=== PATIENT | male | born 1965 | race African-American/Black ===

== ENCOUNTER 2017-01-21 14:41 | Inpatient (IN) | payer MEDICARE, OTHER ==
[2017-01-21] MEDS: ALBUTEROL 0.5% (NEB) 2.5 MG/0.5 ML AMP INH (20:00)
[2017-01-21] MEDS: IPRATROPIUM (NEB) 0.5 MG/2.5 ML AMP INH (20:00)
[2017-01-21 20:28] LABS: AADO2 Arterial 192.9 mmHg (7.0-24.0); Allen Test ACCEPTAB; Arterial Base Excess -2.7 mmol/L (-3.0-3); Arterial Blood Gas Oxygen Sat 98.7 mmHG (95.0-98.0); Arterial COHb 0.6 % (0.0-3.0); Arterial Fraction of Oxyhgb 97.9 % (93.0-99.0); Arterial HCO3 19.8 mmol/L (22.0-26.0); Arterial MetHb 0.2 % (0.0-1.5); Arterial Total Hemglobin 11.3 g/dl (12.0-18.0); Arterial pCO2 27.4 mmhg (35-45); MODE MASK - SIMPLE; Site Left Radial
[2017-01-21 20:56] LABS: ADD MAN DIFF? NO
[2017-01-21 20:58] LABS: ABNORMAL IP MESSAGE 1; BASOPHIL # 0.1 10^3/ul (0.0-0.1); BASOPHILS % 0.5 % (0.0-2.0); HEMATOCRIT 24.3 % (42.0-52.0); HEMOGLOBIN 8.2 g/dl (14.0-18.0); LYMPHOCYTES # 1.6 10^3/ul (0.8-2.9); LYMPHOCYTES % 10.6 % (15.0-51.0); MEAN CORPUSCULAR HEMOGLOBIN 28.3 pg (29.0-33.0); MEAN CORPUSCULAR HGB CONC 33.7 g/dl (32.0-37.0); MEAN CORPUSCULAR VOLUME 83.8 fl (82.0-101.0); MONOCYTE # 1.7 10^3/ul (0.3-0.9); MONOCYTES % 10.8 % (0.0-11.0); NEUTROPHIL # 11.8 10^3/ul (1.6-7.5); NEUTROPHILS % 76.9 % (39.0-77.0); NUCLEATED RED BLOOD CELLS% 0.2 /100WBC (0.0-0.0); PLATELET COUNT 168 10^3/UL (140-415); POSITIVE DIFF @See below; RED CELL DISTRIBUTION WIDTH 19.8 % (11.5-14.5)
[2017-01-21 20:58] LABS: WHITE BLOOD COUNT 15.3 10^3/ul (4.8-10.8)
[2017-01-21] MEDS: IBUPROFEN 600 MG TAB PO (20:58)
[2017-01-21] MEDS: LEVOFLOXACIN 750MG/D5W (PMX) 150 ML IVPB (21:00)
[2017-01-21] MEDS: METHYLPREDNISOLONE 125 MG INJ IV (21:00)
[2017-01-21 21:16] LABS: INR 1.74; PROTIME 20.7 Sec (11.9-14.9); PT RATIO 1.6
[2017-01-21 21:17] LABS: PARTIAL THROMBOPLASTIN TIME 43.4 Sec (25.0-35.0)
[2017-01-21 21:22] LABS: ALANINE AMINOTRANSFERASE 23 IU/L (13-69); ALBUMIN 3.1 g/dl (3.3-4.9); ALBUMIN/GLOBULIN RATIO 0.86; ALKALINE PHOSPHATASE 151 IU/L (42-121); ANION GAP 18 (8-16); ASPARTATE AMINO TRANSFERASE 32 IU/L (15-46); BILIRUBIN,INDIRECT 0.2 mg/dl (0-1.1); BILIRUBIN,TOTAL 0.2 mg/dl (0.2-1.3); BLOOD UREA NITROGEN 25 mg/dl (7-20); CARBON DIOXIDE 23 mmol/L (21-31); CHLORIDE 105 mmol/L (97-110); CREATININE 4.09 mg/dl (0.61-1.24); GLUCOSE 100 mg/dl (70-220); SODIUM 141 mmol/L (135-144); TOTAL PROTEIN 6.7 g/dl (6.1-8.1)
[2017-01-21 21:27] LABS: LIPASE < 10 U/L (23-300)
[2017-01-21 21:28] LABS: POTASSIUM 5.2 mmol/L (3.5-5.1)
[2017-01-21 21:29] LABS: LACTIC ACID 2.7 mmol/L (0.5-2.0)
[2017-01-21 21:32] LABS: TROPONIN-I 0.049 ng/ml (0.00-0.12)
[2017-01-21 21:46] LABS: B-TYPE NATRIURETIC PEPTIDE 166000 PG/ML (0-125)
[2017-01-21] MEDS ORDERED: FUROSEMIDE 40 MG INJ IV (22:00)
[2017-01-21] MEDS: hydrALAzine 20 MG INJ IV (22:06)
[2017-01-21] MEDS: ENALAPRILAT 1.25 MG INJ IV (22:13)
[2017-01-21] MEDS: VANCOMYCIN 1 GM (PMX) 250 ML IVPB (22:15)
[2017-01-21] MEDS: NICARDipine HCL 30 MG CAPSULE PO (22:44)
[2017-01-21 22:47] LABS: LACTIC ACID 2.6 mmol/L (0.5-2.0)
[2017-01-22 01:58] LABS: LACTIC ACID 2.6 mmol/L (0.5-2.0)
[2017-01-22] MEDS ORDERED: VANCOMYCIN IV PER PHARMACY XX (08:30)
[2017-01-22] MEDS ORDERED: ALBUTEROL/IPRATROPIUM (NEB) 3 ML AMP HHN (08:30)
[2017-01-22] MEDS: CEFEPIME 1GM/50 ML (PMX) 50 ML IVPB (09:30)
[2017-01-22] MEDS: VANCOMYCIN 500MG/NS (PMX) 100 ML IVPB (12:55)
[2017-01-22] MEDS ORDERED: ACETAMINOPHEN 325 MG TAB PO (14:30)
[2017-01-22] MEDS: morphine 2 MG INJ IV ×2 (14:45→22:26)
[2017-01-22] MEDS: oxyCODONE (CR) 10 MG TAB [oxyCONTIN] PO (16:00)
[2017-01-22 16:19] LABS: ADD MAN DIFF? NO
[2017-01-22 16:22] LABS: ABNORMAL IP MESSAGE 1; BASOPHILS % 0.1 % (0.0-2.0); HEMATOCRIT 29.1 % (42.0-52.0); HEMOGLOBIN 10.1 g/dl (14.0-18.0); LYMPHOCYTES # 1.5 10^3/ul (0.8-2.9); LYMPHOCYTES % 7.4 % (15.0-51.0); MEAN CORPUSCULAR HEMOGLOBIN 28.6 pg (29.0-33.0); MEAN CORPUSCULAR HGB CONC 34.7 g/dl (32.0-37.0); MEAN CORPUSCULAR VOLUME 82.4 fl (82.0-101.0); MEAN PLATELET VOLUME 11.6 fl (7.4-10.4); MONOCYTE # 1.7 10^3/ul (0.3-0.9); MONOCYTES % 8.1 % (0.0-11.0); NEUTROPHIL # 17.4 10^3/ul (1.6-7.5); NEUTROPHILS % 83.7 % (39.0-77.0); NUCLEATED RED BLOOD CELLS # 0.1 10^3/ul (0.0-0.0); NUCLEATED RED BLOOD CELLS% 0.4 /100WBC (0.0-0.0); PLATELET COUNT 220 10^3/UL (140-415); POSITIVE DIFF @See below; RED BLOOD COUNT 3.53 10^6/ul (4.70-6.10); RED CELL DISTRIBUTION WIDTH 19.6 % (11.5-14.5)
[2017-01-22 16:22] LABS: WHITE BLOOD COUNT 20.7 10^3/ul (4.8-10.8)
[2017-01-22 16:40] LABS: ANION GAP 16 (8-16); BLOOD UREA NITROGEN 41 mg/dl (7-20); CALCIUM 8.1 mg/dl (8.4-10.2); CARBON DIOXIDE 20 mmol/L (21-31); CHLORIDE 105 mmol/L (97-110); CREATININE 4.67 mg/dl (0.61-1.24); GLUCOSE 359 mg/dl (70-220); SODIUM 135 mmol/L (135-144)
[2017-01-22 17:04] LABS: CHOLESTEROL 67 mg/dl (100-200)
[2017-01-22 17:04] LABS: CHOL/HDL RATIO 1.5 RATIO; HDL CHOLESTEROL 42 mg/dl (28-71); LDL CHOLESTEROL,CALCULATED 9 mg/dl; TRIGLYCERIDES 78 mg/dl (0-149)
[2017-01-22 21:57] LABS: HIV 1&2 ANTIBODY NEGATIVE (NEGATIVE)
[2017-01-22] MEDS: LEVETIRACETAM 500 MG TAB PO (22:12)
[2017-01-22] MEDS: DOXYCYCLINE 100 MG TAB PO (22:12)
[2017-01-22] MEDS: METOPROLOL 25 MG TAB PO (22:13)
[2017-01-22] MEDS: GABAPENTIN 100 MG CAP PO (22:14)
[2017-01-22] MEDS: oxyCODONE (CR) 20 MG TAB [oxyCONTIN] PO (23:40)
[2017-01-23] MEDS: PANTOPRAZOLE (EC) 40 MG TAB PO (05:12)
[2017-01-23 05:34] LABS: AADO2 Arterial 35.4 mmHg (7.0-24.0); Allen Test ACCEPTAB; Arterial Base Excess -2.1 mmol/L (-3.0-3); Arterial Blood Gas Oxygen Sat 87.4 mmHG (95.0-98.0); Arterial COHb 0.4 % (0.0-3.0); Arterial HCO3 23.6 mmol/L (22.0-26.0); Arterial MetHb 0.1 % (0.0-1.5); Arterial Total Hemglobin 10.2 g/dl (12.0-18.0); MODE ROOM AIR; Site Left Radial
[2017-01-23 08:25] LABS: ADD MAN DIFF? NO
[2017-01-23 08:31] LABS: WHITE BLOOD COUNT 16.2 10^3/ul (4.8-10.8)
[2017-01-23 08:31] LABS: ABNORMAL IP MESSAGE 1; BASOPHILS % 0.2 % (0.0-2.0); EOSINOPHILS # 0.1 10^3/ul (0.0-0.5); EOSINOPHILS % 0.3 % (0.0-7.0); HEMATOCRIT 26.2 % (42.0-52.0); HEMOGLOBIN 8.7 g/dl (14.0-18.0); LYMPHOCYTES # 1.8 10^3/ul (0.8-2.9); LYMPHOCYTES % 11.3 % (15.0-51.0); MEAN CORPUSCULAR HEMOGLOBIN 27.8 pg (29.0-33.0); MEAN CORPUSCULAR HGB CONC 33.2 g/dl (32.0-37.0); MEAN CORPUSCULAR VOLUME 83.7 fl (82.0-101.0); MEAN PLATELET VOLUME 12.5 fl (7.4-10.4); MONOCYTE # 2.4 10^3/ul (0.3-0.9); MONOCYTES % 14.7 % (0.0-11.0); NEUTROPHIL # 11.7 10^3/ul (1.6-7.5); NEUTROPHILS % 72.6 % (39.0-77.0); NUCLEATED RED BLOOD CELLS # 0.1 10^3/ul (0.0-0.0); NUCLEATED RED BLOOD CELLS% 0.4 /100WBC (0.0-0.0); PLATELET COUNT 180 10^3/UL (140-415); POSITIVE DIFF @See below; RED BLOOD COUNT 3.13 10^6/ul (4.70-6.10); RED CELL DISTRIBUTION WIDTH 19.3 % (11.5-14.5)
[2017-01-23] MEDS: oxyCODONE (CR) 20 MG TAB [oxyCONTIN] PO (08:35)
[2017-01-23] MEDS: CEFEPIME 1GM/50 ML (PMX) 50 ML IVPB (08:35)
[2017-01-23] MEDS: CALCITRIOL 0.25 MCG CAP PO (08:36)
[2017-01-23] MEDS: OLANZAPINE 5 MG TAB PO (08:36)
[2017-01-23] MEDS: LEVETIRACETAM 500 MG TAB PO ×2 (08:36→21:02)
[2017-01-23] MEDS: MULTIVIT/CA CARB/B CMPLX/FA TAB PO (08:36)
[2017-01-23] MEDS: DOXYCYCLINE 100 MG TAB PO (08:36)
[2017-01-23] MEDS: GABAPENTIN 100 MG CAP PO ×3 (08:37→21:02)
[2017-01-23] MEDS: METOPROLOL 25 MG TAB PO ×2 (08:37→21:06)
[2017-01-23 08:54] LABS: ANION GAP 14 (8-16); BLOOD UREA NITROGEN 36 mg/dl (7-20); CALCIUM 8.1 mg/dl (8.4-10.2); CARBON DIOXIDE 25 mmol/L (21-31); CHLORIDE 101 mmol/L (97-110); CREATININE 3.97 mg/dl (0.61-1.24); GLUCOSE 199 mg/dl (70-220); POTASSIUM 4.1 mmol/L (3.5-5.1); SODIUM 136 mmol/L (135-144)
[2017-01-23] MEDS ORDERED: ACETAMINOPHEN 500 MG TAB PO (10:00)
[2017-01-23] MEDS: morphine 2 MG INJ IV (12:54)
[2017-01-23] MEDS: HYDROCODONE/APAP (5/325) TAB PO (21:15)
[2017-01-24] MEDS: HYDROCODONE/APAP (5/325) TAB PO (04:42)
[2017-01-24] MEDS: PANTOPRAZOLE (EC) 40 MG TAB PO (06:17)
[2017-01-24 07:28] LABS: VANCOMYCIN,RANDOM 13.2 ug/ml
[2017-01-24] MEDS: LEVETIRACETAM 500 MG TAB PO ×2 (08:24→21:35)
[2017-01-24] MEDS: METOPROLOL 25 MG TAB PO (08:24)
[2017-01-24] MEDS: OLANZAPINE 5 MG TAB PO (08:24)
[2017-01-24] MEDS: MULTIVIT/CA CARB/B CMPLX/FA TAB PO (08:24)
[2017-01-24] MEDS: CALCITRIOL 0.25 MCG CAP PO (08:25)
[2017-01-24] MEDS: GABAPENTIN 100 MG CAP PO ×3 (08:25→21:35)
[2017-01-24] MEDS: morphine 2 MG INJ IV (08:30)
[2017-01-24] MEDS: VANCOMYCIN 1 GM in NS 250 ML IVPB (11:08)
[2017-01-24] MEDS: MUPIROCIN 2% 22 GM OINT TOP ×2 (14:56→21:35)
[2017-01-24] MEDS: hydrALAzine 20 MG INJ IV (18:46)
[2017-01-24] MEDS: METOPROLOL 50 MG TAB PO (21:00)
[2017-01-25] MEDS: morphine 2 MG INJ IV ×3 (00:19→19:02)
[2017-01-25] MEDS: PANTOPRAZOLE (EC) 40 MG TAB PO (05:27)
[2017-01-25] MEDS: LEVETIRACETAM 500 MG TAB PO ×2 (08:08→20:57)
[2017-01-25] MEDS: MULTIVIT/CA CARB/B CMPLX/FA TAB PO (08:08)
[2017-01-25] MEDS: CALCITRIOL 0.25 MCG CAP PO (08:08)
[2017-01-25] MEDS: OLANZAPINE 5 MG TAB PO (08:08)
[2017-01-25] MEDS: GABAPENTIN 100 MG CAP PO ×3 (08:08→20:57)
[2017-01-25] MEDS: MUPIROCIN 2% 22 GM OINT TOP ×2 (08:09→20:58)
[2017-01-25] MEDS: METOPROLOL 50 MG TAB PO ×2 (08:09→20:57)
[2017-01-25 09:03] LABS: ADD MAN DIFF? NO
[2017-01-25 09:13] LABS: WHITE BLOOD COUNT 10.6 10^3/ul (4.8-10.8)
[2017-01-25 09:13] LABS: ABNORMAL IP MESSAGE 1; BASOPHIL # 0.1 10^3/ul (0.0-0.1); BASOPHILS % 0.6 % (0.0-2.0); EOSINOPHILS # 0.4 10^3/ul (0.0-0.5); EOSINOPHILS % 3.8 % (0.0-7.0); HEMATOCRIT 24.7 % (42.0-52.0); HEMOGLOBIN 8.7 g/dl (14.0-18.0); LYMPHOCYTES # 2.4 10^3/ul (0.8-2.9); LYMPHOCYTES % 22.3 % (15.0-51.0); MEAN CORPUSCULAR HEMOGLOBIN 28.2 pg (29.0-33.0); MEAN CORPUSCULAR HGB CONC 35.2 g/dl (32.0-37.0); MEAN CORPUSCULAR VOLUME 80.2 fl (82.0-101.0); MEAN PLATELET VOLUME 12.2 fl (7.4-10.4); MONOCYTES % 18.9 % (0.0-11.0); NEUTROPHIL # 5.7 10^3/ul (1.6-7.5); NEUTROPHILS % 53.5 % (39.0-77.0); NUCLEATED RED BLOOD CELLS # 0.2 10^3/ul (0.0-0.0); NUCLEATED RED BLOOD CELLS% 2.2 /100WBC (0.0-0.0); PLATELET COUNT 182 10^3/UL (140-415); POSITIVE DIFF @See below; RED BLOOD COUNT 3.08 10^6/ul (4.70-6.10); RED CELL DISTRIBUTION WIDTH 18.2 % (11.5-14.5)
[2017-01-25 09:48] LABS: ANION GAP 14 (8-16); BLOOD UREA NITROGEN 41 mg/dl (7-20); CALCIUM 8.7 mg/dl (8.4-10.2); CARBON DIOXIDE 23 mmol/L (21-31); CHLORIDE 104 mmol/L (97-110); CREATININE 5.68 mg/dl (0.61-1.24); GLUCOSE 93 mg/dl (70-220); POTASSIUM 4.7 mmol/L (3.5-5.1); SODIUM 136 mmol/L (135-144)
[2017-01-25] MEDS: HYDROCODONE/APAP (5/325) TAB PO (12:07)
[2017-01-26] MEDS: morphine 2 MG INJ IV ×3 (02:47→20:57)
[2017-01-26] MEDS: PANTOPRAZOLE (EC) 40 MG TAB PO (05:59)
[2017-01-26 08:54] LABS: ADD MAN DIFF? NO
[2017-01-26 08:56] LABS: ABNORMAL IP MESSAGE 1; BASOPHIL # 0.1 10^3/ul (0.0-0.1); BASOPHILS % 0.6 % (0.0-2.0); EOSINOPHILS # 0.5 10^3/ul (0.0-0.5); EOSINOPHILS % 4.2 % (0.0-7.0); HEMATOCRIT 23.9 % (42.0-52.0); HEMOGLOBIN 8.2 g/dl (14.0-18.0); LYMPHOCYTES # 2.5 10^3/ul (0.8-2.9); LYMPHOCYTES % 20.9 % (15.0-51.0); MEAN CORPUSCULAR HEMOGLOBIN 27.9 pg (29.0-33.0); MEAN CORPUSCULAR HGB CONC 34.3 g/dl (32.0-37.0); MEAN CORPUSCULAR VOLUME 81.3 fl (82.0-101.0); MEAN PLATELET VOLUME 11.7 fl (7.4-10.4); MONOCYTE # 2.6 10^3/ul (0.3-0.9); NEUTROPHILS % 50.5 % (39.0-77.0); NUCLEATED RED BLOOD CELLS # 0.2 10^3/ul (0.0-0.0); NUCLEATED RED BLOOD CELLS% 1.8 /100WBC (0.0-0.0); PLATELET COUNT 160 10^3/UL (140-415); POSITIVE DIFF @See below; RED BLOOD COUNT 2.94 10^6/ul (4.70-6.10); RED CELL DISTRIBUTION WIDTH 18.4 % (11.5-14.5)
[2017-01-26 08:56] LABS: WHITE BLOOD COUNT 11.8 10^3/ul (4.8-10.8)
[2017-01-26 08:59] LABS: MONOCYTES % 21.8 % (0.0-11.0)
[2017-01-26] MEDS: LEVETIRACETAM 500 MG TAB PO ×2 (09:16→20:56)
[2017-01-26] MEDS: OLANZAPINE 5 MG TAB PO (09:16)
[2017-01-26] MEDS: MULTIVIT/CA CARB/B CMPLX/FA TAB PO (09:16)
[2017-01-26] MEDS: CALCITRIOL 0.25 MCG CAP PO (09:16)
[2017-01-26] MEDS: GABAPENTIN 100 MG CAP PO ×3 (09:16→20:56)
[2017-01-26] MEDS: METOPROLOL 50 MG TAB PO ×2 (09:17→20:56)
[2017-01-26] MEDS: MUPIROCIN 2% 22 GM OINT TOP ×2 (09:17→21:11)
[2017-01-26 09:25] LABS: ANION GAP 14 (8-16); BLOOD UREA NITROGEN 33 mg/dl (7-20); CALCIUM 8.1 mg/dl (8.4-10.2); CARBON DIOXIDE 25 mmol/L (21-31); CHLORIDE 100 mmol/L (97-110); CREATININE 5.25 mg/dl (0.61-1.24); GLUCOSE 109 mg/dl (70-220); POTASSIUM 3.8 mmol/L (3.5-5.1); SODIUM 135 mmol/L (135-144)
[2017-01-26] MEDS: LIDOCAINE 1% (MDV) 20 ML INJ (15:09)
[2017-01-26 15:16] LABS: PROCALCITONIN 7.19 ng/mL (<0.10)
[2017-01-27] MEDS: morphine 2 MG INJ IV ×3 (01:42→20:27)
[2017-01-27] MEDS: PANTOPRAZOLE (EC) 40 MG TAB PO (06:03)
[2017-01-27 08:24] LABS: ADD MAN DIFF? NO
[2017-01-27 08:30] LABS: WHITE BLOOD COUNT 11.9 10^3/ul (4.8-10.8)
[2017-01-27 08:30] LABS: ABNORMAL IP MESSAGE 1; BASOPHIL # 0.1 10^3/ul (0.0-0.1); EOSINOPHILS # 0.6 10^3/ul (0.0-0.5); EOSINOPHILS % 4.6 % (0.0-7.0); HEMATOCRIT 25.8 % (42.0-52.0); LYMPHOCYTES # 2.4 10^3/ul (0.8-2.9); LYMPHOCYTES % 19.9 % (15.0-51.0); MEAN CORPUSCULAR HGB CONC 34.9 g/dl (32.0-37.0); MEAN CORPUSCULAR VOLUME 80.4 fl (82.0-101.0); MEAN PLATELET VOLUME 12.7 fl (7.4-10.4); MONOCYTES % 25.3 % (0.0-11.0); NEUTROPHIL # 5.5 10^3/ul (1.6-7.5); NEUTROPHILS % 46.6 % (39.0-77.0); NUCLEATED RED BLOOD CELLS # 0.1 10^3/ul (0.0-0.0); NUCLEATED RED BLOOD CELLS% 1.1 /100WBC (0.0-0.0); PLATELET COUNT 220 10^3/UL (140-415); POSITIVE DIFF @See below; RED BLOOD COUNT 3.21 10^6/ul (4.70-6.10); RED CELL DISTRIBUTION WIDTH 18.4 % (11.5-14.5)
[2017-01-27 08:47] LABS: LACTIC ACID 1.5 mmol/L (0.5-2.0)
[2017-01-27 08:51] LABS: ANION GAP 15 (8-16); BLOOD UREA NITROGEN 41 mg/dl (7-20); CALCIUM 8.4 mg/dl (8.4-10.2); CARBON DIOXIDE 23 mmol/L (21-31); CHLORIDE 101 mmol/L (97-110); CREATININE 5.88 mg/dl (0.61-1.24); GLUCOSE 96 mg/dl (70-220); POTASSIUM 4.3 mmol/L (3.5-5.1); SODIUM 135 mmol/L (135-144)
[2017-01-27 08:56] LABS: VANCOMYCIN,RANDOM 17.9 ug/ml
[2017-01-27] MEDS: HYDROCODONE/APAP (5/325) TAB PO (09:07)
[2017-01-27] MEDS: CALCITRIOL 0.25 MCG CAP PO (09:07)
[2017-01-27] MEDS: LEVETIRACETAM 500 MG TAB PO ×2 (09:07→20:57)
[2017-01-27] MEDS: MUPIROCIN 2% 22 GM OINT TOP ×2 (09:08→20:58)
[2017-01-27] MEDS: MULTIVIT/CA CARB/B CMPLX/FA TAB PO (09:08)
[2017-01-27] MEDS: GABAPENTIN 100 MG CAP PO ×3 (09:08→20:58)
[2017-01-27] MEDS: OLANZAPINE 5 MG TAB PO (09:08)
[2017-01-27] MEDS: METOPROLOL 50 MG TAB PO ×2 (09:09→20:58)
[2017-01-27] MEDS: hydrALAzine 20 MG INJ IV (18:05)
[2017-01-27] MEDS: VANCOMYCIN 750 MG in DEXTROSE 5% 150 ML IVPB (20:14)
[2017-01-27 20:37] LABS: PROCALCITONIN 10.49 ng/mL (<0.10)
[2017-01-28] MEDS: morphine 2 MG INJ IV ×4 (00:35→21:01)
[2017-01-28] MEDS: PANTOPRAZOLE (EC) 40 MG TAB PO (05:34)
[2017-01-28] MEDS: MULTIVIT/CA CARB/B CMPLX/FA TAB PO (08:26)
[2017-01-28] MEDS: LEVETIRACETAM 500 MG TAB PO ×2 (08:27→21:05)
[2017-01-28] MEDS: OLANZAPINE 5 MG TAB PO (08:27)
[2017-01-28] MEDS: CALCITRIOL 0.25 MCG CAP PO (08:27)
[2017-01-28] MEDS: GABAPENTIN 100 MG CAP PO ×3 (08:27→21:05)
[2017-01-28] MEDS: METOPROLOL 50 MG TAB PO ×2 (08:28→21:05)
[2017-01-28] MEDS: MUPIROCIN 2% 22 GM OINT TOP ×2 (08:44→21:08)
[2017-01-28 09:29] LABS: ADD MAN DIFF? NO
[2017-01-28 09:41] LABS: ABNORMAL IP MESSAGE 1; BASOPHIL # 0.1 10^3/ul (0.0-0.1); BASOPHILS % 1.1 % (0.0-2.0); EOSINOPHILS # 0.6 10^3/ul (0.0-0.5); EOSINOPHILS % 4.4 % (0.0-7.0); HEMATOCRIT 24.9 % (42.0-52.0); LYMPHOCYTES # 2.8 10^3/ul (0.8-2.9); LYMPHOCYTES % 21.3 % (15.0-51.0); MEAN CORPUSCULAR HEMOGLOBIN 28.5 pg (29.0-33.0); MEAN CORPUSCULAR HGB CONC 36.1 g/dl (32.0-37.0); MEAN CORPUSCULAR VOLUME 78.8 fl (82.0-101.0); MEAN PLATELET VOLUME 12.3 fl (7.4-10.4); MONOCYTE # 3.4 10^3/ul (0.3-0.9); MONOCYTES % 26.1 % (0.0-11.0); NEUTROPHIL # 5.9 10^3/ul (1.6-7.5); NUCLEATED RED BLOOD CELLS # 0.1 10^3/ul (0.0-0.0); NUCLEATED RED BLOOD CELLS% 0.6 /100WBC (0.0-0.0); PLATELET COUNT 300 10^3/UL (140-415); POSITIVE DIFF @See below; RED BLOOD COUNT 3.16 10^6/ul (4.70-6.10); RED CELL DISTRIBUTION WIDTH 17.8 % (11.5-14.5)
[2017-01-28 09:41] LABS: WHITE BLOOD COUNT 13.1 10^3/ul (4.8-10.8)
[2017-01-28 10:01] LABS: ANION GAP 18 (8-16); BLOOD UREA NITROGEN 46 mg/dl (7-20); CALCIUM 8.7 mg/dl (8.4-10.2); CARBON DIOXIDE 24 mmol/L (21-31); CHLORIDE 102 mmol/L (97-110); CREATININE 6.37 mg/dl (0.61-1.24); GLUCOSE 89 mg/dl (70-220); POTASSIUM 4.6 mmol/L (3.5-5.1); SODIUM 139 mmol/L (135-144)
[2017-01-28] MEDS ORDERED: LIDOCAINE 1% (MDV) 20 ML INJ (10:56)
[2017-01-28] MEDS ORDERED: HEPARIN 1000 UNITS/ML 10 ML INJ (10:56)
[2017-01-28] MEDS ORDERED: IODIXANOL LOCM 100 ML BTL (10:56)
[2017-01-28] MEDS ORDERED: FENTAnyl 50 MCG/ML VIAL (10:57)
[2017-01-28] MEDS ORDERED: MIDAZOLAM 1 MG/ML 2 ML INJ (10:57)
[2017-01-28] MEDS: HYDROCODONE/APAP (5/325) TAB PO (16:13)
[2017-01-28] MEDS: APIXABAN 5 MG TABLET PO (21:05)
[2017-01-29] MEDS: morphine 2 MG INJ IV ×4 (03:29→21:16)
[2017-01-29] MEDS: PANTOPRAZOLE (EC) 40 MG TAB PO (06:03)
[2017-01-29] MEDS: OLANZAPINE 5 MG TAB PO (08:29)
[2017-01-29] MEDS: LEVETIRACETAM 500 MG TAB PO ×2 (08:29→21:17)
[2017-01-29] MEDS: APIXABAN 5 MG TABLET PO ×2 (08:29→21:17)
[2017-01-29] MEDS: MULTIVIT/CA CARB/B CMPLX/FA TAB PO (08:30)
[2017-01-29] MEDS: GABAPENTIN 100 MG CAP PO ×3 (08:30→21:18)
[2017-01-29] MEDS: CALCITRIOL 0.25 MCG CAP PO (08:30)
[2017-01-29] MEDS: METOPROLOL 50 MG TAB PO ×2 (08:32→21:17)
[2017-01-29] MEDS: MUPIROCIN 2% 22 GM OINT TOP ×2 (08:33→21:18)
[2017-01-30] MEDS: morphine 2 MG INJ IV ×4 (01:27→18:32)
[2017-01-30] MEDS: PANTOPRAZOLE (EC) 40 MG TAB PO (05:53)
[2017-01-30] MEDS: MULTIVIT/CA CARB/B CMPLX/FA TAB PO (08:57)
[2017-01-30] MEDS: LEVETIRACETAM 500 MG TAB PO ×2 (08:58→21:20)
[2017-01-30] MEDS: OLANZAPINE 5 MG TAB PO (08:58)
[2017-01-30] MEDS: CALCITRIOL 0.25 MCG CAP PO (08:58)
[2017-01-30] MEDS: GABAPENTIN 100 MG CAP PO ×3 (08:58→21:20)
[2017-01-30] MEDS: METOPROLOL 50 MG TAB PO ×2 (08:59→21:21)
[2017-01-30] MEDS: MUPIROCIN 2% 22 GM OINT TOP ×2 (08:59→21:21)
[2017-01-30] MEDS: APIXABAN 5 MG TABLET PO ×2 (08:59→21:21)
[2017-01-31] MEDS: morphine 2 MG INJ IV ×5 (02:34→21:34)
[2017-01-31] MEDS: PANTOPRAZOLE (EC) 40 MG TAB PO (06:02)
[2017-01-31 06:20] LABS: ABNORMAL IP MESSAGE 1; MEAN CORPUSCULAR HEMOGLOBIN 28.1 pg (29.0-33.0); MEAN CORPUSCULAR VOLUME 80.3 fl (82.0-101.0); MEAN PLATELET VOLUME 10.7 fl (7.4-10.4); NUCLEATED RED BLOOD CELLS% 0.2 /100WBC (0.0-0.0); PLATELET COUNT 280 10^3/UL (140-415); POSITIVE DIFF @See below; RED BLOOD COUNT 2.49 10^6/ul (4.70-6.10); RED CELL DISTRIBUTION WIDTH 17.2 % (11.5-14.5)
[2017-01-31 06:20] LABS: WHITE BLOOD COUNT 10.8 10^3/ul (4.8-10.8)
[2017-01-31 06:42] LABS: ADD MAN DIFF? YES
[2017-01-31 06:48] LABS: ANION GAP 15 (8-16); BLOOD UREA NITROGEN 37 mg/dl (7-20); CALCIUM 8.9 mg/dl (8.4-10.2); CARBON DIOXIDE 24 mmol/L (21-31); CHLORIDE 104 mmol/L (97-110); CREATININE 5.68 mg/dl (0.61-1.24); GLUCOSE 91 mg/dl (70-220); POTASSIUM 4.7 mmol/L (3.5-5.1); SODIUM 138 mmol/L (135-144)
[2017-01-31 07:10] LABS: VANCOMYCIN,RANDOM 15.6 ug/ml
[2017-01-31] MEDS: MULTIVIT/CA CARB/B CMPLX/FA TAB PO (08:30)
[2017-01-31] MEDS: GABAPENTIN 100 MG CAP PO ×3 (08:31→21:01)
[2017-01-31] MEDS: OLANZAPINE 5 MG TAB PO (08:31)
[2017-01-31] MEDS: LEVETIRACETAM 500 MG TAB PO ×2 (08:31→21:32)
[2017-01-31] MEDS: APIXABAN 5 MG TABLET PO ×2 (08:31→21:03)
[2017-01-31] MEDS: METOPROLOL 50 MG TAB PO ×2 (08:32→21:03)
[2017-01-31] MEDS: MUPIROCIN 2% 22 GM OINT TOP ×2 (08:32→21:03)
[2017-01-31 08:47] LABS: ANISOCYTOSIS 3+ (0-0); BAND NEUTROPHILS #M 0.2 10^3/ul (0.0-0.6); BAND NEUTROPHILS % (M) 2 % (0-4); BASOPHIL #M 0.4 10^3/ul (0.0-0.0); BASOPHILS % (M) 4 % (0-2); EOSINOPHILS % (M) 2 % (0-7); GIANT THROMBO% (M) 3 % (0-0); HYPOCHROMASIA 1+ (0-0); LYMPHOCYTES #M 3.5 10^3/ul (0.8-2.9); LYMPHOCYTES % (M) 33 % (15-51); MONOCYTE #M 1.6 10^3/ul (0.3-0.9); MONOCYTES % (M) 15 % (0-11); PLATELET ESTIMATE NORMAL; POIKILOCYTOSIS 1+ (0-0); POLYCHROMASIA 3+ (0-0); SEG NEUT #M 4.9 10^3/ul (1.7-7.5); SEGMENTED NEUTROPHILS (M) % 45 % (39-77); SMUDGE%M 2 % (0-0)
[2017-01-31] MEDS: CALCITRIOL 0.25 MCG CAP PO (09:00)
[2017-01-31 10:14] LABS: ADD MAN DIFF? NO
[2017-01-31 10:25] LABS: WHITE BLOOD COUNT 12.7 10^3/ul (4.8-10.8)
[2017-01-31 10:25] LABS: ABNORMAL IP MESSAGE 1; BASOPHIL # 0.2 10^3/ul (0.0-0.1); BASOPHILS % 1.2 % (0.0-2.0); EOSINOPHILS # 0.5 10^3/ul (0.0-0.5); HEMATOCRIT 22.4 % (42.0-52.0); HEMOGLOBIN 7.6 g/dl (14.0-18.0); LYMPHOCYTES # 3.4 10^3/ul (0.8-2.9); LYMPHOCYTES % 27.2 % (15.0-51.0); MEAN CORPUSCULAR HEMOGLOBIN 27.8 pg (29.0-33.0); MEAN CORPUSCULAR HGB CONC 33.9 g/dl (32.0-37.0); MEAN CORPUSCULAR VOLUME 82.1 fl (82.0-101.0); MEAN PLATELET VOLUME 11.4 fl (7.4-10.4); MONOCYTE # 2.1 10^3/ul (0.3-0.9); MONOCYTES % 16.8 % (0.0-11.0); NEUTROPHIL # 6.3 10^3/ul (1.6-7.5); NEUTROPHILS % 49.9 % (39.0-77.0); PLATELET COUNT 321 10^3/UL (140-415); POSITIVE DIFF @See below; RED BLOOD COUNT 2.73 10^6/ul (4.70-6.10); RED CELL DISTRIBUTION WIDTH 17.2 % (11.5-14.5)
[2017-01-31] MEDS: VANCOMYCIN 1 GM in SOD CHLORIDE 0.9% 250 ML IVPB (16:25)
[2017-02-01] MEDS: morphine 2 MG INJ IV ×4 (04:46→21:48)
[2017-02-01] MEDS: PANTOPRAZOLE (EC) 40 MG TAB PO (05:29)
[2017-02-01 07:21] LABS: ADD MAN DIFF? NO
[2017-02-01 07:22] LABS: WHITE BLOOD COUNT 11.1 10^3/ul (4.8-10.8)
[2017-02-01 07:22] LABS: ABNORMAL IP MESSAGE 1; BASOPHIL # 0.1 10^3/ul (0.0-0.1); BASOPHILS % 1.1 % (0.0-2.0); EOSINOPHILS # 0.5 10^3/ul (0.0-0.5); EOSINOPHILS % 4.3 % (0.0-7.0); HEMATOCRIT 21.4 % (42.0-52.0); HEMOGLOBIN 7.4 g/dl (14.0-18.0); LYMPHOCYTES # 2.7 10^3/ul (0.8-2.9); LYMPHOCYTES % 24.7 % (15.0-51.0); MEAN CORPUSCULAR HEMOGLOBIN 28.2 pg (29.0-33.0); MEAN CORPUSCULAR HGB CONC 34.6 g/dl (32.0-37.0); MEAN CORPUSCULAR VOLUME 81.7 fl (82.0-101.0); MEAN PLATELET VOLUME 10.9 fl (7.4-10.4); MONOCYTE # 1.6 10^3/ul (0.3-0.9); MONOCYTES % 14.8 % (0.0-11.0); NEUTROPHILS % 54.3 % (39.0-77.0); PLATELET COUNT 336 10^3/UL (140-415); POSITIVE DIFF @See below; RED BLOOD COUNT 2.62 10^6/ul (4.70-6.10); RED CELL DISTRIBUTION WIDTH 17.1 % (11.5-14.5)
[2017-02-01] MEDS: METOPROLOL 50 MG TAB PO ×2 (08:21→21:47)
[2017-02-01] MEDS: MULTIVIT/CA CARB/B CMPLX/FA TAB PO (08:21)
[2017-02-01] MEDS: LEVETIRACETAM 500 MG TAB PO ×2 (08:21→21:46)
[2017-02-01] MEDS: APIXABAN 5 MG TABLET PO ×2 (08:21→21:46)
[2017-02-01] MEDS: OLANZAPINE 5 MG TAB PO (08:21)
[2017-02-01] MEDS: GABAPENTIN 100 MG CAP PO ×3 (08:21→21:46)
[2017-02-01 08:31] LABS: ANION GAP 17 (8-16); BLOOD UREA NITROGEN 43 mg/dl (7-20); CALCIUM 9.4 mg/dl (8.4-10.2); CARBON DIOXIDE 24 mmol/L (21-31); CHLORIDE 104 mmol/L (97-110); CREATININE 6.57 mg/dl (0.61-1.24); GLUCOSE 84 mg/dl (70-220); POTASSIUM 5.1 mmol/L (3.5-5.1); SODIUM 140 mmol/L (135-144)
[2017-02-01] MEDS: CALCITRIOL 0.25 MCG CAP PO (09:00)
[2017-02-01] MEDS: AMLODIPINE 2.5 MG TAB PO (13:30)
[2017-02-01] MEDS: MUPIROCIN 2% 22 GM OINT TOP ×2 (13:32→21:46)
[2017-02-02] MEDS: morphine 2 MG INJ IV ×4 (04:55→22:20)
[2017-02-02] MEDS: PANTOPRAZOLE (EC) 40 MG TAB PO (05:46)
[2017-02-02] MEDS: MULTIVIT/CA CARB/B CMPLX/FA TAB PO (08:27)
[2017-02-02] MEDS: GABAPENTIN 100 MG CAP PO ×3 (08:27→20:52)
[2017-02-02] MEDS: AMLODIPINE 2.5 MG TAB PO (08:27)
[2017-02-02] MEDS: LEVETIRACETAM 500 MG TAB PO ×2 (08:27→20:52)
[2017-02-02] MEDS: APIXABAN 5 MG TABLET PO ×2 (08:27→20:52)
[2017-02-02] MEDS: METOPROLOL 50 MG TAB PO ×2 (08:27→20:53)
[2017-02-02] MEDS: OLANZAPINE 5 MG TAB PO (08:27)
[2017-02-02] MEDS: CALCITRIOL 0.25 MCG CAP PO (08:28)
[2017-02-02] MEDS: MUPIROCIN 2% 22 GM OINT TOP ×2 (08:28→20:53)
[2017-02-03] MEDS: morphine 2 MG INJ IV ×3 (02:24→20:46)
[2017-02-03] MEDS: PANTOPRAZOLE (EC) 40 MG TAB PO (05:47)
[2017-02-03] MEDS: AMLODIPINE 2.5 MG TAB PO (08:34)
[2017-02-03] MEDS: METOPROLOL 50 MG TAB PO ×2 (08:34→20:01)
[2017-02-03] MEDS: OLANZAPINE 5 MG TAB PO (09:00)
[2017-02-03] MEDS: MULTIVIT/CA CARB/B CMPLX/FA TAB PO (09:00)
[2017-02-03] MEDS: GABAPENTIN 100 MG CAP PO ×3 (09:00→20:01)
[2017-02-03] MEDS: APIXABAN 5 MG TABLET PO ×2 (09:00→20:01)
[2017-02-03] MEDS: LEVETIRACETAM 500 MG TAB PO ×2 (09:00→20:01)
[2017-02-03] MEDS: MUPIROCIN 2% 22 GM OINT TOP ×2 (09:00→20:02)
[2017-02-03] MEDS: CALCITRIOL 0.25 MCG CAP PO (09:00)
[2017-02-04] MEDS: morphine 2 MG INJ IV ×3 (01:15→14:16)
[2017-02-04] MEDS: PANTOPRAZOLE (EC) 40 MG TAB PO ×2 (05:43→06:13)
[2017-02-04] MEDS: CALCITRIOL 0.25 MCG CAP PO (09:31)
[2017-02-04] MEDS: APIXABAN 5 MG TABLET PO (09:31)
[2017-02-04] MEDS: MULTIVIT/CA CARB/B CMPLX/FA TAB PO (09:32)
[2017-02-04] MEDS: LEVETIRACETAM 500 MG TAB PO (09:32)
[2017-02-04] MEDS: OLANZAPINE 5 MG TAB PO (09:32)
[2017-02-04] MEDS: GABAPENTIN 100 MG CAP PO ×2 (09:32→13:39)
[2017-02-04] MEDS: METOPROLOL 50 MG TAB PO (09:33)
[2017-02-04] MEDS: AMLODIPINE 2.5 MG TAB PO (09:33)
[2017-02-04] MEDS: MUPIROCIN 2% 22 GM OINT TOP (09:34)
[2017-02-04] MEDS: VANCOMYCIN 1 GM 250 ML IVPB (14:15)
== END 2017-02-04 16:25 | disposition home or self-care (01) | DRG 314 ==
LOC: TEL 21:57 → MS2 02-03 21:04 → E/R 14:41
PROC: 0JHL3XZ Insertion of Tunneled Vascular Access Device into Right Upper Leg Subcutaneous Tissue and Fascia, Percutaneous Approach (ICD-10-PCS; principal; 2017-01-28 10:30)
PROC: 02HV33Z Insertion of Infusion Device into Superior Vena Cava, Percutaneous Approach (ICD-10-PCS; 2017-01-28 10:30)
PROC: B518YZA Fluoroscopy of Superior Vena Cava using Other Contrast, Guidance (ICD-10-PCS; 2017-01-28 10:30)
PROC: B50 Imaging, Veins, Plain Radiography (ICD-10-PCS; 2017-01-28 10:30)
PROC: 0WP8X3Z Removal of Infusion Device from Chest Wall, External Approach (ICD-10-PCS; 2017-01-28 10:40)
PROC: 5A1D70Z Performance of Urinary Filtration, Intermittent, Less than 6 Hours Per Day (ICD-10-PCS; 2017-01-28 10:40)
PROC: 5A1D70Z Performance of Urinary Filtration, Intermittent, Less than 6 Hours Per Day (ICD-10-PCS; 2017-01-28 10:40)
PROC: 5A1D70Z Performance of Urinary Filtration, Intermittent, Less than 6 Hours Per Day (ICD-10-PCS; 2017-01-28 10:40)
PROC: 5A1D70Z Performance of Urinary Filtration, Intermittent, Less than 6 Hours Per Day (ICD-10-PCS; 2017-01-28 10:40)
PROC: 5A1D70Z Performance of Urinary Filtration, Intermittent, Less than 6 Hours Per Day (ICD-10-PCS; 2017-01-28 10:40)
PROC: 5A1D70Z Performance of Urinary Filtration, Intermittent, Less than 6 Hours Per Day (ICD-10-PCS; 2017-01-28 10:40)
DX: T82.7XXA Infection and inflammatory reaction due to other cardiac and vascular devices, implants and grafts, initial encounter (principal); A41.02 Sepsis due to Methicillin resistant Staphylococcus aureus; N18.6 End stage renal disease; G93.41 Metabolic encephalopathy; I50.41 Acute combined systolic (congestive) and diastolic (congestive) heart failure; J18.9 Pneumonia, unspecified organism; J96.01 Acute respiratory failure with hypoxia; J96.02 Acute respiratory failure with hypercapnia; I82.403 Acute embolism and thrombosis of unspecified deep veins of lower extremity, bilateral; R65.20 Severe sepsis without septic shock; I82.412 Acute embolism and thrombosis of left femoral vein; I13.2 Hypertensive heart and chronic kidney disease with heart failure and with stage 5 chronic kidney disease, or end stage renal disease; I16.1 Hypertensive emergency; I87.1 Compression of vein; N39.0 Urinary tract infection, site not specified; I82.C13 Acute embolism and thrombosis of internal jugular vein, bilateral; L89.159 Pressure ulcer of sacral region, unspecified stage; Y83.9 Surgical procedure, unspecified as the cause of abnormal reaction of the patient, or of later complication, without mention of misadventure at the time of the procedure; Z99.2 Dependence on renal dialysis; E87.5 Hyperkalemia; F17.200 Nicotine dependence, unspecified, uncomplicated; N35.9 Urethral stricture, unspecified; D63.8 Anemia in other chronic diseases classified elsewhere; Z86.718 Personal history of other venous thrombosis and embolism; J44.9 Chronic obstructive pulmonary disease, unspecified; Z90.81 Acquired absence of spleen; M48.061 Spinal stenosis, lumbar region without neurogenic claudication; F32.9 Major depressive disorder, single episode, unspecified; G40.909 Epilepsy, unspecified, not intractable, without status epilepticus
CPT/HCPCS: 36415; 36590; 36600; 70450; 71010; 75822; 80048; 80053; 80061; 80202; 81240; 82803; 83605; 83690; 83880; 83890; 84145; 84484; 85025; 85300; 85302; 85305; 85610; 85613; 85730; 86146; 86147; 86703; 86756; 86850; 86900; 86901; 87040; 87070; 87081; 87400; 90935; 93005; 93306; 93923; 93970; 94644; 96374; 96375; 99291-25

== ENCOUNTER 2017-02-25 09:54 | Inpatient (IN) | payer MEDICARE, OTHER ==
[2017-02-25] MEDS: SODIUM CHLORIDE 0.9% 1L BAG IV* (11:53)
[2017-02-25] MEDS: CEFEPIME 2GM/50 ML (PMX) 50 ML IVPB (11:54)
[2017-02-25 12:17] LABS: ABNORMAL IP MESSAGE 1; HEMATOCRIT 27.4 % (42.0-52.0); HEMOGLOBIN 9.2 g/dl (14.0-18.0); MEAN CORPUSCULAR HEMOGLOBIN 29.7 pg (29.0-33.0); MEAN CORPUSCULAR HGB CONC 33.6 g/dl (32.0-37.0); MEAN CORPUSCULAR VOLUME 88.4 fl (82.0-101.0); MEAN PLATELET VOLUME 10.1 fl (7.4-10.4); NUCLEATED RED BLOOD CELLS% 1.1 /100WBC (0.0-0.0); PLATELET COUNT 274 10^3/UL (140-415); POSITIVE DIFF @See below; RED CELL DISTRIBUTION WIDTH 19.1 % (11.5-14.5)
[2017-02-25 12:17] LABS: WHITE BLOOD COUNT 8.4 10^3/ul (4.8-10.8)
[2017-02-25 12:24] LABS: ADD MAN DIFF? YES
[2017-02-25 12:42] LABS: AMMONIA 25 umol/l (9-30)
[2017-02-25 12:43] LABS: ALANINE AMINOTRANSFERASE 25 IU/L (13-69); ALBUMIN 3.4 g/dl (3.3-4.9); ALBUMIN/GLOBULIN RATIO 0.94; ALKALINE PHOSPHATASE 103 IU/L (42-121); ANION GAP 17 (8-16); ASPARTATE AMINO TRANSFERASE 39 IU/L (15-46); BLOOD UREA NITROGEN 36 mg/dl (7-20); CALCIUM 9.1 mg/dl (8.4-10.2); CARBON DIOXIDE 23 mmol/L (21-31); CHLORIDE 106 mmol/L (97-110); CREATININE 5.21 mg/dl (0.61-1.24); GLUCOSE 73 mg/dl (70-220); POTASSIUM 4.5 mmol/L (3.5-5.1); SODIUM 141 mmol/L (135-144)
[2017-02-25 12:46] LABS: ANISOCYTOSIS 3+ (0-0); BAND NEUTROPHILS % (M) 1 % (0-4); BASOPHIL #M 0.3 10^3/ul (0.0-0.0); BASOPHILS % (M) 4 % (0-2); EOSINOPHILS % (M) 4 % (0-7); ERYTHROBLAST% (NRBC) (M) 3 % (0-0); GIANT THROMBO% (M) 6 % (0-0); LYMPHOCYTES % (M) 48 % (15-51); MONOCYTE #M 0.3 10^3/ul (0.3-0.9); MONOCYTES % (M) 4 % (0-11); PLATELET ESTIMATE NORMAL; POIKILOCYTOSIS 1+ (0-0); POLYCHROMASIA 1+ (0-0); REACTIVE LYMPHOCYTES #M 0.4 10^3/ul (0.0-0.0); REACTIVE LYMPHOCYTES% (M) 5 % (0-0); SEG NEUT #M 2.9 10^3/ul (1.7-7.5); SEGMENTED NEUTROPHILS (M) % 34 % (39-77); SMUDGE%M 6 % (0-0); TARGET CELLS 1+ (0-0)
[2017-02-25 12:50] LABS: INR 1.16; PT RATIO 1.2
[2017-02-25 12:51] LABS: PARTIAL THROMBOPLASTIN TIME 32.5 Sec (25.0-35.0)
[2017-02-25] MEDS: VANCOMYCIN 1 GM (PMX) 250 ML IVPB (12:55)
[2017-02-25] MEDS: DIPHENHYDRAMINE 50 MG INJ IV (13:10)
[2017-02-25] MEDS: hydrALAzine 20 MG INJ IV (13:12)
[2017-02-25 13:27] LABS: ADD UMIC YES; UR ASCORBIC ACID NEGATIVE (NEGATIVE); UR BACTERIA FEW /HPF (NONE SEEN); UR BILIRUBIN (Dip) NEGATIVE (NEGATIVE); UR BLOOD (Dip) 3+ mg/dL (NEGATIVE); UR CLARITY SLIGHTLY CLOUDY (CLEAR); UR COLOR YELLOW (YELLOW); UR GLUCOSE (Dip) NEGATIVE (NEGATIVE); UR KETONES (Dip) NEGATIVE (NEGATIVE); UR LEUKOCYTE ESTERASE (Dip) NEGATIVE Leu/ul (NEGATIVE); UR NITRITE (Dip) NEGATIVE (NEGATIVE); UR RBC 146 /HPF (0-5); UR SPECIFIC GRAVITY (Dip) 1.012 (1.003-1.030); UR SQUAMOUS EPITHELIAL CELL FEW /HPF (FEW); UR TOTAL PROTEIN (Dip) 2+ mg/dl (NEGATIVE); UR UROBILINOGEN (Dip) NEGATIVE (NEGATIVE); UR WBC 43 /HPF (0-5)
[2017-02-25] MEDS ORDERED: ONDANSETRON 4 MG INJ IV (13:30)
[2017-02-25] MEDS ORDERED: ACETAMINOPHEN 325 MG TAB PO ×2 (13:30→18:30)
[2017-02-25] MEDS ORDERED: VANCOMYCIN IV PER PHARMACY XX (15:30)
[2017-02-25] MEDS ORDERED: ZOLPIDEM 5 MG TAB PO (18:30)
[2017-02-25] MEDS ORDERED: HEPARIN 1000 UNITS/ML 10 ML INJ (19:47)
[2017-02-25] MEDS: HYDROCODONE/APAP (5/325) TAB PO (23:12)
[2017-02-25] MEDS: FAMOTIDINE 20 MG TAB PO (23:16)
[2017-02-25] MEDS: DOCUSATE SODIUM 100 MG CAP PO (23:16)
[2017-02-26] MEDS: METOPROLOL 25 MG TAB PO ×2 (01:13→09:00)
[2017-02-26] MEDS: LEVETIRACETAM 500 MG TAB PO ×2 (01:13→09:50)
[2017-02-26] MEDS: ATORVASTATIN 40 MG TAB PO (01:14)
[2017-02-26 05:36] LABS: ADD MAN DIFF? NO
[2017-02-26 05:49] LABS: WHITE BLOOD COUNT 6.7 10^3/ul (4.8-10.8)
[2017-02-26 05:49] LABS: BASOPHIL # 0.1 10^3/ul (0.0-0.1); BASOPHILS % 2.1 % (0.0-2.0); EOSINOPHILS # 0.4 10^3/ul (0.0-0.5); EOSINOPHILS % 6.1 % (0.0-7.0); HEMATOCRIT 24.4 % (42.0-52.0); HEMOGLOBIN 8.4 g/dl (14.0-18.0); LYMPHOCYTES # 1.7 10^3/ul (0.8-2.9); LYMPHOCYTES % 24.8 % (15.0-51.0); MEAN CORPUSCULAR HEMOGLOBIN 29.7 pg (29.0-33.0); MEAN CORPUSCULAR HGB CONC 34.4 g/dl (32.0-37.0); MEAN CORPUSCULAR VOLUME 86.2 fl (82.0-101.0); MEAN PLATELET VOLUME 10.6 fl (7.4-10.4); MONOCYTE # 1.2 10^3/ul (0.3-0.9); MONOCYTES % 18.1 % (0.0-11.0); NEUTROPHIL # 3.3 10^3/ul (1.6-7.5); NEUTROPHILS % 48.6 % (39.0-77.0); NUCLEATED RED BLOOD CELLS # 0.1 10^3/ul (0.0-0.0); PLATELET COUNT 248 10^3/UL (140-415); RED BLOOD COUNT 2.83 10^6/ul (4.70-6.10); RED CELL DISTRIBUTION WIDTH 18.5 % (11.5-14.5)
[2017-02-26 06:33] LABS: ALANINE AMINOTRANSFERASE 27 IU/L (13-69); ALBUMIN 3.2 g/dl (3.3-4.9); ALKALINE PHOSPHATASE 94 IU/L (42-121); ANION GAP 19 (8-16); ASPARTATE AMINO TRANSFERASE 31 IU/L (15-46); BLOOD UREA NITROGEN 34 mg/dl (7-20); CALCIUM 8.4 mg/dl (8.4-10.2); CARBON DIOXIDE 18 mmol/L (21-31); CHLORIDE 112 mmol/L (97-110); CREATININE 5.21 mg/dl (0.61-1.24); GLUCOSE 94 mg/dl (70-220); MAGNESIUM 1.8 mg/dl (1.7-2.5); POTASSIUM 4.5 mmol/L (3.5-5.1); SODIUM 144 mmol/L (135-144); TOTAL PROTEIN 6.4 g/dl (6.1-8.1)
[2017-02-26] MEDS: CEFEPIME 1GM/50 ML (PMX) 50 ML IVPB (09:48)
[2017-02-26] MEDS: CYANOCOBALAMIN 500 MCG TAB PO (09:50)
[2017-02-26] MEDS: OLANZAPINE 5 MG TAB PO (09:50)
[2017-02-26] MEDS: CALCITRIOL 0.25 MCG CAP PO (09:50)
[2017-02-26] MEDS: MULTIVIT/CA CARB/B CMPLX/FA TAB PO (09:50)
[2017-02-26] MEDS: HYDROCODONE/APAP (5/325) TAB PO (10:17)
[2017-02-27] MEDS: LORAZEPAM 2 MG INJ IV ×7 (00:25→23:08)
[2017-02-27 06:49] LABS: ADD MAN DIFF? NO
[2017-02-27 07:00] LABS: WHITE BLOOD COUNT 5.3 10^3/ul (4.8-10.8)
[2017-02-27 07:00] LABS: BASOPHIL # 0.1 10^3/ul (0.0-0.1); BASOPHILS % 2.1 % (0.0-2.0); EOSINOPHILS # 0.2 10^3/ul (0.0-0.5); EOSINOPHILS % 4.2 % (0.0-7.0); LYMPHOCYTES # 1.3 10^3/ul (0.8-2.9); LYMPHOCYTES % 25.3 % (15.0-51.0); MEAN CORPUSCULAR HEMOGLOBIN 29.3 pg (29.0-33.0); MEAN CORPUSCULAR HGB CONC 34.6 g/dl (32.0-37.0); MEAN CORPUSCULAR VOLUME 84.7 fl (82.0-101.0); MEAN PLATELET VOLUME 10.1 fl (7.4-10.4); MONOCYTE # 0.9 10^3/ul (0.3-0.9); NEUTROPHIL # 2.7 10^3/ul (1.6-7.5); NEUTROPHILS % 51.2 % (39.0-77.0); NUCLEATED RED BLOOD CELLS% 0.8 /100WBC (0.0-0.0); PLATELET COUNT 222 10^3/UL (140-415); RED BLOOD COUNT 3.07 10^6/ul (4.70-6.10); RED CELL DISTRIBUTION WIDTH 17.5 % (11.5-14.5)
[2017-02-27 07:17] LABS: VANCOMYCIN,RANDOM 9.1 ug/ml
[2017-02-27 07:18] LABS: ANION GAP 15 (8-16); BLOOD UREA NITROGEN 16 mg/dl (7-20); CALCIUM 8.7 mg/dl (8.4-10.2); CARBON DIOXIDE 26 mmol/L (21-31); CHLORIDE 105 mmol/L (97-110); CREATININE 2.62 mg/dl (0.61-1.24); GLUCOSE 77 mg/dl (70-220); POTASSIUM 3.6 mmol/L (3.5-5.1); SODIUM 142 mmol/L (135-144)
[2017-02-27 08:03] LABS: HEPATITIS B SURFACE ANTIGEN NEGATIVE (NEGATIVE)
[2017-02-27] MEDS: CYANOCOBALAMIN 500 MCG TAB PO (08:09)
[2017-02-27] MEDS: METOPROLOL 25 MG TAB PO ×3 (08:09→21:00)
[2017-02-27] MEDS: MULTIVIT/CA CARB/B CMPLX/FA TAB PO (08:10)
[2017-02-27] MEDS: LEVETIRACETAM 500 MG TAB PO ×3 (08:10→21:00)
[2017-02-27] MEDS: OLANZAPINE 5 MG TAB PO (08:10)
[2017-02-27 08:20] LABS: HEPATITIS B SURFACE ANTIBODY POSITIVE (NEGATIVE)
[2017-02-27] MEDS: LEVALBUTEROL (HFA) 15 GM INHALER INH ×4 (09:00→21:00)
[2017-02-27] MEDS: CALCITRIOL 0.25 MCG CAP PO (10:26)
[2017-02-27] MEDS ORDERED: VANCOMYCIN 1 GM 250 ML IVPB (11:30)
[2017-02-27] MEDS: MEROPENEM 500MG/50 ML (PMX) 50 ML IVPB ×2 (12:06)
[2017-02-27] MEDS: VANCOMYCIN 1 GM 250 ML IVPB (13:15)
[2017-02-27] MEDS: ENALAPRILAT 1.25 MG INJ IV ×2 (13:31→15:48)
[2017-02-27] MEDS ORDERED: INFLUENZA VIRUS VACCINE 0.5 ML (DISPENSING) IM* (15:30)
[2017-02-27] MEDS: HALOPERIDOL 5 MG INJ IM (17:33)
[2017-02-27] MEDS: FAMOTIDINE 20 MG TAB PO ×2 (21:00)
[2017-02-27] MEDS: ATORVASTATIN 40 MG TAB PO ×2 (21:00)
[2017-02-28] MEDS: HALOPERIDOL 5 MG INJ IM ×2 (00:23→07:21)
[2017-02-28 05:49] LABS: ADD MAN DIFF? NO
[2017-02-28 06:11] LABS: BASOPHIL # 0.1 10^3/ul (0.0-0.1); BASOPHILS % 1.1 % (0.0-2.0); EOSINOPHILS # 0.4 10^3/ul (0.0-0.5); EOSINOPHILS % 4.4 % (0.0-7.0); HEMATOCRIT 29.2 % (42.0-52.0); HEMOGLOBIN 9.9 g/dl (14.0-18.0); LYMPHOCYTES # 1.9 10^3/ul (0.8-2.9); LYMPHOCYTES % 21.6 % (15.0-51.0); MEAN CORPUSCULAR HEMOGLOBIN 29.4 pg (29.0-33.0); MEAN CORPUSCULAR HGB CONC 33.9 g/dl (32.0-37.0); MEAN CORPUSCULAR VOLUME 86.6 fl (82.0-101.0); MEAN PLATELET VOLUME 11.3 fl (7.4-10.4); MONOCYTE # 1.4 10^3/ul (0.3-0.9); MONOCYTES % 16.1 % (0.0-11.0); NEUTROPHILS % 56.3 % (39.0-77.0); NUCLEATED RED BLOOD CELLS% 0.3 /100WBC (0.0-0.0); PLATELET COUNT 273 10^3/UL (140-415); RED BLOOD COUNT 3.37 10^6/ul (4.70-6.10)
[2017-02-28 06:11] LABS: WHITE BLOOD COUNT 8.9 10^3/ul (4.8-10.8)
[2017-02-28 06:40] LABS: ANION GAP 17 (8-16); BLOOD UREA NITROGEN 23 mg/dl (7-20); CALCIUM 8.5 mg/dl (8.4-10.2); CARBON DIOXIDE 21 mmol/L (21-31); CHLORIDE 107 mmol/L (97-110); POTASSIUM 4.2 mmol/L (3.5-5.1); SODIUM 141 mmol/L (135-144)
[2017-02-28 06:43] LABS: GLUCOSE 48 mg/dl (70-220)
[2017-02-28] MEDS: DEXTROSE 50% 50 ML SYRINGE IV (07:20)
[2017-02-28] MEDS ORDERED: GLUCOSE GEL 15 GRAM TUBE PO ×2 (07:30)
[2017-02-28] MEDS ORDERED: DEXTROSE 50% 50 ML SYRINGE IV (07:30)
[2017-02-28] MEDS ORDERED: GLUCOSE GEL 15 GRAM TUBE BUCCAL (07:30)
[2017-02-28] MEDS ORDERED: GLUCAGON 1 MG INJ IM (07:30)
[2017-02-28] MEDS: ENALAPRILAT 1.25 MG INJ IV (07:58)
[2017-02-28] MEDS: LORAZEPAM 2 MG INJ IV ×2 (08:52→23:48)
[2017-02-28] MEDS: METOPROLOL 25 MG TAB PO ×2 (09:00→20:21)
[2017-02-28] MEDS ORDERED: hydrALAzine 20 MG INJ (09:00)
[2017-02-28] MEDS: CALCITRIOL 0.25 MCG CAP PO (09:00)
[2017-02-28] MEDS ORDERED: hydrALAzine 20 MG INJ IV (09:00)
[2017-02-28] MEDS: LEVALBUTEROL (HFA) 15 GM INHALER INH ×3 (09:00→20:24)
[2017-02-28] MEDS: LEVETIRACETAM 500 MG TAB PO ×2 (09:00→20:21)
[2017-02-28] MEDS: CYANOCOBALAMIN 500 MCG TAB PO (09:00)
[2017-02-28] MEDS: MULTIVIT/CA CARB/B CMPLX/FA TAB PO (09:00)
[2017-02-28] MEDS: OLANZAPINE 5 MG TAB PO (09:00)
[2017-02-28] MEDS: DEXTROSE 5% 1,000 ML IV (12:03)
[2017-02-28] MEDS: MEROPENEM 500MG/50 ML (PMX) 50 ML IVPB (12:05)
[2017-02-28] MEDS: NICOTINE (21 MG/24 HR) PATCH TRANSDERM (13:15)
[2017-02-28] MEDS: FAMOTIDINE 20 MG TAB PO (20:20)
[2017-02-28] MEDS: ATORVASTATIN 40 MG TAB PO (20:21)
[2017-02-28] MEDS: HYDROCODONE/APAP (5/325) TAB PO (20:22)
[2017-03-01] MEDS: HYDROCODONE/APAP (5/325) TAB PO ×2 (05:01→17:45)
[2017-03-01 06:59] LABS: ADD MAN DIFF? NO
[2017-03-01 07:31] LABS: ABNORMAL IP MESSAGE 1; BASOPHIL # 0.1 10^3/ul (0.0-0.1); BASOPHILS % 0.9 % (0.0-2.0); EOSINOPHILS # 0.4 10^3/ul (0.0-0.5); EOSINOPHILS % 3.2 % (0.0-7.0); HEMOGLOBIN 9.9 g/dl (14.0-18.0); LYMPHOCYTES # 2.2 10^3/ul (0.8-2.9); LYMPHOCYTES % 19.3 % (15.0-51.0); MEAN CORPUSCULAR HEMOGLOBIN 29.5 pg (29.0-33.0); MEAN CORPUSCULAR HGB CONC 34.1 g/dl (32.0-37.0); MEAN CORPUSCULAR VOLUME 86.3 fl (82.0-101.0); MEAN PLATELET VOLUME 10.5 fl (7.4-10.4); MONOCYTE # 1.9 10^3/ul (0.3-0.9); MONOCYTES % 15.9 % (0.0-11.0); NEUTROPHILS % 60.4 % (39.0-77.0); PLATELET COUNT 296 10^3/UL (140-415); POSITIVE DIFF @See below; RED BLOOD COUNT 3.36 10^6/ul (4.70-6.10); RED CELL DISTRIBUTION WIDTH 17.6 % (11.5-14.5)
[2017-03-01 07:31] LABS: WHITE BLOOD COUNT 11.6 10^3/ul (4.8-10.8)
[2017-03-01 07:32] LABS: ANION GAP 17 (8-16); BLOOD UREA NITROGEN 25 mg/dl (7-20); CALCIUM 8.7 mg/dl (8.4-10.2); CARBON DIOXIDE 21 mmol/L (21-31); CHLORIDE 106 mmol/L (97-110); CREATININE 4.32 mg/dl (0.61-1.24); GLUCOSE 95 mg/dl (70-220); SODIUM 140 mmol/L (135-144)
[2017-03-01] MEDS: LEVETIRACETAM 500 MG TAB PO ×2 (08:19→21:02)
[2017-03-01] MEDS: METOPROLOL 25 MG TAB PO ×2 (08:20→21:04)
[2017-03-01] MEDS: CALCITRIOL 0.25 MCG CAP PO (08:20)
[2017-03-01] MEDS: CYANOCOBALAMIN 500 MCG TAB PO (08:21)
[2017-03-01] MEDS: OLANZAPINE 5 MG TAB PO (08:21)
[2017-03-01] MEDS: MULTIVIT/CA CARB/B CMPLX/FA TAB PO (08:21)
[2017-03-01] MEDS: NICOTINE (21 MG/24 HR) PATCH TRANSDERM (08:21)
[2017-03-01] MEDS: LEVALBUTEROL (HFA) 15 GM INHALER INH ×3 (09:00→21:00)
[2017-03-01] MEDS ORDERED: OLANZAPINE 10 MG VIAL IM (11:00)
[2017-03-01] MEDS: DEXTROSE 5% 1,000 ML IV (13:30)
[2017-03-01] MEDS: MEROPENEM 500MG/50 ML (PMX) 50 ML IVPB (13:30)
[2017-03-01] MEDS: ONDANSETRON 4 MG INJ IV (17:45)
[2017-03-01] MEDS: HEPARIN 1000 UNITS/ML 10 ML INJ IV (20:30)
[2017-03-01] MEDS ORDERED: HEPARIN 25000 UNITS/250 ML 250 ML IV (20:30)
[2017-03-01] MEDS ORDERED: HEPARIN 1000 UNITS/ML 10 ML INJ IV ×2 (20:30)
[2017-03-01] MEDS ORDERED: HEPARIN 1000 UNITS/ML 10 ML INJ (20:31)
[2017-03-01] MEDS: HEPARIN 1000 UNITS/ML 10 ML INJ CATHETER ×3 (21:00→21:25)
[2017-03-01] MEDS: ATORVASTATIN 40 MG TAB PO (21:02)
[2017-03-01] MEDS: PANTOPRAZOLE (EC) 40 MG TAB PO (21:03)
[2017-03-01] MEDS: FAMOTIDINE 20 MG TAB PO (21:04)
[2017-03-01 21:05] LABS: ADD MAN DIFF? NO
[2017-03-01 21:06] LABS: WHITE BLOOD COUNT 14.1 10^3/ul (4.8-10.8)
[2017-03-01 21:06] LABS: ABNORMAL IP MESSAGE 1; BASOPHIL # 0.1 10^3/ul (0.0-0.1); BASOPHILS % 0.4 % (0.0-2.0); EOSINOPHILS # 0.3 10^3/ul (0.0-0.5); EOSINOPHILS % 2.4 % (0.0-7.0); HEMATOCRIT 30.1 % (42.0-52.0); HEMOGLOBIN 10.4 g/dl (14.0-18.0); LYMPHOCYTES # 1.5 10^3/ul (0.8-2.9); LYMPHOCYTES % 10.9 % (15.0-51.0); MEAN CORPUSCULAR HEMOGLOBIN 29.2 pg (29.0-33.0); MEAN CORPUSCULAR HGB CONC 34.6 g/dl (32.0-37.0); MEAN CORPUSCULAR VOLUME 84.6 fl (82.0-101.0); MEAN PLATELET VOLUME 10.9 fl (7.4-10.4); MONOCYTE # 1.9 10^3/ul (0.3-0.9); MONOCYTES % 13.5 % (0.0-11.0); NEUTROPHIL # 10.2 10^3/ul (1.6-7.5); NEUTROPHILS % 72.4 % (39.0-77.0); PLATELET COUNT 251 10^3/UL (140-415); POSITIVE DIFF @See below; RED BLOOD COUNT 3.56 10^6/ul (4.70-6.10); RED CELL DISTRIBUTION WIDTH 16.9 % (11.5-14.5)
[2017-03-01 21:22] LABS: INR 1.04; PROTIME 13.7 Sec (11.9-14.9); PT RATIO 1.1
[2017-03-01 21:23] LABS: PARTIAL THROMBOPLASTIN TIME 37.7 Sec (25.0-35.0)
[2017-03-02] MEDS: HYDROCODONE/APAP (5/325) TAB PO ×3 (04:39→20:11)
[2017-03-02 06:44] LABS: ADD MAN DIFF? NO
[2017-03-02 06:50] LABS: ABNORMAL IP MESSAGE 1; BASOPHIL # 0.1 10^3/ul (0.0-0.1); BASOPHILS % 0.9 % (0.0-2.0); EOSINOPHILS # 0.5 10^3/ul (0.0-0.5); EOSINOPHILS % 4.4 % (0.0-7.0); HEMATOCRIT 28.4 % (42.0-52.0); LYMPHOCYTES % 19.3 % (15.0-51.0); MEAN CORPUSCULAR HEMOGLOBIN 29.5 pg (29.0-33.0); MEAN CORPUSCULAR HGB CONC 35.2 g/dl (32.0-37.0); MEAN CORPUSCULAR VOLUME 83.8 fl (82.0-101.0); MEAN PLATELET VOLUME 10.7 fl (7.4-10.4); MONOCYTE # 1.6 10^3/ul (0.3-0.9); MONOCYTES % 15.6 % (0.0-11.0); NEUTROPHIL # 6.3 10^3/ul (1.6-7.5); NEUTROPHILS % 59.6 % (39.0-77.0); PLATELET COUNT 242 10^3/UL (140-415); POSITIVE DIFF @See below; RED BLOOD COUNT 3.39 10^6/ul (4.70-6.10); RED CELL DISTRIBUTION WIDTH 17.2 % (11.5-14.5)
[2017-03-02 06:50] LABS: WHITE BLOOD COUNT 10.5 10^3/ul (4.8-10.8)
[2017-03-02 07:10] LABS: ANION GAP 12 (8-16); BLOOD UREA NITROGEN 14 mg/dl (7-20); CALCIUM 8.9 mg/dl (8.4-10.2); CARBON DIOXIDE 29 mmol/L (21-31); CHLORIDE 103 mmol/L (97-110); CREATININE 2.94 mg/dl (0.61-1.24); GLUCOSE 103 mg/dl (70-220); SODIUM 140 mmol/L (135-144)
[2017-03-02 07:12] LABS: VANCOMYCIN,RANDOM 12.5 ug/ml
[2017-03-02] MEDS: INFLUENZA VIRUS VACCINE 0.5 ML (DISPENSING) IM* (08:43)
[2017-03-02] MEDS: MULTIVIT/CA CARB/B CMPLX/FA TAB PO (08:44)
[2017-03-02] MEDS: CALCITRIOL 0.25 MCG CAP PO (08:44)
[2017-03-02] MEDS: CYANOCOBALAMIN 500 MCG TAB PO (08:44)
[2017-03-02] MEDS: LEVETIRACETAM 500 MG TAB PO ×2 (08:44→20:11)
[2017-03-02] MEDS: OLANZAPINE 5 MG TAB PO (08:44)
[2017-03-02] MEDS: NICOTINE (21 MG/24 HR) PATCH TRANSDERM (08:45)
[2017-03-02] MEDS: METOPROLOL 25 MG TAB PO ×2 (08:45→20:12)
[2017-03-02] MEDS: LEVALBUTEROL (HFA) 15 GM INHALER INH ×3 (09:00→20:12)
[2017-03-02] MEDS: DEXTROSE 5% 1,000 ML IV (12:56)
[2017-03-02] MEDS: MEROPENEM 500MG/50 ML (PMX) 50 ML IVPB (12:56)
[2017-03-02] MEDS: VANCOMYCIN 1 GM 250 ML IVPB (16:38)
[2017-03-02] MEDS: ONDANSETRON 4 MG INJ IV (16:47)
[2017-03-02] MEDS: ATORVASTATIN 40 MG TAB PO (20:11)
[2017-03-02] MEDS: PANTOPRAZOLE (EC) 40 MG TAB PO (20:11)
[2017-03-02] MEDS: FAMOTIDINE 20 MG TAB PO (20:11)
[2017-03-03] MEDS: HYDROCODONE/APAP (5/325) TAB PO (02:20)
[2017-03-03] MEDS: LORAZEPAM 2 MG INJ IV (06:23)
[2017-03-03] MEDS: LEVETIRACETAM 500 MG TAB PO (08:23)
[2017-03-03] MEDS: CALCITRIOL 0.25 MCG CAP PO (08:24)
[2017-03-03] MEDS: METOPROLOL 25 MG TAB PO (08:24)
[2017-03-03] MEDS: OLANZAPINE 5 MG TAB PO (08:24)
[2017-03-03] MEDS: MULTIVIT/CA CARB/B CMPLX/FA TAB PO (08:24)
[2017-03-03] MEDS: CYANOCOBALAMIN 500 MCG TAB PO (08:24)
[2017-03-03] MEDS: LEVALBUTEROL (HFA) 15 GM INHALER INH (08:25)
[2017-03-03] MEDS: NICOTINE (21 MG/24 HR) PATCH TRANSDERM (08:26)
== END 2017-03-03 11:15 | disposition left against medical advice (07) | DRG 314 ==
LOC: PP2 13:06 → ICU 02-26 02:57 → TEL 02-28 16:13 → E/R 09:54 → ICU 02-26 23:40
PROC: 06HM33Z Insertion of Infusion Device into Right Femoral Vein, Percutaneous Approach (ICD-10-PCS; principal; 2017-02-25)
PROC: 5A1D70Z Performance of Urinary Filtration, Intermittent, Less than 6 Hours Per Day (ICD-10-PCS; 2017-02-27)
DX: T82.7XXA Infection and inflammatory reaction due to other cardiac and vascular devices, implants and grafts, initial encounter (principal); A41.9 Sepsis, unspecified organism; N18.6 End stage renal disease; G93.41 Metabolic encephalopathy; I50.43 Acute on chronic combined systolic (congestive) and diastolic (congestive) heart failure; J18.9 Pneumonia, unspecified organism; I13.2 Hypertensive heart and chronic kidney disease with heart failure and with stage 5 chronic kidney disease, or end stage renal disease; L03.115 Cellulitis of right lower limb; N39.0 Urinary tract infection, site not specified; Z99.2 Dependence on renal dialysis; D63.1 Anemia in chronic kidney disease; E78.5 Hyperlipidemia, unspecified; F31.9 Bipolar disorder, unspecified; F29 Unspecified psychosis not due to a substance or known physiological condition; F17.200 Nicotine dependence, unspecified, uncomplicated; G40.909 Epilepsy, unspecified, not intractable, without status epilepticus; H54.62 Unqualified visual loss, left eye, normal vision right eye; I25.10 Atherosclerotic heart disease of native coronary artery without angina pectoris; J44.9 Chronic obstructive pulmonary disease, unspecified; M48.061 Spinal stenosis, lumbar region without neurogenic claudication; Z95.828 Presence of other vascular implants and grafts; Z86.718 Personal history of other venous thrombosis and embolism; Z79.02 Long term (current) use of antithrombotics/antiplatelets
CPT/HCPCS: 36415; 70551; 71045; 72131; 72192; 80048; 80053; 80202; 81001; 82140; 82962; 83735; 85025; 85610; 85730; 86706; 87040; 87081; 87086; 87340; 87400; 90686; 90935; 93005; 96365; 96375; 99217; 99285-25

== ENCOUNTER 2017-03-03 11:53 | Inpatient (IN) | payer MEDICARE, OTHER ==
[2017-03-03] MEDS ORDERED: ONDANSETRON 4 MG INJ IV (13:30)
[2017-03-03] MEDS ORDERED: ACETAMINOPHEN 325 MG TAB PO (13:30)
[2017-03-03] MEDS: OLANZAPINE (ODT) 5 MG TAB ODT (14:48)
[2017-03-03] MEDS: hydrALAzine 20 MG INJ IV (19:01)
[2017-03-03] MEDS: LORAZEPAM 2 MG INJ IV (22:59)
[2017-03-03] MEDS ORDERED: VANCOMYCIN IV PER PHARMACY XX (23:30)
[2017-03-04] MEDS: VANCOMYCIN 1 GM in 250 ML IVPB (00:21)
[2017-03-04] MEDS: OLANZAPINE 10 MG VIAL IM (00:31)
[2017-03-04] MEDS: HALOPERIDOL 5 MG INJ IV (02:37)
[2017-03-04] MEDS: LORAZEPAM 2 MG INJ IV ×3 (02:37→19:51)
[2017-03-04] MEDS: DIPHENHYDRAMINE 50 MG INJ IV (02:43)
[2017-03-04 08:01] LABS: ADD MAN DIFF? NO
[2017-03-04 08:03] LABS: BASOPHIL # 0.1 10^3/ul (0.0-0.1); BASOPHILS % 0.9 % (0.0-2.0); EOSINOPHILS # 0.5 10^3/ul (0.0-0.5); EOSINOPHILS % 6.3 % (0.0-7.0); HEMATOCRIT 27.6 % (42.0-52.0); HEMOGLOBIN 9.4 g/dl (14.0-18.0); LYMPHOCYTES # 2.3 10^3/ul (0.8-2.9); LYMPHOCYTES % 30.4 % (15.0-51.0); MEAN CORPUSCULAR HEMOGLOBIN 28.7 pg (29.0-33.0); MEAN CORPUSCULAR HGB CONC 34.1 g/dl (32.0-37.0); MEAN CORPUSCULAR VOLUME 84.1 fl (82.0-101.0); MEAN PLATELET VOLUME 11.8 fl (7.4-10.4); MONOCYTE # 1.2 10^3/ul (0.3-0.9); MONOCYTES % 16.3 % (0.0-11.0); NEUTROPHIL # 3.5 10^3/ul (1.6-7.5); NEUTROPHILS % 45.8 % (39.0-77.0); PLATELET COUNT 327 10^3/UL (140-415); RED BLOOD COUNT 3.28 10^6/ul (4.70-6.10); RED CELL DISTRIBUTION WIDTH 16.4 % (11.5-14.5)
[2017-03-04 08:03] LABS: WHITE BLOOD COUNT 7.6 10^3/ul (4.8-10.8)
[2017-03-04 08:29] LABS: ALANINE AMINOTRANSFERASE 32 IU/L (13-69); ALBUMIN 3.7 g/dl (3.3-4.9); ALKALINE PHOSPHATASE 120 IU/L (42-121); ANION GAP 17 (8-16); ASPARTATE AMINO TRANSFERASE 59 IU/L (15-46); BLOOD UREA NITROGEN 23 mg/dl (7-20); CALCIUM 9.9 mg/dl (8.4-10.2); CARBON DIOXIDE 25 mmol/L (21-31); CHLORIDE 105 mmol/L (97-110); CREATININE 4.03 mg/dl (0.61-1.24); GLUCOSE 79 mg/dl (70-220); POTASSIUM 4.3 mmol/L (3.5-5.1); SODIUM 143 mmol/L (135-144); TOTAL PROTEIN 7.4 g/dl (6.1-8.1)
[2017-03-04] MEDS: LEVALBUTEROL (HFA) 15 GM INHALER INH ×3 (08:51→17:16)
[2017-03-04] MEDS: MEROPENEM 500MG/50 ML (PMX) 50 ML IVPB (08:53)
[2017-03-04] MEDS: APIXABAN 5 MG TABLET PO ×2 (08:55→20:00)
[2017-03-04] MEDS: LEVETIRACETAM 500 MG TAB PO ×2 (08:55→20:00)
[2017-03-04] MEDS: METOPROLOL 25 MG TAB PO ×2 (08:55→20:00)
[2017-03-04] MEDS: OLANZAPINE 5 MG TAB PO (08:56)
[2017-03-04] MEDS: MULTIVIT/CA CARB/B CMPLX/FA TAB PO (08:56)
[2017-03-04] MEDS: CALCITRIOL 0.25 MCG CAP PO (08:56)
[2017-03-04] MEDS: CYANOCOBALAMIN 500 MCG TAB PO (08:56)
[2017-03-04] MEDS ORDERED: MEROPENEM 1 GM/50ML(PMX) 50 ML IVPB ×2 (09:00)
[2017-03-04] MEDS ORDERED: MULTIVIT/CA CARB/B CMPLX/FA TAB PO (09:00)
[2017-03-04] MEDS: NIFEdipine (XL) 60 MG TAB PO ×2 (14:25→20:01)
[2017-03-04] MEDS: ACETAMINOPHEN 500 MG TAB PO (20:00)
[2017-03-04] MEDS: ATORVASTATIN 40 MG TAB PO (20:16)
[2017-03-04 20:30] LABS: HAAIG REFLEX REFLEX FILED
[2017-03-04 21:27] LABS: HEPATITIS B SURFACE ANTIGEN NEGATIVE (NEGATIVE)
[2017-03-04 21:45] LABS: HEPATITIS B CORE ANTIBODY REACTIVE (NEGATIVE); HEPATITIS C VIRAL ANTIBODY NEGATIVE (NEGATIVE)
[2017-03-05] MEDS: LORAZEPAM 2 MG INJ IV ×2 (06:13→16:48)
[2017-03-05 07:31] LABS: WHITE BLOOD COUNT 7.3 10^3/ul (4.8-10.8)
[2017-03-05 07:31] LABS: HEMATOCRIT 24.5 % (42.0-52.0); HEMOGLOBIN 8.5 g/dl (14.0-18.0); MEAN CORPUSCULAR HEMOGLOBIN 28.5 pg (29.0-33.0); MEAN CORPUSCULAR HGB CONC 34.7 g/dl (32.0-37.0); MEAN CORPUSCULAR VOLUME 82.2 fl (82.0-101.0); MEAN PLATELET VOLUME 11.6 fl (7.4-10.4); PLATELET COUNT 352 10^3/UL (140-415); POSITIVE DIFF @See below; RED BLOOD COUNT 2.98 10^6/ul (4.70-6.10); RED CELL DISTRIBUTION WIDTH 16.1 % (11.5-14.5)
[2017-03-05 07:38] LABS: ADD MAN DIFF? YES
[2017-03-05 07:52] LABS: ANION GAP 16 (8-16); BLOOD UREA NITROGEN 28 mg/dl (7-20); CALCIUM 9.5 mg/dl (8.4-10.2); CARBON DIOXIDE 22 mmol/L (21-31); CHLORIDE 106 mmol/L (97-110); CREATININE 3.93 mg/dl (0.61-1.24); GLUCOSE 103 mg/dl (70-220); POTASSIUM 4.5 mmol/L (3.5-5.1); SODIUM 139 mmol/L (135-144)
[2017-03-05] MEDS: METOPROLOL 25 MG TAB PO ×2 (09:00→21:04)
[2017-03-05] MEDS: NIFEdipine (XL) 60 MG TAB PO ×2 (09:00→21:06)
[2017-03-05] MEDS: CYANOCOBALAMIN 500 MCG TAB PO (09:07)
[2017-03-05] MEDS: APIXABAN 5 MG TABLET PO ×2 (09:07→21:04)
[2017-03-05] MEDS: LEVETIRACETAM 500 MG TAB PO ×2 (09:07→21:04)
[2017-03-05] MEDS: OLANZAPINE 5 MG TAB PO (09:08)
[2017-03-05] MEDS: CALCITRIOL 0.25 MCG CAP PO (09:13)
[2017-03-05] MEDS: LEVALBUTEROL (HFA) 15 GM INHALER INH ×3 (09:14→16:47)
[2017-03-05] MEDS: MULTIVIT/CA CARB/B CMPLX/FA TAB PO (09:16)
[2017-03-05 10:16] LABS: ANISOCYTOSIS 2+ (0-0); BAND NEUTROPHILS % (M) 1 % (0-4); BASOPHIL #M 0.1 10^3/ul (0.0-0.0); BASOPHILS % (M) 2 % (0-2); EOSINOPHILS % (M) 5 % (0-7); GIANT THROMBO% (M) 8 % (0-0); LYMPHOCYTES #M 1.9 10^3/ul (0.8-2.9); LYMPHOCYTES % (M) 27 % (15-51); MONOCYTES % (M) 15 % (0-11); PLATELET ESTIMATE NORMAL; POIKILOCYTOSIS 2+ (0-0); REACTIVE LYMPHOCYTES #M 0.4 10^3/ul (0.0-0.0); REACTIVE LYMPHOCYTES% (M) 6 % (0-0); SEG NEUT #M 3.2 10^3/ul (1.7-7.5); SEGMENTED NEUTROPHILS (M) % 44 % (39-77); SMUDGE%M 2 % (0-0); TARGET CELLS 2+ (0-0)
[2017-03-05] MEDS: ACETAMINOPHEN 500 MG TAB PO ×2 (13:10→18:22)
[2017-03-05] MEDS: HEPARIN 1000 UNITS/ML 10 ML INJ CATHETER (20:22)
[2017-03-05] MEDS: ONDANSETRON 4 MG INJ IV (21:00)
[2017-03-05] MEDS: HYDROCODONE/APAP (5/325) TAB PO (21:05)
[2017-03-05] MEDS: ATORVASTATIN 40 MG TAB PO (21:05)
[2017-03-06 07:10] LABS: ABNORMAL IP MESSAGE 1; HEMATOCRIT 24.8 % (42.0-52.0); HEMOGLOBIN 8.6 g/dl (14.0-18.0); MEAN CORPUSCULAR HEMOGLOBIN 28.7 pg (29.0-33.0); MEAN CORPUSCULAR HGB CONC 34.7 g/dl (32.0-37.0); MEAN CORPUSCULAR VOLUME 82.7 fl (82.0-101.0); MEAN PLATELET VOLUME 11.1 fl (7.4-10.4); PLATELET COUNT 331 10^3/UL (140-415); POSITIVE DIFF @See below; RED CELL DISTRIBUTION WIDTH 16.2 % (11.5-14.5)
[2017-03-06 07:10] LABS: WHITE BLOOD COUNT 7.5 10^3/ul (4.8-10.8)
[2017-03-06 07:16] LABS: ADD MAN DIFF? YES
[2017-03-06 08:15] LABS: ANION GAP 14 (8-16); BLOOD UREA NITROGEN 16 mg/dl (7-20); CARBON DIOXIDE 28 mmol/L (21-31); CHLORIDE 104 mmol/L (97-110); GLUCOSE 108 mg/dl (70-220); POTASSIUM 4.3 mmol/L (3.5-5.1); SODIUM 142 mmol/L (135-144)
[2017-03-06 08:33] LABS: CALCIUM 9.7 mg/dl (8.4-10.2)
[2017-03-06] MEDS: OLANZAPINE 5 MG TAB PO (08:59)
[2017-03-06] MEDS: HYDROCODONE/APAP (5/325) TAB PO ×2 (08:59→20:38)
[2017-03-06] MEDS: CALCITRIOL 0.25 MCG CAP PO (09:00)
[2017-03-06] MEDS: LEVETIRACETAM 500 MG TAB PO ×2 (09:00→20:38)
[2017-03-06] MEDS: MULTIVIT/CA CARB/B CMPLX/FA TAB PO (09:01)
[2017-03-06] MEDS: NIFEdipine (XL) 60 MG TAB PO ×2 (09:01→20:39)
[2017-03-06] MEDS: CYANOCOBALAMIN 500 MCG TAB PO (09:01)
[2017-03-06] MEDS: APIXABAN 5 MG TABLET PO ×2 (09:02→20:39)
[2017-03-06] MEDS: METOPROLOL 25 MG TAB PO ×2 (09:02→20:39)
[2017-03-06] MEDS: LEVALBUTEROL (HFA) 15 GM INHALER INH ×3 (09:03→16:05)
[2017-03-06 10:39] LABS: ANISOCYTOSIS 2+ (0-0); BASOPHIL #M 0.1 10^3/ul (0.0-0.0); BASOPHILS % (M) 2 % (0-2); EOSINOPHILS % (M) 6 % (0-7); GIANT THROMBO% (M) 14 % (0-0); LYMPHOCYTES #M 2.7 10^3/ul (0.8-2.9); LYMPHOCYTES % (M) 36 % (15-51); MONOCYTE #M 0.9 10^3/ul (0.3-0.9); MONOCYTES % (M) 13 % (0-11); OVALOCYTES 3+ (0-0); PLATELET ESTIMATE NORMAL; POIKILOCYTOSIS 2+ (0-0); POLYCHROMASIA 1+ (0-0); REACTIVE LYMPHOCYTES #M 0.3 10^3/ul (0.0-0.0); REACTIVE LYMPHOCYTES% (M) 4 % (0-0); SEGMENTED NEUTROPHILS (M) % 39 % (39-77); SMUDGE%M 4 % (0-0); TARGET CELLS 2+ (0-0)
[2017-03-06] MEDS: ONDANSETRON 4 MG INJ IV (12:39)
[2017-03-06] MEDS: ATORVASTATIN 40 MG TAB PO (20:38)
[2017-03-07] MEDS: CALCITRIOL 0.25 MCG CAP PO (08:30)
[2017-03-07] MEDS: APIXABAN 5 MG TABLET PO ×2 (08:30→20:13)
[2017-03-07] MEDS: MULTIVIT/CA CARB/B CMPLX/FA TAB PO (08:30)
[2017-03-07] MEDS: CYANOCOBALAMIN 500 MCG TAB PO (08:30)
[2017-03-07] MEDS: LEVETIRACETAM 500 MG TAB PO ×2 (08:30→20:14)
[2017-03-07] MEDS: METOPROLOL 25 MG TAB PO ×2 (08:31→20:14)
[2017-03-07] MEDS: NIFEdipine (XL) 60 MG TAB PO ×2 (08:31→20:14)
[2017-03-07] MEDS: OLANZAPINE 5 MG TAB PO (08:37)
[2017-03-07] MEDS: HYDROCODONE/APAP (5/325) TAB PO ×3 (08:37→20:13)
[2017-03-07] MEDS: LEVALBUTEROL (HFA) 15 GM INHALER INH ×3 (11:56→16:40)
[2017-03-07] MEDS: ATORVASTATIN 40 MG TAB PO (20:13)
[2017-03-08] MEDS: HYDROCODONE/APAP (5/325) TAB PO ×4 (02:04→20:31)
[2017-03-08 07:41] LABS: WHITE BLOOD COUNT 8.6 10^3/ul (4.8-10.8)
[2017-03-08 07:41] LABS: ABNORMAL IP MESSAGE 1; HEMATOCRIT 26.6 % (42.0-52.0); HEMOGLOBIN 9.5 g/dl (14.0-18.0); MEAN CORPUSCULAR HEMOGLOBIN 29.1 pg (29.0-33.0); MEAN CORPUSCULAR HGB CONC 35.7 g/dl (32.0-37.0); MEAN CORPUSCULAR VOLUME 81.6 fl (82.0-101.0); MEAN PLATELET VOLUME 11.2 fl (7.4-10.4); PLATELET COUNT 403 10^3/UL (140-415); POSITIVE DIFF @See below; RED BLOOD COUNT 3.26 10^6/ul (4.70-6.10); RED CELL DISTRIBUTION WIDTH 15.9 % (11.5-14.5)
[2017-03-08 07:51] LABS: ADD MAN DIFF? YES
[2017-03-08 07:56] LABS: ANION GAP 18 (8-16); BLOOD UREA NITROGEN 27 mg/dl (7-20); CARBON DIOXIDE 26 mmol/L (21-31); CHLORIDE 101 mmol/L (97-110); CREATININE 3.65 mg/dl (0.61-1.24); GLUCOSE 101 mg/dl (70-220); POTASSIUM 4.4 mmol/L (3.5-5.1); SODIUM 141 mmol/L (135-144)
[2017-03-08] MEDS: LEVALBUTEROL (HFA) 15 GM INHALER INH ×2 (09:00→13:00)
[2017-03-08] MEDS: CYANOCOBALAMIN 500 MCG TAB PO (10:04)
[2017-03-08] MEDS: CALCITRIOL 0.25 MCG CAP PO (10:10)
[2017-03-08] MEDS: NIFEdipine (XL) 60 MG TAB PO ×2 (10:12→20:14)
[2017-03-08] MEDS: MULTIVIT/CA CARB/B CMPLX/FA TAB PO (10:12)
[2017-03-08] MEDS: METOPROLOL 25 MG TAB PO ×2 (10:12→20:13)
[2017-03-08] MEDS: ACETAMINOPHEN 500 MG TAB PO ×2 (10:13→12:12)
[2017-03-08] MEDS: APIXABAN 5 MG TABLET PO ×2 (10:13→20:30)
[2017-03-08] MEDS: LEVETIRACETAM 500 MG TAB PO ×2 (10:16→20:31)
[2017-03-08] MEDS: OLANZAPINE 5 MG TAB PO (10:16)
[2017-03-08] MEDS ORDERED: VANCOMYCIN IV PER PHARMACY XX (13:00)
[2017-03-08 13:51] LABS: ADD UMIC YES; UR ASCORBIC ACID NEGATIVE (NEGATIVE); UR BACTERIA FEW /HPF (NONE SEEN); UR BILIRUBIN (Dip) NEGATIVE (NEGATIVE); UR BLOOD (Dip) 3+ mg/dL (NEGATIVE); UR CLARITY CLEAR (CLEAR); UR COLOR YELLOW (YELLOW); UR GLUCOSE (Dip) NEGATIVE (NEGATIVE); UR KETONES (Dip) NEGATIVE (NEGATIVE); UR LEUKOCYTE ESTERASE (Dip) NEGATIVE Leu/ul (NEGATIVE); UR NITRITE (Dip) NEGATIVE (NEGATIVE); UR RBC > 182 /HPF (0-5); UR SPECIFIC GRAVITY (Dip) 1.009 (1.003-1.030); UR TOTAL PROTEIN (Dip) 2+ mg/dl (NEGATIVE); UR UROBILINOGEN (Dip) NEGATIVE (NEGATIVE); UR WBC 12 /HPF (0-5)
[2017-03-08 15:26] LABS: LACTIC ACID 1.6 mmol/L (0.5-2.0)
[2017-03-08] MEDS ORDERED: VANCOMYCIN 1 GM 250 ML IVPB (17:00)
[2017-03-08] MEDS: ATORVASTATIN 40 MG TAB PO (20:30)
[2017-03-08] MEDS: VANCOMYCIN 1 GM 250 ML IVPB (23:32)
[2017-03-09] MEDS: HYDROCODONE/APAP (5/325) TAB PO ×5 (00:59→21:53)
[2017-03-09 08:49] LABS: ABNORMAL IP MESSAGE 1; HEMOGLOBIN 9.2 g/dl (14.0-18.0); MEAN CORPUSCULAR HEMOGLOBIN 28.8 pg (29.0-33.0); MEAN CORPUSCULAR HGB CONC 35.4 g/dl (32.0-37.0); MEAN CORPUSCULAR VOLUME 81.3 fl (82.0-101.0); MEAN PLATELET VOLUME 11.5 fl (7.4-10.4); PLATELET COUNT 354 10^3/UL (140-415); POSITIVE DIFF @See below; RED CELL DISTRIBUTION WIDTH 16.1 % (11.5-14.5)
[2017-03-09 08:49] LABS: WHITE BLOOD COUNT 9.1 10^3/ul (4.8-10.8)
[2017-03-09] MEDS: LEVALBUTEROL (HFA) 15 GM INHALER INH ×4 (09:00→18:58)
[2017-03-09] MEDS: MULTIVIT/CA CARB/B CMPLX/FA TAB PO (09:00)
[2017-03-09 09:07] LABS: ANION GAP 15 (8-16); BLOOD UREA NITROGEN 18 mg/dl (7-20); CALCIUM 9.7 mg/dl (8.4-10.2); CARBON DIOXIDE 26 mmol/L (21-31); CHLORIDE 104 mmol/L (97-110); CREATININE 2.59 mg/dl (0.61-1.24); GLUCOSE 106 mg/dl (70-220); POTASSIUM 4.2 mmol/L (3.5-5.1); SODIUM 141 mmol/L (135-144)
[2017-03-09 09:12] LABS: ADD MAN DIFF? YES
[2017-03-09] MEDS: CALCITRIOL 0.25 MCG CAP PO (09:35)
[2017-03-09] MEDS: OLANZAPINE 5 MG TAB PO (09:35)
[2017-03-09] MEDS: APIXABAN 5 MG TABLET PO ×2 (09:35→20:30)
[2017-03-09] MEDS: LEVETIRACETAM 500 MG TAB PO ×2 (09:36→20:30)
[2017-03-09] MEDS: CYANOCOBALAMIN 500 MCG TAB PO (09:36)
[2017-03-09] MEDS: NIFEdipine (XL) 60 MG TAB PO ×2 (09:37→20:31)
[2017-03-09] MEDS: METOPROLOL 25 MG TAB PO ×2 (09:38→20:32)
[2017-03-09 10:45] LABS: ANISOCYTOSIS 2+ (0-0); BAND NEUTROPHILS #M 0.9 10^3/ul (0.0-0.6); BAND NEUTROPHILS % (M) 10 % (0-4); BASOPHILS % (M) 1 % (0-2); BURR CELLS 1+ (0-0); EOSINOPHILS % (M) 8 % (0-7); HYPOCHROMASIA 2+ (0-0); LYMPHOCYTES % (M) 23 % (15-51); MONOCYTES % (M) 12 % (0-11); PLATELET ESTIMATE NORMAL; POIKILOCYTOSIS 2+ (0-0); POLYCHROMASIA 1+ (0-0); REACTIVE LYMPHOCYTES #M 0.2 10^3/ul (0.0-0.0); REACTIVE LYMPHOCYTES% (M) 3 % (0-0); SCHISTOCYTES 1+ (0-0); SEGMENTED NEUTROPHILS (M) % 43 % (39-77); SMUDGE%M 6 % (0-0); TARGET CELLS 1+ (0-0)
[2017-03-09] MEDS: ATORVASTATIN 40 MG TAB PO (20:31)
[2017-03-10] MEDS: HYDROCODONE/APAP (5/325) TAB PO ×4 (02:43→20:37)
[2017-03-10 07:45] LABS: ADD MAN DIFF? NO
[2017-03-10 07:54] LABS: ABNORMAL IP MESSAGE 1; BASOPHIL # 0.2 10^3/ul (0.0-0.1); BASOPHILS % 1.9 % (0.0-2.0); EOSINOPHILS # 0.9 10^3/ul (0.0-0.5); EOSINOPHILS % 11.2 % (0.0-7.0); HEMATOCRIT 26.5 % (42.0-52.0); HEMOGLOBIN 9.2 g/dl (14.0-18.0); MEAN CORPUSCULAR HEMOGLOBIN 28.8 pg (29.0-33.0); MEAN CORPUSCULAR HGB CONC 34.7 g/dl (32.0-37.0); MEAN CORPUSCULAR VOLUME 82.8 fl (82.0-101.0); MEAN PLATELET VOLUME 11.1 fl (7.4-10.4); MONOCYTE # 1.8 10^3/ul (0.3-0.9); MONOCYTES % 21.5 % (0.0-11.0); NEUTROPHIL # 2.4 10^3/ul (1.6-7.5); PLATELET COUNT 356 10^3/UL (140-415); POSITIVE DIFF @See below; RED CELL DISTRIBUTION WIDTH 15.9 % (11.5-14.5)
[2017-03-10 07:54] LABS: WHITE BLOOD COUNT 8.4 10^3/ul (4.8-10.8)
[2017-03-10 08:15] LABS: ANION GAP 17 (8-16); BLOOD UREA NITROGEN 26 mg/dl (7-20); CARBON DIOXIDE 25 mmol/L (21-31); CHLORIDE 102 mmol/L (97-110); CREATININE 3.27 mg/dl (0.61-1.24); GLUCOSE 124 mg/dl (70-220); POTASSIUM 4.3 mmol/L (3.5-5.1); SODIUM 140 mmol/L (135-144)
[2017-03-10] MEDS: MULTIVIT/CA CARB/B CMPLX/FA TAB PO (09:00)
[2017-03-10] MEDS: LEVALBUTEROL (HFA) 15 GM INHALER INH ×3 (09:00→20:36)
[2017-03-10] MEDS: APIXABAN 5 MG TABLET PO ×2 (12:43→20:36)
[2017-03-10] MEDS: CYANOCOBALAMIN 500 MCG TAB PO (12:44)
[2017-03-10] MEDS: NIFEdipine (XL) 60 MG TAB PO ×2 (12:44→20:37)
[2017-03-10] MEDS: OLANZAPINE 5 MG TAB PO (12:44)
[2017-03-10] MEDS: METOPROLOL 25 MG TAB PO ×2 (12:45→20:38)
[2017-03-10] MEDS: CALCITRIOL 0.25 MCG CAP PO (12:47)
[2017-03-10] MEDS: LEVETIRACETAM 500 MG TAB PO ×2 (12:51→20:36)
[2017-03-10] MEDS: ATORVASTATIN 40 MG TAB PO (20:37)
[2017-03-11] MEDS: HYDROCODONE/APAP (5/325) TAB PO ×4 (00:15→20:20)
[2017-03-11] MEDS: ONDANSETRON 4 MG INJ IV ×2 (02:12→20:24)
[2017-03-11] MEDS: LEVALBUTEROL (HFA) 15 GM INHALER INH ×4 (09:00→19:33)
[2017-03-11] MEDS: CALCITRIOL 0.25 MCG CAP PO (09:08)
[2017-03-11] MEDS: CYANOCOBALAMIN 500 MCG TAB PO (09:09)
[2017-03-11] MEDS: OLANZAPINE 5 MG TAB PO (09:09)
[2017-03-11] MEDS: MULTIVIT/CA CARB/B CMPLX/FA TAB PO (09:09)
[2017-03-11] MEDS: APIXABAN 5 MG TABLET PO ×2 (09:09→20:19)
[2017-03-11] MEDS: LEVETIRACETAM 500 MG TAB PO ×2 (09:09→20:19)
[2017-03-11] MEDS: NIFEdipine (XL) 60 MG TAB PO ×2 (09:10→20:18)
[2017-03-11] MEDS: METOPROLOL 25 MG TAB PO ×2 (09:10→20:18)
[2017-03-11 15:11] LABS: PROCALCITONIN 0.73 ng/mL (<0.10)
[2017-03-11] MEDS: ATORVASTATIN 40 MG TAB PO (20:19)
[2017-03-12] MEDS: HYDROCODONE/APAP (5/325) TAB PO ×4 (00:11→21:57)
[2017-03-12] MEDS: ONDANSETRON 4 MG INJ IV ×3 (03:48→19:42)
[2017-03-12] MEDS: APIXABAN 5 MG TABLET PO ×2 (08:14→20:38)
[2017-03-12] MEDS: LEVETIRACETAM 500 MG TAB PO ×2 (08:14→20:38)
[2017-03-12] MEDS: METOPROLOL 25 MG TAB PO ×2 (08:14→20:38)
[2017-03-12] MEDS: NIFEdipine (XL) 60 MG TAB PO ×2 (08:15→20:38)
[2017-03-12] MEDS: MULTIVIT/CA CARB/B CMPLX/FA TAB PO (08:15)
[2017-03-12] MEDS: CYANOCOBALAMIN 500 MCG TAB PO (08:15)
[2017-03-12] MEDS: CALCITRIOL 0.25 MCG CAP PO (08:15)
[2017-03-12 08:16] LABS: ADD MAN DIFF? NO
[2017-03-12] MEDS: OLANZAPINE 5 MG TAB PO (08:16)
[2017-03-12 08:20] LABS: BASOPHIL # 0.2 10^3/ul (0.0-0.1); BASOPHILS % 1.7 % (0.0-2.0); EOSINOPHILS % 10.3 % (0.0-7.0); HEMATOCRIT 28.2 % (42.0-52.0); HEMOGLOBIN 9.9 g/dl (14.0-18.0); LYMPHOCYTES # 3.4 10^3/ul (0.8-2.9); LYMPHOCYTES % 36.8 % (15.0-51.0); MEAN CORPUSCULAR HEMOGLOBIN 28.4 pg (29.0-33.0); MEAN CORPUSCULAR HGB CONC 35.1 g/dl (32.0-37.0); MEAN PLATELET VOLUME 11.1 fl (7.4-10.4); MONOCYTES % 10.9 % (0.0-11.0); NEUTROPHIL # 3.7 10^3/ul (1.6-7.5); NEUTROPHILS % 40.2 % (39.0-77.0); PLATELET COUNT 391 10^3/UL (140-415); POSITIVE DIFF @See below; RED BLOOD COUNT 3.48 10^6/ul (4.70-6.10)
[2017-03-12 08:20] LABS: WHITE BLOOD COUNT 9.3 10^3/ul (4.8-10.8)
[2017-03-12 08:42] LABS: VANCOMYCIN,RANDOM 9.1 ug/ml
[2017-03-12 08:56] LABS: ANION GAP 17 (8-16); BLOOD UREA NITROGEN 28 mg/dl (7-20); CALCIUM 9.9 mg/dl (8.4-10.2); CARBON DIOXIDE 26 mmol/L (21-31); CHLORIDE 100 mmol/L (97-110); CREATININE 3.88 mg/dl (0.61-1.24); GLUCOSE 123 mg/dl (70-220); POTASSIUM 4.4 mmol/L (3.5-5.1); SODIUM 139 mmol/L (135-144)
[2017-03-12] MEDS: LEVALBUTEROL (HFA) 15 GM INHALER INH ×3 (09:58→17:33)
[2017-03-12] MEDS: ALBUMIN HUMAN 25% 100 ML IV (10:19)
[2017-03-12] MEDS: HEPARIN 1000 UNITS/ML 10 ML INJ CATHETER (11:50)
[2017-03-12] MEDS: ATORVASTATIN 40 MG TAB PO (20:38)
[2017-03-13] MEDS: ONDANSETRON 4 MG INJ IV ×2 (01:38→19:38)
[2017-03-13] MEDS: HYDROCODONE/APAP (5/325) TAB PO ×5 (01:39→23:56)
[2017-03-13] MEDS: LEVALBUTEROL (HFA) 15 GM INHALER INH ×3 (08:31→16:34)
[2017-03-13] MEDS: APIXABAN 5 MG TABLET PO ×2 (08:32→20:27)
[2017-03-13] MEDS: LEVETIRACETAM 500 MG TAB PO ×2 (08:33→20:27)
[2017-03-13] MEDS: METOPROLOL 25 MG TAB PO ×2 (08:36→20:27)
[2017-03-13] MEDS: NIFEdipine (XL) 60 MG TAB PO ×2 (08:37→20:27)
[2017-03-13] MEDS: MULTIVIT/CA CARB/B CMPLX/FA TAB PO (08:37)
[2017-03-13] MEDS: OLANZAPINE 5 MG TAB PO (08:38)
[2017-03-13] MEDS: CALCITRIOL 0.25 MCG CAP PO (08:38)
[2017-03-13] MEDS: CYANOCOBALAMIN 500 MCG TAB PO (08:38)
[2017-03-13] MEDS: ATORVASTATIN 40 MG TAB PO (20:27)
[2017-03-14] MEDS: ONDANSETRON 4 MG INJ IV ×2 (02:07→08:59)
[2017-03-14] MEDS: HYDROCODONE/APAP (5/325) TAB PO ×2 (06:55→17:27)
[2017-03-14 08:27] LABS: ADD MAN DIFF? NO
[2017-03-14 08:31] LABS: BASOPHIL # 0.1 10^3/ul (0.0-0.1); BASOPHILS % 1.5 % (0.0-2.0); EOSINOPHILS # 0.9 10^3/ul (0.0-0.5); HEMATOCRIT 25.6 % (42.0-52.0); HEMOGLOBIN 8.8 g/dl (14.0-18.0); LYMPHOCYTES # 3.2 10^3/ul (0.8-2.9); LYMPHOCYTES % 34.6 % (15.0-51.0); MEAN CORPUSCULAR HEMOGLOBIN 28.1 pg (29.0-33.0); MEAN CORPUSCULAR HGB CONC 34.4 g/dl (32.0-37.0); MEAN CORPUSCULAR VOLUME 81.8 fl (82.0-101.0); MEAN PLATELET VOLUME 10.7 fl (7.4-10.4); MONOCYTE # 1.2 10^3/ul (0.3-0.9); NEUTROPHIL # 3.7 10^3/ul (1.6-7.5); NEUTROPHILS % 40.7 % (39.0-77.0); PLATELET COUNT 318 10^3/UL (140-415); RED BLOOD COUNT 3.13 10^6/ul (4.70-6.10)
[2017-03-14 08:31] LABS: WHITE BLOOD COUNT 9.1 10^3/ul (4.8-10.8)
[2017-03-14 08:59] LABS: ANION GAP 20 (8-16); BLOOD UREA NITROGEN 30 mg/dl (7-20); CARBON DIOXIDE 24 mmol/L (21-31); CHLORIDE 101 mmol/L (97-110); CREATININE 4.47 mg/dl (0.61-1.24); GLUCOSE 105 mg/dl (70-220); POTASSIUM 4.7 mmol/L (3.5-5.1); SODIUM 140 mmol/L (135-144)
[2017-03-14] MEDS: METOPROLOL 25 MG TAB PO ×2 (09:00→21:34)
[2017-03-14] MEDS: APIXABAN 5 MG TABLET PO (09:00)
[2017-03-14] MEDS: CALCITRIOL 0.25 MCG CAP PO (09:00)
[2017-03-14] MEDS: NIFEdipine (XL) 60 MG TAB PO ×2 (09:00→21:33)
[2017-03-14] MEDS: MULTIVIT/CA CARB/B CMPLX/FA TAB PO (09:00)
[2017-03-14] MEDS: OLANZAPINE 5 MG TAB PO (09:00)
[2017-03-14] MEDS: LEVALBUTEROL (HFA) 15 GM INHALER INH ×3 (09:00→17:26)
[2017-03-14] MEDS: LEVETIRACETAM 500 MG TAB PO ×2 (09:00→21:33)
[2017-03-14] MEDS: CYANOCOBALAMIN 500 MCG TAB PO (09:00)
[2017-03-14] MEDS ORDERED: LIDOCAINE 1% (MDV) 20 ML INJ (12:32)
[2017-03-14] MEDS ORDERED: MIDAZOLAM 1 MG/ML 2 ML INJ (12:33)
[2017-03-14] MEDS ORDERED: FENTAnyl 50 MCG/ML VIAL (12:33)
[2017-03-14] MEDS ORDERED: IODIXANOL LOCM 50 ML BTL (12:33)
[2017-03-14] MEDS ORDERED: CEFAZOLIN 2 GM/50 ML (PMX) 50 ML IVPB (12:42)
[2017-03-14] MEDS ORDERED: HEPARIN 1000 UNITS/ML 10 ML INJ (12:43)
[2017-03-14] MEDS: morphine 2 MG INJ IV ×3 (14:43→23:29)
[2017-03-14 20:21] LABS: HEMATOCRIT 28.1 % (42.0-52.0); HEMOGLOBIN 9.6 g/dl (14.0-18.0)
[2017-03-14] MEDS: ATORVASTATIN 40 MG TAB PO (21:34)
[2017-03-15] MEDS: ONDANSETRON 4 MG INJ IV (00:45)
[2017-03-15] MEDS: HYDROCODONE/APAP (5/325) TAB PO ×2 (02:24→07:05)
[2017-03-15] MEDS: morphine 2 MG INJ IV ×4 (03:42→17:22)
[2017-03-15 08:31] LABS: ADD MAN DIFF? NO
[2017-03-15 08:38] LABS: BASOPHIL # 0.1 10^3/ul (0.0-0.1); BASOPHILS % 1.1 % (0.0-2.0); EOSINOPHILS # 0.7 10^3/ul (0.0-0.5); EOSINOPHILS % 8.2 % (0.0-7.0); HEMATOCRIT 24.7 % (42.0-52.0); HEMOGLOBIN 8.6 g/dl (14.0-18.0); LYMPHOCYTES # 2.9 10^3/ul (0.8-2.9); LYMPHOCYTES % 32.5 % (15.0-51.0); MEAN CORPUSCULAR HEMOGLOBIN 28.6 pg (29.0-33.0); MEAN CORPUSCULAR HGB CONC 34.8 g/dl (32.0-37.0); MEAN CORPUSCULAR VOLUME 82.1 fl (82.0-101.0); MEAN PLATELET VOLUME 11.5 fl (7.4-10.4); MONOCYTE # 1.2 10^3/ul (0.3-0.9); MONOCYTES % 13.8 % (0.0-11.0); NEUTROPHIL # 3.9 10^3/ul (1.6-7.5); NEUTROPHILS % 44.1 % (39.0-77.0); PLATELET COUNT 378 10^3/UL (140-415); RED BLOOD COUNT 3.01 10^6/ul (4.70-6.10); RED CELL DISTRIBUTION WIDTH 15.9 % (11.5-14.5)
[2017-03-15 08:38] LABS: WHITE BLOOD COUNT 8.8 10^3/ul (4.8-10.8)
[2017-03-15] MEDS: LEVALBUTEROL (HFA) 15 GM INHALER INH ×3 (08:38→16:15)
[2017-03-15] MEDS: LEVETIRACETAM 500 MG TAB PO (08:39)
[2017-03-15] MEDS: METOPROLOL 25 MG TAB PO (08:40)
[2017-03-15] MEDS: NIFEdipine (XL) 60 MG TAB PO (08:41)
[2017-03-15] MEDS: MULTIVIT/CA CARB/B CMPLX/FA TAB PO (08:41)
[2017-03-15] MEDS: CYANOCOBALAMIN 500 MCG TAB PO (08:41)
[2017-03-15] MEDS: CALCITRIOL 0.25 MCG CAP PO (08:41)
[2017-03-15] MEDS: OLANZAPINE 5 MG TAB PO (08:42)
[2017-03-15 09:23] LABS: ANION GAP 18 (8-16); BLOOD UREA NITROGEN 34 mg/dl (7-20); CARBON DIOXIDE 24 mmol/L (21-31); CHLORIDE 101 mmol/L (97-110); CREATININE 4.87 mg/dl (0.61-1.24); GLUCOSE 101 mg/dl (70-220); POTASSIUM 4.5 mmol/L (3.5-5.1); SODIUM 138 mmol/L (135-144)
[2017-03-15] MEDS: HEPARIN 1000 UNITS/ML 10 ML INJ CATHETER (17:20)
== END 2017-03-15 19:10 | disposition home or self-care (01) | DRG 252 ==
LOC: E/R 11:53 → TEL 13:05
PROVIDERS: Internal Medicine
PROC: 06HN33Z Insertion of Infusion Device into Left Femoral Vein, Percutaneous Approach (ICD-10-PCS; principal; 2017-03-14 12:30)
PROC: 047J3ZZ Dilation of Left External Iliac Artery, Percutaneous Approach (ICD-10-PCS; 2017-03-14 12:30)
PROC: 047D3ZZ Dilation of Left Common Iliac Artery, Percutaneous Approach (ICD-10-PCS; 2017-03-14 12:30)
PROC: B54CZZA Ultrasonography of Left Lower Extremity Veins, Guidance (ICD-10-PCS; 2017-03-14 12:30)
PROC: 4A10X4Z Monitoring of Central Nervous Electrical Activity, External Approach (ICD-10-PCS; 2017-03-14 12:30)
PROC: 0JHN0XZ Insertion of Tunneled Vascular Access Device into Right Lower Leg Subcutaneous Tissue and Fascia, Open Approach (ICD-10-PCS; 2017-03-14 12:30)
PROC: B519YZZ Fluoroscopy of Inferior Vena Cava using Other Contrast (ICD-10-PCS; 2017-03-14 12:30)
PROC: B51CYZZ Fluoroscopy of Left Lower Extremity Veins using Other Contrast (ICD-10-PCS; 2017-03-14 12:30)
PROC: 5A1D70Z Performance of Urinary Filtration, Intermittent, Less than 6 Hours Per Day (ICD-10-PCS; 2017-03-14 12:30)
PROC: 5A1D70Z Performance of Urinary Filtration, Intermittent, Less than 6 Hours Per Day (ICD-10-PCS; 2017-03-14 12:30)
PROC: 5A1D70Z Performance of Urinary Filtration, Intermittent, Less than 6 Hours Per Day (ICD-10-PCS; 2017-03-14 12:30)
PROC: 5A1D70Z Performance of Urinary Filtration, Intermittent, Less than 6 Hours Per Day (ICD-10-PCS; 2017-03-14 12:30)
DX: T82.7XXA Infection and inflammatory reaction due to other cardiac and vascular devices, implants and grafts, initial encounter (principal); G92 Toxic encephalopathy; I50.23 Acute on chronic systolic (congestive) heart failure; A41.9 Sepsis, unspecified organism; J18.9 Pneumonia, unspecified organism; N18.6 End stage renal disease; E44.0 Moderate protein-calorie malnutrition; I42.9 Cardiomyopathy, unspecified; I13.2 Hypertensive heart and chronic kidney disease with heart failure and with stage 5 chronic kidney disease, or end stage renal disease; N39.0 Urinary tract infection, site not specified; L03.314 Cellulitis of groin; Z68.1 Body mass index [BMI] 19.9 or less, adult; I82.C21 Chronic embolism and thrombosis of right internal jugular vein; I87.1 Compression of vein; D63.1 Anemia in chronic kidney disease; E11.22 Type 2 diabetes mellitus with diabetic chronic kidney disease; Z99.2 Dependence on renal dialysis; J44.9 Chronic obstructive pulmonary disease, unspecified; G40.909 Epilepsy, unspecified, not intractable, without status epilepticus; Z86.718 Personal history of other venous thrombosis and embolism; Z95.828 Presence of other vascular implants and grafts; M48.061 Spinal stenosis, lumbar region without neurogenic claudication; F17.200 Nicotine dependence, unspecified, uncomplicated; Z16.12 Extended spectrum beta lactamase (ESBL) resistance; G62.9 Polyneuropathy, unspecified; Y71.8 Miscellaneous cardiovascular devices associated with adverse incidents, not elsewhere classified; B96.20 Unspecified Escherichia coli [E. coli] as the cause of diseases classified elsewhere; I25.10 Atherosclerotic heart disease of native coronary artery without angina pectoris; M54.16 Radiculopathy, lumbar region; Z79.01 Long term (current) use of anticoagulants; N35.9 Urethral stricture, unspecified; E78.5 Hyperlipidemia, unspecified; F31.9 Bipolar disorder, unspecified
CPT/HCPCS: 75825; 80048; 80053; 80202; 81001; 82962; 83605; 84145; 85014; 85018; 85025; 85730; 86704; 86709; 86803; 86850; 86900; 86901; 86920; 87040; 87086; 87340; 90935; 92610; 93970; 95819; 96374; 96375; 99285-25

== ENCOUNTER 2017-04-12 14:28 | Inpatient (IN) | payer MEDICARE, OTHER, MEDICAID ==
[2017-04-12] MEDS: ACETAMINOPHEN 325 MG TAB PO (15:42)
[2017-04-12 15:45] LABS: ABNORMAL IP MESSAGE 1; HEMATOCRIT 28.4 % (42.0-52.0); HEMOGLOBIN 9.5 g/dl (14.0-18.0); MEAN CORPUSCULAR HEMOGLOBIN 30.1 pg (29.0-33.0); MEAN CORPUSCULAR HGB CONC 33.5 g/dl (32.0-37.0); MEAN CORPUSCULAR VOLUME 89.9 fl (82.0-101.0); MEAN PLATELET VOLUME 11.1 fl (7.4-10.4); NUCLEATED RED BLOOD CELLS% 0.8 /100WBC (0.0-0.0); PLATELET COUNT 179 10^3/UL (140-415); POSITIVE DIFF @See below; RED BLOOD COUNT 3.16 10^6/ul (4.70-6.10); RED CELL DISTRIBUTION WIDTH 20.1 % (11.5-14.5)
[2017-04-12 15:45] LABS: WHITE BLOOD COUNT 11.4 10^3/ul (4.8-10.8)
[2017-04-12 15:49] LABS: ADD MAN DIFF? YES
[2017-04-12 16:02] LABS: LACTIC ACID 1.1 mmol/L (0.5-2.0)
[2017-04-12 16:04] LABS: ALANINE AMINOTRANSFERASE 23 IU/L (13-69); ALBUMIN 4.1 g/dl (3.3-4.9); ALBUMIN/GLOBULIN RATIO 1.13; ALKALINE PHOSPHATASE 133 IU/L (42-121); ANION GAP 20 (8-16); ASPARTATE AMINO TRANSFERASE 35 IU/L (15-46); BILIRUBIN,INDIRECT 0.1 mg/dl (0-1.1); BILIRUBIN,TOTAL 0.1 mg/dl (0.2-1.3); BLOOD UREA NITROGEN 28 mg/dl (7-20); CALCIUM 9.5 mg/dl (8.4-10.2); CARBON DIOXIDE 23 mmol/L (21-31); CHLORIDE 107 mmol/L (97-110); CREATININE 2.58 mg/dl (0.61-1.24); GLUCOSE 177 mg/dl (70-220); POTASSIUM 4.7 mmol/L (3.5-5.1); SODIUM 145 mmol/L (135-144); TOTAL PROTEIN 7.7 g/dl (6.1-8.1)
[2017-04-12 16:08] LABS: PROTIME 17.4 Sec (11.9-14.9); PT RATIO 1.4
[2017-04-12 16:23] LABS: TROPONIN-I < 0.012 ng/ml (0.00-0.12)
[2017-04-12 17:04] LABS: PARTIAL THROMBOPLASTIN TIME > 180.0 Sec (25.0-35.0)
[2017-04-12 17:18] LABS: ANISOCYTOSIS 1+ (0-0); BAND NEUTROPHILS #M 0.2 10^3/ul (0.0-0.6); BAND NEUTROPHILS % (M) 2 % (0-4); BASOPHIL #M 0.3 10^3/ul (0.0-0.0); BASOPHILS % (M) 3 % (0-2); BURR CELLS 1+ (0-0); EOSINOPHILS % (M) 1 % (0-7); GIANT THROMBO% (M) 3 % (0-0); HYPOCHROMASIA 1+ (0-0); LYMPHOCYTES #M 2.1 10^3/ul (0.8-2.9); LYMPHOCYTES % (M) 19 % (15-51); MONOCYTE #M 2.1 10^3/ul (0.3-0.9); MONOCYTES % (M) 19 % (0-11); PLATELET ESTIMATE NORMAL; POIKILOCYTOSIS 1+ (0-0); POLYCHROMASIA 3+ (0-0); REACTIVE LYMPHOCYTES #M 0.3 10^3/ul (0.0-0.0); REACTIVE LYMPHOCYTES% (M) 3 % (0-0); SEG NEUT #M 6.1 10^3/ul (1.6-7.5); SEGMENTED NEUTROPHILS (M) % 53 % (39-77)
[2017-04-12] MEDS: CEFEPIME 1GM/50 ML (PMX) 50 ML IVPB (17:25)
[2017-04-12] MEDS: VANCOMYCIN 1 GM (PMX) 250 ML IVPB (17:25)
[2017-04-12 19:42] LABS: LACTIC ACID 1.1 mmol/L (0.5-2.0)
[2017-04-12] MEDS ORDERED: NA PHOSPHATE/BIPHOS 133 ML ENEMA PR (21:30)
[2017-04-12] MEDS ORDERED: DOCUSATE SODIUM 100 MG CAP PO (21:30)
[2017-04-12] MEDS ORDERED: BISACODYL (EC) 5 MG TAB PO (21:30)
[2017-04-12] MEDS ORDERED: NACL 0.9% 3 ML SYG IV (21:30)
[2017-04-12] MEDS ORDERED: ALBUTEROL/IPRATROPIUM (NEB) 3 ML AMP HHN (21:30)
[2017-04-12] MEDS ORDERED: HYDROCODONE/APAP (5/325) TAB PO (21:30)
[2017-04-12] MEDS ORDERED: MAGNESIUM HYDROXIDE 30ML CUP PO (21:30)
[2017-04-12] MEDS ORDERED: ACETAMINOPHEN 325 MG TAB PO ×2 (21:30)
[2017-04-13 06:54] LABS: ABNORMAL IP MESSAGE 1; HEMATOCRIT 25.3 % (42.0-52.0); HEMOGLOBIN 8.5 g/dl (14.0-18.0); MEAN CORPUSCULAR HEMOGLOBIN 29.6 pg (29.0-33.0); MEAN CORPUSCULAR HGB CONC 33.6 g/dl (32.0-37.0); MEAN CORPUSCULAR VOLUME 88.2 fl (82.0-101.0); MEAN PLATELET VOLUME 11.6 fl (7.4-10.4); NUCLEATED RED BLOOD CELLS% 0.9 /100WBC (0.0-0.0); PLATELET COUNT 189 10^3/UL (140-415); POSITIVE DIFF @See below; RED BLOOD COUNT 2.87 10^6/ul (4.70-6.10); RED CELL DISTRIBUTION WIDTH 19.8 % (11.5-14.5)
[2017-04-13 06:54] LABS: WHITE BLOOD COUNT 7.6 10^3/ul (4.8-10.8)
[2017-04-13 06:57] LABS: ADD MAN DIFF? YES
[2017-04-13 07:09] LABS: INR 1.13; PROTIME 14.7 Sec (11.9-14.9); PT RATIO 1.1
[2017-04-13 07:10] LABS: PARTIAL THROMBOPLASTIN TIME 36.5 Sec (25.0-35.0)
[2017-04-13 07:45] LABS: ALANINE AMINOTRANSFERASE 24 IU/L (13-69); ALBUMIN 3.5 g/dl (3.3-4.9); ALBUMIN/GLOBULIN RATIO 1.34; ALKALINE PHOSPHATASE 98 IU/L (42-121); ANION GAP 18 (8-16); ASPARTATE AMINO TRANSFERASE 26 IU/L (15-46); BLOOD UREA NITROGEN 31 mg/dl (7-20); CALCIUM 9.2 mg/dl (8.4-10.2); CARBON DIOXIDE 21 mmol/L (21-31); CHLORIDE 113 mmol/L (97-110); CREATININE 2.78 mg/dl (0.61-1.24); GLUCOSE 105 mg/dl (70-220); POTASSIUM 4.9 mmol/L (3.5-5.1); SODIUM 147 mmol/L (135-144); TOTAL PROTEIN 6.1 g/dl (6.1-8.1)
[2017-04-13 08:03] LABS: B-TYPE NATRIURETIC PEPTIDE 53400 PG/ML (0-125)
[2017-04-13] MEDS: OLANZAPINE 5 MG TAB PO ×2 (08:25→23:04)
[2017-04-13] MEDS: FAMOTIDINE 20 MG INJ IV (08:25)
[2017-04-13] MEDS: MULTIVIT/CA CARB/B CMPLX/FA TAB PO (08:25)
[2017-04-13] MEDS: LEVETIRACETAM 500 MG TAB PO ×2 (08:25→20:39)
[2017-04-13] MEDS: METOPROLOL 50 MG TAB PO ×2 (08:26→20:40)
[2017-04-13] MEDS ORDERED: LEVETIRACETAM 500 MG TAB PO (09:00)
[2017-04-13] MEDS ORDERED: MULTIVIT/CA CARB/B CMPLX/FA TAB PO (09:00)
[2017-04-13] MEDS ORDERED: OLANZAPINE 5 MG TAB PO (09:00)
[2017-04-13] MEDS ORDERED: METOPROLOL 50 MG TAB PO (09:00)
[2017-04-13 09:09] LABS: ANISOCYTOSIS 2+ (0-0); BAND NEUTROPHILS % (M) 1 % (0-4); BASOPHILS % (M) 1 % (0-2); BURR CELLS 2+ (0-0); EOSINOPHILS % (M) 5 % (0-7); ERYTHROBLAST% (NRBC) (M) 3 % (0-0); GIANT THROMBO% (M) 5 % (0-0); HYPOCHROMASIA 3+ (0-0); LYMPHOCYTES #M 2.5 10^3/ul (0.8-2.9); LYMPHOCYTES % (M) 33 % (15-51); MONOCYTE #M 0.9 10^3/ul (0.3-0.9); MONOCYTES % (M) 12 % (0-11); PLATELET ESTIMATE NORMAL; POIKILOCYTOSIS 2+ (0-0); POLYCHROMASIA 3+ (0-0); SEG NEUT #M 3.6 10^3/ul (1.6-7.5); SEGMENTED NEUTROPHILS (M) % 48 % (39-77); SMUDGE%M 3 % (0-0); TARGET CELLS 2+ (0-0)
[2017-04-13] MEDS ORDERED: ENOXAPARIN 40 MG/0.4 ML SYG SC (10:30)
[2017-04-13] MEDS: ENOXAPARIN 60 MG/0.6 ML SYG SC (12:07)
[2017-04-13] MEDS ORDERED: VANCOMYCIN IV PER PHARMACY XX (14:30)
[2017-04-13] MEDS: NIFEdipine (XL) 30 MG TAB PO ×2 (16:22→17:05)
[2017-04-13] MEDS: CEFEPIME 1GM/50 ML (PMX) 50 ML IVPB (17:05)
[2017-04-13] MEDS: hydrALAzine 20 MG INJ IV (20:40)
[2017-04-13] MEDS: morphine 2 MG INJ IV (20:40)
[2017-04-14] MEDS: ENOXAPARIN 60 MG/0.6 ML SYG SC (06:49)
[2017-04-14 08:26] LABS: VANCOMYCIN,RANDOM 10.1 ug/ml
[2017-04-14] MEDS: VANCOMYCIN 1 GM 250 ML IVPB (09:15)
[2017-04-14] MEDS: FAMOTIDINE 20 MG INJ IV (09:15)
[2017-04-14] MEDS: LEVETIRACETAM 500 MG TAB PO ×2 (09:16→20:19)
[2017-04-14] MEDS: MULTIVIT/CA CARB/B CMPLX/FA TAB PO (09:16)
[2017-04-14] MEDS: OLANZAPINE 5 MG TAB PO ×2 (09:16→20:17)
[2017-04-14] MEDS: METOPROLOL 50 MG TAB PO ×2 (09:16→20:19)
[2017-04-14] MEDS: CEFEPIME 1GM/50 ML (PMX) 50 ML IVPB (16:06)
[2017-04-14] MEDS ORDERED: LIDOCAINE 100 MG SYRINGE (16:52)
[2017-04-14] MEDS ORDERED: HEPARIN 1000 UNITS/ML 10 ML INJ (16:52)
[2017-04-15] MEDS: hydrALAzine 20 MG INJ IV (03:02)
[2017-04-15] MEDS: METOPROLOL 50 MG TAB PO ×2 (09:00→21:00)
[2017-04-15] MEDS: OLANZAPINE 5 MG TAB PO ×2 (09:23→21:00)
[2017-04-15] MEDS: LEVETIRACETAM 500 MG TAB PO ×2 (09:23→21:00)
[2017-04-15] MEDS: FAMOTIDINE 20 MG INJ IV (09:23)
[2017-04-15] MEDS: MULTIVIT/CA CARB/B CMPLX/FA TAB PO (09:23)
[2017-04-15] MEDS: ENOXAPARIN 60 MG/0.6 ML SYG SC (09:24)
[2017-04-15] MEDS: HEPARIN 1000 UNITS/ML 10 ML INJ CATHETER (16:00)
[2017-04-15] MEDS: CEFEPIME 1GM/50 ML (PMX) 50 ML IVPB (18:45)
[2017-04-15] MEDS: APIXABAN 5 MG TABLET PO (21:00)
[2017-04-16] MEDS: hydrALAzine 20 MG INJ IV ×2 (03:30→15:26)
[2017-04-16 06:26] LABS: ADD MAN DIFF? NO
[2017-04-16 06:30] LABS: ABNORMAL IP MESSAGE 1; BASOPHIL # 0.1 10^3/ul (0.0-0.1); BASOPHILS % 0.8 % (0.0-2.0); EOSINOPHILS # 0.3 10^3/ul (0.0-0.5); EOSINOPHILS % 3.5 % (0.0-7.0); LYMPHOCYTES # 2.1 10^3/ul (0.8-2.9); LYMPHOCYTES % 28.6 % (15.0-51.0); MEAN CORPUSCULAR HEMOGLOBIN 28.7 pg (29.0-33.0); MEAN CORPUSCULAR HGB CONC 33.3 g/dl (32.0-37.0); MEAN PLATELET VOLUME 11.1 fl (7.4-10.4); MONOCYTE # 2.2 10^3/ul (0.3-0.9); MONOCYTES % 29.9 % (0.0-11.0); NEUTROPHIL # 2.7 10^3/ul (1.6-7.5); NEUTROPHILS % 36.8 % (39.0-77.0); NUCLEATED RED BLOOD CELLS% 0.3 /100WBC (0.0-0.0); PLATELET COUNT 237 10^3/UL (140-415); POSITIVE DIFF @See below; RED BLOOD COUNT 3.14 10^6/ul (4.70-6.10); RED CELL DISTRIBUTION WIDTH 19.1 % (11.5-14.5)
[2017-04-16 06:30] LABS: WHITE BLOOD COUNT 7.5 10^3/ul (4.8-10.8)
[2017-04-16 06:56] LABS: ANION GAP 17 (8-16); BLOOD UREA NITROGEN 19 mg/dl (7-20); CALCIUM 9.1 mg/dl (8.4-10.2); CARBON DIOXIDE 28 mmol/L (21-31); CHLORIDE 104 mmol/L (97-110); CREATININE 2.47 mg/dl (0.61-1.24); GLUCOSE 320 mg/dl (70-220); POTASSIUM 3.7 mmol/L (3.5-5.1); SODIUM 145 mmol/L (135-144)
[2017-04-16] MEDS: HEPARIN 1000 UNITS/ML 10 ML INJ CATHETER (12:55)
[2017-04-16] MEDS: APIXABAN 5 MG TABLET PO ×2 (12:59→20:51)
[2017-04-16] MEDS: MULTIVIT/CA CARB/B CMPLX/FA TAB PO (12:59)
[2017-04-16] MEDS: FAMOTIDINE 20 MG INJ IV (12:59)
[2017-04-16] MEDS: LEVETIRACETAM 500 MG TAB PO ×2 (12:59→20:51)
[2017-04-16] MEDS: METOPROLOL 50 MG TAB PO ×2 (12:59→20:51)
[2017-04-16] MEDS: OLANZAPINE 5 MG TAB PO ×2 (13:07→20:50)
[2017-04-16] MEDS: HYDROCODONE/APAP (5/325) TAB PO ×2 (15:26→20:52)
[2017-04-16] MEDS: CEFEPIME 1GM/50 ML (PMX) 50 ML IVPB (17:37)
[2017-04-16] MEDS: LORAZEPAM 2 MG INJ IV (17:37)
[2017-04-17] MEDS: hydrALAzine 20 MG INJ IV ×3 (00:58→18:39)
[2017-04-17] MEDS: HYDROCODONE/APAP (5/325) TAB PO (01:04)
[2017-04-17 06:12] LABS: ADD MAN DIFF? NO
[2017-04-17 06:19] LABS: WHITE BLOOD COUNT 7.7 10^3/ul (4.8-10.8)
[2017-04-17 06:19] LABS: ABNORMAL IP MESSAGE 1; BASOPHIL # 0.1 10^3/ul (0.0-0.1); BASOPHILS % 1.3 % (0.0-2.0); EOSINOPHILS # 0.3 10^3/ul (0.0-0.5); EOSINOPHILS % 4.2 % (0.0-7.0); HEMATOCRIT 28.5 % (42.0-52.0); HEMOGLOBIN 9.7 g/dl (14.0-18.0); LYMPHOCYTES # 2.4 10^3/ul (0.8-2.9); LYMPHOCYTES % 31.8 % (15.0-51.0); MEAN CORPUSCULAR HEMOGLOBIN 29.3 pg (29.0-33.0); MEAN CORPUSCULAR VOLUME 86.1 fl (82.0-101.0); MEAN PLATELET VOLUME 11.5 fl (7.4-10.4); MONOCYTE # 1.8 10^3/ul (0.3-0.9); MONOCYTES % 23.1 % (0.0-11.0); NEUTROPHILS % 39.3 % (39.0-77.0); NUCLEATED RED BLOOD CELLS% 0.4 /100WBC (0.0-0.0); PLATELET COUNT 253 10^3/UL (140-415); POSITIVE DIFF @See below; RED BLOOD COUNT 3.31 10^6/ul (4.70-6.10); RED CELL DISTRIBUTION WIDTH 18.9 % (11.5-14.5)
[2017-04-17 06:59] LABS: ANION GAP 16 (8-16); BLOOD UREA NITROGEN 13 mg/dl (7-20); CALCIUM 9.3 mg/dl (8.4-10.2); CARBON DIOXIDE 31 mmol/L (21-31); CHLORIDE 102 mmol/L (97-110); CREATININE 2.48 mg/dl (0.61-1.24); GLUCOSE 196 mg/dl (70-220); SODIUM 145 mmol/L (135-144)
[2017-04-17] MEDS: morphine 2 MG INJ IV ×3 (09:01→23:15)
[2017-04-17] MEDS: FAMOTIDINE 20 MG INJ IV (09:13)
[2017-04-17] MEDS: LEVETIRACETAM 500 MG TAB PO ×2 (09:13→20:48)
[2017-04-17] MEDS: MULTIVIT/CA CARB/B CMPLX/FA TAB PO (09:13)
[2017-04-17] MEDS: OLANZAPINE 5 MG TAB PO ×2 (09:13→20:48)
[2017-04-17] MEDS: APIXABAN 5 MG TABLET PO ×2 (09:13→20:49)
[2017-04-17] MEDS: METOPROLOL 50 MG TAB PO ×2 (09:16→20:49)
[2017-04-17] MEDS: CEFEPIME 1GM/50 ML (PMX) 50 ML IVPB (16:27)
[2017-04-18 06:15] LABS: ABNORMAL IP MESSAGE 1; HEMATOCRIT 25.9 % (42.0-52.0); HEMOGLOBIN 9.1 g/dl (14.0-18.0); MEAN CORPUSCULAR HEMOGLOBIN 29.4 pg (29.0-33.0); MEAN CORPUSCULAR HGB CONC 35.1 g/dl (32.0-37.0); MEAN CORPUSCULAR VOLUME 83.8 fl (82.0-101.0); MEAN PLATELET VOLUME 11.6 fl (7.4-10.4); NUCLEATED RED BLOOD CELLS% 0.3 /100WBC (0.0-0.0); PLATELET COUNT 279 10^3/UL (140-415); POSITIVE DIFF @See below; RED BLOOD COUNT 3.09 10^6/ul (4.70-6.10); RED CELL DISTRIBUTION WIDTH 18.4 % (11.5-14.5)
[2017-04-18 06:15] LABS: WHITE BLOOD COUNT 7.6 10^3/ul (4.8-10.8)
[2017-04-18 06:22] LABS: ADD MAN DIFF? YES
[2017-04-18 06:39] LABS: ANION GAP 18 (8-16); BLOOD UREA NITROGEN 21 mg/dl (7-20); CALCIUM 9.5 mg/dl (8.4-10.2); CARBON DIOXIDE 26 mmol/L (21-31); CHLORIDE 102 mmol/L (97-110); CREATININE 3.08 mg/dl (0.61-1.24); GLUCOSE 208 mg/dl (70-220); POTASSIUM 4.2 mmol/L (3.5-5.1); SODIUM 142 mmol/L (135-144)
[2017-04-18] MEDS: HYDROCODONE/APAP (5/325) TAB PO ×2 (06:46→21:00)
[2017-04-18] MEDS: APIXABAN 5 MG TABLET PO ×2 (08:44→20:57)
[2017-04-18] MEDS: LEVETIRACETAM 500 MG TAB PO ×2 (08:44→20:56)
[2017-04-18] MEDS: OLANZAPINE 5 MG TAB PO ×2 (08:45→20:56)
[2017-04-18] MEDS: METOPROLOL 50 MG TAB PO ×2 (08:45→20:57)
[2017-04-18] MEDS: MULTIVIT/CA CARB/B CMPLX/FA TAB PO (08:45)
[2017-04-18] MEDS: FAMOTIDINE 20 MG INJ IV (08:50)
[2017-04-18 10:43] LABS: ANISOCYTOSIS 3+ (0-0); BAND NEUTROPHILS #M 0.1 10^3/ul (0.0-0.6); BAND NEUTROPHILS % (M) 2 % (0-4); EOSINOPHILS % (M) 5 % (0-7); ERYTHROBLAST% (NRBC) (M) 5 % (0-0); GIANT THROMBO% (M) 34 % (0-0); HYPOCHROMASIA 1+ (0-0); LYMPHOCYTES #M 2.6 10^3/ul (0.8-2.9); LYMPHOCYTES % (M) 35 % (15-51); MONOCYTE #M 0.9 10^3/ul (0.3-0.9); MONOCYTES % (M) 12 % (0-11); PLATELET ESTIMATE NORMAL; POIKILOCYTOSIS 1+ (0-0); POLYCHROMASIA 2+ (0-0); REACTIVE LYMPHOCYTES #M 0.3 10^3/ul (0.0-0.0); REACTIVE LYMPHOCYTES% (M) 4 % (0-0); SEG NEUT #M 3.2 10^3/ul (1.6-7.5); SEGMENTED NEUTROPHILS (M) % 42 % (39-77); SMUDGE%M 13 % (0-0)
[2017-04-18] MEDS: CEFEPIME 1GM/50 ML (PMX) 50 ML IVPB (18:35)
[2017-04-19] MEDS: HYDROCODONE/APAP (5/325) TAB PO ×2 (05:27→23:33)
[2017-04-19 05:56] LABS: ADD MAN DIFF? NO
[2017-04-19 06:13] LABS: BASOPHIL # 0.1 10^3/ul (0.0-0.1); BASOPHILS % 1.2 % (0.0-2.0); EOSINOPHILS # 0.4 10^3/ul (0.0-0.5); EOSINOPHILS % 4.8 % (0.0-7.0); HEMOGLOBIN 9.9 g/dl (14.0-18.0); LYMPHOCYTES # 2.5 10^3/ul (0.8-2.9); MEAN CORPUSCULAR HEMOGLOBIN 29.1 pg (29.0-33.0); MEAN CORPUSCULAR HGB CONC 34.1 g/dl (32.0-37.0); MEAN CORPUSCULAR VOLUME 85.3 fl (82.0-101.0); MEAN PLATELET VOLUME 10.9 fl (7.4-10.4); MONOCYTE # 1.5 10^3/ul (0.3-0.9); MONOCYTES % 18.8 % (0.0-11.0); NEUTROPHIL # 3.3 10^3/ul (1.6-7.5); NEUTROPHILS % 42.7 % (39.0-77.0); NUCLEATED RED BLOOD CELLS% 0.3 /100WBC (0.0-0.0); PLATELET COUNT 333 10^3/UL (140-415); RED CELL DISTRIBUTION WIDTH 18.5 % (11.5-14.5)
[2017-04-19 06:13] LABS: WHITE BLOOD COUNT 7.8 10^3/ul (4.8-10.8)
[2017-04-19 06:45] LABS: ANION GAP 18 (8-16); BLOOD UREA NITROGEN 25 mg/dl (7-20); CALCIUM 9.5 mg/dl (8.4-10.2); CARBON DIOXIDE 26 mmol/L (21-31); CHLORIDE 103 mmol/L (97-110); CREATININE 3.35 mg/dl (0.61-1.24); GLUCOSE 265 mg/dl (70-220); POTASSIUM 4.3 mmol/L (3.5-5.1); SODIUM 143 mmol/L (135-144)
[2017-04-19] MEDS: METOPROLOL 50 MG TAB PO ×2 (09:00→21:03)
[2017-04-19] MEDS: OLANZAPINE 5 MG TAB PO ×2 (09:00→21:03)
[2017-04-19] MEDS: MULTIVIT/CA CARB/B CMPLX/FA TAB PO (09:56)
[2017-04-19] MEDS: APIXABAN 5 MG TABLET PO ×2 (09:56→21:03)
[2017-04-19] MEDS: LEVETIRACETAM 500 MG TAB PO ×2 (09:56→21:03)
[2017-04-19] MEDS: FAMOTIDINE 20 MG INJ IV (09:57)
[2017-04-19] MEDS: hydrALAzine 20 MG INJ IV ×2 (18:36→23:50)
[2017-04-19] MEDS: HEPARIN 1000 UNITS/ML 10 ML INJ CATHETER (20:11)
[2017-04-19] MEDS: CEFEPIME 1GM/50 ML (PMX) 50 ML IVPB (21:07)
[2017-04-20] MEDS: LEVETIRACETAM 500 MG TAB PO ×2 (09:29→20:09)
[2017-04-20] MEDS: APIXABAN 5 MG TABLET PO ×2 (09:29→20:09)
[2017-04-20] MEDS: OLANZAPINE 5 MG TAB PO ×2 (09:29→20:09)
[2017-04-20] MEDS: MULTIVIT/CA CARB/B CMPLX/FA TAB PO (09:29)
[2017-04-20] MEDS: METOPROLOL 50 MG TAB PO ×2 (09:30→12:52)
[2017-04-20] MEDS: hydrALAzine 20 MG INJ IV ×2 (10:40→16:47)
[2017-04-20] MEDS: HYDROCODONE/APAP (5/325) TAB PO (10:46)
[2017-04-20] MEDS ORDERED: DEXTROSE 50% 50 ML SYRINGE IV ×2 (17:00)
[2017-04-20] MEDS ORDERED: GLUCAGON 1 MG INJ IM (17:00)
[2017-04-20] MEDS ORDERED: GLUCOSE GEL 15 GRAM TUBE BUCCAL (17:00)
[2017-04-20] MEDS ORDERED: GLUCOSE GEL 15 GRAM TUBE PO ×2 (17:00)
[2017-04-20] MEDS: ONDANSETRON 4 MG INJ IV (17:36)
[2017-04-20] MEDS: INSULIN ASPART [NOVOLOG] 3 ML PEN SC ×3 (17:48→22:20)
[2017-04-20 19:41] LABS: GLUCOSE 585 mg/dl (70-220)
[2017-04-20 20:08] LABS: HEMOGLOBIN A1C 5.8 % (0-5.9)
[2017-04-20] MEDS: NIFEdipine (XL) 30 MG TAB PO (20:09)
[2017-04-20 22:06] LABS: GLUCOSE 76 mg/dl (70-220)
[2017-04-21] MEDS: ACCU-CHEK XX (02:00)
[2017-04-21] MEDS: INSULIN ASPART [NOVOLOG] 3 ML PEN SC ×4 (08:15→21:40)
[2017-04-21] MEDS: APIXABAN 5 MG TABLET PO ×3 (09:00→21:38)
[2017-04-21] MEDS: MULTIVIT/CA CARB/B CMPLX/FA TAB PO ×2 (09:00→09:13)
[2017-04-21] MEDS: NIFEdipine (XL) 30 MG TAB PO ×2 (09:00→22:45)
[2017-04-21] MEDS: OLANZAPINE 5 MG TAB PO ×3 (09:00→21:38)
[2017-04-21] MEDS: LEVETIRACETAM 500 MG TAB PO ×3 (09:00→21:38)
[2017-04-21 14:02] LABS: ADD MAN DIFF? NO
[2017-04-21 14:04] LABS: WHITE BLOOD COUNT 7.3 10^3/ul (4.8-10.8)
[2017-04-21 14:04] LABS: BASOPHIL # 0.1 10^3/ul (0.0-0.1); BASOPHILS % 1.2 % (0.0-2.0); EOSINOPHILS # 0.3 10^3/ul (0.0-0.5); EOSINOPHILS % 4.4 % (0.0-7.0); HEMATOCRIT 27.4 % (42.0-52.0); HEMOGLOBIN 9.6 g/dl (14.0-18.0); LYMPHOCYTES # 2.1 10^3/ul (0.8-2.9); LYMPHOCYTES % 29.2 % (15.0-51.0); MEAN CORPUSCULAR HEMOGLOBIN 29.4 pg (29.0-33.0); MONOCYTE # 1.5 10^3/ul (0.3-0.9); NEUTROPHIL # 3.3 10^3/ul (1.6-7.5); NEUTROPHILS % 44.8 % (39.0-77.0); PLATELET COUNT 318 10^3/UL (140-415); POSITIVE DIFF @See below; RED BLOOD COUNT 3.26 10^6/ul (4.70-6.10)
[2017-04-21 14:21] LABS: ANION GAP 18 (8-16); BLOOD UREA NITROGEN 33 mg/dl (7-20); CALCIUM 9.7 mg/dl (8.4-10.2); CARBON DIOXIDE 26 mmol/L (21-31); CHLORIDE 100 mmol/L (97-110); CREATININE 3.39 mg/dl (0.61-1.24); GLUCOSE 302 mg/dl (70-220); POTASSIUM 4.7 mmol/L (3.5-5.1); SODIUM 139 mmol/L (135-144)
[2017-04-21 14:50] LABS: ANISOCYTOSIS 2+ (0-0); BAND NEUTROPHILS % (M) 1 % (0-4); BASOPHIL #M 0.2 10^3/ul (0.0-0.0); BASOPHILS % (M) 3 % (0-2); EOSINOPHILS % (M) 6 % (0-7); GIANT THROMBO% (M) 1 % (0-0); HYPOCHROMASIA 1+ (0-0); LYMPHOCYTES #M 1.8 10^3/ul (0.8-2.9); LYMPHOCYTES % (M) 26 % (15-51); MONOCYTE #M 1.3 10^3/ul (0.3-0.9); MONOCYTES % (M) 18 % (0-11); MYELOCYTES #M 0.2 10^3/ul (0.0-0.0); MYELOCYTES % (M) 3 % (0-0); PLATELET ESTIMATE NORMAL; POIKILOCYTOSIS 1+ (0-0); POLYCHROMASIA 3+ (0-0); REACTIVE LYMPHOCYTES #M 0.2 10^3/ul (0.0-0.0); REACTIVE LYMPHOCYTES% (M) 4 % (0-0); SEG NEUT #M 2.8 10^3/ul (1.6-7.5); SEGMENTED NEUTROPHILS (M) % 38 % (39-77); SMUDGE%M 4 % (0-0)
[2017-04-21] MEDS: HYDROCODONE/APAP (5/325) TAB PO (17:59)
[2017-04-21 18:27] LABS: GTT FASTING GLUCOSE 296 mg/dl (70-110)
[2017-04-21 18:28] LABS: GLUCOSE 1 HOUR 397 mg/dl
[2017-04-21] MEDS: morphine 2 MG INJ IV ×2 (18:45→22:46)
[2017-04-21 20:26] LABS: HEPATITIS B SURFACE ANTIGEN NEGATIVE (NEGATIVE)
[2017-04-21 20:43] LABS: HEPATITIS B SURFACE ANTIBODY POSITIVE (NEGATIVE)
[2017-04-21] MEDS: HEPARIN 1000 UNITS/ML 10 ML INJ CATHETER (20:48)
[2017-04-22] MEDS: ACCU-CHEK XX (02:00)
[2017-04-22] MEDS: HYDROCODONE/APAP (5/325) TAB PO (02:35)
[2017-04-22 06:03] LABS: ADD MAN DIFF? NO
[2017-04-22 06:08] LABS: ABNORMAL IP MESSAGE 1; BASOPHIL # 0.1 10^3/ul (0.0-0.1); BASOPHILS % 1.1 % (0.0-2.0); EOSINOPHILS # 0.3 10^3/ul (0.0-0.5); EOSINOPHILS % 4.6 % (0.0-7.0); HEMATOCRIT 25.7 % (42.0-52.0); LYMPHOCYTES # 2.4 10^3/ul (0.8-2.9); LYMPHOCYTES % 34.4 % (15.0-51.0); MEAN CORPUSCULAR HEMOGLOBIN 29.1 pg (29.0-33.0); MEAN CORPUSCULAR VOLUME 83.2 fl (82.0-101.0); MEAN PLATELET VOLUME 10.9 fl (7.4-10.4); MONOCYTE # 1.8 10^3/ul (0.3-0.9); NEUTROPHIL # 2.4 10^3/ul (1.6-7.5); NEUTROPHILS % 33.5 % (39.0-77.0); PLATELET COUNT 296 10^3/UL (140-415); POSITIVE DIFF @See below; RED BLOOD COUNT 3.09 10^6/ul (4.70-6.10); RED CELL DISTRIBUTION WIDTH 17.6 % (11.5-14.5)
[2017-04-22 06:10] LABS: MONOCYTES % 25.7 % (0.0-11.0)
[2017-04-22 06:28] LABS: IRON 57 ug/dl (35-150)
[2017-04-22 06:37] LABS: % IRON SATURATION 24 % SAT (22-52); TOTAL IRON BINDING CAPACITY 241 ug/dl (241-421)
[2017-04-22 06:57] LABS: ANION GAP 17 (8-16); BLOOD UREA NITROGEN 19 mg/dl (7-20); CALCIUM 9.3 mg/dl (8.4-10.2); CARBON DIOXIDE 28 mmol/L (21-31); CHLORIDE 102 mmol/L (97-110); CREATININE 2.26 mg/dl (0.61-1.24); GLUCOSE 111 mg/dl (70-220); POTASSIUM 4.3 mmol/L (3.5-5.1); SODIUM 143 mmol/L (135-144)
[2017-04-22] MEDS: INSULIN ASPART [NOVOLOG] 3 ML PEN SC ×2 (08:16→12:06)
[2017-04-22] MEDS: morphine 2 MG INJ IV (08:40)
[2017-04-22] MEDS: LEVETIRACETAM 500 MG TAB PO (08:41)
[2017-04-22] MEDS: APIXABAN 5 MG TABLET PO (08:41)
[2017-04-22] MEDS: OLANZAPINE 5 MG TAB PO (08:42)
[2017-04-22] MEDS: NIFEdipine (XL) 30 MG TAB PO (08:42)
[2017-04-22] MEDS: MULTIVIT/CA CARB/B CMPLX/FA TAB PO (08:42)
[2017-04-22] MEDS: LINAGLIPTIN 5 MG TABLET PO (12:59)
[2017-04-22] MEDS ORDERED: ACCU-CHEK XX (14:05)
[2017-04-22 14:56] LABS: ALANINE AMINOTRANSFERASE 18 IU/L (13-69); ALBUMIN 4.7 g/dl (3.3-4.9); ALBUMIN/GLOBULIN RATIO 1.23; ALKALINE PHOSPHATASE 112 IU/L (42-121); ANION GAP 20 (8-16); ASPARTATE AMINO TRANSFERASE 32 IU/L (15-46); BLOOD UREA NITROGEN 20 mg/dl (7-20); CALCIUM 10.3 mg/dl (8.4-10.2); CARBON DIOXIDE 29 mmol/L (21-31); CHLORIDE 100 mmol/L (97-110); CREATININE 2.76 mg/dl (0.61-1.24); GLUCOSE 149 mg/dl (70-220); POTASSIUM 4.8 mmol/L (3.5-5.1); SODIUM 144 mmol/L (135-144); TOTAL PROTEIN 8.5 g/dl (6.1-8.1)
[2017-04-24 00:32] LABS: C-PEPTIDE 1.72 ng/mL (0.80-3.85)
== END 2017-04-22 14:15 | disposition home or self-care (01) | DRG 314 ==
LOC: TEL 04-14 00:56 → E/R 14:28 → MS2 04-14 19:40 → TEL 18:20
PROC: 5A1D70Z Performance of Urinary Filtration, Intermittent, Less than 6 Hours Per Day (ICD-10-PCS; principal; 2017-04-14 16:20)
PROC: 5A1D70Z Performance of Urinary Filtration, Intermittent, Less than 6 Hours Per Day (ICD-10-PCS; 2017-04-14 16:20)
PROC: 5A1D70Z Performance of Urinary Filtration, Intermittent, Less than 6 Hours Per Day (ICD-10-PCS; 2017-04-14 16:20)
PROC: 5A1D70Z Performance of Urinary Filtration, Intermittent, Less than 6 Hours Per Day (ICD-10-PCS; 2017-04-14 16:20)
DX: T82.41XA Breakdown (mechanical) of vascular dialysis catheter, initial encounter (principal); J18.9 Pneumonia, unspecified organism; N18.6 End stage renal disease; I50.23 Acute on chronic systolic (congestive) heart failure; I13.2 Hypertensive heart and chronic kidney disease with heart failure and with stage 5 chronic kidney disease, or end stage renal disease; Z99.2 Dependence on renal dialysis; N18.9 Chronic kidney disease, unspecified; R73.03 Prediabetes; D63.8 Anemia in other chronic diseases classified elsewhere; F17.210 Nicotine dependence, cigarettes, uncomplicated; E78.5 Hyperlipidemia, unspecified; I70.0 Atherosclerosis of aorta
CPT/HCPCS: 36415; 71045; 80048; 80053; 80202; 82533; 82728; 82947; 82950; 82962; 83036; 83540; 83605; 83880; 84484; 84681; 85025; 85610; 85730; 86337; 86706; 87040; 87340; 87400; 90935; 93005; 96374; 96375; 99285-25

== ENCOUNTER 2017-06-13 17:00 | Inpatient (IN) | payer MEDICARE, OTHER ==
[2017-06-13 20:06] LABS: ABNORMAL IP MESSAGE 1; MEAN CORPUSCULAR HGB CONC 34.5 g/dl (32.0-37.0); NUCLEATED RED BLOOD CELLS% 0.2 /100WBC (0.0-0.0); PLATELET COUNT 264 10^3/UL (140-415); POSITIVE DIFF @See below; RED CELL DISTRIBUTION WIDTH 18.6 % (11.5-14.5)
[2017-06-13 20:11] LABS: ADD MAN DIFF? YES; HEMOGLOBIN 6.9 g/dl (14.0-18.0)
[2017-06-13 20:29] LABS: ALANINE AMINOTRANSFERASE 38 IU/L (13-69); ALBUMIN 3.3 g/dl (3.3-4.9); ALKALINE PHOSPHATASE 113 IU/L (42-121); ANION GAP 12 (8-16); ASPARTATE AMINO TRANSFERASE 51 IU/L (15-46); BLOOD UREA NITROGEN 50 mg/dl (7-20); CALCIUM 8.9 mg/dl (8.4-10.2); CARBON DIOXIDE 25 mmol/L (21-31); CHLORIDE 102 mmol/L (97-110); CREATININE 4.46 mg/dl (0.61-1.24); GLUCOSE 156 mg/dl (70-220); MAGNESIUM 2.1 mg/dl (1.7-2.5); PHOSPHORUS 5.2 mg/dl (2.5-4.9); POTASSIUM 4.4 mmol/L (3.5-5.1); SODIUM 135 mmol/L (135-144); TOTAL PROTEIN 6.3 g/dl (6.1-8.1)
[2017-06-13 20:36] LABS: INR 1.44; PARTIAL THROMBOPLASTIN TIME 33.7 Sec (25.0-35.0); PROTIME 17.8 Sec (11.9-14.9); PT RATIO 1.4
[2017-06-13 20:44] LABS: TROPONIN-I < 0.012 ng/ml (0.00-0.12)
[2017-06-13 21:04] LABS: ANISOCYTOSIS 1+ (0-0); EOSINOPHILS % (M) 2 % (0-7); GIANT THROMBO% (M) 2 % (0-0); HYPOCHROMASIA 2+ (0-0); LYMPHOCYTES #M 3.6 10^3/ul (0.8-2.9); LYMPHOCYTES % (M) 30 % (15-51); MONOCYTE #M 1.6 10^3/ul (0.3-0.9); MONOCYTES % (M) 14 % (0-11); PLATELET ESTIMATE NORMAL; POLYCHROMASIA 3+ (0-0); REACTIVE LYMPHOCYTES #M 0.1 10^3/ul (0.0-0.0); REACTIVE LYMPHOCYTES% (M) 1 % (0-0); SEGMENTED NEUTROPHILS (M) % 53 % (39-77); SMUDGE%M 3 % (0-0)
[2017-06-14] MEDS: HYDROCODONE/APAP (5/325) TAB PO ×3 (04:06→21:22)
[2017-06-14] MEDS: ACCU-CHEK XX (04:13)
[2017-06-14] MEDS: SOD CHLORIDE 0.9% 250 ML IV* (07:11)
[2017-06-14] MEDS: ACETAMINOPHEN 325 MG TAB PO (07:30)
[2017-06-14] MEDS: DIPHENHYDRAMINE 50 MG INJ IV (07:30)
[2017-06-14] MEDS: INSULIN ASPART [NOVOLOG] 3 ML PEN SC ×4 (08:00→21:21)
[2017-06-14 08:45] LABS: IRON 70 ug/dl (35-150)
[2017-06-14 08:45] LABS: LACTATE DEHYDROGENASE 490 IU/L (313-618)
[2017-06-14 08:55] LABS: % IRON SATURATION 28 % SAT (22-52); TOTAL IRON BINDING CAPACITY 247 ug/dl (241-421)
[2017-06-14] MEDS: NIFEdipine (XL) 30 MG TAB PO (09:00)
[2017-06-14] MEDS: METOPROLOL 50 MG TAB PO ×2 (09:00→21:22)
[2017-06-14 10:54] LABS: IMMEDIATE SPIN CROSSMATCH 1 3
[2017-06-14] MEDS: HEPARIN 1000 UNITS/ML 10 ML INJ CATHETER (12:20)
[2017-06-14] MEDS: GABAPENTIN 100 MG CAP PO ×3 (13:00→21:23)
[2017-06-14] MEDS: APIXABAN 5 MG TABLET PO ×2 (13:04→21:22)
[2017-06-14] MEDS: LEVETIRACETAM 500 MG TAB PO ×2 (13:04→21:21)
[2017-06-14] MEDS: OLANZAPINE 5 MG TAB PO (13:04)
[2017-06-14] MEDS: LINAGLIPTIN 5 MG TABLET PO (13:05)
[2017-06-14] MEDS: CYANOCOBALAMIN 500 MCG TAB PO (13:05)
[2017-06-14] MEDS: MULTIVIT/CA CARB/B CMPLX/FA TAB PO (13:05)
[2017-06-14 17:16] LABS: RETICULOCYTE RBC 3.68
[2017-06-14 17:16] LABS: RETICULOCYTE COUNT # 0.071 X10^6 (0.020-0.110); RETICULOCYTE COUNT % 1.9 % (0.5-1.5)
[2017-06-14 17:17] LABS: LACTATE DEHYDROGENASE 505 IU/L (313-618)
[2017-06-14 17:59] LABS: ERYTHROCYTE SEDIMENTATION RATE 27 mm/Hr (0-20)
[2017-06-14 19:43] LABS: THYROID STIMULATING HORMONE 0.071 MIU/L (0.465-4.680)
[2017-06-14 20:25] LABS: FOLATE > 20.0 ng/ml (2.8-20.0)
[2017-06-14] MEDS: LACTULOSE 30ML CUP PO (21:23)
[2017-06-15] MEDS: LACTULOSE 30ML CUP PO ×8 (00:07→21:58)
[2017-06-15] MEDS: ACETAMINOPHEN 325 MG TAB PO (00:07)
[2017-06-15] MEDS: ACCU-CHEK XX (02:19)
[2017-06-15 06:02] LABS: PROTEIN, TOTAL 6.4 g/dL (6.1-8.1)
[2017-06-15] MEDS: PEG/ELECTROLYTES 4L BTL PO (06:33)
[2017-06-15 07:07] LABS: OCCULT BLOOD STOOL NEGATIVE (NEGATIVE)
[2017-06-15] MEDS: INSULIN ASPART [NOVOLOG] 3 ML PEN SC ×4 (08:00→21:00)
[2017-06-15] MEDS: APIXABAN 5 MG TABLET PO ×2 (08:35→21:00)
[2017-06-15] MEDS: GABAPENTIN 100 MG CAP PO ×3 (08:35→21:59)
[2017-06-15] MEDS: LEVETIRACETAM 500 MG TAB PO ×2 (08:36→21:59)
[2017-06-15] MEDS: CYANOCOBALAMIN 500 MCG TAB PO (08:36)
[2017-06-15] MEDS: LINAGLIPTIN 5 MG TABLET PO (08:36)
[2017-06-15] MEDS: METOPROLOL 50 MG TAB PO ×2 (08:38→22:00)
[2017-06-15] MEDS: NIFEdipine (XL) 30 MG TAB PO (08:38)
[2017-06-15] MEDS: OLANZAPINE 5 MG TAB PO (08:38)
[2017-06-15] MEDS: MULTIVIT/CA CARB/B CMPLX/FA TAB PO (08:38)
[2017-06-15] MEDS: HYDROCODONE/APAP (5/325) TAB PO ×2 (08:39→21:59)
[2017-06-15 12:27] LABS: ADD MAN DIFF? NO
[2017-06-15 12:31] LABS: BASOPHIL # 0.1 10^3/ul (0.0-0.1); BASOPHILS % 0.7 % (0.0-2.0); EOSINOPHILS # 0.1 10^3/ul (0.0-0.5); HEMATOCRIT 32.4 % (42.0-52.0); HEMOGLOBIN 10.9 g/dl (14.0-18.0); LYMPHOCYTES # 0.9 10^3/ul (0.8-2.9); LYMPHOCYTES % 10.6 % (15.0-51.0); MEAN CORPUSCULAR HEMOGLOBIN 29.7 pg (29.0-33.0); MEAN CORPUSCULAR HGB CONC 33.6 g/dl (32.0-37.0); MEAN CORPUSCULAR VOLUME 88.3 fl (82.0-101.0); MONOCYTE # 1.1 10^3/ul (0.3-0.9); MONOCYTES % 12.3 % (0.0-11.0); NEUTROPHIL # 6.6 10^3/ul (1.6-7.5); NEUTROPHILS % 74.3 % (39.0-77.0); PLATELET COUNT 261 10^3/UL (140-415); RED BLOOD COUNT 3.67 10^6/ul (4.70-6.10); RED CELL DISTRIBUTION WIDTH 17.1 % (11.5-14.5)
[2017-06-15 12:31] LABS: WHITE BLOOD COUNT 8.8 10^3/ul (4.8-10.8)
[2017-06-15 12:48] LABS: ALANINE AMINOTRANSFERASE 37 IU/L (13-69); ALBUMIN 3.4 g/dl (3.3-4.9); ALBUMIN/GLOBULIN RATIO 0.97; ALKALINE PHOSPHATASE 122 IU/L (42-121); ANION GAP 17 (8-16); ASPARTATE AMINO TRANSFERASE 68 IU/L (15-46); BLOOD UREA NITROGEN 36 mg/dl (7-20); CALCIUM 9.2 mg/dl (8.4-10.2); CARBON DIOXIDE 23 mmol/L (21-31); CHLORIDE 110 mmol/L (97-110); CREATININE 3.96 mg/dl (0.61-1.24); GLUCOSE 87 mg/dl (70-220); POTASSIUM 3.6 mmol/L (3.5-5.1); SODIUM 146 mmol/L (135-144); TOTAL PROTEIN 6.9 g/dl (6.1-8.1)
[2017-06-15 16:18] LABS: PATH REVIEW CH
[2017-06-15 17:26] LABS: HAPTOGLOBIN 99 mg/dL (43-212)
[2017-06-15] MEDS: EPOETIN 10000 UNITS/1 ML INJ (ESRD) SC (17:54)
[2017-06-15] MEDS ORDERED: PEG/ELECTROLYTES 4L BTL PO (19:00)
[2017-06-15 19:27] LABS: FREE T3 3.92 pg/ml (2.77-5.27)
[2017-06-15 23:27] LABS: ALBUMIN 3.4 g/dL (3.8-4.8); ALPHA-1-GLOBULINS 0.5 g/dL (0.2-0.3); ALPHA-2-GLOBULINS 0.7 g/dL (0.5-0.9); BETA 2 GLOBULINS 0.6 g/dL (0.2-0.5); BETA GLOBULINS 0.4 g/dL (0.4-0.6)
[2017-06-16] MEDS ORDERED: GLUCAGON 1 MG INJ IM (00:30)
[2017-06-16] MEDS ORDERED: GLUCOSE GEL 15 GRAM TUBE BUCCAL (00:30)
[2017-06-16] MEDS ORDERED: DEXTROSE 50% 50 ML SYRINGE IV ×2 (00:30)
[2017-06-16] MEDS ORDERED: GLUCOSE GEL 15 GRAM TUBE PO ×2 (00:30)
[2017-06-16] MEDS: INSULIN ASPART [NOVOLOG] 3 ML PEN SC ×6 (01:00→21:16)
[2017-06-16] MEDS: LACTULOSE 30ML CUP PO ×6 (03:00→14:16)
[2017-06-16 06:07] LABS: ADD MAN DIFF? NO
[2017-06-16 06:12] LABS: WHITE BLOOD COUNT 7.6 10^3/ul (4.8-10.8)
[2017-06-16 06:12] LABS: BASOPHIL # 0.1 10^3/ul (0.0-0.1); BASOPHILS % 1.7 % (0.0-2.0); EOSINOPHILS # 0.2 10^3/ul (0.0-0.5); EOSINOPHILS % 3.2 % (0.0-7.0); HEMATOCRIT 34.6 % (42.0-52.0); HEMOGLOBIN 11.6 g/dl (14.0-18.0); LYMPHOCYTES # 2.6 10^3/ul (0.8-2.9); LYMPHOCYTES % 33.9 % (15.0-51.0); MEAN CORPUSCULAR HEMOGLOBIN 30.1 pg (29.0-33.0); MEAN CORPUSCULAR HGB CONC 33.5 g/dl (32.0-37.0); MEAN CORPUSCULAR VOLUME 89.6 fl (82.0-101.0); MEAN PLATELET VOLUME 11.4 fl (7.4-10.4); MONOCYTE # 1.5 10^3/ul (0.3-0.9); NEUTROPHIL # 3.1 10^3/ul (1.6-7.5); NEUTROPHILS % 40.6 % (39.0-77.0); PLATELET COUNT 264 10^3/UL (140-415); POSITIVE DIFF @See below; RED BLOOD COUNT 3.86 10^6/ul (4.70-6.10); RED CELL DISTRIBUTION WIDTH 16.8 % (11.5-14.5)
[2017-06-16 06:36] LABS: ANION GAP 16 (8-16); BLOOD UREA NITROGEN 30 mg/dl (7-20); CALCIUM 9.3 mg/dl (8.4-10.2); CARBON DIOXIDE 23 mmol/L (21-31); CHLORIDE 113 mmol/L (97-110); CREATININE 3.49 mg/dl (0.61-1.24); GLUCOSE 90 mg/dl (70-220); POTASSIUM 4.2 mmol/L (3.5-5.1); SODIUM 148 mmol/L (135-144)
[2017-06-16 06:52] LABS: MONOCYTES % 19.7 % (0.0-11.0)
[2017-06-16] MEDS: NIFEdipine (XL) 30 MG TAB PO (09:00)
[2017-06-16] MEDS: METOPROLOL 50 MG TAB PO ×2 (09:00→21:10)
[2017-06-16] MEDS: LINAGLIPTIN 5 MG TABLET PO (09:00)
[2017-06-16] MEDS: MULTIVIT/CA CARB/B CMPLX/FA TAB PO (09:00)
[2017-06-16] MEDS: HYDROCODONE/APAP (5/325) TAB PO ×2 (09:00→21:09)
[2017-06-16] MEDS: LEVETIRACETAM 500 MG TAB PO ×2 (09:00→21:10)
[2017-06-16] MEDS: OLANZAPINE 5 MG TAB PO (09:00)
[2017-06-16] MEDS: APIXABAN 5 MG TABLET PO ×2 (09:00→21:10)
[2017-06-16] MEDS: CYANOCOBALAMIN 500 MCG TAB PO (09:00)
[2017-06-16] MEDS: GABAPENTIN 100 MG CAP PO ×3 (09:00→21:09)
[2017-06-16] MEDS ORDERED: HEPARIN 1000 UNITS/ML 10 ML INJ (10:10)
[2017-06-16] MEDS: HEPARIN 1000 UNITS/ML 10 ML INJ CATHETER (11:44)
[2017-06-16] MEDS: DEXTROSE 5%-0.45% NACL 1,000 ML IV (14:27)
[2017-06-16] MEDS ORDERED: PROPOFOL 40 ML (16:25)
[2017-06-16] MEDS ORDERED: hydrALAzine 20 MG INJ IV (16:30)
[2017-06-16] MEDS ORDERED: DIPHENHYDRAMINE 50 MG INJ IV (16:30)
[2017-06-16] MEDS ORDERED: EPHEDrine SULFATE 50 MG/5 ML SYG IV (16:30)
[2017-06-16] MEDS ORDERED: FENTAnyl 50 MCG/ML VIAL IV ×3 (16:30)
[2017-06-16] MEDS ORDERED: ONDANSETRON 4 MG INJ IV (16:30)
[2017-06-16] MEDS ORDERED: MIDAZOLAM 1 MG/ML 2 ML INJ IV (16:30)
[2017-06-16] MEDS ORDERED: MEPERIDINE 25 MG INJ IV (16:30)
[2017-06-16] MEDS ORDERED: LABETALOL HCL 20MG INJ IV (16:30)
[2017-06-16] MEDS ORDERED: METOCLOPRAMIDE 10 MG INJ IV (16:30)
[2017-06-16] MEDS: morphine 2 MG INJ IV (23:10)
[2017-06-17] MEDS: morphine 2 MG INJ IV ×2 (04:24→09:49)
[2017-06-17 05:49] LABS: WHITE BLOOD COUNT 12.5 10^3/ul (4.8-10.8)
[2017-06-17 05:49] LABS: ADD MAN DIFF? NO; BASOPHIL # 0.2 10^3/ul (0.0-0.1); BASOPHILS % 1.2 % (0.0-2.0); EOSINOPHILS % 0.2 % (0.0-7.0); HEMATOCRIT 38.2 % (42.0-52.0); HEMOGLOBIN 12.7 g/dl (14.0-18.0); LYMPHOCYTES # 1.7 10^3/ul (0.8-2.9); LYMPHOCYTES % 13.2 % (15.0-51.0); MEAN CORPUSCULAR HEMOGLOBIN 29.8 pg (29.0-33.0); MEAN CORPUSCULAR HGB CONC 33.2 g/dl (32.0-37.0); MEAN CORPUSCULAR VOLUME 89.7 fl (82.0-101.0); MONOCYTE # 1.3 10^3/ul (0.3-0.9); MONOCYTES % 10.5 % (0.0-11.0); NEUTROPHIL # 9.3 10^3/ul (1.6-7.5); NEUTROPHILS % 74.3 % (39.0-77.0); NUCLEATED RED BLOOD CELLS% 0.2 /100WBC (0.0-0.0); PLATELET COUNT 271 10^3/UL (140-415); RED BLOOD COUNT 4.26 10^6/ul (4.70-6.10); RED CELL DISTRIBUTION WIDTH 16.3 % (11.5-14.5)
[2017-06-17 06:33] LABS: ANION GAP 19 (8-16); BLOOD UREA NITROGEN 27 mg/dl (7-20); CALCIUM 9.2 mg/dl (8.4-10.2); CARBON DIOXIDE 21 mmol/L (21-31); CHLORIDE 106 mmol/L (97-110); CREATININE 4.13 mg/dl (0.61-1.24); GLUCOSE 141 mg/dl (70-220); POTASSIUM 5.3 mmol/L (3.5-5.1); SODIUM 141 mmol/L (135-144)
[2017-06-17] MEDS ORDERED: INSULIN ASPART [NOVOLOG] 3 ML PEN SC (07:30)
[2017-06-17] MEDS: Insulin NOVOLOG SS MILD Algorithm (SS with meals and bedtime) SC ×2 (08:00→12:00)
[2017-06-17] MEDS: GABAPENTIN 100 MG CAP PO ×2 (08:35→12:45)
[2017-06-17] MEDS: LEVETIRACETAM 500 MG TAB PO (08:35)
[2017-06-17] MEDS: LINAGLIPTIN 5 MG TABLET PO (08:36)
[2017-06-17] MEDS: MULTIVIT/CA CARB/B CMPLX/FA TAB PO (08:36)
[2017-06-17] MEDS: OLANZAPINE 5 MG TAB PO (08:36)
[2017-06-17] MEDS: CYANOCOBALAMIN 500 MCG TAB PO (08:37)
[2017-06-17] MEDS: APIXABAN 5 MG TABLET PO (08:39)
[2017-06-17] MEDS: HYDROCODONE/APAP (5/325) TAB PO (08:40)
[2017-06-17] MEDS: METOPROLOL 50 MG TAB PO (08:40)
[2017-06-17] MEDS: NIFEdipine (XL) 30 MG TAB PO (08:41)
[2017-06-17] MEDS: NA POLYST SULFON 15 GM/60 ML BTL PO (12:09)
[2017-06-17] MEDS ORDERED: PANTOPRAZOLE (EC) 40 MG TAB PO (18:00)
== END 2017-06-17 13:27 | disposition home or self-care (01) | DRG 683 ==
LOC: PP2 20:21 → E/R 17:00 → PP2 06-14 08:19
PROC: 0DB58ZX Excision of Esophagus, Via Natural or Artificial Opening Endoscopic, Diagnostic (ICD-10-PCS; 2017-06-16 12:00)
PROC: 0DB68ZX Excision of Stomach, Via Natural or Artificial Opening Endoscopic, Diagnostic (ICD-10-PCS; 2017-06-16 12:00)
PROC: 30233N1 Transfusion of Nonautologous Red Blood Cells into Peripheral Vein, Percutaneous Approach (ICD-10-PCS; principal; 2017-06-16 16:16)
PROC: 5A1D70Z Performance of Urinary Filtration, Intermittent, Less than 6 Hours Per Day (ICD-10-PCS; 2017-06-16 16:16)
DX: N18.6 End stage renal disease (principal); I13.2 Hypertensive heart and chronic kidney disease with heart failure and with stage 5 chronic kidney disease, or end stage renal disease; I50.40 Unspecified combined systolic (congestive) and diastolic (congestive) heart failure; D63.1 Anemia in chronic kidney disease; E11.22 Type 2 diabetes mellitus with diabetic chronic kidney disease; F31.9 Bipolar disorder, unspecified; F17.200 Nicotine dependence, unspecified, uncomplicated; G40.909 Epilepsy, unspecified, not intractable, without status epilepticus; J44.9 Chronic obstructive pulmonary disease, unspecified; K21.0 Gastro-esophageal reflux disease with esophagitis; K25.7 Chronic gastric ulcer without hemorrhage or perforation; K26.9 Duodenal ulcer, unspecified as acute or chronic, without hemorrhage or perforation; K29.70 Gastritis, unspecified, without bleeding; M48.061 Spinal stenosis, lumbar region without neurogenic claudication; M54.16 Radiculopathy, lumbar region; Z99.2 Dependence on renal dialysis; Z79.84 Long term (current) use of oral hypoglycemic drugs; Z86.718 Personal history of other venous thrombosis and embolism; Z79.02 Long term (current) use of antithrombotics/antiplatelets
CPT/HCPCS: 36415; 36430; 80048; 80053; 82270; 82607; 82728; 82746; 82962; 83010; 83540; 83615; 83735; 84100; 84155; 84165; 84439; 84443; 84481; 84484; 85025; 85045; 85610; 85651; 85730; 86850; 86900; 86901; 86920; 88305; 88312; 90935; 93005; 96374; 99285-25

== ENCOUNTER 2017-06-21 08:03 | Inpatient (IN) | payer MEDICARE, OTHER ==
[2017-06-21] MEDS: ACETAMINOPHEN 500 MG TAB PO (08:37)
[2017-06-21] MEDS: SODIUM CHLORIDE 0.9% 1L BAG IV* (08:37)
[2017-06-21] MEDS: PANTOPRAZOLE 40 MG INJ IV ×2 (08:37→17:04)
[2017-06-21] MEDS: CEFEPIME 2GM/50 ML (PMX) 50 ML IVPB (08:37)
[2017-06-21 08:42] LABS: ABNORMAL IP MESSAGE 1; HEMATOCRIT 30.1 % (42.0-52.0); HEMOGLOBIN 10.3 g/dl (14.0-18.0); MEAN CORPUSCULAR HEMOGLOBIN 29.7 pg (29.0-33.0); MEAN CORPUSCULAR HGB CONC 34.2 g/dl (32.0-37.0); MEAN CORPUSCULAR VOLUME 86.7 fl (82.0-101.0); MEAN PLATELET VOLUME 12.5 fl (7.4-10.4); NUCLEATED RED BLOOD CELLS% 0.7 /100WBC (0.0-0.0); PLATELET COUNT 382 10^3/UL (140-415); POSITIVE DIFF @See below; RED BLOOD COUNT 3.47 10^6/ul (4.70-6.10)
[2017-06-21 08:42] LABS: WHITE BLOOD COUNT 36.4 10^3/ul (4.8-10.8)
[2017-06-21 08:44] LABS: ADD MAN DIFF? YES
[2017-06-21 09:06] LABS: INR 1.27; PARTIAL THROMBOPLASTIN TIME 31.2 Sec (25.0-35.0); PROTIME 16.1 Sec (11.9-14.9); PT RATIO 1.3
[2017-06-21] MEDS: VANCOMYCIN 1 GM (PMX) 250 ML IVPB (09:22)
[2017-06-21 09:46] LABS: ANISOCYTOSIS 1+ (0-0); BAND NEUTROPHILS #M 3.2 10^3/ul (0.0-0.6); BAND NEUTROPHILS % (M) 9 % (0-4); BURR CELLS 1+ (0-0); GIANT THROMBO% (M) 3 % (0-0); HYPOCHROMASIA 1+ (0-0); LYMPHOCYTES #M 3.6 10^3/ul (0.8-2.9); LYMPHOCYTES % (M) 10 % (15-51); MONOCYTE #M 4.3 10^3/ul (0.3-0.9); MONOCYTES % (M) 12 % (0-11); PLATELET ESTIMATE NORMAL; POIKILOCYTOSIS 1+ (0-0); POLYCHROMASIA 1+ (0-0); REACTIVE LYMPHOCYTES #M 0.3 10^3/ul (0.0-0.0); REACTIVE LYMPHOCYTES% (M) 1 % (0-0); SEG NEUT #M 25.9 10^3/ul (1.6-7.5); SEGMENTED NEUTROPHILS (M) % 68 % (39-77); SMUDGE%M 3 % (0-0)
[2017-06-21 10:00] LABS: ALANINE AMINOTRANSFERASE 21 IU/L (13-69); ALBUMIN 2.8 g/dl (3.3-4.9); ALBUMIN/GLOBULIN RATIO 0.87; ALKALINE PHOSPHATASE 120 IU/L (42-121); ANION GAP 14 (8-16); ASPARTATE AMINO TRANSFERASE 30 IU/L (15-46); BLOOD UREA NITROGEN 70 mg/dl (7-20); CALCIUM 8.8 mg/dl (8.4-10.2); CARBON DIOXIDE 27 mmol/L (21-31); CHLORIDE 101 mmol/L (97-110); CREATININE 9.35 mg/dl (0.61-1.24); GLUCOSE 147 mg/dl (70-220); POTASSIUM 3.8 mmol/L (3.5-5.1); SODIUM 138 mmol/L (135-144)
[2017-06-21] MEDS: LIDOCAINE 1% (MPF) 5 ML VIAL SC (10:00)
[2017-06-21 10:01] LABS: LACTIC ACID 1.1 mmol/L (0.5-2.0)
[2017-06-21 10:11] LABS: TROPONIN-I 0.021 ng/ml (0.00-0.12)
[2017-06-21 11:23] LABS: LACTIC ACID 0.7 mmol/L (0.5-2.0)
[2017-06-21] MEDS: GABAPENTIN 100 MG CAP PO ×2 (13:00→21:00)
[2017-06-21] MEDS ORDERED: GLUCOSE GEL 15 GRAM TUBE PO ×2 (13:30)
[2017-06-21] MEDS ORDERED: GLUCOSE GEL 15 GRAM TUBE BUCCAL (13:30)
[2017-06-21] MEDS ORDERED: DEXTROSE 50% 50 ML SYRINGE IV ×2 (13:30)
[2017-06-21] MEDS ORDERED: GLUCAGON 1 MG INJ IM (13:30)
[2017-06-21] MEDS: SOD CHLORIDE 0.9% 100 ML (14:00)
[2017-06-21] MEDS: LEVETIRACETAM 500 MG (PMX) 100 ML IVPB ×2 (14:11→22:21)
[2017-06-21] MEDS ORDERED: VANCOMYCIN IV PER PHARMACY XX ×2 (15:00)
[2017-06-21] MEDS: MEROPENEM 1 GM/50ML(PMX) 50 ML IVPB (15:54)
[2017-06-21 16:56] LABS: HEPATITIS B SURFACE ANTIGEN NEGATIVE (NEGATIVE)
[2017-06-22 05:43] LABS: WHITE BLOOD COUNT 26.3 10^3/ul (4.8-10.8)
[2017-06-22 05:43] LABS: ABNORMAL IP MESSAGE 1; HEMATOCRIT 25.3 % (42.0-52.0); HEMOGLOBIN 8.7 g/dl (14.0-18.0); MEAN CORPUSCULAR HEMOGLOBIN 29.6 pg (29.0-33.0); MEAN CORPUSCULAR HGB CONC 34.4 g/dl (32.0-37.0); MEAN CORPUSCULAR VOLUME 86.1 fl (82.0-101.0); MEAN PLATELET VOLUME 12.4 fl (7.4-10.4); NUCLEATED RED BLOOD CELLS% 1.1 /100WBC (0.0-0.0); PLATELET COUNT 351 10^3/UL (140-415); POSITIVE DIFF @See below; RED BLOOD COUNT 2.94 10^6/ul (4.70-6.10)
[2017-06-22 05:54] LABS: ADD MAN DIFF? YES
[2017-06-22 05:58] LABS: ANION GAP 20 (8-16); BLOOD UREA NITROGEN 73 mg/dl (7-20); CALCIUM 8.9 mg/dl (8.4-10.2); CARBON DIOXIDE 19 mmol/L (21-31); CHLORIDE 109 mmol/L (97-110); CREATININE 8.78 mg/dl (0.61-1.24); GLUCOSE 109 mg/dl (70-220); POTASSIUM 4.1 mmol/L (3.5-5.1); SODIUM 144 mmol/L (135-144)
[2017-06-22] MEDS: PANTOPRAZOLE 40 MG INJ IV ×2 (06:10→17:08)
[2017-06-22 06:41] LABS: ANISOCYTOSIS 1+ (0-0); BAND NEUTROPHILS #M 1.3 10^3/ul (0.0-0.6); BAND NEUTROPHILS % (M) 5 % (0-4); BASOPHIL #M 0.2 10^3/ul (0.0-0.0); BASOPHILS % (M) 1 % (0-2); BURR CELLS 3+ (0-0); GIANT THROMBO% (M) 2 % (0-0); LYMPHOCYTES #M 1.8 10^3/ul (0.8-2.9); LYMPHOCYTES % (M) 7 % (15-51); MONOCYTE #M 4.2 10^3/ul (0.3-0.9); MONOCYTES % (M) 16 % (0-11); PLATELET ESTIMATE NORMAL; POIKILOCYTOSIS 3+ (0-0); POLYCHROMASIA 3+ (0-0); PROMYELOCYTES #M 0.2 10^3/ul (0-0); PROMYELOCYTES % (M) 1 % (0-0); SEG NEUT #M 18.8 10^3/ul (1.6-7.5); SEGMENTED NEUTROPHILS (M) % 70 % (39-77); SMUDGE%M 3 % (0-0); TARGET CELLS 3+ (0-0)
[2017-06-22] MEDS: GABAPENTIN 100 MG CAP PO ×3 (08:56→21:29)
[2017-06-22] MEDS: MULTIVIT/CA CARB/B CMPLX/FA TAB PO (08:56)
[2017-06-22] MEDS: THIAMINE 100 MG TAB PO (08:56)
[2017-06-22] MEDS: LINAGLIPTIN 5 MG TABLET PO (08:56)
[2017-06-22] MEDS: OLANZAPINE 5 MG TAB PO (08:56)
[2017-06-22] MEDS: NIFEdipine (XL) 30 MG TAB PO (08:57)
[2017-06-22] MEDS: CYANOCOBALAMIN 500 MCG TAB PO (08:57)
[2017-06-22] MEDS: METOPROLOL 50 MG TAB PO ×2 (08:57→21:34)
[2017-06-22] MEDS: LEVETIRACETAM 500 MG (PMX) 100 ML IVPB ×2 (08:58→23:40)
[2017-06-22 09:25] LABS: PATH REVIEW CH
[2017-06-22] MEDS: INSULIN ASPART [NOVOLOG] 3 ML PEN SC ×3 (11:20→21:00)
[2017-06-22] MEDS: MEROPENEM 1 GM/50ML(PMX) 50 ML IVPB (15:58)
[2017-06-22] MEDS ORDERED: APIXABAN 5 MG TABLET PO (21:00)
[2017-06-22] MEDS: APIXABAN 5 MG TABLET PO (21:29)
[2017-06-23] MEDS: ACCU-CHEK XX (02:00)
[2017-06-23] MEDS: PANTOPRAZOLE 40 MG INJ IV ×2 (05:47→18:00)
[2017-06-23 07:48] LABS: ABNORMAL IP MESSAGE 1; HEMATOCRIT 25.9 % (42.0-52.0); HEMOGLOBIN 8.8 g/dl (14.0-18.0); MEAN CORPUSCULAR HEMOGLOBIN 29.1 pg (29.0-33.0); MEAN CORPUSCULAR VOLUME 85.8 fl (82.0-101.0); MEAN PLATELET VOLUME 11.8 fl (7.4-10.4); PLATELET COUNT 425 10^3/UL (140-415); POSITIVE DIFF @See below; RED BLOOD COUNT 3.02 10^6/ul (4.70-6.10); RED CELL DISTRIBUTION WIDTH 17.2 % (11.5-14.5)
[2017-06-23 07:48] LABS: WHITE BLOOD COUNT 27.6 10^3/ul (4.8-10.8)
[2017-06-23] MEDS: INSULIN ASPART [NOVOLOG] 3 ML PEN SC ×4 (07:51→21:00)
[2017-06-23 07:55] LABS: ADD MAN DIFF? YES
[2017-06-23 08:09] LABS: VANCOMYCIN,RANDOM 10.1 ug/ml
[2017-06-23 08:21] LABS: ANION GAP 18 (8-16); BLOOD UREA NITROGEN 72 mg/dl (7-20); CALCIUM 8.7 mg/dl (8.4-10.2); CARBON DIOXIDE 20 mmol/L (21-31); CHLORIDE 107 mmol/L (97-110); CREATININE 7.21 mg/dl (0.61-1.24); GLUCOSE 116 mg/dl (70-220); POTASSIUM 3.6 mmol/L (3.5-5.1); SODIUM 141 mmol/L (135-144)
[2017-06-23] MEDS: METOPROLOL 50 MG TAB PO ×3 (09:00→21:05)
[2017-06-23] MEDS: LEVETIRACETAM 500 MG (PMX) 100 ML IVPB ×3 (09:00→21:04)
[2017-06-23] MEDS: GABAPENTIN 100 MG CAP PO ×3 (09:00→21:04)
[2017-06-23] MEDS: NIFEdipine (XL) 30 MG TAB PO (09:00)
[2017-06-23 09:12] LABS: ACANTHOCYTES 1+ (0-0); ANISOCYTOSIS 1+ (0-0); BAND NEUTROPHILS #M 1.3 10^3/ul (0.0-0.6); BAND NEUTROPHILS % (M) 5 % (0-4); EOSINOPHILS % (M) 1 % (0-7); GIANT THROMBO% (M) 3 % (0-0); HYPOCHROMASIA 1+ (0-0); LYMPHOCYTES #M 2.2 10^3/ul (0.8-2.9); LYMPHOCYTES % (M) 8 % (15-51); MONOCYTE #M 3.5 10^3/ul (0.3-0.9); MONOCYTES % (M) 13 % (0-11); PLATELET ESTIMATE INCREASED; POIKILOCYTOSIS 2+ (0-0); POLYCHROMASIA 1+ (0-0); SEG NEUT #M 20.5 10^3/ul (1.6-7.5); SEGMENTED NEUTROPHILS (M) % 73 % (39-77); SMUDGE%M 6 % (0-0); STOMATOCYTES 1+ (0-0); TARGET CELLS 2+ (0-0)
[2017-06-23] MEDS: HYDROmorphONE 0.5 MG/0.5 ML SYG IV (10:07)
[2017-06-23] MEDS: morphine 2 MG INJ IV (10:24)
[2017-06-23] MEDS: HEPARIN 1000 UNITS/ML 10 ML INJ CATHETER (11:08)
[2017-06-23] MEDS: THIAMINE 100 MG TAB PO (12:06)
[2017-06-23] MEDS: LINAGLIPTIN 5 MG TABLET PO (12:06)
[2017-06-23] MEDS: OLANZAPINE 5 MG TAB PO (12:07)
[2017-06-23] MEDS: APIXABAN 5 MG TABLET PO ×3 (12:07→21:04)
[2017-06-23] MEDS: MULTIVIT/CA CARB/B CMPLX/FA TAB PO (12:07)
[2017-06-23] MEDS: CYANOCOBALAMIN 500 MCG TAB PO (12:07)
[2017-06-23] MEDS: VANCOMYCIN 1 GM 250 ML IVPB (12:49)
[2017-06-23] MEDS: ACETAMINOPHEN 325 MG TAB PO (14:09)
[2017-06-23] MEDS: MEROPENEM 1 GM/50ML(PMX) 50 ML IVPB (16:49)
[2017-06-24] MEDS: ACCU-CHEK XX (02:00)
[2017-06-24] MEDS: PANTOPRAZOLE 40 MG INJ IV ×2 (06:39→17:17)
[2017-06-24] MEDS: INSULIN ASPART [NOVOLOG] 3 ML PEN SC ×4 (08:00→20:33)
[2017-06-24] MEDS: LEVETIRACETAM 500 MG (PMX) 100 ML IVPB ×2 (08:39→20:33)
[2017-06-24] MEDS: LINAGLIPTIN 5 MG TABLET PO (08:40)
[2017-06-24] MEDS: CYANOCOBALAMIN 500 MCG TAB PO (08:40)
[2017-06-24] MEDS: MULTIVIT/CA CARB/B CMPLX/FA TAB PO (08:40)
[2017-06-24] MEDS: OLANZAPINE 5 MG TAB PO (08:40)
[2017-06-24] MEDS: GABAPENTIN 100 MG CAP PO ×3 (08:40→20:33)
[2017-06-24] MEDS: NIFEdipine (XL) 30 MG TAB PO (08:40)
[2017-06-24] MEDS: METOPROLOL 50 MG TAB PO ×2 (08:41→20:33)
[2017-06-24] MEDS: APIXABAN 5 MG TABLET PO ×2 (08:41→20:33)
[2017-06-24 08:47] LABS: ADD MAN DIFF? NO
[2017-06-24] MEDS: ACETAMINOPHEN 325 MG TAB PO (08:48)
[2017-06-24 08:52] LABS: WHITE BLOOD COUNT 25.7 10^3/ul (4.8-10.8)
[2017-06-24 08:52] LABS: ABNORMAL IP MESSAGE 1; BASOPHIL # 0.1 10^3/ul (0.0-0.1); BASOPHILS % 0.5 % (0.0-2.0); EOSINOPHILS # 0.3 10^3/ul (0.0-0.5); EOSINOPHILS % 1.2 % (0.0-7.0); HEMATOCRIT 27.1 % (42.0-52.0); HEMOGLOBIN 9.1 g/dl (14.0-18.0); LYMPHOCYTES # 1.7 10^3/ul (0.8-2.9); LYMPHOCYTES % 6.5 % (15.0-51.0); MEAN CORPUSCULAR HEMOGLOBIN 29.2 pg (29.0-33.0); MEAN CORPUSCULAR HGB CONC 33.6 g/dl (32.0-37.0); MEAN CORPUSCULAR VOLUME 86.9 fl (82.0-101.0); MEAN PLATELET VOLUME 11.7 fl (7.4-10.4); MONOCYTE # 3.3 10^3/ul (0.3-0.9); MONOCYTES % 12.8 % (0.0-11.0); NEUTROPHIL # 19.4 10^3/ul (1.6-7.5); NEUTROPHILS % 75.5 % (39.0-77.0); NUCLEATED RED BLOOD CELLS # 0.2 10^3/ul (0.0-0.0); NUCLEATED RED BLOOD CELLS% 0.8 /100WBC (0.0-0.0); PLATELET COUNT 529 10^3/UL (140-415); POSITIVE DIFF @See below; RED BLOOD COUNT 3.12 10^6/ul (4.70-6.10); RED CELL DISTRIBUTION WIDTH 17.1 % (11.5-14.5)
[2017-06-24 09:24] LABS: ANION GAP 13 (8-16); BLOOD UREA NITROGEN 38 mg/dl (7-20); CALCIUM 9.1 mg/dl (8.4-10.2); CARBON DIOXIDE 29 mmol/L (21-31); CHLORIDE 102 mmol/L (97-110); GLUCOSE 139 mg/dl (70-220); POTASSIUM 3.6 mmol/L (3.5-5.1); SODIUM 140 mmol/L (135-144)
[2017-06-24] MEDS: THIAMINE 100 MG TAB PO (12:19)
[2017-06-24] MEDS: MUPIROCIN 2% 22 GM OINT TOP (20:33)
[2017-06-25] MEDS: ACCU-CHEK XX (01:39)
[2017-06-25] MEDS: PANTOPRAZOLE 40 MG INJ IV (05:46)
[2017-06-25] MEDS: INSULIN ASPART [NOVOLOG] 3 ML PEN SC ×4 (08:00→21:00)
[2017-06-25 08:32] LABS: ABNORMAL IP MESSAGE 1; HEMATOCRIT 24.6 % (42.0-52.0); HEMOGLOBIN 8.1 g/dl (14.0-18.0); MEAN CORPUSCULAR HEMOGLOBIN 28.7 pg (29.0-33.0); MEAN CORPUSCULAR HGB CONC 32.9 g/dl (32.0-37.0); MEAN CORPUSCULAR VOLUME 87.2 fl (82.0-101.0); MEAN PLATELET VOLUME 11.6 fl (7.4-10.4); NUCLEATED RED BLOOD CELLS% 0.5 /100WBC (0.0-0.0); PLATELET COUNT 577 10^3/UL (140-415); POSITIVE DIFF @See below; RED BLOOD COUNT 2.82 10^6/ul (4.70-6.10); RED CELL DISTRIBUTION WIDTH 17.7 % (11.5-14.5)
[2017-06-25 08:32] LABS: WHITE BLOOD COUNT 28.7 10^3/ul (4.8-10.8)
[2017-06-25 08:36] LABS: ADD MAN DIFF? YES
[2017-06-25 08:47] LABS: ANION GAP 15 (8-16); BLOOD UREA NITROGEN 46 mg/dl (7-20); CALCIUM 8.6 mg/dl (8.4-10.2); CARBON DIOXIDE 27 mmol/L (21-31); CHLORIDE 104 mmol/L (97-110); CREATININE 5.55 mg/dl (0.61-1.24); GLUCOSE 126 mg/dl (70-220); POTASSIUM 3.7 mmol/L (3.5-5.1); SODIUM 142 mmol/L (135-144)
[2017-06-25 09:06] LABS: ANISOCYTOSIS 1+ (0-0); BASOPHIL #M 0.2 10^3/ul (0.0-0.0); BASOPHILS % (M) 1 % (0-2); EOSINOPHILS % (M) 1 % (0-7); LYMPHOCYTES #M 2.2 10^3/ul (0.8-2.9); LYMPHOCYTES % (M) 8 % (15-51); MONOCYTE #M 5.7 10^3/ul (0.3-0.9); MONOCYTES % (M) 20 % (0-11); PLATELET ESTIMATE NORMAL; POLYCHROMASIA 1+ (0-0); SEGMENTED NEUTROPHILS (M) % 70 % (39-77); SMUDGE%M 5 % (0-0); TARGET CELLS 2+ (0-0)
[2017-06-25] MEDS: GABAPENTIN 100 MG CAP PO ×3 (10:01→21:00)
[2017-06-25] MEDS: CYANOCOBALAMIN 500 MCG TAB PO (10:01)
[2017-06-25] MEDS: MULTIVIT/CA CARB/B CMPLX/FA TAB PO (10:01)
[2017-06-25] MEDS: METOPROLOL 50 MG TAB PO (10:02)
[2017-06-25] MEDS: OLANZAPINE 5 MG TAB PO (10:02)
[2017-06-25] MEDS: APIXABAN 5 MG TABLET PO ×2 (10:02→21:00)
[2017-06-25] MEDS: LINAGLIPTIN 5 MG TABLET PO (10:03)
[2017-06-25] MEDS: THIAMINE 100 MG TAB PO (10:03)
[2017-06-25] MEDS: LEVETIRACETAM 500 MG (PMX) 100 ML IVPB (10:03)
[2017-06-25] MEDS: NIFEdipine (XL) 30 MG TAB PO (10:03)
[2017-06-25] MEDS: MUPIROCIN 2% 22 GM OINT TOP ×2 (10:20→21:00)
[2017-06-25] MEDS: ACETAMINOPHEN 325 MG TAB PO ×2 (10:20→16:12)
[2017-06-25] MEDS ORDERED: ALBUMIN HUMAN 25% 100 ML IV (17:00)
[2017-06-25] MEDS: HEPARIN 1000 UNITS/ML 10 ML INJ CATHETER (19:14)
[2017-06-25] MEDS: METOPROLOL 25 MG TAB PO (21:00)
[2017-06-25] MEDS: LEVETIRACETAM 500 MG TAB PO (21:00)
[2017-06-25] MEDS: LORAZEPAM 2 MG INJ IV (23:14)
[2017-06-26] MEDS: ACCU-CHEK XX (02:00)
[2017-06-26] MEDS: PANTOPRAZOLE (EC) 40 MG TAB PO (06:00)
[2017-06-26 07:31] LABS: ABNORMAL IP MESSAGE 1; HEMATOCRIT 24.5 % (42.0-52.0); HEMOGLOBIN 7.9 g/dl (14.0-18.0); MEAN CORPUSCULAR HEMOGLOBIN 28.8 pg (29.0-33.0); MEAN CORPUSCULAR HGB CONC 32.2 g/dl (32.0-37.0); MEAN CORPUSCULAR VOLUME 89.4 fl (82.0-101.0); MEAN PLATELET VOLUME 11.5 fl (7.4-10.4); NUCLEATED RED BLOOD CELLS% 0.2 /100WBC (0.0-0.0); PLATELET COUNT 561 10^3/UL (140-415); POSITIVE DIFF @See below; RED BLOOD COUNT 2.74 10^6/ul (4.70-6.10); RED CELL DISTRIBUTION WIDTH 17.5 % (11.5-14.5)
[2017-06-26 07:31] LABS: WHITE BLOOD COUNT 31.8 10^3/ul (4.8-10.8)
[2017-06-26 07:51] LABS: ADD MAN DIFF? YES
[2017-06-26 08:11] LABS: ANION GAP 17 (8-16); BLOOD UREA NITROGEN 25 mg/dl (7-20); CARBON DIOXIDE 29 mmol/L (21-31); CHLORIDE 101 mmol/L (97-110); CREATININE 3.92 mg/dl (0.61-1.24); GLUCOSE 116 mg/dl (70-220); POTASSIUM 3.9 mmol/L (3.5-5.1); SODIUM 143 mmol/L (135-144)
[2017-06-26] MEDS: APIXABAN 5 MG TABLET PO ×3 (08:12→22:56)
[2017-06-26] MEDS: OLANZAPINE 5 MG TAB PO (08:12)
[2017-06-26] MEDS: METOPROLOL 25 MG TAB PO ×2 (08:12→22:30)
[2017-06-26] MEDS: THIAMINE 100 MG TAB PO (08:13)
[2017-06-26] MEDS: NIFEdipine (XL) 30 MG TAB PO (08:13)
[2017-06-26] MEDS: LEVETIRACETAM 500 MG TAB PO ×2 (08:13→22:56)
[2017-06-26] MEDS: LINAGLIPTIN 5 MG TABLET PO (08:13)
[2017-06-26] MEDS: MULTIVIT/CA CARB/B CMPLX/FA TAB PO (08:14)
[2017-06-26] MEDS: CYANOCOBALAMIN 500 MCG TAB PO (08:14)
[2017-06-26] MEDS: GABAPENTIN 100 MG CAP PO ×3 (08:14→22:56)
[2017-06-26] MEDS: INSULIN ASPART [NOVOLOG] 3 ML PEN SC ×4 (08:15→23:00)
[2017-06-26 08:38] LABS: VANCOMYCIN,RANDOM 7.7 ug/ml
[2017-06-26 10:27] LABS: ANISOCYTOSIS 1+ (0-0); ERYTHROBLAST% (NRBC) (M) 1 % (0-0); GIANT THROMBO% (M) 3 % (0-0); HYPOCHROMASIA 1+ (0-0); LYMPHOCYTES #M 2.8 10^3/ul (0.8-2.9); LYMPHOCYTES % (M) 9 % (15-51); MONOCYTE #M 3.8 10^3/ul (0.3-0.9); MONOCYTES % (M) 12 % (0-11); PLASMA CELLS #M 0.6 10^3/ul (0.0-0.0); PLASMAC%(M) 2 % (0); PLATELET ESTIMATE INCREASED; POIKILOCYTOSIS 1+ (0-0); POLYCHROMASIA 2+ (0-0); SEGMENTED NEUTROPHILS (M) % 77 % (39-77); TARGET CELLS 2+ (0-0); TOXIC GRANULATION 1+ (0-0)
[2017-06-26] MEDS: VANCOMYCIN 1 GM 250 ML IVPB (11:16)
[2017-06-26 11:59] LABS: LACTIC ACID 1.1 mmol/L (0.5-2.0)
[2017-06-26] MEDS: MUPIROCIN 2% 22 GM OINT TOP ×2 (14:23→21:00)
[2017-06-26] MEDS: morphine LIQ (10 MG/5 ML) CUP PO (14:46)
[2017-06-26 19:43] LABS: TROPONIN-I < 0.012 ng/ml (0.000-0.120)
[2017-06-27 01:15] LABS: TROPONIN-I < 0.012 ng/ml (0.000-0.120)
[2017-06-27 01:47] LABS: HIV 1&2 ANTIBODY NEGATIVE (NEGATIVE)
[2017-06-27] MEDS: ACCU-CHEK XX (02:00)
[2017-06-27 05:51] LABS: ADD MAN DIFF? NO
[2017-06-27 06:01] LABS: ABNORMAL IP MESSAGE 1; BASOPHIL # 0.1 10^3/ul (0.0-0.1); BASOPHILS % 0.6 % (0.0-2.0); EOSINOPHILS # 0.4 10^3/ul (0.0-0.5); EOSINOPHILS % 2.1 % (0.0-7.0); HEMATOCRIT 22.7 % (42.0-52.0); HEMOGLOBIN 7.3 g/dl (14.0-18.0); LYMPHOCYTES # 2.3 10^3/ul (0.8-2.9); LYMPHOCYTES % 12.2 % (15.0-51.0); MEAN CORPUSCULAR HEMOGLOBIN 28.4 pg (29.0-33.0); MEAN CORPUSCULAR HGB CONC 32.2 g/dl (32.0-37.0); MEAN CORPUSCULAR VOLUME 88.3 fl (82.0-101.0); MEAN PLATELET VOLUME 11.3 fl (7.4-10.4); MONOCYTE # 2.8 10^3/ul (0.3-0.9); MONOCYTES % 14.5 % (0.0-11.0); NEUTROPHIL # 12.9 10^3/ul (1.6-7.5); NEUTROPHILS % 67.9 % (39.0-77.0); NUCLEATED RED BLOOD CELLS% 0.2 /100WBC (0.0-0.0); PLATELET COUNT 598 10^3/UL (140-415); POSITIVE DIFF @See below; RED BLOOD COUNT 2.57 10^6/ul (4.70-6.10); RED CELL DISTRIBUTION WIDTH 18.1 % (11.5-14.5)
[2017-06-27 06:27] LABS: ANION GAP 13 (8-16); BLOOD UREA NITROGEN 29 mg/dl (7-20); CALCIUM 8.8 mg/dl (8.4-10.2); CARBON DIOXIDE 29 mmol/L (21-31); CHLORIDE 107 mmol/L (97-110); GLUCOSE 116 mg/dl (70-220); POTASSIUM 3.6 mmol/L (3.5-5.1); SODIUM 145 mmol/L (135-144)
[2017-06-27] MEDS: PANTOPRAZOLE (EC) 40 MG TAB PO (06:45)
[2017-06-27] MEDS: INSULIN ASPART [NOVOLOG] 3 ML PEN SC ×4 (07:56→20:54)
[2017-06-27] MEDS: GABAPENTIN 100 MG CAP PO ×3 (09:00→20:49)
[2017-06-27] MEDS: METOPROLOL 25 MG TAB PO ×2 (09:00→20:55)
[2017-06-27] MEDS: NIFEdipine (XL) 30 MG TAB PO (09:00)
[2017-06-27] MEDS: MUPIROCIN 2% 22 GM OINT TOP ×2 (11:26→20:49)
[2017-06-27] MEDS: LEVETIRACETAM 500 MG TAB PO ×2 (11:28→20:49)
[2017-06-27] MEDS: LINAGLIPTIN 5 MG TABLET PO (11:28)
[2017-06-27] MEDS: THIAMINE 100 MG TAB PO (11:28)
[2017-06-27] MEDS: MULTIVIT/CA CARB/B CMPLX/FA TAB PO (11:28)
[2017-06-27] MEDS: APIXABAN 5 MG TABLET PO (11:28)
[2017-06-27] MEDS: CYANOCOBALAMIN 500 MCG TAB PO (11:29)
[2017-06-27] MEDS: OLANZAPINE 5 MG TAB PO (11:29)
[2017-06-27 11:31] LABS: CARCINOEMBRYONIC ANTIGEN 1.9 ng/ml (0.0-5.0)
[2017-06-27] MEDS: morphine LIQ (10 MG/5 ML) CUP PO ×2 (15:07→20:50)
[2017-06-27] MEDS: EPOETIN 3000 UNITS/1 ML INJ (ESRD) SC (18:08)
[2017-06-27] MEDS: EPOETIN 2000 UNITS/1 ML INJ (ESRD) SC (18:09)
[2017-06-27] MEDS: HEPARIN 1000 UNITS/ML 10 ML INJ CATHETER (18:36)
[2017-06-28] MEDS: METOPROLOL 5 MG INJ IV (00:03)
[2017-06-28] MEDS: VANCOMYCIN 1.25 GM in SOD CHLORIDE 0.9% 250 ML IVPB (00:22)
[2017-06-28] MEDS: ACCU-CHEK XX (02:00)
[2017-06-28] MEDS: PANTOPRAZOLE (EC) 40 MG TAB PO (06:00)
[2017-06-28 06:53] LABS: ADD MAN DIFF? NO
[2017-06-28 07:00] LABS: ABNORMAL IP MESSAGE 1; BASOPHIL # 0.1 10^3/ul (0.0-0.1); BASOPHILS % 0.7 % (0.0-2.0); EOSINOPHILS # 0.4 10^3/ul (0.0-0.5); EOSINOPHILS % 1.9 % (0.0-7.0); HEMATOCRIT 21.9 % (42.0-52.0); HEMOGLOBIN 7.2 g/dl (14.0-18.0); LYMPHOCYTES # 3.2 10^3/ul (0.8-2.9); LYMPHOCYTES % 17.5 % (15.0-51.0); MEAN CORPUSCULAR HEMOGLOBIN 29.3 pg (29.0-33.0); MEAN CORPUSCULAR HGB CONC 32.9 g/dl (32.0-37.0); MONOCYTE # 3.2 10^3/ul (0.3-0.9); MONOCYTES % 17.5 % (0.0-11.0); NEUTROPHILS % 60.3 % (39.0-77.0); PLATELET COUNT 570 10^3/UL (140-415); POSITIVE DIFF @See below; RED BLOOD COUNT 2.46 10^6/ul (4.70-6.10); RED CELL DISTRIBUTION WIDTH 17.7 % (11.5-14.5)
[2017-06-28 07:00] LABS: WHITE BLOOD COUNT 18.3 10^3/ul (4.8-10.8)
[2017-06-28 07:18] LABS: INR 1.29; PROTIME 16.3 Sec (11.9-14.9); PT RATIO 1.3
[2017-06-28 07:19] LABS: PARTIAL THROMBOPLASTIN TIME 46.3 Sec (25.0-35.0)
[2017-06-28] MEDS ORDERED: LIDOCAINE 1% (MDV) 20 ML INJ (07:30)
[2017-06-28] MEDS ORDERED: HEPARIN 1000 UNITS/ML 10 ML INJ (07:30)
[2017-06-28] MEDS ORDERED: IODIXANOL LOCM 100 ML BTL (07:30)
[2017-06-28] MEDS ORDERED: SOD CHLORIDE 0.9% 500 ML (07:30)
[2017-06-28 07:38] LABS: ANION GAP 12 (8-16); BLOOD UREA NITROGEN 18 mg/dl (7-20); CALCIUM 8.7 mg/dl (8.4-10.2); CARBON DIOXIDE 30 mmol/L (21-31); CHLORIDE 105 mmol/L (97-110); GLUCOSE 107 mg/dl (70-220); POTASSIUM 4.1 mmol/L (3.5-5.1); SODIUM 143 mmol/L (135-144)
[2017-06-28] MEDS: INSULIN ASPART [NOVOLOG] 3 ML PEN SC ×4 (07:55→20:49)
[2017-06-28] MEDS: LINAGLIPTIN 5 MG TABLET PO (09:00)
[2017-06-28] MEDS: GABAPENTIN 100 MG CAP PO ×3 (09:07→20:36)
[2017-06-28] MEDS: LEVETIRACETAM 500 MG TAB PO ×2 (09:07→20:36)
[2017-06-28] MEDS: OLANZAPINE 5 MG TAB PO (09:07)
[2017-06-28] MEDS: METOPROLOL 25 MG TAB PO ×2 (09:08→20:39)
[2017-06-28] MEDS: MUPIROCIN 2% 22 GM OINT TOP ×2 (09:10→20:36)
[2017-06-28] MEDS: THIAMINE 100 MG TAB PO (10:10)
[2017-06-28] MEDS: MULTIVIT/CA CARB/B CMPLX/FA TAB PO (10:11)
[2017-06-28] MEDS: CYANOCOBALAMIN 500 MCG TAB PO (10:11)
[2017-06-28] MEDS: NIFEdipine (XL) 30 MG TAB PO (10:14)
[2017-06-28] MEDS: morphine LIQ (10 MG/5 ML) CUP PO (16:41)
[2017-06-29] MEDS: INSULIN ASPART [NOVOLOG] 3 ML PEN SC ×6 (01:00→20:56)
[2017-06-29] MEDS: ACCU-CHEK XX (02:00)
[2017-06-29] MEDS: PANTOPRAZOLE (EC) 40 MG TAB PO (06:00)
[2017-06-29 08:50] LABS: IMMEDIATE SPIN CROSSMATCH 1 1
[2017-06-29] MEDS: METOPROLOL 25 MG TAB PO ×2 (09:00→20:40)
[2017-06-29] MEDS: LEVETIRACETAM 500 MG TAB PO ×2 (09:00→20:39)
[2017-06-29] MEDS: NIFEdipine (XL) 30 MG TAB PO (09:00)
[2017-06-29] MEDS: CYANOCOBALAMIN 500 MCG TAB PO (09:00)
[2017-06-29] MEDS: LINAGLIPTIN 5 MG TABLET PO (09:00)
[2017-06-29] MEDS: OLANZAPINE 5 MG TAB PO (09:00)
[2017-06-29] MEDS: GABAPENTIN 100 MG CAP PO ×3 (09:00→20:39)
[2017-06-29] MEDS: THIAMINE 100 MG TAB PO (09:00)
[2017-06-29] MEDS: MULTIVIT/CA CARB/B CMPLX/FA TAB PO (09:00)
[2017-06-29] MEDS: MUPIROCIN 2% 22 GM OINT TOP ×2 (09:13→20:41)
[2017-06-29] MEDS: LIDOCAINE 2% (SDV) 5 ML INJ (12:44)
[2017-06-29] MEDS: MIDAZOLAM 1 MG/ML 2 ML INJ (12:45)
[2017-06-29] MEDS: PROPOFOL 20 ML ×2 (12:45)
[2017-06-29] MEDS: FENTAnyl 50 MCG/ML VIAL (12:45)
[2017-06-29] MEDS: LIDOCAINE 1% (MDV) 10 ML INJ (13:20)
[2017-06-29] MEDS: PHENYLephrine (100 MCG/ML) 5ML SYG (13:36)
[2017-06-29] MEDS ORDERED: morphine (1 MG/ML) 10ML SYRINGE IV (14:30)
[2017-06-29] MEDS ORDERED: ONDANSETRON 4 MG INJ IV (14:30)
[2017-06-29 16:11] LABS: ADD MAN DIFF? NO
[2017-06-29 16:23] LABS: HEMATOCRIT 28.7 % (42.0-52.0); HEMOGLOBIN 9.4 g/dl (14.0-18.0); MEAN CORPUSCULAR VOLUME 88.6 fl (82.0-101.0); RED BLOOD COUNT 3.24 10^6/ul (4.70-6.10)
[2017-06-29 16:23] LABS: WHITE BLOOD COUNT 14.1 10^3/ul (4.8-10.8)
[2017-06-29 16:24] LABS: BASOPHIL # 0.1 10^3/ul (0.0-0.1); BASOPHILS % 0.9 % (0.0-2.0); EOSINOPHILS # 0.3 10^3/ul (0.0-0.5); EOSINOPHILS % 1.8 % (0.0-7.0); LYMPHOCYTES # 1.8 10^3/ul (0.8-2.9); LYMPHOCYTES % 12.5 % (15.0-51.0); MEAN CORPUSCULAR HGB CONC 32.8 g/dl (32.0-37.0); MEAN PLATELET VOLUME 10.8 fl (7.4-10.4); MONOCYTE # 1.2 10^3/ul (0.3-0.9); MONOCYTES % 8.5 % (0.0-11.0); NEUTROPHIL # 10.5 10^3/ul (1.6-7.5); NEUTROPHILS % 74.8 % (39.0-77.0); PLATELET COUNT 486 10^3/UL (140-415); RED CELL DISTRIBUTION WIDTH 16.8 % (11.5-14.5)
[2017-06-29 16:34] LABS: ANION GAP 15 (8-16); BLOOD UREA NITROGEN 22 mg/dl (7-20); CALCIUM 8.9 mg/dl (8.4-10.2); CARBON DIOXIDE 30 mmol/L (21-31); CHLORIDE 102 mmol/L (97-110); GLUCOSE 100 mg/dl (70-220); SODIUM 143 mmol/L (135-144)
[2017-06-29] MEDS: EPOETIN 2000 UNITS/1 ML INJ (ESRD) SC (17:41)
[2017-06-29] MEDS: EPOETIN 3000 UNITS/1 ML INJ (ESRD) SC (17:42)
[2017-06-29] MEDS: VANCOMYCIN 1.25 GM in SOD CHLORIDE 0.9% 250 ML IVPB (22:48)
[2017-06-30] MEDS: PANTOPRAZOLE (EC) 40 MG TAB PO ×2 (06:00→06:56)
[2017-06-30] MEDS: ACCU-CHEK XX (09:00)
[2017-06-30] MEDS: OLANZAPINE 5 MG TAB PO (09:01)
[2017-06-30] MEDS: LEVETIRACETAM 500 MG TAB PO ×2 (09:01→20:22)
[2017-06-30] MEDS: LINAGLIPTIN 5 MG TABLET PO (09:01)
[2017-06-30] MEDS: THIAMINE 100 MG TAB PO (09:01)
[2017-06-30] MEDS: MULTIVIT/CA CARB/B CMPLX/FA TAB PO (09:01)
[2017-06-30] MEDS: GABAPENTIN 100 MG CAP PO ×3 (09:01→20:22)
[2017-06-30] MEDS: CYANOCOBALAMIN 500 MCG TAB PO (09:01)
[2017-06-30] MEDS: NIFEdipine (XL) 30 MG TAB PO (09:02)
[2017-06-30] MEDS: MUPIROCIN 2% 22 GM OINT TOP ×2 (09:02→20:22)
[2017-06-30] MEDS: METOPROLOL 25 MG TAB PO (09:03)
[2017-06-30 09:33] LABS: ADD MAN DIFF? NO
[2017-06-30 09:39] LABS: ABNORMAL IP MESSAGE 1; BASOPHIL # 0.1 10^3/ul (0.0-0.1); BASOPHILS % 0.9 % (0.0-2.0); EOSINOPHILS # 0.3 10^3/ul (0.0-0.5); EOSINOPHILS % 1.8 % (0.0-7.0); HEMATOCRIT 27.6 % (42.0-52.0); HEMOGLOBIN 8.7 g/dl (14.0-18.0); LYMPHOCYTES # 2.2 10^3/ul (0.8-2.9); LYMPHOCYTES % 15.8 % (15.0-51.0); MEAN CORPUSCULAR HEMOGLOBIN 28.7 pg (29.0-33.0); MEAN CORPUSCULAR HGB CONC 31.5 g/dl (32.0-37.0); MEAN CORPUSCULAR VOLUME 91.1 fl (82.0-101.0); MEAN PLATELET VOLUME 11.2 fl (7.4-10.4); MONOCYTE # 1.6 10^3/ul (0.3-0.9); MONOCYTES % 11.1 % (0.0-11.0); NEUTROPHIL # 9.7 10^3/ul (1.6-7.5); NEUTROPHILS % 68.8 % (39.0-77.0); PLATELET COUNT 636 10^3/UL (140-415); POSITIVE DIFF @See below; RED BLOOD COUNT 3.03 10^6/ul (4.70-6.10); RED CELL DISTRIBUTION WIDTH 17.2 % (11.5-14.5)
[2017-06-30 09:39] LABS: WHITE BLOOD COUNT 14.1 10^3/ul (4.8-10.8)
[2017-06-30 10:10] LABS: ANION GAP 20 (8-16); BLOOD UREA NITROGEN 30 mg/dl (7-20); CALCIUM 9.2 mg/dl (8.4-10.2); CARBON DIOXIDE 25 mmol/L (21-31); CHLORIDE 103 mmol/L (97-110); CREATININE 5.73 mg/dl (0.61-1.24); GLUCOSE 139 mg/dl (70-220); POTASSIUM 4.2 mmol/L (3.5-5.1); SODIUM 144 mmol/L (135-144)
[2017-06-30] MEDS: METOPROLOL 50 MG TAB PO (20:40)
[2017-06-30] MEDS: APIXABAN 5 MG TABLET PO (21:00)
[2017-06-30] MEDS: morphine LIQ (10 MG/5 ML) CUP PO (21:00)
[2017-07-01] MEDS: PANTOPRAZOLE (EC) 40 MG TAB PO (05:45)
[2017-07-01] MEDS ORDERED: LIDOCAINE 1% (MDV) 20 ML INJ (08:17)
[2017-07-01] MEDS ORDERED: HEPARIN 1000 UNITS/ML 10 ML INJ (08:17)
[2017-07-01] MEDS: APIXABAN 5 MG TABLET PO ×4 (09:00→20:58)
[2017-07-01] MEDS: MULTIVIT/CA CARB/B CMPLX/FA TAB PO (09:04)
[2017-07-01] MEDS: MUPIROCIN 2% 22 GM OINT TOP ×2 (09:04→20:57)
[2017-07-01] MEDS: THIAMINE 100 MG TAB PO (09:05)
[2017-07-01] MEDS: CYANOCOBALAMIN 500 MCG TAB PO (09:05)
[2017-07-01] MEDS: LEVETIRACETAM 500 MG TAB PO ×2 (09:05→20:57)
[2017-07-01] MEDS: GABAPENTIN 100 MG CAP PO ×3 (09:05→20:57)
[2017-07-01] MEDS: LINAGLIPTIN 5 MG TABLET PO (09:06)
[2017-07-01] MEDS: METOPROLOL 50 MG TAB PO ×2 (09:13→20:57)
[2017-07-01] MEDS: NIFEdipine (XL) 30 MG TAB PO (09:13)
[2017-07-01] MEDS: ACCU-CHEK XX (09:19)
[2017-07-01] MEDS: OLANZAPINE 5 MG TAB PO (09:19)
[2017-07-01] MEDS: morphine LIQ (10 MG/5 ML) CUP PO ×2 (11:04→18:32)
[2017-07-01] MEDS: HEPARIN 1000 UNITS/ML 10 ML INJ CATHETER (12:21)
[2017-07-01 17:02] LABS: VANCOMYCIN,RANDOM 10.9 ug/ml
[2017-07-01] MEDS: EPOETIN 3000 UNITS/1 ML INJ (ESRD) SC (18:30)
[2017-07-01] MEDS: EPOETIN 2000 UNITS/1 ML INJ (ESRD) SC (18:32)
[2017-07-01] MEDS: NICOTINE (14 MG/24 HR) PATCH TRANSDERM (20:56)
[2017-07-02] MEDS: VANCOMYCIN 1.25 GM in SOD CHLORIDE 0.9% 250 ML IVPB (02:59)
[2017-07-02] MEDS: LORAZEPAM 2 MG INJ IV (05:10)
[2017-07-02] MEDS: PANTOPRAZOLE (EC) 40 MG TAB PO (06:00)
[2017-07-02 07:32] LABS: ADD MAN DIFF? NO
[2017-07-02 07:41] LABS: ABNORMAL IP MESSAGE 1; BASOPHIL # 0.1 10^3/ul (0.0-0.1); BASOPHILS % 0.9 % (0.0-2.0); EOSINOPHILS # 0.3 10^3/ul (0.0-0.5); EOSINOPHILS % 1.8 % (0.0-7.0); LYMPHOCYTES # 2.8 10^3/ul (0.8-2.9); LYMPHOCYTES % 20.1 % (15.0-51.0); MEAN CORPUSCULAR HEMOGLOBIN 28.5 pg (29.0-33.0); MEAN CORPUSCULAR HGB CONC 31.4 g/dl (32.0-37.0); MEAN CORPUSCULAR VOLUME 90.9 fl (82.0-101.0); MEAN PLATELET VOLUME 10.7 fl (7.4-10.4); NEUTROPHIL # 8.6 10^3/ul (1.6-7.5); NEUTROPHILS % 61.1 % (39.0-77.0); PLATELET COUNT 654 10^3/UL (140-415); POSITIVE DIFF @See below; RED BLOOD COUNT 2.42 10^6/ul (4.70-6.10); RED CELL DISTRIBUTION WIDTH 17.6 % (11.5-14.5)
[2017-07-02 07:41] LABS: WHITE BLOOD COUNT 14.1 10^3/ul (4.8-10.8)
[2017-07-02 07:56] LABS: HEMOGLOBIN 6.9 g/dl (14.0-18.0); PATH REVIEW? YES
[2017-07-02] MEDS: ACCU-CHEK XX (08:16)
[2017-07-02 08:30] LABS: ANION GAP 13 (8-16); BLOOD UREA NITROGEN 16 mg/dl (7-20); CALCIUM 8.6 mg/dl (8.4-10.2); CARBON DIOXIDE 30 mmol/L (21-31); CHLORIDE 107 mmol/L (97-110); CREATININE 4.52 mg/dl (0.61-1.24); GLUCOSE 95 mg/dl (70-220); POTASSIUM 4.1 mmol/L (3.5-5.1); SODIUM 146 mmol/L (135-144)
[2017-07-02] MEDS: GABAPENTIN 100 MG CAP PO ×3 (08:51→20:37)
[2017-07-02] MEDS: MULTIVIT/CA CARB/B CMPLX/FA TAB PO (08:51)
[2017-07-02] MEDS: OLANZAPINE 5 MG TAB PO (08:51)
[2017-07-02] MEDS: APIXABAN 5 MG TABLET PO ×2 (08:51→20:37)
[2017-07-02] MEDS: CYANOCOBALAMIN 500 MCG TAB PO (08:51)
[2017-07-02] MEDS: MUPIROCIN 2% 22 GM OINT TOP ×2 (08:51→20:36)
[2017-07-02] MEDS: NICOTINE (14 MG/24 HR) PATCH TRANSDERM (08:51)
[2017-07-02] MEDS: LEVETIRACETAM 500 MG TAB PO ×2 (08:51→20:37)
[2017-07-02] MEDS: METOPROLOL 50 MG TAB PO ×2 (08:52→20:38)
[2017-07-02] MEDS: THIAMINE 100 MG TAB PO (08:52)
[2017-07-02] MEDS: NIFEdipine (XL) 30 MG TAB PO (08:52)
[2017-07-02] MEDS: LINAGLIPTIN 5 MG TABLET PO (08:53)
[2017-07-02 09:46] LABS: ANISOCYTOSIS 3+ (0-0); BAND NEUTROPHILS #M 0.9 10^3/ul (0.0-0.6); BAND NEUTROPHILS % (M) 7 % (0-4); HYPOCHROMASIA 1+ (0-0); LYMPHOCYTES #M 5.7 10^3/ul (0.8-2.9); LYMPHOCYTES % (M) 41 % (15-51); MONOCYTE #M 2.1 10^3/ul (0.3-0.9); MONOCYTES % (M) 15 % (0-11); PLATELET ESTIMATE INCREASED; POIKILOCYTOSIS 2+ (0-0); POLYCHROMASIA 3+ (0-0); REACTIVE LYMPHOCYTES #M 0.8 10^3/ul (0.0-0.0); REACTIVE LYMPHOCYTES% (M) 6 % (0-0); SEG NEUT #M 4.5 10^3/ul (1.6-7.5); SEGMENTED NEUTROPHILS (M) % 31 % (39-77); SMUDGE%M 5 % (0-0)
[2017-07-02 15:08] LABS: WHITE BLOOD COUNT 12.2 10^3/ul (4.8-10.8)
[2017-07-02 15:08] LABS: ABNORMAL IP MESSAGE 1; MEAN CORPUSCULAR HGB CONC 31.8 g/dl (32.0-37.0); MEAN CORPUSCULAR VOLUME 91.3 fl (82.0-101.0); MEAN PLATELET VOLUME 10.6 fl (7.4-10.4); PLATELET COUNT 652 10^3/UL (140-415); POSITIVE DIFF @See below; RED BLOOD COUNT 2.41 10^6/ul (4.70-6.10); RED CELL DISTRIBUTION WIDTH 17.6 % (11.5-14.5)
[2017-07-02 15:11] LABS: ADD MAN DIFF? YES
[2017-07-02 16:24] LABS: BASOPHIL # 0.1 10^3/ul (0.0-0.1); EOSINOPHILS # 0.1 10^3/ul (0.0-0.5); EOSINOPHILS % (M) 1 % (0.0-7.0); HYPOCHROMASIA 1+ (0-0); LYMPHOCYTES # 2.3 10^3/ul (0.8-2.9); LYMPHOCYTES #M 2.3 10^3/ul (0.8-2.9); LYMPHOCYTES % (M) 19 % (15-51); MONOCYTE # 1.1 10^3/ul (0.3-0.9); MONOCYTES % (M) 9 % (0-11); SEGMENTED NEUTROPHILS (M) % 70 % (39-77)
[2017-07-02] MEDS: morphine LIQ (10 MG/5 ML) CUP PO (20:39)
[2017-07-03] MEDS: PANTOPRAZOLE (EC) 40 MG TAB PO (06:00)
[2017-07-03] MEDS: VANCOMYCIN 1 GM 250 ML IVPB (06:00)
[2017-07-03] MEDS: CYANOCOBALAMIN 500 MCG TAB PO (08:57)
[2017-07-03] MEDS: MULTIVIT/CA CARB/B CMPLX/FA TAB PO (08:57)
[2017-07-03] MEDS: LINAGLIPTIN 5 MG TABLET PO (08:57)
[2017-07-03] MEDS: OLANZAPINE 5 MG TAB PO (08:57)
[2017-07-03] MEDS: GABAPENTIN 100 MG CAP PO ×3 (08:57→20:07)
[2017-07-03] MEDS: METOPROLOL 50 MG TAB PO ×2 (08:58→20:09)
[2017-07-03] MEDS: LEVETIRACETAM 500 MG TAB PO ×2 (08:58→20:07)
[2017-07-03] MEDS: APIXABAN 5 MG TABLET PO ×2 (08:58→20:09)
[2017-07-03] MEDS: MUPIROCIN 2% 22 GM OINT TOP ×2 (08:59→20:07)
[2017-07-03] MEDS: NICOTINE (14 MG/24 HR) PATCH TRANSDERM (09:04)
[2017-07-03] MEDS: THIAMINE 100 MG TAB PO (09:04)
[2017-07-03] MEDS: NIFEdipine (XL) 30 MG TAB PO (09:05)
[2017-07-03] MEDS: ACCU-CHEK XX (09:13)
[2017-07-03] MEDS ORDERED: VANCOMYCIN 1.25 GM in SOD CHLORIDE 0.9% 250 ML IVPB (12:00)
[2017-07-03 12:47] LABS: PROCALCITONIN 2.96 ng/mL (<0.10)
[2017-07-04] MEDS: VANCOMYCIN 1 GM 250 ML IVPB (06:17)
[2017-07-04] MEDS: PANTOPRAZOLE (EC) 40 MG TAB PO (06:17)
[2017-07-04] MEDS: ALTEPLASE (CATHFLO) 2 MG INJ CATHETER ×2 (08:30)
[2017-07-04] MEDS: NIFEdipine (XL) 30 MG TAB PO (08:57)
[2017-07-04] MEDS: GABAPENTIN 100 MG CAP PO ×3 (08:57→21:33)
[2017-07-04] MEDS: OLANZAPINE 5 MG TAB PO (08:58)
[2017-07-04] MEDS: LINAGLIPTIN 5 MG TABLET PO (08:58)
[2017-07-04 08:59] LABS: ADD MAN DIFF? NO
[2017-07-04] MEDS: METOPROLOL 50 MG TAB PO ×2 (08:59→21:33)
[2017-07-04] MEDS: APIXABAN 5 MG TABLET PO ×2 (09:00→21:33)
[2017-07-04] MEDS: ACCU-CHEK XX (09:00)
[2017-07-04] MEDS: CYANOCOBALAMIN 500 MCG TAB PO (09:00)
[2017-07-04] MEDS: MULTIVIT/CA CARB/B CMPLX/FA TAB PO (09:01)
[2017-07-04] MEDS: MUPIROCIN 2% 22 GM OINT TOP (09:01)
[2017-07-04] MEDS: THIAMINE 100 MG TAB PO (09:01)
[2017-07-04] MEDS: LEVETIRACETAM 500 MG TAB PO ×2 (09:01→21:33)
[2017-07-04 09:05] LABS: ABNORMAL IP MESSAGE 1; BASOPHIL # 0.1 10^3/ul (0.0-0.1); BASOPHILS % 0.5 % (0.0-2.0); EOSINOPHILS # 0.2 10^3/ul (0.0-0.5); EOSINOPHILS % 1.1 % (0.0-7.0); HEMATOCRIT 21.1 % (42.0-52.0); MEAN CORPUSCULAR HEMOGLOBIN 28.9 pg (29.0-33.0); MEAN CORPUSCULAR HGB CONC 31.3 g/dl (32.0-37.0); MEAN CORPUSCULAR VOLUME 92.5 fl (82.0-101.0); MEAN PLATELET VOLUME 10.9 fl (7.4-10.4); MONOCYTE # 2.9 10^3/ul (0.3-0.9); MONOCYTES % 15.5 % (0.0-11.0); NEUTROPHILS % 64.8 % (39.0-77.0); NUCLEATED RED BLOOD CELLS% 0.1 /100WBC (0.0-0.0); PLATELET COUNT 702 10^3/UL (140-415); POSITIVE DIFF @See below; RED BLOOD COUNT 2.28 10^6/ul (4.70-6.10); RED CELL DISTRIBUTION WIDTH 18.3 % (11.5-14.5)
[2017-07-04 09:05] LABS: WHITE BLOOD COUNT 18.5 10^3/ul (4.8-10.8)
[2017-07-04 09:10] LABS: HEMOGLOBIN 6.6 g/dl (14.0-18.0)
[2017-07-04] MEDS: NICOTINE (14 MG/24 HR) PATCH TRANSDERM (09:16)
[2017-07-04 10:30] LABS: ANION GAP 14 (8-16); BLOOD UREA NITROGEN 31 mg/dl (7-20); CALCIUM 8.9 mg/dl (8.4-10.2); CARBON DIOXIDE 28 mmol/L (21-31); CHLORIDE 104 mmol/L (97-110); CREATININE 5.95 mg/dl (0.61-1.24); GLUCOSE 93 mg/dl (70-220); POTASSIUM 4.4 mmol/L (3.5-5.1); SODIUM 142 mmol/L (135-144)
[2017-07-04] MEDS: SOD CHLORIDE 0.9% 250 ML IV* (14:00)
[2017-07-04] MEDS: morphine LIQ (10 MG/5 ML) CUP PO (14:00)
[2017-07-04 17:07] LABS: IMMEDIATE SPIN CROSSMATCH 1 4
[2017-07-04] MEDS: EPOETIN 2000 UNITS/1 ML INJ (ESRD) SC (17:41)
[2017-07-04] MEDS: EPOETIN 3000 UNITS/1 ML INJ (ESRD) SC (17:41)
[2017-07-05 05:34] LABS: ADD MAN DIFF? NO
[2017-07-05] MEDS: VANCOMYCIN 1 GM 250 ML IVPB (05:44)
[2017-07-05] MEDS: PANTOPRAZOLE (EC) 40 MG TAB PO (06:02)
[2017-07-05 06:05] LABS: WHITE BLOOD COUNT 16.2 10^3/ul (4.8-10.8)
[2017-07-05 06:05] LABS: ABNORMAL IP MESSAGE 1; BASOPHIL # 0.2 10^3/ul (0.0-0.1); BASOPHILS % 0.9 % (0.0-2.0); EOSINOPHILS # 0.3 10^3/ul (0.0-0.5); EOSINOPHILS % 1.5 % (0.0-7.0); HEMATOCRIT 27.1 % (42.0-52.0); HEMOGLOBIN 8.9 g/dl (14.0-18.0); LYMPHOCYTES # 2.4 10^3/ul (0.8-2.9); LYMPHOCYTES % 14.9 % (15.0-51.0); MEAN CORPUSCULAR HEMOGLOBIN 28.7 pg (29.0-33.0); MEAN CORPUSCULAR HGB CONC 32.8 g/dl (32.0-37.0); MEAN CORPUSCULAR VOLUME 87.4 fl (82.0-101.0); MEAN PLATELET VOLUME 10.3 fl (7.4-10.4); MONOCYTE # 2.6 10^3/ul (0.3-0.9); MONOCYTES % 15.9 % (0.0-11.0); NEUTROPHIL # 10.5 10^3/ul (1.6-7.5); NEUTROPHILS % 64.9 % (39.0-77.0); NUCLEATED RED BLOOD CELLS% 0.2 /100WBC (0.0-0.0); PLATELET COUNT 633 10^3/UL (140-415); POSITIVE DIFF @See below; RED CELL DISTRIBUTION WIDTH 18.6 % (11.5-14.5)
[2017-07-05 06:40] LABS: ANION GAP 15 (8-16); BLOOD UREA NITROGEN 39 mg/dl (7-20); CALCIUM 8.8 mg/dl (8.4-10.2); CARBON DIOXIDE 25 mmol/L (21-31); CHLORIDE 108 mmol/L (97-110); CREATININE 5.53 mg/dl (0.61-1.24); GLUCOSE 125 mg/dl (70-220); POTASSIUM 4.3 mmol/L (3.5-5.1); SODIUM 144 mmol/L (135-144)
[2017-07-05 07:16] LABS: VANCOMYCIN,TROUGH 40.5 ug/ml (10.0-20.0)
[2017-07-05] MEDS: ACCU-CHEK XX (09:00)
[2017-07-05] MEDS: LINAGLIPTIN 5 MG TABLET PO (09:00)
[2017-07-05] MEDS: NIFEdipine (XL) 30 MG TAB PO (09:00)
[2017-07-05] MEDS: METOPROLOL 50 MG TAB PO ×2 (09:00→20:19)
[2017-07-05] MEDS: APIXABAN 5 MG TABLET PO ×2 (09:00→20:19)
[2017-07-05] MEDS: GABAPENTIN 100 MG CAP PO ×3 (09:18→20:18)
[2017-07-05] MEDS: MULTIVIT/CA CARB/B CMPLX/FA TAB PO (09:18)
[2017-07-05] MEDS: LEVETIRACETAM 500 MG TAB PO ×2 (09:19→20:18)
[2017-07-05] MEDS: OLANZAPINE 5 MG TAB PO (09:19)
[2017-07-05] MEDS: CYANOCOBALAMIN 500 MCG TAB PO (09:19)
[2017-07-05] MEDS: THIAMINE 100 MG TAB PO (09:19)
[2017-07-05] MEDS: NICOTINE (14 MG/24 HR) PATCH TRANSDERM (09:20)
[2017-07-05] MEDS: HEPARIN 1000 UNITS/ML 10 ML INJ IV (09:45)
[2017-07-05] MEDS: HEPARIN 1000 UNITS/ML 10 ML INJ CATHETER (12:36)
[2017-07-05] MEDS: morphine LIQ (10 MG/5 ML) CUP PO ×2 (16:57→21:07)
[2017-07-06] MEDS: PANTOPRAZOLE (EC) 40 MG TAB PO (05:43)
[2017-07-06 07:54] LABS: ADD MAN DIFF? NO
[2017-07-06 08:01] LABS: ABNORMAL IP MESSAGE 1; BASOPHIL # 0.1 10^3/ul (0.0-0.1); BASOPHILS % 0.7 % (0.0-2.0); EOSINOPHILS # 0.3 10^3/ul (0.0-0.5); EOSINOPHILS % 1.7 % (0.0-7.0); HEMATOCRIT 30.7 % (42.0-52.0); HEMOGLOBIN 9.8 g/dl (14.0-18.0); LYMPHOCYTES # 3.1 10^3/ul (0.8-2.9); LYMPHOCYTES % 19.3 % (15.0-51.0); MEAN CORPUSCULAR HEMOGLOBIN 28.1 pg (29.0-33.0); MEAN CORPUSCULAR HGB CONC 31.9 g/dl (32.0-37.0); MEAN PLATELET VOLUME 10.3 fl (7.4-10.4); MONOCYTES % 18.8 % (0.0-11.0); NEUTROPHIL # 9.2 10^3/ul (1.6-7.5); NEUTROPHILS % 57.2 % (39.0-77.0); NUCLEATED RED BLOOD CELLS # 0.1 10^3/ul (0.0-0.0); NUCLEATED RED BLOOD CELLS% 0.3 /100WBC (0.0-0.0); PLATELET COUNT 612 10^3/UL (140-415); POSITIVE DIFF @See below; RED BLOOD COUNT 3.49 10^6/ul (4.70-6.10); RED CELL DISTRIBUTION WIDTH 18.6 % (11.5-14.5)
[2017-07-06 08:01] LABS: WHITE BLOOD COUNT 16.1 10^3/ul (4.8-10.8)
[2017-07-06 08:31] LABS: VANCOMYCIN,RANDOM 33.5 ug/ml
[2017-07-06] MEDS: THIAMINE 100 MG TAB PO (08:41)
[2017-07-06] MEDS: MULTIVIT/CA CARB/B CMPLX/FA TAB PO (08:41)
[2017-07-06] MEDS: NICOTINE (14 MG/24 HR) PATCH TRANSDERM (08:41)
[2017-07-06] MEDS: LINAGLIPTIN 5 MG TABLET PO (08:41)
[2017-07-06] MEDS: LEVETIRACETAM 500 MG TAB PO ×2 (08:41→21:16)
[2017-07-06] MEDS: NIFEdipine (XL) 30 MG TAB PO (08:41)
[2017-07-06] MEDS: APIXABAN 5 MG TABLET PO ×2 (08:41→21:15)
[2017-07-06] MEDS: METOPROLOL 50 MG TAB PO ×2 (08:42→21:16)
[2017-07-06] MEDS: GABAPENTIN 100 MG CAP PO ×3 (08:42→21:16)
[2017-07-06] MEDS: ACCU-CHEK XX (08:46)
[2017-07-06] MEDS: OLANZAPINE 5 MG TAB PO (08:46)
[2017-07-06] MEDS: CYANOCOBALAMIN 500 MCG TAB PO (08:49)
[2017-07-06 09:21] LABS: ANION GAP 13 (8-16); BLOOD UREA NITROGEN 26 mg/dl (7-20); CALCIUM 9.9 mg/dl (8.4-10.2); CARBON DIOXIDE 28 mmol/L (21-31); CHLORIDE 107 mmol/L (97-110); CREATININE 4.26 mg/dl (0.61-1.24); GLUCOSE 95 mg/dl (70-220); POTASSIUM 4.9 mmol/L (3.5-5.1); SODIUM 143 mmol/L (135-144)
[2017-07-06] MEDS: EPOETIN 2000 UNITS/1 ML INJ (ESRD) SC (17:06)
[2017-07-06] MEDS: EPOETIN 3000 UNITS/1 ML INJ (ESRD) SC (17:07)
[2017-07-06] MEDS: morphine LIQ (10 MG/5 ML) CUP PO (22:13)
[2017-07-07] MEDS: morphine LIQ (10 MG/5 ML) CUP PO ×2 (02:01→13:15)
[2017-07-07] MEDS: PANTOPRAZOLE (EC) 40 MG TAB PO (05:44)
[2017-07-07] MEDS: MULTIVIT/CA CARB/B CMPLX/FA TAB PO (08:53)
[2017-07-07] MEDS: THIAMINE 100 MG TAB PO (08:53)
[2017-07-07] MEDS: CYANOCOBALAMIN 500 MCG TAB PO (08:53)
[2017-07-07] MEDS: LEVETIRACETAM 500 MG TAB PO ×2 (08:53→21:01)
[2017-07-07] MEDS: GABAPENTIN 100 MG CAP PO ×3 (08:53→21:01)
[2017-07-07] MEDS: NIFEdipine (XL) 30 MG TAB PO (08:56)
[2017-07-07] MEDS: METOPROLOL 50 MG TAB PO ×2 (08:57→21:02)
[2017-07-07] MEDS: APIXABAN 5 MG TABLET PO ×2 (08:57→21:01)
[2017-07-07] MEDS: LINAGLIPTIN 5 MG TABLET PO ×2 (08:58→09:02)
[2017-07-07] MEDS: OLANZAPINE 5 MG TAB PO (08:58)
[2017-07-07] MEDS: NICOTINE (14 MG/24 HR) PATCH TRANSDERM (09:00)
[2017-07-07] MEDS: ACCU-CHEK XX (09:02)
[2017-07-07] MEDS ORDERED: HEPARIN 1000 UNITS/NS (A-LINE) 1,000 ML (12:20)
[2017-07-07] MEDS ORDERED: LIDOCAINE 1% (MDV) 20 ML INJ (12:20)
[2017-07-07] MEDS ORDERED: IODIXANOL LOCM 50 ML BTL (12:20)
[2017-07-07] MEDS ORDERED: HEPARIN 1000 UNITS/ML 10 ML INJ (12:20)
[2017-07-07 16:40] LABS: WHITE BLOOD COUNT 18.6 10^3/ul (4.8-10.8)
[2017-07-07 16:40] LABS: ABNORMAL IP MESSAGE 1; HEMATOCRIT 31.5 % (42.0-52.0); HEMOGLOBIN 9.7 g/dl (14.0-18.0); MEAN CORPUSCULAR HEMOGLOBIN 27.5 pg (29.0-33.0); MEAN CORPUSCULAR HGB CONC 30.8 g/dl (32.0-37.0); MEAN CORPUSCULAR VOLUME 89.2 fl (82.0-101.0); MEAN PLATELET VOLUME 10.8 fl (7.4-10.4); NUCLEATED RED BLOOD CELLS% 0.2 /100WBC (0.0-0.0); PLATELET COUNT 523 10^3/UL (140-415); POSITIVE DIFF @See below; RED BLOOD COUNT 3.53 10^6/ul (4.70-6.10); RED CELL DISTRIBUTION WIDTH 18.7 % (11.5-14.5)
[2017-07-07 16:45] LABS: ADD MAN DIFF? YES
[2017-07-07 16:59] LABS: ANION GAP 14 (8-16); BLOOD UREA NITROGEN 38 mg/dl (7-20); CALCIUM 9.5 mg/dl (8.4-10.2); CARBON DIOXIDE 24 mmol/L (21-31); CHLORIDE 108 mmol/L (97-110); CREATININE 4.99 mg/dl (0.61-1.24); GLUCOSE 101 mg/dl (70-220); POTASSIUM 5.1 mmol/L (3.5-5.1); SODIUM 141 mmol/L (135-144)
[2017-07-07] MEDS: HEPARIN 1000 UNITS/ML 10 ML INJ CATHETER (16:59)
[2017-07-07 17:20] LABS: VANCOMYCIN,RANDOM 24.4 ug/ml
[2017-07-07 17:32] LABS: ANISOCYTOSIS 1+ (0-0); EOSINOPHILS % (M) 3 % (0-7); GIANT THROMBO% (M) 2 % (0-0); LYMPHOCYTES #M 3.3 10^3/ul (0.8-2.9); LYMPHOCYTES % (M) 18 % (15-51); METAMYELOCYTES #M 0.1 10^3/ul (0.0-0.0); METAMYELOCYTES %M 1 % (0-0); MONOCYTE #M 3.7 10^3/ul (0.3-0.9); MONOCYTES % (M) 20 % (0-11); MYELOCYTES #M 0.1 10^3/ul (0.0-0.0); MYELOCYTES % (M) 1 % (0-0); PLATELET ESTIMATE INCREASED; POLYCHROMASIA 1+ (0-0); SEGMENTED NEUTROPHILS (M) % 57 % (39-77); SMUDGE%M 1 % (0-0)
[2017-07-07] MEDS: LORAZEPAM 2 MG INJ IV (21:01)
[2017-07-07] MEDS: OLANZAPINE 2.5 MG TAB PO (21:30)
[2017-07-08] MEDS: LORAZEPAM 2 MG INJ IV ×3 (01:40→20:38)
[2017-07-08] MEDS: PANTOPRAZOLE (EC) 40 MG TAB PO (06:23)
[2017-07-08] MEDS: NIFEdipine (XL) 30 MG TAB PO (08:21)
[2017-07-08] MEDS: MULTIVIT/CA CARB/B CMPLX/FA TAB PO (08:21)
[2017-07-08] MEDS: LEVETIRACETAM 500 MG TAB PO ×2 (08:22→20:36)
[2017-07-08] MEDS: LINAGLIPTIN 5 MG TABLET PO (08:22)
[2017-07-08] MEDS: CYANOCOBALAMIN 500 MCG TAB PO (08:22)
[2017-07-08] MEDS: METOPROLOL 50 MG TAB PO ×2 (08:24→20:36)
[2017-07-08] MEDS: APIXABAN 5 MG TABLET PO ×2 (08:24→20:36)
[2017-07-08] MEDS: GABAPENTIN 100 MG CAP PO ×3 (08:24→20:36)
[2017-07-08] MEDS: NICOTINE (14 MG/24 HR) PATCH TRANSDERM (08:25)
[2017-07-08] MEDS: ACCU-CHEK XX (08:25)
[2017-07-08] MEDS: THIAMINE 100 MG TAB PO (11:22)
[2017-07-08] MEDS: OLANZAPINE 5 MG TAB PO (11:22)
[2017-07-08] MEDS: EPOETIN 3000 UNITS/1 ML INJ (ESRD) SC (16:48)
[2017-07-08] MEDS: EPOETIN 2000 UNITS/1 ML INJ (ESRD) SC (16:49)
[2017-07-08] MEDS: morphine LIQ (10 MG/5 ML) CUP PO ×2 (21:44→22:35)
[2017-07-09] MEDS: VANCOMYCIN 1 GM 250 ML IVPB (05:23)
[2017-07-09] MEDS: PANTOPRAZOLE (EC) 40 MG TAB PO (05:24)
[2017-07-09 06:34] LABS: ADD MAN DIFF? NO
[2017-07-09 06:40] LABS: WHITE BLOOD COUNT 14.8 10^3/ul (4.8-10.8)
[2017-07-09 06:40] LABS: ABNORMAL IP MESSAGE 1; BASOPHIL # 0.1 10^3/ul (0.0-0.1); BASOPHILS % 0.9 % (0.0-2.0); EOSINOPHILS # 0.5 10^3/ul (0.0-0.5); EOSINOPHILS % 3.3 % (0.0-7.0); HEMATOCRIT 26.2 % (42.0-52.0); HEMOGLOBIN 8.3 g/dl (14.0-18.0); LYMPHOCYTES # 3.2 10^3/ul (0.8-2.9); LYMPHOCYTES % 21.9 % (15.0-51.0); MEAN CORPUSCULAR HEMOGLOBIN 28.1 pg (29.0-33.0); MEAN CORPUSCULAR HGB CONC 31.7 g/dl (32.0-37.0); MEAN CORPUSCULAR VOLUME 88.8 fl (82.0-101.0); MEAN PLATELET VOLUME 10.3 fl (7.4-10.4); MONOCYTE # 4.1 10^3/ul (0.3-0.9); MONOCYTES % 27.6 % (0.0-11.0); NEUTROPHIL # 6.6 10^3/ul (1.6-7.5); NEUTROPHILS % 44.7 % (39.0-77.0); NUCLEATED RED BLOOD CELLS% 0.2 /100WBC (0.0-0.0); PLATELET COUNT 470 10^3/UL (140-415); POSITIVE DIFF @See below; RED BLOOD COUNT 2.95 10^6/ul (4.70-6.10)
[2017-07-09 07:04] LABS: ANION GAP 12 (8-16); BLOOD UREA NITROGEN 31 mg/dl (7-20); CALCIUM 9.1 mg/dl (8.4-10.2); CARBON DIOXIDE 29 mmol/L (21-31); CHLORIDE 105 mmol/L (97-110); CREATININE 5.34 mg/dl (0.61-1.24); GLUCOSE 118 mg/dl (70-220); POTASSIUM 4.4 mmol/L (3.5-5.1); SODIUM 142 mmol/L (135-144)
[2017-07-09] MEDS: ACCU-CHEK XX (09:00)
[2017-07-09] MEDS: morphine LIQ (10 MG/5 ML) CUP PO ×2 (11:45→19:31)
[2017-07-09] MEDS: HEPARIN 1000 UNITS/ML 10 ML INJ CATHETER (13:02)
[2017-07-09] MEDS: METOPROLOL 50 MG TAB PO ×2 (13:33→21:00)
[2017-07-09] MEDS: THIAMINE 100 MG TAB PO (13:33)
[2017-07-09] MEDS: MULTIVIT/CA CARB/B CMPLX/FA TAB PO (13:33)
[2017-07-09] MEDS: GABAPENTIN 100 MG CAP PO ×3 (13:33→21:00)
[2017-07-09] MEDS: NIFEdipine (XL) 30 MG TAB PO (13:33)
[2017-07-09] MEDS: LINAGLIPTIN 5 MG TABLET PO (13:34)
[2017-07-09] MEDS: CYANOCOBALAMIN 500 MCG TAB PO (13:34)
[2017-07-09] MEDS: OLANZAPINE 5 MG TAB PO (13:34)
[2017-07-09] MEDS: APIXABAN 5 MG TABLET PO ×2 (13:34→21:32)
[2017-07-09] MEDS: LEVETIRACETAM 500 MG TAB PO ×2 (13:34→21:32)
[2017-07-09] MEDS: NICOTINE (14 MG/24 HR) PATCH TRANSDERM (13:35)
[2017-07-10] MEDS: morphine LIQ (10 MG/5 ML) CUP PO ×3 (03:24→21:00)
[2017-07-10] MEDS: PANTOPRAZOLE (EC) 40 MG TAB PO (06:00)
[2017-07-10 06:42] LABS: VANCOMYCIN,RANDOM 20.7 ug/ml
[2017-07-10 06:42] LABS: ANION GAP 15 (8-16); BLOOD UREA NITROGEN 22 mg/dl (7-20); CALCIUM 9.3 mg/dl (8.4-10.2); CARBON DIOXIDE 28 mmol/L (21-31); CHLORIDE 104 mmol/L (97-110); CREATININE 4.31 mg/dl (0.61-1.24); GLUCOSE 120 mg/dl (70-220); POTASSIUM 3.9 mmol/L (3.5-5.1); SODIUM 143 mmol/L (135-144)
[2017-07-10 07:55] LABS: WHITE BLOOD COUNT 15.9 10^3/ul (4.8-10.8)
[2017-07-10 07:55] LABS: ABNORMAL IP MESSAGE 1; HEMATOCRIT 27.5 % (42.0-52.0); HEMOGLOBIN 8.6 g/dl (14.0-18.0); MEAN CORPUSCULAR HEMOGLOBIN 27.8 pg (29.0-33.0); MEAN CORPUSCULAR HGB CONC 31.3 g/dl (32.0-37.0); MEAN PLATELET VOLUME 10.5 fl (7.4-10.4); NUCLEATED RED BLOOD CELLS% 0.3 /100WBC (0.0-0.0); PLATELET COUNT 407 10^3/UL (140-415); POSITIVE DIFF @See below; RED BLOOD COUNT 3.09 10^6/ul (4.70-6.10); RED CELL DISTRIBUTION WIDTH 18.4 % (11.5-14.5)
[2017-07-10 08:10] LABS: ADD MAN DIFF? YES
[2017-07-10] MEDS: NIFEdipine (XL) 30 MG TAB PO (09:00)
[2017-07-10] MEDS: OLANZAPINE 5 MG TAB PO (09:00)
[2017-07-10 09:38] LABS: ANISOCYTOSIS 2+ (0-0); BASOPHIL #M 0.4 10^3/ul (0.0-0.0); BASOPHILS % (M) 3 % (0-2); EOSINOPHILS % (M) 8 % (0-7); GIANT THROMBO% (M) 4 % (0-0); HYPOCHROMASIA 1+ (0-0); LYMPHOCYTES % (M) 19 % (15-51); MONOCYTE #M 3.4 10^3/ul (0.3-0.9); MONOCYTES % (M) 22 % (0-11); MYELOCYTES #M 0.1 10^3/ul (0.0-0.0); MYELOCYTES % (M) 1 % (0-0); PLATELET ESTIMATE NORMAL; POLYCHROMASIA 2+ (0-0); SEGMENTED NEUTROPHILS (M) % 47 % (39-77); SMUDGE%M 5 % (0-0); TARGET CELLS 2+ (0-0)
[2017-07-10] MEDS: ACCU-CHEK XX (09:50)
[2017-07-10] MEDS: THIAMINE 100 MG TAB PO (10:01)
[2017-07-10] MEDS: NICOTINE (14 MG/24 HR) PATCH TRANSDERM (10:01)
[2017-07-10] MEDS: GABAPENTIN 100 MG CAP PO ×3 (10:02→20:52)
[2017-07-10] MEDS: METOPROLOL 50 MG TAB PO ×2 (10:02→20:53)
[2017-07-10] MEDS: APIXABAN 5 MG TABLET PO ×2 (10:02→20:52)
[2017-07-10] MEDS: LINAGLIPTIN 5 MG TABLET PO (10:03)
[2017-07-10] MEDS: MULTIVIT/CA CARB/B CMPLX/FA TAB PO (10:03)
[2017-07-10] MEDS: LEVETIRACETAM 500 MG TAB PO ×2 (10:03→20:52)
[2017-07-10] MEDS: CYANOCOBALAMIN 500 MCG TAB PO (10:03)
[2017-07-11] MEDS: morphine LIQ (10 MG/5 ML) CUP PO ×2 (03:54→13:14)
[2017-07-11] MEDS: VANCOMYCIN 1 GM 250 ML IVPB (06:08)
[2017-07-11] MEDS: PANTOPRAZOLE (EC) 40 MG TAB PO (06:10)
[2017-07-11 07:29] LABS: ADD MAN DIFF? NO
[2017-07-11 07:32] LABS: ABNORMAL IP MESSAGE 1; BASOPHIL # 0.2 10^3/ul (0.0-0.1); BASOPHILS % 0.9 % (0.0-2.0); EOSINOPHILS # 1.4 10^3/ul (0.0-0.5); EOSINOPHILS % 7.2 % (0.0-7.0); HEMATOCRIT 26.7 % (42.0-52.0); HEMOGLOBIN 8.4 g/dl (14.0-18.0); LYMPHOCYTES # 3.9 10^3/ul (0.8-2.9); MEAN CORPUSCULAR HEMOGLOBIN 28.2 pg (29.0-33.0); MEAN CORPUSCULAR HGB CONC 31.5 g/dl (32.0-37.0); MEAN CORPUSCULAR VOLUME 89.6 fl (82.0-101.0); MEAN PLATELET VOLUME 10.1 fl (7.4-10.4); MONOCYTE # 4.5 10^3/ul (0.3-0.9); MONOCYTES % 24.2 % (0.0-11.0); NEUTROPHIL # 8.4 10^3/ul (1.6-7.5); NUCLEATED RED BLOOD CELLS% 0.2 /100WBC (0.0-0.0); PLATELET COUNT 424 10^3/UL (140-415); POSITIVE DIFF @See below; RED BLOOD COUNT 2.98 10^6/ul (4.70-6.10); RED CELL DISTRIBUTION WIDTH 18.4 % (11.5-14.5)
[2017-07-11 07:32] LABS: WHITE BLOOD COUNT 18.6 10^3/ul (4.8-10.8)
[2017-07-11 07:59] LABS: ANION GAP 11 (8-16); BLOOD UREA NITROGEN 32 mg/dl (7-20); CALCIUM 9.5 mg/dl (8.4-10.2); CARBON DIOXIDE 29 mmol/L (21-31); CHLORIDE 107 mmol/L (97-110); CREATININE 5.17 mg/dl (0.61-1.24); GLUCOSE 118 mg/dl (70-220); SODIUM 143 mmol/L (135-144)
[2017-07-11] MEDS: CYANOCOBALAMIN 500 MCG TAB PO (09:13)
[2017-07-11] MEDS: GABAPENTIN 100 MG CAP PO ×3 (09:13→21:20)
[2017-07-11] MEDS: METOPROLOL 50 MG TAB PO ×2 (09:13→21:21)
[2017-07-11] MEDS: THIAMINE 100 MG TAB PO (09:13)
[2017-07-11] MEDS: NIFEdipine (XL) 30 MG TAB PO (09:13)
[2017-07-11] MEDS: OLANZAPINE 5 MG TAB PO (09:13)
[2017-07-11] MEDS: LEVETIRACETAM 500 MG TAB PO ×2 (09:13→21:21)
[2017-07-11] MEDS: MULTIVIT/CA CARB/B CMPLX/FA TAB PO (09:13)
[2017-07-11] MEDS: LINAGLIPTIN 5 MG TABLET PO (09:14)
[2017-07-11] MEDS: APIXABAN 5 MG TABLET PO ×2 (09:14→21:20)
[2017-07-11] MEDS: NICOTINE (14 MG/24 HR) PATCH TRANSDERM (09:17)
[2017-07-11] MEDS: ACCU-CHEK XX (09:23)
[2017-07-11] MEDS: METOPROLOL 5 MG INJ IV (12:28)
[2017-07-11] MEDS: EPOETIN 3000 UNITS/1 ML INJ (ESRD) SC (16:39)
[2017-07-11] MEDS: EPOETIN 2000 UNITS/1 ML INJ (ESRD) SC (16:40)
[2017-07-12] MEDS: PANTOPRAZOLE (EC) 40 MG TAB PO (05:42)
[2017-07-12] MEDS: CYANOCOBALAMIN 500 MCG TAB PO (08:41)
[2017-07-12] MEDS: GABAPENTIN 100 MG CAP PO ×3 (08:42→20:09)
[2017-07-12] MEDS: LINAGLIPTIN 5 MG TABLET PO (08:42)
[2017-07-12] MEDS: MULTIVIT/CA CARB/B CMPLX/FA TAB PO (08:42)
[2017-07-12] MEDS: OLANZAPINE 5 MG TAB PO (08:42)
[2017-07-12] MEDS: LEVETIRACETAM 500 MG TAB PO ×2 (08:42→20:09)
[2017-07-12] MEDS: THIAMINE 100 MG TAB PO (08:42)
[2017-07-12] MEDS: METOPROLOL 50 MG TAB PO ×2 (08:43→20:09)
[2017-07-12] MEDS: NIFEdipine (XL) 30 MG TAB PO (08:43)
[2017-07-12] MEDS: APIXABAN 5 MG TABLET PO ×2 (08:43→20:09)
[2017-07-12] MEDS: NICOTINE (14 MG/24 HR) PATCH TRANSDERM (08:44)
[2017-07-12] MEDS: ACCU-CHEK XX (08:47)
[2017-07-12 09:02] LABS: ADD MAN DIFF? NO
[2017-07-12 09:08] LABS: WHITE BLOOD COUNT 17.9 10^3/ul (4.8-10.8)
[2017-07-12 09:08] LABS: ABNORMAL IP MESSAGE 1; BASOPHIL # 0.2 10^3/ul (0.0-0.1); BASOPHILS % 0.8 % (0.0-2.0); EOSINOPHILS # 1.1 10^3/ul (0.0-0.5); EOSINOPHILS % 6.4 % (0.0-7.0); HEMATOCRIT 25.8 % (42.0-52.0); HEMOGLOBIN 8.3 g/dl (14.0-18.0); LYMPHOCYTES # 2.8 10^3/ul (0.8-2.9); LYMPHOCYTES % 15.4 % (15.0-51.0); MEAN CORPUSCULAR HEMOGLOBIN 28.4 pg (29.0-33.0); MEAN CORPUSCULAR HGB CONC 32.2 g/dl (32.0-37.0); MEAN CORPUSCULAR VOLUME 88.4 fl (82.0-101.0); MEAN PLATELET VOLUME 10.2 fl (7.4-10.4); MONOCYTE # 3.4 10^3/ul (0.3-0.9); MONOCYTES % 19.1 % (0.0-11.0); NEUTROPHIL # 10.3 10^3/ul (1.6-7.5); NEUTROPHILS % 57.2 % (39.0-77.0); NUCLEATED RED BLOOD CELLS% 0.2 /100WBC (0.0-0.0); PLATELET COUNT 423 10^3/UL (140-415); POSITIVE DIFF @See below; RED BLOOD COUNT 2.92 10^6/ul (4.70-6.10); RED CELL DISTRIBUTION WIDTH 18.5 % (11.5-14.5)
[2017-07-12 09:36] LABS: ANION GAP 15 (8-16); BLOOD UREA NITROGEN 44 mg/dl (7-20); CALCIUM 9.3 mg/dl (8.4-10.2); CARBON DIOXIDE 27 mmol/L (21-31); CHLORIDE 106 mmol/L (97-110); GLUCOSE 134 mg/dl (70-220); POTASSIUM 4.7 mmol/L (3.5-5.1); SODIUM 143 mmol/L (135-144)
[2017-07-12] MEDS: HEPARIN 1000 UNITS/ML 10 ML INJ CATHETER (10:40)
[2017-07-12] MEDS: morphine LIQ (10 MG/5 ML) CUP PO ×3 (11:17→21:25)
[2017-07-12] MEDS: LORAZEPAM 2 MG INJ IV (19:35)
[2017-07-13] MEDS: PANTOPRAZOLE (EC) 40 MG TAB PO (05:50)
[2017-07-13] MEDS: VANCOMYCIN 1 GM 250 ML IVPB (05:50)
[2017-07-13 08:42] LABS: ADD MAN DIFF? NO
[2017-07-13 08:45] LABS: ABNORMAL IP MESSAGE 1; BASOPHIL # 0.2 10^3/ul (0.0-0.1); BASOPHILS % 0.9 % (0.0-2.0); EOSINOPHILS # 1.4 10^3/ul (0.0-0.5); EOSINOPHILS % 8.6 % (0.0-7.0); HEMATOCRIT 25.9 % (42.0-52.0); HEMOGLOBIN 8.1 g/dl (14.0-18.0); LYMPHOCYTES # 2.8 10^3/ul (0.8-2.9); LYMPHOCYTES % 17.7 % (15.0-51.0); MEAN CORPUSCULAR HEMOGLOBIN 27.6 pg (29.0-33.0); MEAN CORPUSCULAR HGB CONC 31.3 g/dl (32.0-37.0); MEAN CORPUSCULAR VOLUME 88.4 fl (82.0-101.0); MEAN PLATELET VOLUME 10.4 fl (7.4-10.4); MONOCYTE # 3.8 10^3/ul (0.3-0.9); MONOCYTES % 23.9 % (0.0-11.0); NEUTROPHIL # 7.6 10^3/ul (1.6-7.5); NEUTROPHILS % 47.8 % (39.0-77.0); NUCLEATED RED BLOOD CELLS% 0.2 /100WBC (0.0-0.0); PLATELET COUNT 381 10^3/UL (140-415); POSITIVE DIFF @See below; RED BLOOD COUNT 2.93 10^6/ul (4.70-6.10); RED CELL DISTRIBUTION WIDTH 18.1 % (11.5-14.5)
[2017-07-13 08:45] LABS: WHITE BLOOD COUNT 15.9 10^3/ul (4.8-10.8)
[2017-07-13] MEDS: OLANZAPINE 5 MG TAB PO (08:57)
[2017-07-13] MEDS: LINAGLIPTIN 5 MG TABLET PO (08:57)
[2017-07-13] MEDS: APIXABAN 5 MG TABLET PO ×2 (08:57→21:28)
[2017-07-13] MEDS: GABAPENTIN 100 MG CAP PO ×3 (08:57→21:28)
[2017-07-13] MEDS: NICOTINE (14 MG/24 HR) PATCH TRANSDERM (08:57)
[2017-07-13] MEDS: THIAMINE 100 MG TAB PO (08:58)
[2017-07-13] MEDS: NIFEdipine (XL) 30 MG TAB PO (08:58)
[2017-07-13] MEDS: LEVETIRACETAM 500 MG TAB PO ×2 (08:58→21:28)
[2017-07-13] MEDS: CYANOCOBALAMIN 500 MCG TAB PO (08:58)
[2017-07-13] MEDS: MULTIVIT/CA CARB/B CMPLX/FA TAB PO (08:58)
[2017-07-13] MEDS: METOPROLOL 50 MG TAB PO ×2 (08:59→21:28)
[2017-07-13] MEDS: ACCU-CHEK XX (08:59)
[2017-07-13 09:14] LABS: ANION GAP 12 (8-16); BLOOD UREA NITROGEN 33 mg/dl (7-20); CALCIUM 9.2 mg/dl (8.4-10.2); CARBON DIOXIDE 30 mmol/L (21-31); CHLORIDE 103 mmol/L (97-110); GLUCOSE 105 mg/dl (70-220); POTASSIUM 4.5 mmol/L (3.5-5.1); SODIUM 140 mmol/L (135-144)
[2017-07-13] MEDS: morphine LIQ (10 MG/5 ML) CUP PO (17:49)
[2017-07-13] MEDS: EPOETIN 3000 UNITS/1 ML INJ (ESRD) SC (17:50)
[2017-07-13] MEDS: EPOETIN 2000 UNITS/1 ML INJ (ESRD) SC (17:51)
[2017-07-14] MEDS: SOD CHLORIDE 0.9% 500 ML IV (02:45)
[2017-07-14] MEDS: PANTOPRAZOLE (EC) 40 MG TAB PO (05:19)
[2017-07-14 06:05] LABS: WHITE BLOOD COUNT 19.7 10^3/ul (4.8-10.8)
[2017-07-14 06:05] LABS: ABNORMAL IP MESSAGE 1; ADD MAN DIFF? NO; BASOPHIL # 0.2 10^3/ul (0.0-0.1); BASOPHILS % 0.8 % (0.0-2.0); EOSINOPHILS # 0.6 10^3/ul (0.0-0.5); EOSINOPHILS % 2.9 % (0.0-7.0); HEMATOCRIT 27.2 % (42.0-52.0); HEMOGLOBIN 8.5 g/dl (14.0-18.0); LYMPHOCYTES # 2.1 10^3/ul (0.8-2.9); LYMPHOCYTES % 10.5 % (15.0-51.0); MEAN CORPUSCULAR HEMOGLOBIN 27.2 pg (29.0-33.0); MEAN CORPUSCULAR HGB CONC 31.3 g/dl (32.0-37.0); MEAN CORPUSCULAR VOLUME 86.9 fl (82.0-101.0); MEAN PLATELET VOLUME 10.3 fl (7.4-10.4); MONOCYTE # 3.9 10^3/ul (0.3-0.9); MONOCYTES % 19.9 % (0.0-11.0); NEUTROPHIL # 12.8 10^3/ul (1.6-7.5); NEUTROPHILS % 65.1 % (39.0-77.0); NUCLEATED RED BLOOD CELLS% 0.1 /100WBC (0.0-0.0); PLATELET COUNT 421 10^3/UL (140-415); POSITIVE DIFF @See below; RED BLOOD COUNT 3.13 10^6/ul (4.70-6.10); RED CELL DISTRIBUTION WIDTH 18.3 % (11.5-14.5)
[2017-07-14 06:44] LABS: ANION GAP 19 (8-16); BLOOD UREA NITROGEN 43 mg/dl (7-20); CALCIUM 9.2 mg/dl (8.4-10.2); CARBON DIOXIDE 25 mmol/L (21-31); CHLORIDE 103 mmol/L (97-110); CREATININE 6.89 mg/dl (0.61-1.24); GLUCOSE 112 mg/dl (70-220); POTASSIUM 4.6 mmol/L (3.5-5.1); SODIUM 142 mmol/L (135-144)
[2017-07-14] MEDS: GABAPENTIN 100 MG CAP PO ×3 (08:42→20:20)
[2017-07-14] MEDS: OLANZAPINE 5 MG TAB PO ×2 (08:42→20:22)
[2017-07-14] MEDS: LEVETIRACETAM 500 MG TAB PO ×2 (08:42→20:21)
[2017-07-14] MEDS: MULTIVIT/CA CARB/B CMPLX/FA TAB PO (08:42)
[2017-07-14] MEDS: APIXABAN 5 MG TABLET PO ×2 (08:42→20:20)
[2017-07-14] MEDS: NICOTINE (14 MG/24 HR) PATCH TRANSDERM (08:42)
[2017-07-14] MEDS: THIAMINE 100 MG TAB PO (08:42)
[2017-07-14] MEDS: LINAGLIPTIN 5 MG TABLET PO (08:42)
[2017-07-14] MEDS: CYANOCOBALAMIN 500 MCG TAB PO (08:42)
[2017-07-14] MEDS: ACCU-CHEK XX (08:43)
[2017-07-14] MEDS: METOPROLOL 50 MG TAB PO ×2 (08:52→20:23)
[2017-07-14] MEDS: NIFEdipine (XL) 30 MG TAB PO (08:52)
[2017-07-14] MEDS: morphine LIQ (10 MG/5 ML) CUP PO ×2 (09:37→20:24)
[2017-07-14] MEDS: HEPARIN 1000 UNITS/ML 10 ML INJ CATHETER (16:35)
[2017-07-15 05:40] LABS: ADD MAN DIFF? NO
[2017-07-15 05:42] LABS: ABNORMAL IP MESSAGE 1; BASOPHIL # 0.2 10^3/ul (0.0-0.1); BASOPHILS % 0.8 % (0.0-2.0); EOSINOPHILS # 0.9 10^3/ul (0.0-0.5); EOSINOPHILS % 4.3 % (0.0-7.0); HEMATOCRIT 27.8 % (42.0-52.0); HEMOGLOBIN 8.8 g/dl (14.0-18.0); LYMPHOCYTES # 3.6 10^3/ul (0.8-2.9); LYMPHOCYTES % 17.2 % (15.0-51.0); MEAN CORPUSCULAR HGB CONC 31.7 g/dl (32.0-37.0); MEAN CORPUSCULAR VOLUME 85.3 fl (82.0-101.0); MEAN PLATELET VOLUME 10.5 fl (7.4-10.4); MONOCYTE # 3.9 10^3/ul (0.3-0.9); MONOCYTES % 18.8 % (0.0-11.0); NEUTROPHIL # 12.2 10^3/ul (1.6-7.5); NEUTROPHILS % 58.4 % (39.0-77.0); NUCLEATED RED BLOOD CELLS% 0.1 /100WBC (0.0-0.0); PLATELET COUNT 455 10^3/UL (140-415); POSITIVE DIFF @See below; RED BLOOD COUNT 3.26 10^6/ul (4.70-6.10); RED CELL DISTRIBUTION WIDTH 17.9 % (11.5-14.5)
[2017-07-15 05:42] LABS: WHITE BLOOD COUNT 20.9 10^3/ul (4.8-10.8)
[2017-07-15 06:01] LABS: ANION GAP 18 (8-16); BLOOD UREA NITROGEN 26 mg/dl (7-20); CALCIUM 9.2 mg/dl (8.4-10.2); CARBON DIOXIDE 28 mmol/L (21-31); CHLORIDE 101 mmol/L (97-110); GLUCOSE 120 mg/dl (70-220); POTASSIUM 4.5 mmol/L (3.5-5.1); SODIUM 142 mmol/L (135-144)
[2017-07-15 06:05] LABS: VANCOMYCIN,TROUGH 22.5 ug/ml (10.0-20.0)
[2017-07-15] MEDS: PANTOPRAZOLE (EC) 40 MG TAB PO (06:26)
[2017-07-15] MEDS: METOPROLOL 50 MG TAB PO ×2 (08:52→21:00)
[2017-07-15] MEDS: OLANZAPINE 5 MG TAB PO ×2 (08:52→21:05)
[2017-07-15] MEDS: NIFEdipine (XL) 30 MG TAB PO ×2 (08:52→08:56)
[2017-07-15] MEDS: GABAPENTIN 100 MG CAP PO ×3 (08:53→21:06)
[2017-07-15] MEDS: LEVETIRACETAM 500 MG TAB PO ×2 (08:53→21:06)
[2017-07-15] MEDS: NICOTINE (14 MG/24 HR) PATCH TRANSDERM (08:53)
[2017-07-15] MEDS: CYANOCOBALAMIN 500 MCG TAB PO (08:53)
[2017-07-15] MEDS: MULTIVIT/CA CARB/B CMPLX/FA TAB PO (08:53)
[2017-07-15] MEDS: APIXABAN 5 MG TABLET PO ×2 (08:53→21:08)
[2017-07-15] MEDS: THIAMINE 100 MG TAB PO (08:53)
[2017-07-15] MEDS: ACCU-CHEK XX (08:54)
[2017-07-15] MEDS: LINAGLIPTIN 5 MG TABLET PO (08:56)
[2017-07-15] MEDS: morphine LIQ (10 MG/5 ML) CUP PO ×3 (09:04→21:13)
[2017-07-15 10:41] LABS: IRON 32 ug/dl (35-150)
[2017-07-15 10:50] LABS: % IRON SATURATION 14 % SAT (22-52); TOTAL IRON BINDING CAPACITY 226 ug/dl (241-421)
[2017-07-15 15:34] LABS: THYROID STIMULATING HORMONE 0.828 MIU/L (0.465-4.680)
[2017-07-15] MEDS: POLYSACCHARIDE IRON COMPLEX CAP PO (16:44)
[2017-07-15] MEDS: EPOETIN 3000 UNITS/1 ML INJ (ESRD) SC (17:46)
[2017-07-15] MEDS: EPOETIN 2000 UNITS/1 ML INJ (ESRD) SC (18:01)
[2017-07-16] MEDS: morphine LIQ (10 MG/5 ML) CUP PO ×4 (04:43→22:38)
[2017-07-16] MEDS: VANCOMYCIN 1 GM 250 ML IVPB (05:26)
[2017-07-16] MEDS: PANTOPRAZOLE (EC) 40 MG TAB PO (05:26)
[2017-07-16 06:19] LABS: ADD MAN DIFF? NO
[2017-07-16 06:24] LABS: ABNORMAL IP MESSAGE 1; BASOPHIL # 0.1 10^3/ul (0.0-0.1); BASOPHILS % 0.7 % (0.0-2.0); EOSINOPHILS # 1.4 10^3/ul (0.0-0.5); EOSINOPHILS % 7.8 % (0.0-7.0); HEMATOCRIT 23.9 % (42.0-52.0); HEMOGLOBIN 7.7 g/dl (14.0-18.0); LYMPHOCYTES # 3.9 10^3/ul (0.8-2.9); MEAN CORPUSCULAR HEMOGLOBIN 27.4 pg (29.0-33.0); MEAN CORPUSCULAR HGB CONC 32.2 g/dl (32.0-37.0); MEAN CORPUSCULAR VOLUME 85.1 fl (82.0-101.0); MEAN PLATELET VOLUME 10.9 fl (7.4-10.4); MONOCYTE # 3.4 10^3/ul (0.3-0.9); NEUTROPHIL # 8.8 10^3/ul (1.6-7.5); NEUTROPHILS % 49.8 % (39.0-77.0); PLATELET COUNT 448 10^3/UL (140-415); POSITIVE DIFF @See below; RED BLOOD COUNT 2.81 10^6/ul (4.70-6.10); RED CELL DISTRIBUTION WIDTH 18.1 % (11.5-14.5)
[2017-07-16 06:24] LABS: WHITE BLOOD COUNT 17.8 10^3/ul (4.8-10.8)
[2017-07-16 06:52] LABS: ANION GAP 17 (8-16); BLOOD UREA NITROGEN 43 mg/dl (7-20); CALCIUM 8.9 mg/dl (8.4-10.2); CARBON DIOXIDE 25 mmol/L (21-31); CHLORIDE 101 mmol/L (97-110); CREATININE 6.16 mg/dl (0.61-1.24); GLUCOSE 105 mg/dl (70-220); POTASSIUM 4.6 mmol/L (3.5-5.1); SODIUM 138 mmol/L (135-144)
[2017-07-16 06:53] LABS: LACTIC ACID 1.8 mmol/L (0.5-2.0)
[2017-07-16] MEDS: METOPROLOL 50 MG TAB PO ×2 (09:00→20:30)
[2017-07-16] MEDS: NIFEdipine (XL) 30 MG TAB PO (09:00)
[2017-07-16] MEDS: THIAMINE 100 MG TAB PO (09:17)
[2017-07-16] MEDS: GABAPENTIN 100 MG CAP PO ×3 (09:17→20:31)
[2017-07-16] MEDS: OLANZAPINE 5 MG TAB PO ×2 (09:17→20:30)
[2017-07-16] MEDS: NICOTINE (14 MG/24 HR) PATCH TRANSDERM (09:17)
[2017-07-16] MEDS: MULTIVIT/CA CARB/B CMPLX/FA TAB PO (09:17)
[2017-07-16] MEDS: CYANOCOBALAMIN 500 MCG TAB PO (09:17)
[2017-07-16] MEDS: LINAGLIPTIN 5 MG TABLET PO (09:18)
[2017-07-16] MEDS: APIXABAN 5 MG TABLET PO ×2 (09:18→20:31)
[2017-07-16] MEDS: LEVETIRACETAM 500 MG TAB PO ×2 (09:18→20:30)
[2017-07-16] MEDS: ACCU-CHEK XX (09:45)
[2017-07-16] MEDS: HEPARIN 1000 UNITS/ML 10 ML INJ CATHETER (12:24)
[2017-07-17] MEDS: PANTOPRAZOLE (EC) 40 MG TAB PO (05:53)
[2017-07-17] MEDS: LEVETIRACETAM 500 MG TAB PO ×2 (08:25→20:49)
[2017-07-17] MEDS: APIXABAN 5 MG TABLET PO ×2 (08:25→20:48)
[2017-07-17] MEDS: METOPROLOL 50 MG TAB PO ×2 (08:26→20:49)
[2017-07-17] MEDS: GABAPENTIN 100 MG CAP PO ×3 (08:26→20:49)
[2017-07-17] MEDS: NIFEdipine (XL) 30 MG TAB PO (08:27)
[2017-07-17] MEDS: OLANZAPINE 5 MG TAB PO ×2 (08:27→20:48)
[2017-07-17] MEDS: LINAGLIPTIN 5 MG TABLET PO (08:27)
[2017-07-17] MEDS: MULTIVIT/CA CARB/B CMPLX/FA TAB PO (08:27)
[2017-07-17] MEDS: CYANOCOBALAMIN 500 MCG TAB PO (08:27)
[2017-07-17] MEDS: NICOTINE (14 MG/24 HR) PATCH TRANSDERM (08:27)
[2017-07-17] MEDS: ACETAMINOPHEN 325 MG TAB PO (08:28)
[2017-07-17] MEDS: THIAMINE 100 MG TAB PO (08:28)
[2017-07-17] MEDS: morphine LIQ (10 MG/5 ML) CUP PO ×3 (08:44→19:39)
[2017-07-17] MEDS: ACCU-CHEK XX (08:46)
[2017-07-17 14:38] LABS: ADD MAN DIFF? NO
[2017-07-17 14:41] LABS: WHITE BLOOD COUNT 15.8 10^3/ul (4.8-10.8)
[2017-07-17 14:41] LABS: ABNORMAL IP MESSAGE 1; BASOPHIL # 0.1 10^3/ul (0.0-0.1); BASOPHILS % 0.8 % (0.0-2.0); EOSINOPHILS # 1.6 10^3/ul (0.0-0.5); EOSINOPHILS % 10.1 % (0.0-7.0); HEMATOCRIT 28.1 % (42.0-52.0); HEMOGLOBIN 8.9 g/dl (14.0-18.0); LYMPHOCYTES # 2.7 10^3/ul (0.8-2.9); LYMPHOCYTES % 17.2 % (15.0-51.0); MEAN CORPUSCULAR HEMOGLOBIN 27.3 pg (29.0-33.0); MEAN CORPUSCULAR HGB CONC 31.7 g/dl (32.0-37.0); MEAN CORPUSCULAR VOLUME 86.2 fl (82.0-101.0); MEAN PLATELET VOLUME 10.5 fl (7.4-10.4); MONOCYTE # 3.4 10^3/ul (0.3-0.9); MONOCYTES % 21.4 % (0.0-11.0); NEUTROPHIL # 7.9 10^3/ul (1.6-7.5); NEUTROPHILS % 49.9 % (39.0-77.0); PLATELET COUNT 503 10^3/UL (140-415); POSITIVE DIFF @See below; RED BLOOD COUNT 3.26 10^6/ul (4.70-6.10); RED CELL DISTRIBUTION WIDTH 17.9 % (11.5-14.5)
[2017-07-18] MEDS: PANTOPRAZOLE (EC) 40 MG TAB PO (05:56)
[2017-07-18] MEDS: LEVETIRACETAM 500 MG TAB PO ×2 (08:05→20:18)
[2017-07-18] MEDS: THIAMINE 100 MG TAB PO (08:05)
[2017-07-18] MEDS: OLANZAPINE 5 MG TAB PO ×2 (08:06→20:18)
[2017-07-18] MEDS: CYANOCOBALAMIN 500 MCG TAB PO (08:06)
[2017-07-18] MEDS: GABAPENTIN 100 MG CAP PO (08:06)
[2017-07-18] MEDS: LINAGLIPTIN 5 MG TABLET PO (08:06)
[2017-07-18] MEDS: MULTIVIT/CA CARB/B CMPLX/FA TAB PO (08:06)
[2017-07-18] MEDS: METOPROLOL 50 MG TAB PO ×2 (08:07→20:19)
[2017-07-18] MEDS: morphine LIQ (10 MG/5 ML) CUP PO ×3 (08:07→20:18)
[2017-07-18] MEDS: APIXABAN 5 MG TABLET PO ×2 (08:10→20:19)
[2017-07-18] MEDS: ACCU-CHEK XX (08:10)
[2017-07-18] MEDS: NICOTINE (14 MG/24 HR) PATCH TRANSDERM (09:00)
[2017-07-18 12:15] LABS: WHITE BLOOD COUNT 14.3 10^3/ul (4.8-10.8)
[2017-07-18 12:15] LABS: ABNORMAL IP MESSAGE 1; ADD MAN DIFF? NO; BASOPHIL # 0.1 10^3/ul (0.0-0.1); BASOPHILS % 0.7 % (0.0-2.0); EOSINOPHILS # 2.2 10^3/ul (0.0-0.5); EOSINOPHILS % 15.4 % (0.0-7.0); HEMATOCRIT 23.3 % (42.0-52.0); HEMOGLOBIN 7.6 g/dl (14.0-18.0); LYMPHOCYTES % 20.8 % (15.0-51.0); MEAN CORPUSCULAR HEMOGLOBIN 27.5 pg (29.0-33.0); MEAN CORPUSCULAR HGB CONC 32.6 g/dl (32.0-37.0); MEAN CORPUSCULAR VOLUME 84.4 fl (82.0-101.0); MEAN PLATELET VOLUME 9.5 fl (7.4-10.4); MONOCYTE # 2.6 10^3/ul (0.3-0.9); NEUTROPHIL # 6.4 10^3/ul (1.6-7.5); NEUTROPHILS % 44.7 % (39.0-77.0); PLATELET COUNT 433 10^3/UL (140-415); POSITIVE DIFF @See below; RED BLOOD COUNT 2.76 10^6/ul (4.70-6.10); RED CELL DISTRIBUTION WIDTH 17.7 % (11.5-14.5)
[2017-07-18 12:47] LABS: ANION GAP 16 (8-16); BLOOD UREA NITROGEN 56 mg/dl (7-20); CALCIUM 8.8 mg/dl (8.4-10.2); CARBON DIOXIDE 25 mmol/L (21-31); CHLORIDE 101 mmol/L (97-110); CREATININE 6.07 mg/dl (0.61-1.24); GLUCOSE 117 mg/dl (70-220); POTASSIUM 4.6 mmol/L (3.5-5.1); SODIUM 137 mmol/L (135-144)
[2017-07-18] MEDS: EPOETIN 2000 UNITS/1 ML INJ (ESRD) SC (18:27)
[2017-07-18] MEDS: EPOETIN 3000 UNITS/1 ML INJ (ESRD) SC (18:28)
[2017-07-19] MEDS: PANTOPRAZOLE (EC) 40 MG TAB PO (06:06)
[2017-07-19 06:35] LABS: ADD MAN DIFF? NO
[2017-07-19 06:47] LABS: ABNORMAL IP MESSAGE 1; BASOPHIL # 0.1 10^3/ul (0.0-0.1); BASOPHILS % 0.9 % (0.0-2.0); EOSINOPHILS # 2.1 10^3/ul (0.0-0.5); EOSINOPHILS % 14.9 % (0.0-7.0); HEMATOCRIT 23.9 % (42.0-52.0); HEMOGLOBIN 7.7 g/dl (14.0-18.0); LYMPHOCYTES # 2.6 10^3/ul (0.8-2.9); LYMPHOCYTES % 18.7 % (15.0-51.0); MEAN CORPUSCULAR HEMOGLOBIN 26.9 pg (29.0-33.0); MEAN CORPUSCULAR HGB CONC 32.2 g/dl (32.0-37.0); MEAN CORPUSCULAR VOLUME 83.6 fl (82.0-101.0); MEAN PLATELET VOLUME 10.1 fl (7.4-10.4); MONOCYTE # 2.7 10^3/ul (0.3-0.9); MONOCYTES % 19.5 % (0.0-11.0); NEUTROPHIL # 6.4 10^3/ul (1.6-7.5); NEUTROPHILS % 45.6 % (39.0-77.0); PLATELET COUNT 495 10^3/UL (140-415); POSITIVE DIFF @See below; RED BLOOD COUNT 2.86 10^6/ul (4.70-6.10); RED CELL DISTRIBUTION WIDTH 17.9 % (11.5-14.5)
[2017-07-19 07:18] LABS: ANION GAP 16 (8-16); BLOOD UREA NITROGEN 67 mg/dl (7-20); CALCIUM 8.9 mg/dl (8.4-10.2); CARBON DIOXIDE 26 mmol/L (21-31); CHLORIDE 102 mmol/L (97-110); CREATININE 6.27 mg/dl (0.61-1.24); GLUCOSE 113 mg/dl (70-220); POTASSIUM 4.5 mmol/L (3.5-5.1); SODIUM 139 mmol/L (135-144)
[2017-07-19] MEDS: VANCOMYCIN 1 GM 250 ML IVPB (07:54)
[2017-07-19] MEDS: ACCU-CHEK XX (08:03)
[2017-07-19] MEDS: APIXABAN 5 MG TABLET PO ×2 (09:16→21:57)
[2017-07-19] MEDS: LEVETIRACETAM 500 MG TAB PO ×2 (09:16→21:56)
[2017-07-19] MEDS: MULTIVIT/CA CARB/B CMPLX/FA TAB PO (09:16)
[2017-07-19] MEDS: LINAGLIPTIN 5 MG TABLET PO (09:16)
[2017-07-19] MEDS: NICOTINE (14 MG/24 HR) PATCH TRANSDERM (09:16)
[2017-07-19] MEDS: CYANOCOBALAMIN 500 MCG TAB PO (09:16)
[2017-07-19] MEDS: THIAMINE 100 MG TAB PO (09:17)
[2017-07-19] MEDS: METOPROLOL 50 MG TAB PO ×2 (09:17→21:56)
[2017-07-19] MEDS: OLANZAPINE 5 MG TAB PO ×2 (09:17→21:56)
[2017-07-19 12:44] LABS: IMMEDIATE SPIN CROSSMATCH 1 1
[2017-07-19] MEDS: HEPARIN 1000 UNITS/ML 10 ML INJ CATHETER (16:05)
[2017-07-19] MEDS: morphine LIQ (10 MG/5 ML) CUP PO (17:57)
[2017-07-20] MEDS: morphine LIQ (10 MG/5 ML) CUP PO ×4 (00:54→18:56)
[2017-07-20] MEDS: PANTOPRAZOLE (EC) 40 MG TAB PO (05:57)
[2017-07-20 06:47] LABS: ADD MAN DIFF? NO
[2017-07-20 06:50] LABS: ABNORMAL IP MESSAGE 1; BASOPHIL # 0.1 10^3/ul (0.0-0.1); BASOPHILS % 0.9 % (0.0-2.0); EOSINOPHILS % 6.7 % (0.0-7.0); HEMATOCRIT 24.8 % (42.0-52.0); HEMOGLOBIN 8.1 g/dl (14.0-18.0); LYMPHOCYTES # 3.3 10^3/ul (0.8-2.9); LYMPHOCYTES % 21.6 % (15.0-51.0); MEAN CORPUSCULAR HEMOGLOBIN 26.8 pg (29.0-33.0); MEAN CORPUSCULAR HGB CONC 32.7 g/dl (32.0-37.0); MEAN CORPUSCULAR VOLUME 82.1 fl (82.0-101.0); MEAN PLATELET VOLUME 9.8 fl (7.4-10.4); MONOCYTE # 3.5 10^3/ul (0.3-0.9); MONOCYTES % 23.4 % (0.0-11.0); NEUTROPHILS % 46.5 % (39.0-77.0); PLATELET COUNT 409 10^3/UL (140-415); POSITIVE DIFF @See below; RED BLOOD COUNT 3.02 10^6/ul (4.70-6.10); RED CELL DISTRIBUTION WIDTH 17.2 % (11.5-14.5)
[2017-07-20 06:50] LABS: WHITE BLOOD COUNT 15.1 10^3/ul (4.8-10.8)
[2017-07-20 07:19] LABS: ANION GAP 15 (8-16); BLOOD UREA NITROGEN 44 mg/dl (7-20); CALCIUM 9.1 mg/dl (8.4-10.2); CARBON DIOXIDE 28 mmol/L (21-31); CHLORIDE 100 mmol/L (97-110); CREATININE 4.86 mg/dl (0.61-1.24); GLUCOSE 105 mg/dl (70-220); POTASSIUM 4.6 mmol/L (3.5-5.1); SODIUM 138 mmol/L (135-144)
[2017-07-20] MEDS: ACCU-CHEK XX (08:06)
[2017-07-20] MEDS: LINAGLIPTIN 5 MG TABLET PO (08:41)
[2017-07-20] MEDS: LEVETIRACETAM 500 MG TAB PO ×2 (08:41→21:35)
[2017-07-20] MEDS: THIAMINE 100 MG TAB PO (08:41)
[2017-07-20] MEDS: CYANOCOBALAMIN 500 MCG TAB PO (08:41)
[2017-07-20] MEDS: MULTIVIT/CA CARB/B CMPLX/FA TAB PO (08:41)
[2017-07-20] MEDS: OLANZAPINE 5 MG TAB PO ×2 (08:41→21:31)
[2017-07-20] MEDS: METOPROLOL 50 MG TAB PO ×4 (08:43→21:37)
[2017-07-20] MEDS: APIXABAN 5 MG TABLET PO ×2 (08:43→21:37)
[2017-07-20] MEDS: NICOTINE (14 MG/24 HR) PATCH TRANSDERM (08:44)
[2017-07-20] MEDS ORDERED: (Nursing Note) XX (12:30)
[2017-07-20] MEDS ORDERED: HEPARIN 1000 UNITS/ML 10 ML INJ CATHETER (12:30)
[2017-07-20] MEDS: ACETAMINOPHEN 325 MG TAB PO (14:13)
[2017-07-20] MEDS: EPOETIN 3000 UNITS/1 ML INJ (ESRD) SC (17:37)
[2017-07-20] MEDS: EPOETIN 2000 UNITS/1 ML INJ (ESRD) SC (17:39)
[2017-07-21] MEDS: morphine LIQ (10 MG/5 ML) CUP PO (03:11)
[2017-07-21 05:53] LABS: ADD MAN DIFF? NO
[2017-07-21 05:57] LABS: ABNORMAL IP MESSAGE 1; BASOPHIL # 0.1 10^3/ul (0.0-0.1); EOSINOPHILS # 1.6 10^3/ul (0.0-0.5); EOSINOPHILS % 10.7 % (0.0-7.0); HEMATOCRIT 26.7 % (42.0-52.0); HEMOGLOBIN 8.6 g/dl (14.0-18.0); LYMPHOCYTES # 2.2 10^3/ul (0.8-2.9); LYMPHOCYTES % 15.3 % (15.0-51.0); MEAN CORPUSCULAR HEMOGLOBIN 26.9 pg (29.0-33.0); MEAN CORPUSCULAR HGB CONC 32.2 g/dl (32.0-37.0); MEAN CORPUSCULAR VOLUME 83.4 fl (82.0-101.0); MEAN PLATELET VOLUME 10.1 fl (7.4-10.4); MONOCYTE # 2.6 10^3/ul (0.3-0.9); NEUTROPHIL # 7.9 10^3/ul (1.6-7.5); NEUTROPHILS % 54.3 % (39.0-77.0); PLATELET COUNT 464 10^3/UL (140-415); POSITIVE DIFF @See below; RED CELL DISTRIBUTION WIDTH 17.4 % (11.5-14.5)
[2017-07-21 05:57] LABS: WHITE BLOOD COUNT 14.5 10^3/ul (4.8-10.8)
[2017-07-21] MEDS: PANTOPRAZOLE (EC) 40 MG TAB PO (06:18)
[2017-07-21 06:21] LABS: ANION GAP 15 (8-16); BLOOD UREA NITROGEN 54 mg/dl (7-20); CALCIUM 9.2 mg/dl (8.4-10.2); CARBON DIOXIDE 26 mmol/L (21-31); CHLORIDE 101 mmol/L (97-110); CREATININE 5.85 mg/dl (0.61-1.24); GLUCOSE 128 mg/dl (70-220); POTASSIUM 4.4 mmol/L (3.5-5.1); SODIUM 138 mmol/L (135-144)
[2017-07-21] MEDS: CYANOCOBALAMIN 500 MCG TAB PO (08:16)
[2017-07-21] MEDS: OLANZAPINE 5 MG TAB PO ×2 (08:17→21:14)
[2017-07-21] MEDS: APIXABAN 5 MG TABLET PO ×2 (08:17→21:14)
[2017-07-21] MEDS: MULTIVIT/CA CARB/B CMPLX/FA TAB PO (08:17)
[2017-07-21] MEDS: THIAMINE 100 MG TAB PO (08:18)
[2017-07-21] MEDS: LINAGLIPTIN 5 MG TABLET PO (08:18)
[2017-07-21] MEDS: LEVETIRACETAM 500 MG TAB PO ×2 (08:18→21:14)
[2017-07-21] MEDS: NICOTINE (14 MG/24 HR) PATCH TRANSDERM (08:22)
[2017-07-21] MEDS: METOPROLOL 50 MG TAB PO ×2 (09:00→21:00)
[2017-07-21] MEDS: ACCU-CHEK XX (09:00)
[2017-07-21] MEDS: SOD CHLORIDE 0.9% 250 ML IV* ×2 (09:54→11:17)
[2017-07-21] MEDS: HEPARIN 1000 UNITS/ML 10 ML INJ HE ×2 (12:55→13:53)
[2017-07-21] MEDS: GABAPENTIN 100 MG CAP PO ×2 (13:00→21:14)
[2017-07-21 14:09] LABS: HEPATITIS B SURFACE ANTIGEN NEGATIVE (NEGATIVE)
[2017-07-21] MEDS: HEPARIN 1000 UNITS/ML 10 ML INJ CATHETER (15:55)
[2017-07-21] MEDS: ACETAMINOPHEN 325 MG TAB PO (20:43)
[2017-07-21] MEDS: SOD CHLORIDE 0.9% 500 ML IV (20:45)
[2017-07-21 22:47] LABS: LACTIC ACID 1.4 mmol/L (0.5-2.0)
[2017-07-22] MEDS: MEROPENEM 500MG/50 ML (PMX) 50 ML IVPB ×2 (00:55→13:15)
[2017-07-22] MEDS: CASPOFUNGIN 70 MG in NS 250 ML IVPB (00:55)
[2017-07-22] MEDS: PANTOPRAZOLE (EC) 40 MG TAB PO (05:43)
[2017-07-22 06:34] LABS: ADD MAN DIFF? NO
[2017-07-22 06:50] LABS: ABNORMAL IP MESSAGE 1; BASOPHIL # 0.1 10^3/ul (0.0-0.1); BASOPHILS % 0.7 % (0.0-2.0); EOSINOPHILS # 0.5 10^3/ul (0.0-0.5); EOSINOPHILS % 3.6 % (0.0-7.0); HEMATOCRIT 26.2 % (42.0-52.0); HEMOGLOBIN 8.3 g/dl (14.0-18.0); LYMPHOCYTES # 2.6 10^3/ul (0.8-2.9); LYMPHOCYTES % 18.6 % (15.0-51.0); MEAN CORPUSCULAR HEMOGLOBIN 26.9 pg (29.0-33.0); MEAN CORPUSCULAR HGB CONC 31.7 g/dl (32.0-37.0); MEAN CORPUSCULAR VOLUME 84.8 fl (82.0-101.0); MEAN PLATELET VOLUME 10.4 fl (7.4-10.4); MONOCYTE # 3.6 10^3/ul (0.3-0.9); NEUTROPHIL # 6.8 10^3/ul (1.6-7.5); NEUTROPHILS % 49.8 % (39.0-77.0); PLATELET COUNT 408 10^3/UL (140-415); POSITIVE DIFF @See below; RED BLOOD COUNT 3.09 10^6/ul (4.70-6.10); RED CELL DISTRIBUTION WIDTH 17.6 % (11.5-14.5)
[2017-07-22 06:50] LABS: WHITE BLOOD COUNT 13.7 10^3/ul (4.8-10.8)
[2017-07-22 07:07] LABS: MONOCYTES % 26.3 % (0.0-11.0)
[2017-07-22 07:08] LABS: ANION GAP 12 (8-16); BLOOD UREA NITROGEN 33 mg/dl (7-20); CALCIUM 8.7 mg/dl (8.4-10.2); CARBON DIOXIDE 29 mmol/L (21-31); CHLORIDE 103 mmol/L (97-110); CREATININE 4.36 mg/dl (0.61-1.24); GLUCOSE 110 mg/dl (70-220); POTASSIUM 4.7 mmol/L (3.5-5.1); SODIUM 139 mmol/L (135-144)
[2017-07-22 07:10] LABS: VANCOMYCIN,TROUGH 15.3 ug/ml (10.0-20.0)
[2017-07-22] MEDS: ACCU-CHEK XX (08:17)
[2017-07-22] MEDS: MULTIVIT/CA CARB/B CMPLX/FA TAB PO (08:28)
[2017-07-22] MEDS: THIAMINE 100 MG TAB PO (08:28)
[2017-07-22] MEDS: LINAGLIPTIN 5 MG TABLET PO (08:29)
[2017-07-22] MEDS: APIXABAN 5 MG TABLET PO ×2 (08:29→21:10)
[2017-07-22] MEDS: CYANOCOBALAMIN 500 MCG TAB PO (08:30)
[2017-07-22] MEDS: LEVETIRACETAM 500 MG TAB PO ×2 (08:30→21:10)
[2017-07-22] MEDS: GABAPENTIN 100 MG CAP PO ×3 (08:30→21:10)
[2017-07-22] MEDS: METOPROLOL 50 MG TAB PO ×2 (08:30→21:11)
[2017-07-22] MEDS: OLANZAPINE 5 MG TAB PO ×2 (08:31→21:09)
[2017-07-22] MEDS: NICOTINE (14 MG/24 HR) PATCH TRANSDERM (08:31)
[2017-07-22] MEDS: morphine LIQ (10 MG/5 ML) CUP PO ×3 (09:35→23:56)
[2017-07-22] MEDS: VANCOMYCIN 1 GM 250 ML IVPB (09:35)
[2017-07-22 14:11] LABS: PROCALCITONIN 2.24 ng/mL (<0.10)
[2017-07-22] MEDS: EPOETIN 2000 UNITS/1 ML INJ (ESRD) SC (16:39)
[2017-07-22] MEDS: EPOETIN 3000 UNITS/1 ML INJ (ESRD) SC (17:45)
[2017-07-22] MEDS: CASPOFUNGIN 50 MG in NS 250 ML IVPB (23:56)
[2017-07-23] MEDS: PANTOPRAZOLE (EC) 40 MG TAB PO (06:33)
[2017-07-23 06:42] LABS: ADD MAN DIFF? NO
[2017-07-23 06:49] LABS: ABNORMAL IP MESSAGE 1; BASOPHIL # 0.1 10^3/ul (0.0-0.1); EOSINOPHILS # 1.4 10^3/ul (0.0-0.5); LYMPHOCYTES # 2.5 10^3/ul (0.8-2.9); LYMPHOCYTES % 25.5 % (15.0-51.0); MEAN CORPUSCULAR HEMOGLOBIN 26.6 pg (29.0-33.0); MEAN CORPUSCULAR VOLUME 83.1 fl (82.0-101.0); MEAN PLATELET VOLUME 9.8 fl (7.4-10.4); MONOCYTE # 2.1 10^3/ul (0.3-0.9); MONOCYTES % 21.2 % (0.0-11.0); NEUTROPHIL # 3.6 10^3/ul (1.6-7.5); NEUTROPHILS % 37.6 % (39.0-77.0); PLATELET COUNT 446 10^3/UL (140-415); POSITIVE DIFF @See below; RED BLOOD COUNT 3.01 10^6/ul (4.70-6.10); RED CELL DISTRIBUTION WIDTH 17.8 % (11.5-14.5)
[2017-07-23 06:49] LABS: WHITE BLOOD COUNT 9.7 10^3/ul (4.8-10.8)
[2017-07-23 07:14] LABS: ANION GAP 13 (8-16); BLOOD UREA NITROGEN 41 mg/dl (7-20); CALCIUM 8.8 mg/dl (8.4-10.2); CARBON DIOXIDE 24 mmol/L (21-31); CHLORIDE 105 mmol/L (97-110); CREATININE 5.67 mg/dl (0.61-1.24); GLUCOSE 151 mg/dl (70-220); POTASSIUM 4.3 mmol/L (3.5-5.1); SODIUM 138 mmol/L (135-144)
[2017-07-23 07:42] LABS: ADD UMIC YES; UR ASCORBIC ACID NEGATIVE (NEGATIVE); UR BILIRUBIN (Dip) NEGATIVE (NEGATIVE); UR BLOOD (Dip) 1+ mg/dL (NEGATIVE); UR CLARITY CLOUDY (CLEAR); UR COLOR YELLOW (YELLOW); UR GLUCOSE (Dip) NEGATIVE (NEGATIVE); UR KETONES (Dip) NEGATIVE (NEGATIVE); UR LEUKOCYTE ESTERASE (Dip) NEGATIVE Leu/ul (NEGATIVE); UR NITRITE (Dip) NEGATIVE (NEGATIVE); UR RBC 17 /HPF (0-5); UR SPECIFIC GRAVITY (Dip) 1.016 (1.003-1.030); UR SQUAMOUS EPITHELIAL CELL MODERATE /HPF (FEW); UR TOTAL PROTEIN (Dip) 1+ mg/dl (NEGATIVE); UR UROBILINOGEN (Dip) NEGATIVE (NEGATIVE); UR WBC 5 /HPF (0-5)
[2017-07-23] MEDS: morphine LIQ (10 MG/5 ML) CUP PO ×3 (07:44→21:35)
[2017-07-23] MEDS: NICOTINE (14 MG/24 HR) PATCH TRANSDERM (08:31)
[2017-07-23] MEDS: LEVETIRACETAM 500 MG TAB PO ×2 (08:32→20:15)
[2017-07-23] MEDS: CYANOCOBALAMIN 500 MCG TAB PO (08:32)
[2017-07-23] MEDS: OLANZAPINE 5 MG TAB PO ×2 (08:32→20:15)
[2017-07-23] MEDS: APIXABAN 5 MG TABLET PO ×2 (08:32→20:15)
[2017-07-23] MEDS: THIAMINE 100 MG TAB PO (08:33)
[2017-07-23] MEDS: GABAPENTIN 100 MG CAP PO ×3 (08:33→20:15)
[2017-07-23] MEDS: LINAGLIPTIN 5 MG TABLET PO (08:33)
[2017-07-23] MEDS: METOPROLOL 50 MG TAB PO ×2 (08:34→20:14)
[2017-07-23] MEDS: MULTIVIT/CA CARB/B CMPLX/FA TAB PO (08:37)
[2017-07-23] MEDS: ACCU-CHEK XX (09:00)
[2017-07-23] MEDS: ALTEPLASE (CATHFLO) 2 MG INJ CATHETER (15:34)
[2017-07-23] MEDS: MEROPENEM 500MG/50 ML (PMX) 50 ML IVPB (16:05)
[2017-07-23] MEDS: CASPOFUNGIN 50 MG in NS 250 ML IVPB (21:44)
[2017-07-24] MEDS: PANTOPRAZOLE (EC) 40 MG TAB PO (05:23)
[2017-07-24] MEDS: morphine LIQ (10 MG/5 ML) CUP PO ×3 (05:27→21:01)
[2017-07-24 06:45] LABS: ADD MAN DIFF? NO
[2017-07-24 06:48] LABS: ABNORMAL IP MESSAGE 1; BASOPHIL # 0.1 10^3/ul (0.0-0.1); BASOPHILS % 1.1 % (0.0-2.0); EOSINOPHILS # 1.5 10^3/ul (0.0-0.5); HEMATOCRIT 24.6 % (42.0-52.0); HEMOGLOBIN 7.9 g/dl (14.0-18.0); LYMPHOCYTES # 2.6 10^3/ul (0.8-2.9); LYMPHOCYTES % 26.7 % (15.0-51.0); MEAN CORPUSCULAR HEMOGLOBIN 26.7 pg (29.0-33.0); MEAN CORPUSCULAR HGB CONC 32.1 g/dl (32.0-37.0); MEAN CORPUSCULAR VOLUME 83.1 fl (82.0-101.0); MEAN PLATELET VOLUME 9.5 fl (7.4-10.4); MONOCYTE # 1.5 10^3/ul (0.3-0.9); MONOCYTES % 15.6 % (0.0-11.0); PLATELET COUNT 397 10^3/UL (140-415); POSITIVE DIFF @See below; RED BLOOD COUNT 2.96 10^6/ul (4.70-6.10); RED CELL DISTRIBUTION WIDTH 18.2 % (11.5-14.5)
[2017-07-24 06:48] LABS: WHITE BLOOD COUNT 9.9 10^3/ul (4.8-10.8)
[2017-07-24 07:17] LABS: ANION GAP 14 (8-16); BLOOD UREA NITROGEN 27 mg/dl (7-20); CALCIUM 8.7 mg/dl (8.4-10.2); CARBON DIOXIDE 24 mmol/L (21-31); CHLORIDE 106 mmol/L (97-110); CREATININE 4.21 mg/dl (0.61-1.24); GLUCOSE 135 mg/dl (70-220); POTASSIUM 4.5 mmol/L (3.5-5.1); SODIUM 139 mmol/L (135-144)
[2017-07-24] MEDS: ACCU-CHEK XX (09:00)
[2017-07-24] MEDS: OLANZAPINE 5 MG TAB PO ×2 (09:18→20:57)
[2017-07-24] MEDS: MULTIVIT/CA CARB/B CMPLX/FA TAB PO (09:19)
[2017-07-24] MEDS: NICOTINE (14 MG/24 HR) PATCH TRANSDERM (09:19)
[2017-07-24] MEDS: METOPROLOL 50 MG TAB PO ×2 (09:19→20:58)
[2017-07-24] MEDS: CYANOCOBALAMIN 500 MCG TAB PO (09:20)
[2017-07-24] MEDS: LEVETIRACETAM 500 MG TAB PO ×2 (09:20→20:58)
[2017-07-24] MEDS: GABAPENTIN 100 MG CAP PO ×3 (09:20→20:57)
[2017-07-24] MEDS: APIXABAN 5 MG TABLET PO ×2 (09:20→20:58)
[2017-07-24] MEDS: LINAGLIPTIN 5 MG TABLET PO (09:20)
[2017-07-24] MEDS: THIAMINE 100 MG TAB PO (09:20)
[2017-07-24] MEDS: MEROPENEM 500MG/50 ML (PMX) 50 ML IVPB (15:41)
[2017-07-24] MEDS: CASPOFUNGIN 50 MG in NS 250 ML IVPB (21:44)
[2017-07-25] MEDS: morphine LIQ (10 MG/5 ML) CUP PO ×3 (04:51→17:41)
[2017-07-25] MEDS: PANTOPRAZOLE (EC) 40 MG TAB PO (05:06)
[2017-07-25] MEDS: VANCOMYCIN 1 GM 250 ML IVPB (08:17)
[2017-07-25] MEDS: LEVETIRACETAM 500 MG TAB PO ×2 (08:18→20:14)
[2017-07-25] MEDS: APIXABAN 5 MG TABLET PO ×2 (08:18→20:15)
[2017-07-25] MEDS: GABAPENTIN 100 MG CAP PO ×3 (08:19→20:14)
[2017-07-25] MEDS: METOPROLOL 50 MG TAB PO ×2 (08:19→20:15)
[2017-07-25] MEDS: OLANZAPINE 5 MG TAB PO ×2 (08:19→20:15)
[2017-07-25] MEDS: THIAMINE 100 MG TAB PO (08:19)
[2017-07-25] MEDS: CYANOCOBALAMIN 500 MCG TAB PO (08:19)
[2017-07-25] MEDS: LINAGLIPTIN 5 MG TABLET PO (08:19)
[2017-07-25] MEDS: NICOTINE (14 MG/24 HR) PATCH TRANSDERM (08:20)
[2017-07-25] MEDS: MULTIVIT/CA CARB/B CMPLX/FA TAB PO (08:20)
[2017-07-25] MEDS: ACCU-CHEK XX (08:36)
[2017-07-25] MEDS: EPOETIN 2000 UNITS/1 ML INJ (ESRD) SC (16:45)
[2017-07-25] MEDS: EPOETIN 3000 UNITS/1 ML INJ (ESRD) SC (16:46)
[2017-07-26] MEDS: morphine LIQ (10 MG/5 ML) CUP PO ×4 (00:13→19:13)
[2017-07-26 06:30] LABS: ADD MAN DIFF? NO
[2017-07-26 06:35] LABS: ABNORMAL IP MESSAGE 1; BASOPHIL # 0.1 10^3/ul (0.0-0.1); BASOPHILS % 0.9 % (0.0-2.0); EOSINOPHILS # 1.3 10^3/ul (0.0-0.5); EOSINOPHILS % 10.1 % (0.0-7.0); HEMATOCRIT 22.4 % (42.0-52.0); HEMOGLOBIN 7.1 g/dl (14.0-18.0); LYMPHOCYTES # 2.9 10^3/ul (0.8-2.9); LYMPHOCYTES % 22.8 % (15.0-51.0); MEAN CORPUSCULAR HEMOGLOBIN 26.2 pg (29.0-33.0); MEAN CORPUSCULAR HGB CONC 31.7 g/dl (32.0-37.0); MEAN CORPUSCULAR VOLUME 82.7 fl (82.0-101.0); MEAN PLATELET VOLUME 9.7 fl (7.4-10.4); MONOCYTE # 2.2 10^3/ul (0.3-0.9); MONOCYTES % 17.1 % (0.0-11.0); NEUTROPHIL # 6.2 10^3/ul (1.6-7.5); NEUTROPHILS % 48.6 % (39.0-77.0); PLATELET COUNT 438 10^3/UL (140-415); POSITIVE DIFF @See below; RED BLOOD COUNT 2.71 10^6/ul (4.70-6.10); RED CELL DISTRIBUTION WIDTH 18.8 % (11.5-14.5)
[2017-07-26 06:35] LABS: WHITE BLOOD COUNT 12.8 10^3/ul (4.8-10.8)
[2017-07-26] MEDS: PANTOPRAZOLE (EC) 40 MG TAB PO (06:41)
[2017-07-26 06:56] LABS: ANION GAP 12 (8-16); BLOOD UREA NITROGEN 39 mg/dl (7-20); CALCIUM 8.7 mg/dl (8.4-10.2); CARBON DIOXIDE 22 mmol/L (21-31); CHLORIDE 108 mmol/L (97-110); CREATININE 4.25 mg/dl (0.61-1.24); GLUCOSE 115 mg/dl (70-220); POTASSIUM 4.7 mmol/L (3.5-5.1); SODIUM 137 mmol/L (135-144)
[2017-07-26] MEDS ORDERED: LIDOCAINE 1% (MDV) 20 ML INJ (08:20)
[2017-07-26] MEDS ORDERED: HEPARIN 1000 UNITS/NS (A-LINE) 1,000 ML (08:20)
[2017-07-26] MEDS ORDERED: HEPARIN 1000 UNITS/ML 10 ML INJ (08:20)
[2017-07-26] MEDS ORDERED: SOD CHLORIDE 0.9% 500 ML (08:21)
[2017-07-26] MEDS ORDERED: IODIXANOL LOCM 50 ML BTL (08:21)
[2017-07-26] MEDS: ACCU-CHEK XX (09:00)
[2017-07-26] MEDS ORDERED: CEFAZOLIN 1 GM/50 ML (PMX) 50 ML IVPB (09:33)
[2017-07-26] MEDS: OLANZAPINE 5 MG TAB PO ×2 (09:45→21:00)
[2017-07-26] MEDS: NICOTINE (14 MG/24 HR) PATCH TRANSDERM (09:45)
[2017-07-26] MEDS: LINAGLIPTIN 5 MG TABLET PO (09:46)
[2017-07-26] MEDS: CYANOCOBALAMIN 500 MCG TAB PO (09:46)
[2017-07-26] MEDS: THIAMINE 100 MG TAB PO (09:46)
[2017-07-26] MEDS: GABAPENTIN 100 MG CAP PO ×3 (09:46→21:00)
[2017-07-26] MEDS: MULTIVIT/CA CARB/B CMPLX/FA TAB PO (09:46)
[2017-07-26] MEDS: APIXABAN 5 MG TABLET PO ×2 (09:46→21:00)
[2017-07-26] MEDS: LEVETIRACETAM 500 MG TAB PO ×2 (09:46→21:00)
[2017-07-26] MEDS: METOPROLOL 50 MG TAB PO ×2 (09:47→21:00)
[2017-07-26 20:42] LABS: IMMEDIATE SPIN CROSSMATCH 1 2
[2017-07-26] MEDS: HEPARIN 1000 UNITS/ML 10 ML INJ CATHETER (23:39)
[2017-07-27] MEDS: morphine LIQ (10 MG/5 ML) CUP PO ×4 (01:14→23:56)
[2017-07-27] MEDS: PANTOPRAZOLE (EC) 40 MG TAB PO (06:14)
[2017-07-27 06:18] LABS: ADD MAN DIFF? NO
[2017-07-27 06:24] LABS: ABNORMAL IP MESSAGE 1; BASOPHIL # 0.1 10^3/ul (0.0-0.1); BASOPHILS % 0.8 % (0.0-2.0); EOSINOPHILS % 7.1 % (0.0-7.0); HEMATOCRIT 25.5 % (42.0-52.0); HEMOGLOBIN 8.4 g/dl (14.0-18.0); LYMPHOCYTES # 2.3 10^3/ul (0.8-2.9); LYMPHOCYTES % 15.8 % (15.0-51.0); MEAN CORPUSCULAR HEMOGLOBIN 26.4 pg (29.0-33.0); MEAN CORPUSCULAR HGB CONC 32.9 g/dl (32.0-37.0); MEAN CORPUSCULAR VOLUME 80.2 fl (82.0-101.0); MEAN PLATELET VOLUME 9.9 fl (7.4-10.4); MONOCYTE # 2.1 10^3/ul (0.3-0.9); MONOCYTES % 14.7 % (0.0-11.0); NEUTROPHIL # 8.8 10^3/ul (1.6-7.5); PLATELET COUNT 378 10^3/UL (140-415); POSITIVE DIFF @See below; RED BLOOD COUNT 3.18 10^6/ul (4.70-6.10); RED CELL DISTRIBUTION WIDTH 17.7 % (11.5-14.5)
[2017-07-27 06:24] LABS: WHITE BLOOD COUNT 14.4 10^3/ul (4.8-10.8)
[2017-07-27 07:01] LABS: ANION GAP 8 (8-16); BLOOD UREA NITROGEN 23 mg/dl (7-20); CALCIUM 8.5 mg/dl (8.4-10.2); CARBON DIOXIDE 26 mmol/L (21-31); CHLORIDE 105 mmol/L (97-110); CREATININE 3.11 mg/dl (0.61-1.24); GLUCOSE 99 mg/dl (70-220); POTASSIUM 4.4 mmol/L (3.5-5.1); SODIUM 135 mmol/L (135-144)
[2017-07-27] MEDS: MULTIVIT/CA CARB/B CMPLX/FA TAB PO (08:48)
[2017-07-27] MEDS: NICOTINE (14 MG/24 HR) PATCH TRANSDERM (08:48)
[2017-07-27] MEDS: GABAPENTIN 100 MG CAP PO ×3 (08:49→21:38)
[2017-07-27] MEDS: THIAMINE 100 MG TAB PO (08:49)
[2017-07-27] MEDS: OLANZAPINE 5 MG TAB PO ×2 (08:49→21:38)
[2017-07-27] MEDS: CYANOCOBALAMIN 500 MCG TAB PO (08:49)
[2017-07-27] MEDS: APIXABAN 5 MG TABLET PO ×2 (08:50→21:39)
[2017-07-27] MEDS: LEVETIRACETAM 500 MG TAB PO ×2 (08:50→21:38)
[2017-07-27] MEDS: LINAGLIPTIN 5 MG TABLET PO (08:50)
[2017-07-27] MEDS: METOPROLOL 50 MG TAB PO ×2 (08:51→21:39)
[2017-07-27] MEDS: ACCU-CHEK XX (08:52)
[2017-07-27 11:32] LABS: PROCALCITONIN 1.33 ng/mL (<0.10)
[2017-07-27] MEDS: EPOETIN 3000 UNITS/1 ML INJ (ESRD) SC (17:03)
[2017-07-27] MEDS: EPOETIN 2000 UNITS/1 ML INJ (ESRD) SC (17:04)
[2017-07-28] MEDS: PANTOPRAZOLE (EC) 40 MG TAB PO (05:38)
[2017-07-28 06:00] LABS: ADD MAN DIFF? NO
[2017-07-28 06:07] LABS: WHITE BLOOD COUNT 12.7 10^3/ul (4.8-10.8)
[2017-07-28 06:08] LABS: ABNORMAL IP MESSAGE 1; BASOPHIL # 0.1 10^3/ul (0.0-0.1); BASOPHILS % 0.9 % (0.0-2.0); EOSINOPHILS % 8.1 % (0.0-7.0); HEMATOCRIT 25.2 % (42.0-52.0); HEMOGLOBIN 8.2 g/dl (14.0-18.0); LYMPHOCYTES # 2.5 10^3/ul (0.8-2.9); LYMPHOCYTES % 19.7 % (15.0-51.0); MEAN CORPUSCULAR HEMOGLOBIN 26.6 pg (29.0-33.0); MEAN CORPUSCULAR HGB CONC 32.5 g/dl (32.0-37.0); MEAN CORPUSCULAR VOLUME 81.8 fl (82.0-101.0); MEAN PLATELET VOLUME 10.1 fl (7.4-10.4); MONOCYTE # 2.2 10^3/ul (0.3-0.9); MONOCYTES % 17.7 % (0.0-11.0); NEUTROPHIL # 6.7 10^3/ul (1.6-7.5); NEUTROPHILS % 52.9 % (39.0-77.0); PLATELET COUNT 435 10^3/UL (140-415); POSITIVE DIFF @See below; RED BLOOD COUNT 3.08 10^6/ul (4.70-6.10); RED CELL DISTRIBUTION WIDTH 18.3 % (11.5-14.5)
[2017-07-28 06:33] LABS: ANION GAP 12 (8-16); BLOOD UREA NITROGEN 32 mg/dl (7-20); CALCIUM 8.7 mg/dl (8.4-10.2); CARBON DIOXIDE 26 mmol/L (21-31); CHLORIDE 105 mmol/L (97-110); CREATININE 3.68 mg/dl (0.61-1.24); GLUCOSE 110 mg/dl (70-220); POTASSIUM 4.4 mmol/L (3.5-5.1); SODIUM 139 mmol/L (135-144)
[2017-07-28] MEDS: ACCU-CHEK XX (09:00)
[2017-07-28 09:09] LABS: VANCOMYCIN,TROUGH 12.9 ug/ml (10.0-20.0)
[2017-07-28] MEDS: VANCOMYCIN 1 GM 250 ML IVPB (10:32)
[2017-07-28] MEDS: APIXABAN 5 MG TABLET PO ×2 (10:33→20:03)
[2017-07-28] MEDS: METOPROLOL 50 MG TAB PO ×2 (10:34→20:03)
[2017-07-28] MEDS: CYANOCOBALAMIN 500 MCG TAB PO (10:35)
[2017-07-28] MEDS: MULTIVIT/CA CARB/B CMPLX/FA TAB PO (10:35)
[2017-07-28] MEDS: GABAPENTIN 100 MG CAP PO ×4 (10:35→20:03)
[2017-07-28] MEDS: LINAGLIPTIN 5 MG TABLET PO (10:35)
[2017-07-28] MEDS: OLANZAPINE 5 MG TAB PO ×2 (10:35→20:03)
[2017-07-28] MEDS: THIAMINE 100 MG TAB PO (10:35)
[2017-07-28] MEDS: NICOTINE (14 MG/24 HR) PATCH TRANSDERM (10:38)
[2017-07-28] MEDS: morphine LIQ (10 MG/5 ML) CUP PO ×2 (11:22→18:19)
[2017-07-28 19:55] LABS: ADD UMIC YES; UR ASCORBIC ACID NEGATIVE (NEGATIVE); UR BILIRUBIN (Dip) NEGATIVE (NEGATIVE); UR BLOOD (Dip) 1+ mg/dL (NEGATIVE); UR CLARITY SLIGHTLY CLOUDY (CLEAR); UR COLOR YELLOW (YELLOW); UR GLUCOSE (Dip) NEGATIVE (NEGATIVE); UR KETONES (Dip) NEGATIVE (NEGATIVE); UR LEUKOCYTE ESTERASE (Dip) NEGATIVE Leu/ul (NEGATIVE); UR NITRITE (Dip) NEGATIVE (NEGATIVE); UR RBC 9 /HPF (0-5); UR SPECIFIC GRAVITY (Dip) 1.012 (1.003-1.030); UR TOTAL PROTEIN (Dip) 1+ mg/dl (NEGATIVE); UR UROBILINOGEN (Dip) NEGATIVE (NEGATIVE); UR WBC 0 /HPF (0-5)
[2017-07-28 20:47] LABS: HEPATITIS B SURFACE ANTIBODY POSITIVE (NEGATIVE)
[2017-07-28 21:36] LABS: HEPATITIS C VIRAL ANTIBODY NEGATIVE (NEGATIVE)
[2017-07-29] MEDS: morphine LIQ (10 MG/5 ML) CUP PO ×4 (00:33→18:47)
[2017-07-29] MEDS: HEPARIN 1000 UNITS/ML 10 ML INJ CATHETER (05:47)
[2017-07-29 06:26] LABS: ADD MAN DIFF? NO
[2017-07-29 06:33] LABS: WHITE BLOOD COUNT 11.5 10^3/ul (4.8-10.8)
[2017-07-29 06:33] LABS: ABNORMAL IP MESSAGE 1; BASOPHIL # 0.1 10^3/ul (0.0-0.1); EOSINOPHILS # 1.1 10^3/ul (0.0-0.5); EOSINOPHILS % 9.2 % (0.0-7.0); HEMATOCRIT 24.9 % (42.0-52.0); HEMOGLOBIN 8.1 g/dl (14.0-18.0); LYMPHOCYTES # 2.5 10^3/ul (0.8-2.9); LYMPHOCYTES % 21.8 % (15.0-51.0); MEAN CORPUSCULAR HEMOGLOBIN 26.6 pg (29.0-33.0); MEAN CORPUSCULAR HGB CONC 32.5 g/dl (32.0-37.0); MEAN CORPUSCULAR VOLUME 81.6 fl (82.0-101.0); MEAN PLATELET VOLUME 10.2 fl (7.4-10.4); MONOCYTE # 2.1 10^3/ul (0.3-0.9); MONOCYTES % 18.6 % (0.0-11.0); NEUTROPHIL # 5.6 10^3/ul (1.6-7.5); NEUTROPHILS % 48.8 % (39.0-77.0); PLATELET COUNT 386 10^3/UL (140-415); POSITIVE DIFF @See below; RED BLOOD COUNT 3.05 10^6/ul (4.70-6.10); RED CELL DISTRIBUTION WIDTH 18.6 % (11.5-14.5)
[2017-07-29 06:54] LABS: ANION GAP 8 (8-16); BLOOD UREA NITROGEN 15 mg/dl (7-20); CALCIUM 8.5 mg/dl (8.4-10.2); CARBON DIOXIDE 31 mmol/L (21-31); CHLORIDE 104 mmol/L (97-110); CREATININE 2.05 mg/dl (0.61-1.24); GLUCOSE 124 mg/dl (70-220); SODIUM 139 mmol/L (135-144)
[2017-07-29] MEDS: NICOTINE (14 MG/24 HR) PATCH TRANSDERM (08:33)
[2017-07-29] MEDS: MULTIVIT/CA CARB/B CMPLX/FA TAB PO (08:33)
[2017-07-29] MEDS: APIXABAN 5 MG TABLET PO ×2 (08:33→21:08)
[2017-07-29] MEDS: GABAPENTIN 100 MG CAP PO ×3 (08:33→21:08)
[2017-07-29] MEDS: THIAMINE 100 MG TAB PO (08:33)
[2017-07-29] MEDS: CYANOCOBALAMIN 500 MCG TAB PO (08:33)
[2017-07-29] MEDS: LINAGLIPTIN 5 MG TABLET PO (08:33)
[2017-07-29] MEDS: OLANZAPINE 5 MG TAB PO ×2 (08:33→21:08)
[2017-07-29] MEDS: METOPROLOL 50 MG TAB PO ×2 (08:34→21:08)
[2017-07-29] MEDS: ACCU-CHEK XX (08:38)
[2017-07-29 17:07] LABS: HEPATITIS B CORE ANTIBODY REACTIVE (NEGATIVE)
[2017-07-29] MEDS: EPOETIN 3000 UNITS/1 ML INJ (ESRD) SC (17:29)
[2017-07-29] MEDS: EPOETIN 2000 UNITS/1 ML INJ (ESRD) SC (17:30)
[2017-07-29] MEDS: ACETAMINOPHEN 325 MG TAB PO (21:32)
[2017-07-30] MEDS: morphine LIQ (10 MG/5 ML) CUP PO ×4 (01:31→23:27)
[2017-07-30] MEDS: METOPROLOL 50 MG TAB PO ×2 (09:00→20:50)
[2017-07-30] MEDS: THIAMINE 100 MG TAB PO (09:40)
[2017-07-30] MEDS: MULTIVIT/CA CARB/B CMPLX/FA TAB PO (09:40)
[2017-07-30] MEDS: OLANZAPINE 5 MG TAB PO ×2 (09:40→20:50)
[2017-07-30] MEDS: NICOTINE (14 MG/24 HR) PATCH TRANSDERM (09:40)
[2017-07-30] MEDS: LINAGLIPTIN 5 MG TABLET PO (09:40)
[2017-07-30] MEDS: APIXABAN 5 MG TABLET PO ×2 (09:40→20:50)
[2017-07-30] MEDS: CYANOCOBALAMIN 500 MCG TAB PO (09:40)
[2017-07-30] MEDS: GABAPENTIN 100 MG CAP PO ×3 (09:40→20:50)
[2017-07-30] MEDS: ACCU-CHEK XX (09:47)
[2017-07-30] MEDS: HEPARIN 1000 UNITS/ML 10 ML INJ CATHETER (18:05)
[2017-07-31] MEDS: ACETAMINOPHEN 325 MG TAB PO (02:43)
[2017-07-31] MEDS: morphine LIQ (10 MG/5 ML) CUP PO ×2 (05:48→12:17)
[2017-07-31] MEDS: VANCOMYCIN 1 GM 250 ML IVPB ×2 (08:52→13:31)
[2017-07-31] MEDS: ACCU-CHEK XX (09:00)
[2017-07-31] MEDS: THIAMINE 100 MG TAB PO (09:00)
[2017-07-31 09:54] LABS: ADD MAN DIFF? NO
[2017-07-31 09:59] LABS: ABNORMAL IP MESSAGE 1; BASOPHIL # 0.2 10^3/ul (0.0-0.1); BASOPHILS % 1.4 % (0.0-2.0); EOSINOPHILS # 1.1 10^3/ul (0.0-0.5); EOSINOPHILS % 10.7 % (0.0-7.0); HEMATOCRIT 25.9 % (42.0-52.0); HEMOGLOBIN 8.1 g/dl (14.0-18.0); LYMPHOCYTES # 2.7 10^3/ul (0.8-2.9); LYMPHOCYTES % 24.9 % (15.0-51.0); MEAN CORPUSCULAR HGB CONC 31.3 g/dl (32.0-37.0); MEAN CORPUSCULAR VOLUME 83.3 fl (82.0-101.0); MEAN PLATELET VOLUME 10.3 fl (7.4-10.4); MONOCYTE # 2.5 10^3/ul (0.3-0.9); NEUTROPHIL # 4.2 10^3/ul (1.6-7.5); NEUTROPHILS % 39.7 % (39.0-77.0); PLATELET COUNT 468 10^3/UL (140-415); POSITIVE DIFF @See below; RED BLOOD COUNT 3.11 10^6/ul (4.70-6.10); RED CELL DISTRIBUTION WIDTH 19.5 % (11.5-14.5)
[2017-07-31 09:59] LABS: WHITE BLOOD COUNT 10.7 10^3/ul (4.8-10.8)
[2017-07-31] MEDS: NICOTINE (14 MG/24 HR) PATCH TRANSDERM (12:03)
[2017-07-31] MEDS: METOPROLOL 50 MG TAB PO ×2 (12:04→20:32)
[2017-07-31] MEDS: LINAGLIPTIN 5 MG TABLET PO (12:04)
[2017-07-31] MEDS: CYANOCOBALAMIN 500 MCG TAB PO (12:04)
[2017-07-31] MEDS: MULTIVIT/CA CARB/B CMPLX/FA TAB PO (12:04)
[2017-07-31] MEDS: OLANZAPINE 5 MG TAB PO ×2 (12:04→20:31)
[2017-07-31] MEDS: APIXABAN 5 MG TABLET PO ×2 (12:05→20:31)
[2017-07-31] MEDS: GABAPENTIN 100 MG CAP PO ×3 (12:05→20:31)
[2017-08-01] MEDS: morphine LIQ (10 MG/5 ML) CUP PO ×4 (00:35→20:41)
[2017-08-01] MEDS: NICOTINE (14 MG/24 HR) PATCH TRANSDERM (08:17)
[2017-08-01] MEDS: GABAPENTIN 100 MG CAP PO ×3 (08:17→20:41)
[2017-08-01] MEDS: MULTIVIT/CA CARB/B CMPLX/FA TAB PO (08:17)
[2017-08-01] MEDS: CYANOCOBALAMIN 500 MCG TAB PO (08:18)
[2017-08-01] MEDS: OLANZAPINE 5 MG TAB PO ×2 (08:18→20:41)
[2017-08-01] MEDS: THIAMINE 100 MG TAB PO (08:18)
[2017-08-01] MEDS: LINAGLIPTIN 5 MG TABLET PO (08:18)
[2017-08-01] MEDS: APIXABAN 5 MG TABLET PO ×2 (08:18→20:41)
[2017-08-01] MEDS: METOPROLOL 50 MG TAB PO ×2 (08:19→20:41)
[2017-08-01] MEDS: ACCU-CHEK XX (09:13)
[2017-08-01] MEDS: EPOETIN 3000 UNITS/1 ML INJ (ESRD) SC (16:55)
[2017-08-01] MEDS: EPOETIN 2000 UNITS/1 ML INJ (ESRD) SC (16:56)
[2017-08-02] MEDS: morphine LIQ (10 MG/5 ML) CUP PO ×3 (02:53→19:04)
[2017-08-02 05:53] LABS: ABNORMAL IP MESSAGE 1; HEMATOCRIT 23.3 % (42.0-52.0); HEMOGLOBIN 7.4 g/dl (14.0-18.0); MEAN CORPUSCULAR HEMOGLOBIN 25.6 pg (29.0-33.0); MEAN CORPUSCULAR HGB CONC 31.8 g/dl (32.0-37.0); MEAN CORPUSCULAR VOLUME 80.6 fl (82.0-101.0); PLATELET COUNT 520 10^3/UL (140-415); POSITIVE DIFF @See below; RED BLOOD COUNT 2.89 10^6/ul (4.70-6.10); RED CELL DISTRIBUTION WIDTH 19.9 % (11.5-14.5)
[2017-08-02 05:53] LABS: WHITE BLOOD COUNT 11.5 10^3/ul (4.8-10.8)
[2017-08-02 06:04] LABS: ADD MAN DIFF? YES
[2017-08-02 07:57] LABS: ANISOCYTOSIS 2+ (0-0); EOSINOPHILS % (M) 15 % (0-7); GIANT THROMBO% (M) 4 % (0-0); HYPOCHROMASIA 3+ (0-0); LYMPHOCYTES #M 2.7 10^3/ul (0.8-2.9); LYMPHOCYTES % (M) 24 % (15-51); MONOCYTES % (M) 9 % (0-11); PLATELET ESTIMATE INCREASED; POLYCHROMASIA 3+ (0-0); SEGMENTED NEUTROPHILS (M) % 52 % (39-77); SMUDGE%M 6 % (0-0)
[2017-08-02] MEDS: LINAGLIPTIN 5 MG TABLET PO (08:40)
[2017-08-02] MEDS: OLANZAPINE 5 MG TAB PO ×2 (08:40→21:28)
[2017-08-02] MEDS: MULTIVIT/CA CARB/B CMPLX/FA TAB PO (08:40)
[2017-08-02] MEDS: NICOTINE (14 MG/24 HR) PATCH TRANSDERM (08:40)
[2017-08-02] MEDS: CYANOCOBALAMIN 500 MCG TAB PO (08:41)
[2017-08-02] MEDS: GABAPENTIN 100 MG CAP PO ×3 (08:41→21:28)
[2017-08-02] MEDS: APIXABAN 5 MG TABLET PO ×2 (08:41→21:29)
[2017-08-02] MEDS: THIAMINE 100 MG TAB PO (08:42)
[2017-08-02] MEDS: METOPROLOL 50 MG TAB PO ×2 (08:42→21:28)
[2017-08-02] MEDS: ACCU-CHEK XX (09:29)
[2017-08-02 13:25] LABS: ANION GAP 18 (8-16); BLOOD UREA NITROGEN 32 mg/dl (7-20); CALCIUM 8.7 mg/dl (8.4-10.2); CARBON DIOXIDE 25 mmol/L (21-31); CHLORIDE 99 mmol/L (97-110); CREATININE 4.25 mg/dl (0.61-1.24); GLUCOSE 121 mg/dl (70-220); POTASSIUM 5.1 mmol/L (3.5-5.1); SODIUM 137 mmol/L (135-144)
[2017-08-02] MEDS: HEPARIN 1000 UNITS/ML 10 ML INJ CATHETER (13:26)
[2017-08-03] MEDS: morphine LIQ (10 MG/5 ML) CUP PO ×3 (01:06→19:32)
[2017-08-03] MEDS: ACCU-CHEK XX (08:24)
[2017-08-03] MEDS: LINAGLIPTIN 5 MG TABLET PO (08:27)
[2017-08-03] MEDS: MULTIVIT/CA CARB/B CMPLX/FA TAB PO (08:27)
[2017-08-03] MEDS: OLANZAPINE 5 MG TAB PO ×2 (08:27→20:38)
[2017-08-03] MEDS: GABAPENTIN 100 MG CAP PO ×4 (08:27→20:38)
[2017-08-03] MEDS: CYANOCOBALAMIN 500 MCG TAB PO (08:27)
[2017-08-03] MEDS: METOPROLOL 50 MG TAB PO ×2 (08:28→20:38)
[2017-08-03] MEDS: APIXABAN 5 MG TABLET PO ×2 (08:28→20:38)
[2017-08-03] MEDS: NICOTINE (14 MG/24 HR) PATCH TRANSDERM (08:29)
[2017-08-03] MEDS: THIAMINE 100 MG TAB PO (08:32)
[2017-08-03] MEDS: EPOETIN 3000 UNITS/1 ML INJ (ESRD) SC (17:45)
[2017-08-03] MEDS: EPOETIN 2000 UNITS/1 ML INJ (ESRD) SC (17:46)
[2017-08-03] MEDS: SOD CHLORIDE 0.9% 250 ML IV* (22:39)
[2017-08-04] MEDS: morphine LIQ (10 MG/5 ML) CUP PO ×4 (02:44→23:41)
[2017-08-04 06:13] LABS: ADD MAN DIFF? NO
[2017-08-04 06:24] LABS: ABNORMAL IP MESSAGE 1; BASOPHIL # 0.1 10^3/ul (0.0-0.1); BASOPHILS % 0.9 % (0.0-2.0); EOSINOPHILS # 1.2 10^3/ul (0.0-0.5); EOSINOPHILS % 8.7 % (0.0-7.0); HEMATOCRIT 23.5 % (42.0-52.0); HEMOGLOBIN 7.4 g/dl (14.0-18.0); LYMPHOCYTES # 3.4 10^3/ul (0.8-2.9); LYMPHOCYTES % 25.5 % (15.0-51.0); MEAN CORPUSCULAR HEMOGLOBIN 25.7 pg (29.0-33.0); MEAN CORPUSCULAR HGB CONC 31.5 g/dl (32.0-37.0); MEAN CORPUSCULAR VOLUME 81.6 fl (82.0-101.0); MEAN PLATELET VOLUME 10.4 fl (7.4-10.4); MONOCYTE # 2.1 10^3/ul (0.3-0.9); MONOCYTES % 15.5 % (0.0-11.0); NEUTROPHIL # 6.6 10^3/ul (1.6-7.5); NEUTROPHILS % 48.8 % (39.0-77.0); PLATELET COUNT 525 10^3/UL (140-415); POSITIVE DIFF @See below; RED BLOOD COUNT 2.88 10^6/ul (4.70-6.10); RED CELL DISTRIBUTION WIDTH 19.9 % (11.5-14.5)
[2017-08-04 06:24] LABS: WHITE BLOOD COUNT 13.5 10^3/ul (4.8-10.8)
[2017-08-04 06:37] LABS: ANION GAP 15 (8-16); BLOOD UREA NITROGEN 35 mg/dl (7-20); CARBON DIOXIDE 24 mmol/L (21-31); CHLORIDE 105 mmol/L (97-110); CREATININE 4.27 mg/dl (0.61-1.24); GLUCOSE 95 mg/dl (70-220); POTASSIUM 5.3 mmol/L (3.5-5.1); SODIUM 139 mmol/L (135-144)
[2017-08-04] MEDS: ACCU-CHEK XX (08:34)
[2017-08-04] MEDS: METOPROLOL 50 MG TAB PO ×2 (09:00→20:51)
[2017-08-04] MEDS: CYANOCOBALAMIN 500 MCG TAB PO (09:15)
[2017-08-04] MEDS: LINAGLIPTIN 5 MG TABLET PO (09:15)
[2017-08-04] MEDS: MULTIVIT/CA CARB/B CMPLX/FA TAB PO (09:15)
[2017-08-04] MEDS: THIAMINE 100 MG TAB PO (09:15)
[2017-08-04] MEDS: OLANZAPINE 5 MG TAB PO ×2 (09:15→20:50)
[2017-08-04] MEDS: APIXABAN 5 MG TABLET PO ×2 (09:16→20:51)
[2017-08-04] MEDS: NICOTINE (14 MG/24 HR) PATCH TRANSDERM (09:16)
[2017-08-04] MEDS: GABAPENTIN 100 MG CAP PO ×3 (09:20→20:50)
[2017-08-04 10:33] LABS: IMMEDIATE SPIN CROSSMATCH 1 1
[2017-08-04] MEDS: HEPARIN 1000 UNITS/ML 10 ML INJ CATHETER (13:37)
[2017-08-05] MEDS: morphine LIQ (10 MG/5 ML) CUP PO ×4 (03:34→23:07)
[2017-08-05 06:33] LABS: ADD MAN DIFF? NO
[2017-08-05 06:44] LABS: WHITE BLOOD COUNT 10.6 10^3/ul (4.8-10.8)
[2017-08-05 06:44] LABS: ABNORMAL IP MESSAGE 1; BASOPHIL # 0.1 10^3/ul (0.0-0.1); BASOPHILS % 1.1 % (0.0-2.0); EOSINOPHILS # 1.1 10^3/ul (0.0-0.5); EOSINOPHILS % 10.2 % (0.0-7.0); HEMATOCRIT 27.9 % (42.0-52.0); HEMOGLOBIN 8.8 g/dl (14.0-18.0); LYMPHOCYTES # 2.8 10^3/ul (0.8-2.9); LYMPHOCYTES % 26.8 % (15.0-51.0); MEAN CORPUSCULAR HEMOGLOBIN 25.8 pg (29.0-33.0); MEAN CORPUSCULAR HGB CONC 31.5 g/dl (32.0-37.0); MEAN CORPUSCULAR VOLUME 81.8 fl (82.0-101.0); MEAN PLATELET VOLUME 9.7 fl (7.4-10.4); MONOCYTE # 2.3 10^3/ul (0.3-0.9); MONOCYTES % 21.3 % (0.0-11.0); NEUTROPHIL # 4.3 10^3/ul (1.6-7.5); NEUTROPHILS % 40.2 % (39.0-77.0); PLATELET COUNT 473 10^3/UL (140-415); POSITIVE DIFF @See below; RED BLOOD COUNT 3.41 10^6/ul (4.70-6.10); RED CELL DISTRIBUTION WIDTH 19.9 % (11.5-14.5)
[2017-08-05 07:01] LABS: ANION GAP 16 (8-16); BLOOD UREA NITROGEN 25 mg/dl (7-20); CALCIUM 9.2 mg/dl (8.4-10.2); CARBON DIOXIDE 26 mmol/L (21-31); CHLORIDE 101 mmol/L (97-110); CREATININE 3.71 mg/dl (0.61-1.24); GLUCOSE 153 mg/dl (70-220); POTASSIUM 5.2 mmol/L (3.5-5.1); SODIUM 138 mmol/L (135-144)
[2017-08-05] MEDS: OLANZAPINE 5 MG TAB PO ×2 (08:19→20:50)
[2017-08-05] MEDS: NICOTINE (14 MG/24 HR) PATCH TRANSDERM (08:19)
[2017-08-05] MEDS: MULTIVIT/CA CARB/B CMPLX/FA TAB PO (08:19)
[2017-08-05] MEDS: APIXABAN 5 MG TABLET PO ×2 (08:20→20:51)
[2017-08-05] MEDS: CYANOCOBALAMIN 500 MCG TAB PO (08:20)
[2017-08-05] MEDS: GABAPENTIN 100 MG CAP PO ×3 (08:20→20:50)
[2017-08-05] MEDS: LINAGLIPTIN 5 MG TABLET PO (08:20)
[2017-08-05] MEDS: ACCU-CHEK XX (08:21)
[2017-08-05] MEDS: METOPROLOL 50 MG TAB PO ×2 (08:21→20:50)
[2017-08-05] MEDS: THIAMINE 100 MG TAB PO (08:21)
[2017-08-05] MEDS: EPOETIN 3000 UNITS/1 ML INJ (ESRD) SC (16:50)
[2017-08-05] MEDS: EPOETIN 2000 UNITS/1 ML INJ (ESRD) SC (16:52)
[2017-08-06] MEDS: hydrALAzine 20 MG INJ IV (04:12)
[2017-08-06 05:04] LABS: WHITE BLOOD COUNT 12.1 10^3/ul (4.8-10.8)
[2017-08-06 05:04] LABS: ABNORMAL IP MESSAGE 1; HEMATOCRIT 26.2 % (42.0-52.0); HEMOGLOBIN 8.4 g/dl (14.0-18.0); MEAN CORPUSCULAR HEMOGLOBIN 26.2 pg (29.0-33.0); MEAN CORPUSCULAR HGB CONC 32.1 g/dl (32.0-37.0); MEAN CORPUSCULAR VOLUME 81.6 fl (82.0-101.0); MEAN PLATELET VOLUME 10.2 fl (7.4-10.4); PLATELET COUNT 477 10^3/UL (140-415); POSITIVE DIFF @See below; RED BLOOD COUNT 3.21 10^6/ul (4.70-6.10); RED CELL DISTRIBUTION WIDTH 20.2 % (11.5-14.5)
[2017-08-06 05:12] LABS: ANION GAP 13 (8-16); BLOOD UREA NITROGEN 32 mg/dl (7-20); CALCIUM 9.2 mg/dl (8.4-10.2); CARBON DIOXIDE 22 mmol/L (21-31); CHLORIDE 107 mmol/L (97-110); GLUCOSE 118 mg/dl (70-220); POTASSIUM 5.2 mmol/L (3.5-5.1); SODIUM 137 mmol/L (135-144)
[2017-08-06 05:15] LABS: ADD MAN DIFF? YES
[2017-08-06] MEDS: morphine LIQ (10 MG/5 ML) CUP PO ×3 (05:17→19:08)
[2017-08-06 05:25] LABS: EOSINOPHILS # 1.2 10^3/ul (0.0-0.5); EOSINOPHILS % 9.7 % (0.0-7.0); LYMPHOCYTES # 2.7 10^3/ul (0.8-2.9); LYMPHOCYTES % 22.6 % (15.0-51.0); MONOCYTE # 2.4 10^3/ul (0.3-0.9); MONOCYTES % 19.8 % (0.0-11.0); NEUTROPHIL # 5.6 10^3/ul (1.6-7.5); NEUTROPHILS % 46.5 % (39.0-77.0)
[2017-08-06 05:26] LABS: BASOPHIL # 0.1 10^3/ul (0.0-0.1)
[2017-08-06 08:19] LABS: ANISOCYTOSIS 2+ (0-0); EOSINOPHILS % (M) 9 % (0-7); GIANT THROMBO% (M) 1 % (0-0); HYPOCHROMASIA 1+ (0-0); LYMPHOCYTES #M 4.5 10^3/ul (0.8-2.9); LYMPHOCYTES % (M) 38 % (15-51); MONOCYTES % (M) 9 % (0-11); PLATELET ESTIMATE INCREASED; POIKILOCYTOSIS 1+ (0-0); POLYCHROMASIA 3+ (0-0); SEGMENTED NEUTROPHILS (M) % 45 % (39-77); SMUDGE%M 18 % (0-0)
[2017-08-06] MEDS: METOPROLOL 50 MG TAB PO ×2 (09:00→21:16)
[2017-08-06] MEDS: NICOTINE (14 MG/24 HR) PATCH TRANSDERM (09:01)
[2017-08-06] MEDS: OLANZAPINE 5 MG TAB PO ×2 (09:01→21:15)
[2017-08-06] MEDS: APIXABAN 5 MG TABLET PO ×2 (09:02→21:15)
[2017-08-06] MEDS: GABAPENTIN 100 MG CAP PO ×3 (09:03→21:15)
[2017-08-06] MEDS: THIAMINE 100 MG TAB PO (09:03)
[2017-08-06] MEDS: CYANOCOBALAMIN 500 MCG TAB PO (09:03)
[2017-08-06] MEDS: LINAGLIPTIN 5 MG TABLET PO (09:03)
[2017-08-06] MEDS: MULTIVIT/CA CARB/B CMPLX/FA TAB PO (09:03)
[2017-08-06] MEDS: ACCU-CHEK XX (09:08)
[2017-08-06] MEDS: ALTEPLASE (CATHFLO) 2 MG INJ CATHETER ×2 (16:31→19:14)
[2017-08-06] MEDS: HEPARIN 1000 UNITS/ML 10 ML INJ CATHETER (19:09)
[2017-08-07] MEDS: morphine LIQ (10 MG/5 ML) CUP PO ×3 (01:58→23:20)
[2017-08-07] MEDS: ACETAMINOPHEN 325 MG TAB PO (01:59)
[2017-08-07 05:46] LABS: ADD MAN DIFF? NO
[2017-08-07 05:54] LABS: ABNORMAL IP MESSAGE 1; BASOPHIL # 0.1 10^3/ul (0.0-0.1); BASOPHILS % 0.7 % (0.0-2.0); EOSINOPHILS # 0.7 10^3/ul (0.0-0.5); EOSINOPHILS % 5.2 % (0.0-7.0); HEMATOCRIT 26.6 % (42.0-52.0); HEMOGLOBIN 8.5 g/dl (14.0-18.0); LYMPHOCYTES # 2.7 10^3/ul (0.8-2.9); LYMPHOCYTES % 20.3 % (15.0-51.0); MEAN CORPUSCULAR HEMOGLOBIN 26.2 pg (29.0-33.0); MEAN CORPUSCULAR VOLUME 81.8 fl (82.0-101.0); MEAN PLATELET VOLUME 10.6 fl (7.4-10.4); MONOCYTE # 3.2 10^3/ul (0.3-0.9); MONOCYTES % 23.7 % (0.0-11.0); NEUTROPHIL # 6.6 10^3/ul (1.6-7.5); NEUTROPHILS % 48.8 % (39.0-77.0); PLATELET COUNT 450 10^3/UL (140-415); POSITIVE DIFF @See below; RED BLOOD COUNT 3.25 10^6/ul (4.70-6.10); RED CELL DISTRIBUTION WIDTH 19.9 % (11.5-14.5)
[2017-08-07 05:54] LABS: WHITE BLOOD COUNT 13.5 10^3/ul (4.8-10.8)
[2017-08-07 06:44] LABS: ANION GAP 15 (8-16); BLOOD UREA NITROGEN 26 mg/dl (7-20); CALCIUM 8.9 mg/dl (8.4-10.2); CARBON DIOXIDE 24 mmol/L (21-31); CHLORIDE 107 mmol/L (97-110); CREATININE 3.91 mg/dl (0.61-1.24); GLUCOSE 103 mg/dl (70-220); POTASSIUM 5.5 mmol/L (3.5-5.1); SODIUM 140 mmol/L (135-144)
[2017-08-07] MEDS: NICOTINE (14 MG/24 HR) PATCH TRANSDERM (09:13)
[2017-08-07] MEDS: MULTIVIT/CA CARB/B CMPLX/FA TAB PO (09:14)
[2017-08-07] MEDS: CYANOCOBALAMIN 500 MCG TAB PO (09:14)
[2017-08-07] MEDS: OLANZAPINE 5 MG TAB PO ×2 (09:14→21:27)
[2017-08-07] MEDS: GABAPENTIN 100 MG CAP PO ×3 (09:14→21:27)
[2017-08-07] MEDS: LINAGLIPTIN 5 MG TABLET PO (09:14)
[2017-08-07] MEDS: APIXABAN 5 MG TABLET PO ×2 (09:14→21:27)
[2017-08-07] MEDS: METOPROLOL 50 MG TAB PO ×2 (09:15→21:27)
[2017-08-07] MEDS: THIAMINE 100 MG TAB PO (09:20)
[2017-08-07] MEDS: ACCU-CHEK XX (09:22)
[2017-08-08] MEDS: morphine LIQ (10 MG/5 ML) CUP PO ×3 (05:33→19:47)
[2017-08-08] MEDS: ACCU-CHEK XX (09:00)
[2017-08-08] MEDS: NICOTINE (14 MG/24 HR) PATCH TRANSDERM (09:03)
[2017-08-08] MEDS: LINAGLIPTIN 5 MG TABLET PO (09:04)
[2017-08-08] MEDS: METOPROLOL 50 MG TAB PO ×2 (09:04→20:49)
[2017-08-08] MEDS: APIXABAN 5 MG TABLET PO ×2 (09:04→20:49)
[2017-08-08] MEDS: GABAPENTIN 100 MG CAP PO ×3 (09:04→20:49)
[2017-08-08] MEDS: OLANZAPINE 5 MG TAB PO ×2 (09:04→20:49)
[2017-08-08] MEDS: CYANOCOBALAMIN 500 MCG TAB PO (09:04)
[2017-08-08] MEDS: MULTIVIT/CA CARB/B CMPLX/FA TAB PO (09:04)
[2017-08-08] MEDS: THIAMINE 100 MG TAB PO (09:05)
[2017-08-08 14:07] LABS: ADD MAN DIFF? NO
[2017-08-08 14:10] LABS: WHITE BLOOD COUNT 10.1 10^3/ul (4.8-10.8)
[2017-08-08 14:10] LABS: ABNORMAL IP MESSAGE 1; BASOPHIL # 0.1 10^3/ul (0.0-0.1); BASOPHILS % 1.2 % (0.0-2.0); EOSINOPHILS # 1.1 10^3/ul (0.0-0.5); HEMATOCRIT 26.5 % (42.0-52.0); HEMOGLOBIN 8.4 g/dl (14.0-18.0); LYMPHOCYTES # 2.2 10^3/ul (0.8-2.9); LYMPHOCYTES % 21.5 % (15.0-51.0); MEAN CORPUSCULAR HEMOGLOBIN 25.8 pg (29.0-33.0); MEAN CORPUSCULAR HGB CONC 31.7 g/dl (32.0-37.0); MEAN CORPUSCULAR VOLUME 81.5 fl (82.0-101.0); MEAN PLATELET VOLUME 10.4 fl (7.4-10.4); MONOCYTE # 2.3 10^3/ul (0.3-0.9); NEUTROPHIL # 4.4 10^3/ul (1.6-7.5); NEUTROPHILS % 43.6 % (39.0-77.0); PLATELET COUNT 460 10^3/UL (140-415); POSITIVE DIFF @See below; RED BLOOD COUNT 3.25 10^6/ul (4.70-6.10); RED CELL DISTRIBUTION WIDTH 19.7 % (11.5-14.5)
[2017-08-08 14:24] LABS: MONOCYTES % 22.3 % (0.0-11.0)
[2017-08-08 14:29] LABS: ANION GAP 16 (8-16); BLOOD UREA NITROGEN 32 mg/dl (7-20); CALCIUM 8.7 mg/dl (8.4-10.2); CARBON DIOXIDE 22 mmol/L (21-31); CHLORIDE 107 mmol/L (97-110); GLUCOSE 189 mg/dl (70-220); SODIUM 140 mmol/L (135-144)
[2017-08-08 14:31] LABS: POTASSIUM 5.3 mmol/L (3.5-5.1)
[2017-08-08] MEDS: EPOETIN 2000 UNITS/1 ML INJ (ESRD) SC (16:18)
[2017-08-08] MEDS: EPOETIN 3000 UNITS/1 ML INJ (ESRD) SC (16:19)
[2017-08-09] MEDS: morphine LIQ (10 MG/5 ML) CUP PO ×2 (02:23→08:48)
[2017-08-09] MEDS: hydrALAzine 20 MG INJ IV (02:32)
[2017-08-09] MEDS: METOPROLOL 50 MG TAB PO (08:42)
[2017-08-09] MEDS: OLANZAPINE 5 MG TAB PO (08:49)
[2017-08-09] MEDS: LINAGLIPTIN 5 MG TABLET PO (08:49)
[2017-08-09] MEDS: GABAPENTIN 100 MG CAP PO ×2 (08:49→12:15)
[2017-08-09] MEDS: MULTIVIT/CA CARB/B CMPLX/FA TAB PO (08:49)
[2017-08-09] MEDS: APIXABAN 5 MG TABLET PO (08:49)
[2017-08-09] MEDS: CYANOCOBALAMIN 500 MCG TAB PO (08:49)
[2017-08-09] MEDS: NICOTINE (14 MG/24 HR) PATCH TRANSDERM (08:49)
[2017-08-09] MEDS: THIAMINE 100 MG TAB PO (08:49)
[2017-08-09] MEDS: ACCU-CHEK XX (09:38)
[2017-08-09] MEDS: HEPARIN 1000 UNITS/ML 10 ML INJ CATHETER (13:09)
== END 2017-08-09 16:47 | disposition home or self-care (01) | DRG 853 ==
LOC: PP2 07-13 15:22 → MS4 07-21 22:18 → TEL 07-22 08:50 → PP2 07-27 11:13 → MS4 06-22 19:00 → TEL 06-27 22:44 → PP2 07-27 20:12 → E/R 08:03 → MS4 06-28 23:42 → ICU 10:35 → MS2 06-26 06:56
PROVIDERS: Internal Medicine
PROC: 067G3ZZ Dilation of Left External Iliac Vein, Percutaneous Approach (ICD-10-PCS; principal; 2017-06-28 07:21)
PROC: 06703ZZ Dilation of Inferior Vena Cava, Percutaneous Approach (ICD-10-PCS; 2017-06-28 07:21)
PROC: 067N3ZZ Dilation of Left Femoral Vein, Percutaneous Approach (ICD-10-PCS; 2017-06-28 07:21)
PROC: 067D3ZZ Dilation of Left Common Iliac Vein, Percutaneous Approach (ICD-10-PCS; 2017-06-28 07:21)
PROC: 067Y3ZZ Dilation of Lower Vein, Percutaneous Approach (ICD-10-PCS; 2017-06-28 07:21)
PROC: 067G3ZZ Dilation of Left External Iliac Vein, Percutaneous Approach (ICD-10-PCS; 2017-06-28 07:21)
PROC: 067N3ZZ Dilation of Left Femoral Vein, Percutaneous Approach (ICD-10-PCS; 2017-06-28 07:21)
PROC: 067D3ZZ Dilation of Left Common Iliac Vein, Percutaneous Approach (ICD-10-PCS; 2017-06-28 07:21)
PROC: 06703ZZ Dilation of Inferior Vena Cava, Percutaneous Approach (ICD-10-PCS; 2017-06-28 07:21)
PROC: 06HN33Z Insertion of Infusion Device into Left Femoral Vein, Percutaneous Approach (ICD-10-PCS; 2017-06-28 07:21)
PROC: 5A1D70Z Performance of Urinary Filtration, Intermittent, Less than 6 Hours Per Day (ICD-10-PCS; 2017-06-28 07:21)
PROC: 0BBJ3ZX Excision of Left Lower Lung Lobe, Percutaneous Approach, Diagnostic (ICD-10-PCS; 2017-06-28 07:21)
PROC: 02PY33Z Removal of Infusion Device from Great Vessel, Percutaneous Approach (ICD-10-PCS; 2017-06-28 07:21)
PROC: 06HY33Z Insertion of Infusion Device into Lower Vein, Percutaneous Approach (ICD-10-PCS; 2017-06-28 07:21)
PROC: 05HY33Z Insertion of Infusion Device into Upper Vein, Percutaneous Approach (ICD-10-PCS; 2017-06-28 07:21)
PROC: 0J2WXYZ Change Other Device in Lower Extremity Subcutaneous Tissue and Fascia, External Approach (ICD-10-PCS; 2017-06-28 07:21)
PROC: 06HY33Z Insertion of Infusion Device into Lower Vein, Percutaneous Approach (ICD-10-PCS; 2017-06-28 07:21)
PROC: 06PY33Z Removal of Infusion Device from Lower Vein, Percutaneous Approach (ICD-10-PCS; 2017-06-28 07:21)
PROC: 06HY33Z Insertion of Infusion Device into Lower Vein, Percutaneous Approach (ICD-10-PCS; 2017-06-28 07:21)
PROC: 5A1D70Z Performance of Urinary Filtration, Intermittent, Less than 6 Hours Per Day (ICD-10-PCS; 2017-06-28 07:21)
DX: A41.02 Sepsis due to Methicillin resistant Staphylococcus aureus (principal); J15.212 Pneumonia due to Methicillin resistant Staphylococcus aureus; N18.6 End stage renal disease; G93.41 Metabolic encephalopathy; I13.2 Hypertensive heart and chronic kidney disease with heart failure and with stage 5 chronic kidney disease, or end stage renal disease; I50.42 Chronic combined systolic (congestive) and diastolic (congestive) heart failure; E44.0 Moderate protein-calorie malnutrition; I87.1 Compression of vein; T82.41XA Breakdown (mechanical) of vascular dialysis catheter, initial encounter; Z68.1 Body mass index [BMI] 19.9 or less, adult; R65.20 Severe sepsis without septic shock; E11.22 Type 2 diabetes mellitus with diabetic chronic kidney disease; R91.8 Other nonspecific abnormal finding of lung field; K20.9 Esophagitis, unspecified; K25.9 Gastric ulcer, unspecified as acute or chronic, without hemorrhage or perforation; K26.9 Duodenal ulcer, unspecified as acute or chronic, without hemorrhage or perforation; M48.061 Spinal stenosis, lumbar region without neurogenic claudication; G40.909 Epilepsy, unspecified, not intractable, without status epilepticus; M54.16 Radiculopathy, lumbar region; F31.9 Bipolar disorder, unspecified; J44.9 Chronic obstructive pulmonary disease, unspecified; I25.10 Atherosclerotic heart disease of native coronary artery without angina pectoris; D63.1 Anemia in chronic kidney disease; E87.5 Hyperkalemia; D89.9 Disorder involving the immune mechanism, unspecified; Y83.8 Other surgical procedures as the cause of abnormal reaction of the patient, or of later complication, without mention of misadventure at the time of the procedure; Y92.238 Other place in hospital as the place of occurrence of the external cause; Z86.718 Personal history of other venous thrombosis and embolism; Z99.2 Dependence on renal dialysis; Z86.711 Personal history of pulmonary embolism
CPT/HCPCS: 36005; 36415; 36430; 36569; 37248; 37249; 70450; 70551; 71045; 71250; 72020; 72100; 72146; 72148; 73510; 75820; 75825; 76536; 76937; 77012; 78806; 80048; 80053; 80202; 81001; 82378; 82962; 83540; 83605; 84145; 84443; 84484; 85025; 85610; 85730; 86703; 86704; 86706; 86708; 86803; 86850; 86900; 86901; 86920; 87040; 87070; 87075; 87081; 87086; 87102; 87116; 87340; 87400; 88307; 88312; 88313; 90935; 92610; 93005; 93306; 93312; 93325; 95819; 96365; 96375; 97161; 99291-25

== ENCOUNTER 2017-09-07 13:59 | Emergency (ER) | payer MEDICARE, OTHER ==
[2017-09-07] MEDS: HYDROCODONE/APAP (5/325) TAB PO (16:17)
[2017-09-07 16:30] LABS: ABNORMAL IP MESSAGE 1; HEMATOCRIT 27.9 % (42.0-52.0); HEMOGLOBIN 8.8 g/dl (14.0-18.0); MEAN CORPUSCULAR HEMOGLOBIN 26.3 pg (29.0-33.0); MEAN CORPUSCULAR HGB CONC 31.5 g/dl (32.0-37.0); MEAN CORPUSCULAR VOLUME 83.3 fl (82.0-101.0); MEAN PLATELET VOLUME 10.4 fl (7.4-10.4); NUCLEATED RED BLOOD CELLS% 0.2 /100WBC (0.0-0.0); PLATELET COUNT 432 10^3/UL (140-415); POSITIVE DIFF @See below; RED BLOOD COUNT 3.35 10^6/ul (4.70-6.10); RED CELL DISTRIBUTION WIDTH 23.1 % (11.5-14.5)
[2017-09-07 16:34] LABS: ADD MAN DIFF? YES
[2017-09-07 16:45] LABS: ALANINE AMINOTRANSFERASE 9 IU/L (13-69); ALBUMIN 3.7 g/dl (3.3-4.9); ALBUMIN/GLOBULIN RATIO 0.94; ALKALINE PHOSPHATASE 130 IU/L (42-121); ANION GAP 14 (8-16); ASPARTATE AMINO TRANSFERASE 31 IU/L (15-46); BILIRUBIN,INDIRECT 0.2 mg/dl (0-1.1); BILIRUBIN,TOTAL 0.2 mg/dl (0.2-1.3); BLOOD UREA NITROGEN 29 mg/dl (7-20); CALCIUM 9.1 mg/dl (8.4-10.2); CARBON DIOXIDE 28 mmol/L (21-31); CHLORIDE 99 mmol/L (97-110); CREATININE 3.72 mg/dl (0.61-1.24); GLUCOSE 98 mg/dl (70-220); LIPASE 72 U/L (23-300); SODIUM 136 mmol/L (135-144); TOTAL PROTEIN 7.6 g/dl (6.1-8.1)
[2017-09-07 16:56] LABS: TROPONIN-I < 0.010 ng/ml (0.000-0.120)
[2017-09-07 18:16] LABS: ANISOCYTOSIS 2+ (0-0); BASOPHIL #M 0.1 10^3/ul (0.0-0.0); BASOPHILS % (M) 1 % (0-2); EOSINOPHILS % (M) 4 % (0-7); HYPOCHROMASIA 2+ (0-0); LYMPHOCYTES #M 4.1 10^3/ul (0.8-2.9); LYMPHOCYTES % (M) 41 % (15-51); MONOCYTE #M 1.7 10^3/ul (0.3-0.9); MONOCYTES % (M) 17 % (0-11); PLATELET MORPHOLOGY COMMENT @See below; POIKILOCYTOSIS 1+ (0-0); REACTIVE LYMPHOCYTES #M 0.2 10^3/ul (0.0-0.0); REACTIVE LYMPHOCYTES% (M) 2 % (0-0); SEGMENTED NEUTROPHILS (M) % 35 % (39-77); SMUDGE%M 8 % (0-0)
== END 2017-09-07 17:59 | disposition home or self-care (01) ==
LOC: E/R 13:59
DX: R10.84 Generalized abdominal pain (principal); N18.6 End stage renal disease; D63.1 Anemia in chronic kidney disease; R94.31 Abnormal electrocardiogram [ECG] [EKG]; I12.0 Hypertensive chronic kidney disease with stage 5 chronic kidney disease or end stage renal disease; I50.9 Heart failure, unspecified; J44.9 Chronic obstructive pulmonary disease, unspecified; E11.22 Type 2 diabetes mellitus with diabetic chronic kidney disease; Z99.2 Dependence on renal dialysis; Z87.891 Personal history of nicotine dependence
CPT/HCPCS: 36415; 74176; 80053; 83690; 84484; 85025; 93005; 99285-25

== ENCOUNTER 2017-09-14 13:39 | Emergency (ER) | payer MEDICARE, OTHER ==
[2017-09-14 14:54] LABS: ADD MAN DIFF? NO
[2017-09-14 15:02] LABS: WHITE BLOOD COUNT 10.6 10^3/ul (4.8-10.8)
[2017-09-14 15:02] LABS: BASOPHIL # 0.1 10^3/ul (0.0-0.1); BASOPHILS % 0.6 % (0.0-2.0); EOSINOPHILS # 0.3 10^3/ul (0.0-0.5); EOSINOPHILS % 3.1 % (0.0-7.0); HEMATOCRIT 28.5 % (42.0-52.0); HEMOGLOBIN 9.2 g/dl (14.0-18.0); LYMPHOCYTES # 2.6 10^3/ul (0.8-2.9); LYMPHOCYTES % 24.9 % (15.0-51.0); MEAN CORPUSCULAR HEMOGLOBIN 27.3 pg (29.0-33.0); MEAN CORPUSCULAR HGB CONC 32.3 g/dl (32.0-37.0); MEAN CORPUSCULAR VOLUME 84.6 fl (82.0-101.0); MEAN PLATELET VOLUME 10.1 fl (7.4-10.4); MONOCYTE # 1.3 10^3/ul (0.3-0.9); MONOCYTES % 11.9 % (0.0-11.0); NEUTROPHIL # 6.2 10^3/ul (1.6-7.5); NEUTROPHILS % 58.8 % (39.0-77.0); PLATELET COUNT 354 10^3/UL (140-415); POSITIVE DIFF @See below; RED BLOOD COUNT 3.37 10^6/ul (4.70-6.10); RED CELL DISTRIBUTION WIDTH 21.6 % (11.5-14.5)
[2017-09-14] MEDS: HYDROCODONE/APAP (5/325) TAB PO (15:09)
[2017-09-14 15:20] LABS: ANION GAP 17 (8-16); BLOOD UREA NITROGEN 29 mg/dl (7-20); CALCIUM 9.1 mg/dl (8.4-10.2); CARBON DIOXIDE 23 mmol/L (21-31); CHLORIDE 100 mmol/L (97-110); CREATININE 4.13 mg/dl (0.61-1.24); GLUCOSE 114 mg/dl (70-220); POTASSIUM 4.4 mmol/L (3.5-5.1); SODIUM 136 mmol/L (135-144)
[2017-09-14 15:40] LABS: ADD UMIC YES; UR ASCORBIC ACID NEGATIVE (NEGATIVE); UR BILIRUBIN (Dip) NEGATIVE (NEGATIVE); UR BLOOD (Dip) NEGATIVE (NEGATIVE); UR CLARITY CLEAR (CLEAR); UR COLOR YELLOW (YELLOW); UR GLUCOSE (Dip) NEGATIVE (NEGATIVE); UR KETONES (Dip) NEGATIVE (NEGATIVE); UR LEUKOCYTE ESTERASE (Dip) NEGATIVE Leu/ul (NEGATIVE); UR NITRITE (Dip) NEGATIVE (NEGATIVE); UR RBC 1 /HPF (0-5); UR SPECIFIC GRAVITY (Dip) 1.009 (1.003-1.030); UR TOTAL PROTEIN (Dip) 1+ mg/dl (NEGATIVE); UR UROBILINOGEN (Dip) NEGATIVE (NEGATIVE); UR WBC 0 /HPF (0-5)
[2017-09-14 16:14] LABS: ANISOCYTOSIS 2+ (0-0); EOSINOPHILS % (M) 6 % (0-7); GIANT THROMBO% (M) 13 % (0-0); LYMPHOCYTES #M 3.6 10^3/ul (0.8-2.9); LYMPHOCYTES % (M) 34 % (15-51); MONOCYTE #M 0.5 10^3/ul (0.3-0.9); MONOCYTES % (M) 5 % (0-11); PLATELET MORPHOLOGY COMMENT @See below; SEGMENTED NEUTROPHILS (M) % 55 % (39-77); SMUDGE%M 26 % (0-0)
== END 2017-09-14 17:02 | disposition home or self-care (01) ==
LOC: E/R 13:39
DX: M79.605 Pain in left leg (principal); I12.0 Hypertensive chronic kidney disease with stage 5 chronic kidney disease or end stage renal disease; N18.6 End stage renal disease; F17.210 Nicotine dependence, cigarettes, uncomplicated; Z99.2 Dependence on renal dialysis
CPT/HCPCS: 80048; 81001; 85025; 93926; 99284-25

== ENCOUNTER 2017-09-26 15:43 | Observation (INO) | payer MEDICARE, OTHER ==
[2017-09-26 19:34] LABS: WHITE BLOOD COUNT 11.9 10^3/ul (4.8-10.8)
[2017-09-26 19:34] LABS: ABNORMAL IP MESSAGE 1; HEMATOCRIT 33.7 % (42.0-52.0); HEMOGLOBIN 11.5 g/dl (14.0-18.0); MEAN CORPUSCULAR HEMOGLOBIN 28.1 pg (29.0-33.0); MEAN CORPUSCULAR HGB CONC 34.1 g/dl (32.0-37.0); MEAN CORPUSCULAR VOLUME 82.4 fl (82.0-101.0); MEAN PLATELET VOLUME 9.9 fl (7.4-10.4); PLATELET COUNT 355 10^3/UL (140-415); POSITIVE DIFF @See below; RED BLOOD COUNT 4.09 10^6/ul (4.70-6.10); RED CELL DISTRIBUTION WIDTH 20.3 % (11.5-14.5)
[2017-09-26 19:36] LABS: ADD MAN DIFF? YES
[2017-09-26 19:52] LABS: INR 1.01; PROTIME 13.4 Sec (11.9-14.9)
[2017-09-26 19:53] LABS: ANION GAP 22 (8-16); BLOOD UREA NITROGEN 31 mg/dl (7-20); CALCIUM 9.6 mg/dl (8.4-10.2); CARBON DIOXIDE 23 mmol/L (21-31); CHLORIDE 94 mmol/L (97-110); CREATININE 3.78 mg/dl (0.61-1.24); GLUCOSE 128 mg/dl (70-220); PARTIAL THROMBOPLASTIN TIME 42.3 Sec (25.0-35.0); POTASSIUM 3.3 mmol/L (3.5-5.1); SODIUM 136 mmol/L (135-144)
[2017-09-26 20:14] LABS: ANISOCYTOSIS 2+ (0-0); EOSINOPHILS % (M) 6 % (0-7); GIANT THROMBO% (M) 3 % (0-0); LYMPHOCYTES #M 2.7 10^3/ul (0.8-2.9); LYMPHOCYTES % (M) 23 % (15-51); MONOCYTES % (M) 9 % (0-11); PLATELET MORPHOLOGY COMMENT @See below; REACTIVE LYMPHOCYTES #M 0.8 10^3/ul (0.0-0.0); REACTIVE LYMPHOCYTES% (M) 7 % (0-0); SEGMENTED NEUTROPHILS (M) % 55 % (39-77); SMUDGE%M 9 % (0-0); TARGET CELLS 1+ (0-0)
[2017-09-26] MEDS ORDERED: ACETAMINOPHEN 325 MG TAB PO (20:30)
[2017-09-26] MEDS ORDERED: ONDANSETRON 4 MG INJ IV (20:30)
[2017-09-26] MEDS ORDERED: ACETAMINOPHEN 500 MG TAB PO (23:00)
[2017-09-26] MEDS ORDERED: POLYETHYLENE GLYCOL 17 GM PACKET PO (23:00)
[2017-09-26] MEDS ORDERED: NON-FORMULARY/PATIENT OWN MED (Hydrocodone/Acetaminophen (Norco 5-325 Tablet) 1 EACH) PO (23:00)
[2017-09-27] MEDS ORDERED: HYDROCODONE/APAP (5/325) TAB PO (00:30)
[2017-09-27] MEDS ORDERED: GLUCAGON 1 MG INJ IM (01:00)
[2017-09-27] MEDS ORDERED: GLUCOSE GEL 15 GRAM TUBE BUCCAL (01:00)
[2017-09-27] MEDS ORDERED: GLUCOSE GEL 15 GRAM TUBE PO ×2 (01:00)
[2017-09-27] MEDS ORDERED: DEXTROSE 50% 50 ML SYRINGE IV ×2 (01:00)
[2017-09-27] MEDS: HYDROCODONE/APAP (5/325) TAB PO (02:26)
[2017-09-27 05:25] LABS: ADD MAN DIFF? NO
[2017-09-27 05:32] LABS: WHITE BLOOD COUNT 10.5 10^3/ul (4.8-10.8)
[2017-09-27 05:32] LABS: ABNORMAL IP MESSAGE 1; BASOPHIL # 0.1 10^3/ul (0.0-0.1); EOSINOPHILS # 0.5 10^3/ul (0.0-0.5); EOSINOPHILS % 4.4 % (0.0-7.0); HEMOGLOBIN 10.1 g/dl (14.0-18.0); LYMPHOCYTES # 1.7 10^3/ul (0.8-2.9); LYMPHOCYTES % 16.6 % (15.0-51.0); MEAN CORPUSCULAR HEMOGLOBIN 27.5 pg (29.0-33.0); MEAN CORPUSCULAR HGB CONC 33.7 g/dl (32.0-37.0); MEAN CORPUSCULAR VOLUME 81.7 fl (82.0-101.0); MEAN PLATELET VOLUME 10.6 fl (7.4-10.4); MONOCYTE # 2.1 10^3/ul (0.3-0.9); MONOCYTES % 20.1 % (0.0-11.0); NEUTROPHIL # 6.1 10^3/ul (1.6-7.5); NEUTROPHILS % 57.4 % (39.0-77.0); PLATELET COUNT 344 10^3/UL (140-415); POSITIVE DIFF @See below; RED BLOOD COUNT 3.67 10^6/ul (4.70-6.10)
[2017-09-27 05:46] LABS: ANION GAP 18 (8-16); BLOOD UREA NITROGEN 38 mg/dl (7-20); CALCIUM 9.2 mg/dl (8.4-10.2); CARBON DIOXIDE 23 mmol/L (21-31); CHLORIDE 99 mmol/L (97-110); CREATININE 3.66 mg/dl (0.61-1.24); GLUCOSE 99 mg/dl (70-220); POTASSIUM 3.8 mmol/L (3.5-5.1); SODIUM 136 mmol/L (135-144)
[2017-09-27] MEDS: PANTOPRAZOLE (EC) 40 MG TAB PO (06:43)
[2017-09-27] MEDS: INSULIN ASPART [NOVOLOG] 3 ML PEN SC ×2 (07:20→12:53)
[2017-09-27] MEDS: GABAPENTIN 100 MG CAP PO ×2 (08:28→12:36)
[2017-09-27] MEDS: MULTIVIT/CA CARB/B CMPLX/FA TAB PO (08:28)
[2017-09-27] MEDS: METOPROLOL 50 MG TAB PO ×2 (08:28→12:36)
[2017-09-27] MEDS: CYANOCOBALAMIN 500 MCG TAB PO (08:28)
[2017-09-27] MEDS: LINAGLIPTIN 5 MG TABLET PO ×2 (08:28→12:35)
[2017-09-27] MEDS: OLANZAPINE 5 MG TAB PO ×2 (08:29→12:53)
[2017-09-27] MEDS ORDERED: LIDOCAINE 1% (MDV) 20 ML INJ (08:41)
[2017-09-27] MEDS ORDERED: FENTAnyl 50 MCG/ML VIAL (08:41)
[2017-09-27] MEDS ORDERED: HEPARIN 1000 UNITS/ML 10 ML INJ (08:41)
[2017-09-27] MEDS ORDERED: MIDAZOLAM 1 MG/ML 2 ML INJ (08:42)
[2017-09-27] MEDS ORDERED: IOHEXOL 350MG/ML 50 ML BTL (08:56)
[2017-09-27] MEDS ORDERED: ALBUMIN HUMAN 25% 100 ML IV (12:30)
[2017-09-27] MEDS ORDERED: HEPARIN 1000 UNITS/ML 10 ML INJ CATHETER (12:30)
[2017-09-27] MEDS ORDERED: SODIUM CHLORIDE 0.9% 1L BAG IV (12:30)
[2017-09-27] MEDS: morphine 2 MG INJ IV (12:36)
[2017-09-29] MEDS ORDERED: CEFAZOLIN 1 GM/50 ML (PMX) 50 ML IVPB (06:52)
== END 2017-09-27 16:10 | disposition home or self-care (01) ==
LOC: E/R 15:43 → MS1 20:10
DX: T82.898A Other specified complication of vascular prosthetic devices, implants and grafts, initial encounter (principal); Y84.1 Kidney dialysis as the cause of abnormal reaction of the patient, or of later complication, without mention of misadventure at the time of the procedure; I12.0 Hypertensive chronic kidney disease with stage 5 chronic kidney disease or end stage renal disease; N18.6 End stage renal disease; I50.20 Unspecified systolic (congestive) heart failure; J44.9 Chronic obstructive pulmonary disease, unspecified; E11.9 Type 2 diabetes mellitus without complications; G40.909 Epilepsy, unspecified, not intractable, without status epilepticus; Z86.718 Personal history of other venous thrombosis and embolism; M48.061 Spinal stenosis, lumbar region without neurogenic claudication
CPT/HCPCS: 36415; 37248; 37249; 75820; 77001; 80048; 82962; 85025; 85610; 85730; 93005; 99285-25

== ENCOUNTER 2017-12-01 14:54 | Day surgery (SDC) | payer MEDICARE, OTHER ==
[2017-12-01 15:53] LABS: WHITE BLOOD COUNT 5.6 10^3/ul (4.8-10.8)
[2017-12-01 15:53] LABS: HEMATOCRIT 27.8 % (42.0-52.0); HEMOGLOBIN 10.1 g/dl (14.0-18.0); MEAN CORPUSCULAR HEMOGLOBIN 31.2 pg (29.0-33.0); MEAN CORPUSCULAR HGB CONC 36.3 g/dl (32.0-37.0); MEAN CORPUSCULAR VOLUME 85.8 fl (82.0-101.0); MEAN PLATELET VOLUME 11.5 fl (7.4-10.4); NUCLEATED RED BLOOD CELLS% 0.5 /100WBC (0.0-0.0); PLATELET COUNT 280 10^3/UL (140-415); RED BLOOD COUNT 3.24 10^6/ul (4.70-6.10)
[2017-12-01 15:58] LABS: ADD MAN DIFF? YES
[2017-12-01 16:16] LABS: ANION GAP 11 (5-13); CARBON DIOXIDE 30 mmol/L (21-31); CHLORIDE 91 mmol/L (97-110); CREATININE 2.81 mg/dl (0.61-1.24); Estimated GFR 29 mL/min (>60); GLUCOSE 85 mg/dl (70-220)
[2017-12-01 16:19] LABS: SODIUM 132 mmol/L (135-144)
[2017-12-01 16:20] LABS: POTASSIUM 3.4 mmol/L (3.5-5.1)
[2017-12-01 16:21] LABS: BLOOD UREA NITROGEN 14 mg/dl (7-20)
[2017-12-01 16:22] LABS: INR 0.95; PROTIME 12.8 Sec (11.9-14.9)
[2017-12-01 16:44] LABS: ANISOCYTOSIS 3+ (0-0); BAND NEUTROPHILS % (M) 1 % (0-4); EOSINOPHILS % (M) 2 % (0-7); ERYTHROBLAST% (NRBC) (M) 1 % (0-0); GIANT THROMBO% (M) 7 % (0-0); LYMPHOCYTES #M 1.7 10^3/ul (0.8-2.9); LYMPHOCYTES % (M) 32 % (15-51); MONOCYTE #M 1.6 10^3/ul (0.3-0.9); MONOCYTES % (M) 30 % (0-11); PLATELET ESTIMATE NORMAL; POLYCHROMASIA 1+ (0-0); SEGMENTED NEUTROPHILS (M) % 35 % (39-77); SMUDGE%M 6 % (0-0); TARGET CELLS 3+ (0-0)
[2017-12-01] MEDS ORDERED: GELATIN SIZE 100 SPONGE (16:53)
[2017-12-01] MEDS ORDERED: LIDOCAINE 1% (MPF) 10 ML INJ ×2 (16:54→16:55)
[2017-12-01 17:21] LABS: PARTIAL THROMBOPLASTIN TIME 39.7 Sec (23.0-35.0)
[2017-12-01] MEDS ORDERED: OXYCODONE/ACETAMINOPHEN (5/325) TAB PO ×2 (18:00)
[2017-12-01] MEDS ORDERED: ALBUTEROL 0.083% (NEB) 2.5 MG/3 ML AMP HHN (18:00)
[2017-12-01] MEDS ORDERED: ONDANSETRON 4 MG INJ IV (18:00)
[2017-12-01] MEDS ORDERED: IPRATROPIUM (NEB) 0.5 MG/2.5 ML AMP HHN (18:00)
[2017-12-01] MEDS ORDERED: hydrALAzine 20 MG INJ IV (18:00)
[2017-12-01] MEDS ORDERED: TRIMETHOBENZAMIDE 100 MG/ML VIAL IM (18:00)
[2017-12-01] MEDS ORDERED: EPHEDrine SULFATE 50 MG/5 ML SYG IV (18:00)
[2017-12-01] MEDS ORDERED: DIPHENHYDRAMINE 50 MG INJ IV (18:00)
[2017-12-01] MEDS ORDERED: FENTAnyl 50 MCG/ML VIAL IV ×2 (18:00)
[2017-12-01] MEDS ORDERED: LABETALOL HCL 20MG INJ IV (18:00)
[2017-12-01] MEDS ORDERED: MIDAZOLAM 1 MG/ML 2 ML INJ IV (18:00)
[2017-12-01] MEDS ORDERED: ONDANSETRON 4 MG INJ (18:11)
[2017-12-01] MEDS ORDERED: FENTAnyl 50 MCG/ML VIAL (18:11)
[2017-12-01] MEDS ORDERED: ROPIVACAINE 0.5 % 30 ML VIAL (18:11)
[2017-12-01] MEDS ORDERED: MIDAZOLAM 1 MG/ML 2 ML INJ (18:11)
[2017-12-01] MEDS ORDERED: hydrALAzine 20 MG INJ ×2 (19:12→19:39)
[2017-12-01] MEDS ORDERED: VANCOMYCIN 1 GM (PMX) 250 ML (19:17)
[2017-12-01] MEDS ORDERED: GENTAMICIN 80 MG/NS (PMX) 50 ML (19:17)
[2017-12-01] MEDS ORDERED: PROPOFOL 100 ML (19:22)
[2017-12-01] MEDS ORDERED: LABETALOL HCL 20MG INJ (19:27)
[2017-12-01] MEDS ORDERED: KETAMINE (100 MG/ML) 5 ML VIAL (19:37)
[2017-12-01] MEDS: BUPIVACAINE 0.5% (SDV) 30 ML INJ (20:15)
[2017-12-01] MEDS: HEPARIN 1000 UNITS/ML 10 ML INJ ×2 (20:16→20:20)
[2017-12-01] MEDS: LIDOCAINE 2% (MDV) 20 ML INJ (20:17)
[2017-12-01] MEDS: THROMBIN 5000 UNIT VIAL (20:17)
[2017-12-01] MEDS ORDERED: DESMOPRESSIN IV (20:30)
[2017-12-01] MEDS ORDERED: SOD CHLORIDE 0.9% IV (20:30)
[2017-12-01] MEDS ORDERED: THROMBIN 5000 UNIT VIAL (21:24)
[2017-12-01] MEDS: FENTAnyl 50 MCG/ML VIAL IV (22:08)
== END 2017-12-01 23:10 | disposition home or self-care (01) ==
LOC: SDS 14:54
DX: I13.2 Hypertensive heart and chronic kidney disease with heart failure and with stage 5 chronic kidney disease, or end stage renal disease (principal); N18.6 End stage renal disease; I50.20 Unspecified systolic (congestive) heart failure; J44.9 Chronic obstructive pulmonary disease, unspecified; I25.10 Atherosclerotic heart disease of native coronary artery without angina pectoris; G40.909 Epilepsy, unspecified, not intractable, without status epilepticus
CPT/HCPCS: 36830; 71045; 80048; 82962; 85025; 85610; 85730; 93005

== ENCOUNTER 2018-03-28 12:26 | Emergency (ER) | payer MEDICARE, OTHER ==
[2018-03-28 14:47] LABS: ADD MAN DIFF? NO
[2018-03-28 14:52] LABS: WHITE BLOOD COUNT 4.8 10^3/ul (4.8-10.8)
[2018-03-28 14:52] LABS: BASOPHIL # 0.1 10^3/ul (0.0-0.1); BASOPHILS % 1.9 % (0.0-2.0); EOSINOPHILS # 0.3 10^3/ul (0.0-0.5); HEMATOCRIT 35.1 % (42.0-52.0); HEMOGLOBIN 11.9 g/dl (14.0-18.0); LYMPHOCYTES # 1.8 10^3/ul (0.8-2.9); LYMPHOCYTES % 37.6 % (15.0-51.0); MEAN CORPUSCULAR HEMOGLOBIN 28.6 pg (29.0-33.0); MEAN CORPUSCULAR HGB CONC 33.9 g/dl (32.0-37.0); MEAN CORPUSCULAR VOLUME 84.4 fl (82.0-101.0); MEAN PLATELET VOLUME 10.5 fl (7.4-10.4); MONOCYTE # 0.7 10^3/ul (0.3-0.9); MONOCYTES % 15.3 % (0.0-11.0); NEUTROPHIL # 1.8 10^3/ul (1.6-7.5); NEUTROPHILS % 37.6 % (39.0-77.0); PLATELET COUNT 300 10^3/UL (140-415); RED BLOOD COUNT 4.16 10^6/ul (4.70-6.10); RED CELL DISTRIBUTION WIDTH 17.1 % (11.5-14.5)
[2018-03-28 15:09] LABS: ANION GAP 14 (5-13); BLOOD UREA NITROGEN 46 mg/dl (7-20); CALCIUM 8.6 mg/dl (8.4-10.2); CARBON DIOXIDE 21 mmol/L (21-31); CHLORIDE 103 mmol/L (97-110); CREATININE 8.67 mg/dl (0.61-1.24); Estimated GFR 8 mL/min (>60); GLUCOSE 77 mg/dl (70-220); POTASSIUM 5.3 mmol/L (3.5-5.1); SODIUM 138 mmol/L (135-144)
[2018-03-28 15:21] LABS: TROPONIN-I < 0.012 ng/ml (0.000-0.120)
== END 2018-03-28 16:43 | disposition left against medical advice (07) ==
LOC: E/R 12:26
DX: R55 Syncope and collapse (principal); J44.9 Chronic obstructive pulmonary disease, unspecified; I50.9 Heart failure, unspecified; N18.6 End stage renal disease; I13.2 Hypertensive heart and chronic kidney disease with heart failure and with stage 5 chronic kidney disease, or end stage renal disease; Z87.891 Personal history of nicotine dependence; Z99.2 Dependence on renal dialysis
CPT/HCPCS: 36415; 71045; 72170; 80048; 82962; 84484; 85025; 93005; 99285-25

== ENCOUNTER 2018-04-27 11:58 | Observation (INO) | payer MEDICARE, OTHER ==
[2018-04-27 15:20] LABS: ADD MAN DIFF? NO
[2018-04-27 15:28] LABS: WHITE BLOOD COUNT 6.9 10^3/ul (4.8-10.8)
[2018-04-27 15:28] LABS: BASOPHIL # 0.1 10^3/ul (0.0-0.1); EOSINOPHILS # 0.2 10^3/ul (0.0-0.5); EOSINOPHILS % 2.5 % (0.0-7.0); HEMATOCRIT 33.5 % (42.0-52.0); HEMOGLOBIN 11.5 g/dl (14.0-18.0); LYMPHOCYTES # 2.3 10^3/ul (0.8-2.9); LYMPHOCYTES % 33.6 % (15.0-51.0); MEAN CORPUSCULAR HEMOGLOBIN 27.8 pg (29.0-33.0); MEAN CORPUSCULAR HGB CONC 34.3 g/dl (32.0-37.0); MEAN CORPUSCULAR VOLUME 81.1 fl (82.0-101.0); MONOCYTES % 15.1 % (0.0-11.0); NEUTROPHIL # 3.3 10^3/ul (1.6-7.5); NEUTROPHILS % 47.5 % (39.0-77.0); PLATELET COUNT 216 10^3/UL (140-415); RED BLOOD COUNT 4.13 10^6/ul (4.70-6.10); RED CELL DISTRIBUTION WIDTH 18.7 % (11.5-14.5)
[2018-04-27 15:52] LABS: ALANINE AMINOTRANSFERASE 29 IU/L (13-69); ALBUMIN 3.6 g/dl (3.3-4.9); ALKALINE PHOSPHATASE 152 IU/L (42-121); ANION GAP 16 (5-13); ASPARTATE AMINO TRANSFERASE 83 IU/L (15-46); BILIRUBIN,INDIRECT 0.2 mg/dl (0-1.1); BILIRUBIN,TOTAL 0.2 mg/dl (0.2-1.3); BLOOD UREA NITROGEN 37 mg/dl (7-20); CALCIUM 9.9 mg/dl (8.4-10.2); CARBON DIOXIDE 23 mmol/L (21-31); CHLORIDE 99 mmol/L (97-110); CREATININE 5.31 mg/dl (0.61-1.24); Estimated GFR 14 mL/min (>60); GLUCOSE 86 mg/dl (70-220); LIPASE 18 U/L (23-300); POTASSIUM 4.7 mmol/L (3.5-5.1); SODIUM 138 mmol/L (135-144); TOTAL PROTEIN 7.2 g/dl (6.1-8.1)
[2018-04-27 16:03] LABS: TROPONIN-I < 0.012 ng/ml (0.000-0.120)
[2018-04-27 16:10] LABS: INR 0.95; PROTIME 12.8 Sec (11.9-14.9)
[2018-04-27 16:11] LABS: PARTIAL THROMBOPLASTIN TIME 29.7 Sec (23.0-35.0)
[2018-04-27] MEDS ORDERED: hydrALAzine 20 MG INJ IV (20:00)
[2018-04-27] MEDS: NIFEdipine (XL) 30 MG TAB PO (20:00)
[2018-04-27] MEDS: OLANZAPINE 5 MG TAB PO (21:00)
[2018-04-27] MEDS: MEGESTROL 40 MG TAB PO (21:00)
[2018-04-27] MEDS: CYANOCOBALAMIN 500 MCG TAB PO (22:02)
[2018-04-27] MEDS: GABAPENTIN 100 MG CAP PO (22:03)
[2018-04-27] MEDS: LEVETIRACETAM 500 MG TAB PO (22:03)
[2018-04-27] MEDS: MULTIVIT/CA CARB/B CMPLX/FA TAB PO (22:03)
[2018-04-27] MEDS: HYDROCODONE/APAP (5/325) TAB PO (23:31)
[2018-04-28] MEDS: morphine 2 MG INJ IV ×5 (03:36→19:56)
[2018-04-28 06:04] LABS: ANION GAP 14 (5-13); BLOOD UREA NITROGEN 41 mg/dl (7-20); CALCIUM 9.2 mg/dl (8.4-10.2); CARBON DIOXIDE 24 mmol/L (21-31); CHLORIDE 99 mmol/L (97-110); CREATININE 5.17 mg/dl (0.61-1.24); Estimated GFR 14 mL/min (>60); GLUCOSE 86 mg/dl (70-220); POTASSIUM 4.5 mmol/L (3.5-5.1); SODIUM 137 mmol/L (135-144)
[2018-04-28] MEDS: METOPROLOL 25 MG TAB PO ×2 (08:00→20:08)
[2018-04-28] MEDS ORDERED: METOPROLOL 25 MG TAB PO (08:00)
[2018-04-28] MEDS: NIFEdipine (XL) 30 MG TAB PO (09:00)
[2018-04-28] MEDS ORDERED: LINAGLIPTIN 5 MG TABLET PO (09:00)
[2018-04-28] MEDS: LEVETIRACETAM 500 MG TAB PO ×2 (09:12→20:06)
[2018-04-28] MEDS: GABAPENTIN 100 MG CAP PO ×3 (09:12→20:06)
[2018-04-28] MEDS: CYANOCOBALAMIN 500 MCG TAB PO (09:13)
[2018-04-28] MEDS: MULTIVIT/CA CARB/B CMPLX/FA TAB PO (09:13)
[2018-04-28] MEDS: OLANZAPINE 5 MG TAB PO ×2 (11:48→20:06)
[2018-04-28] MEDS: MEGESTROL 40 MG TAB PO ×3 (11:49→22:09)
[2018-04-28] MEDS: HYDROCODONE/APAP (5/325) TAB PO (22:10)
[2018-04-29] MEDS: morphine 2 MG INJ IV ×5 (00:01→20:26)
[2018-04-29] MEDS: ACETAMINOPHEN 500 MG TAB PO (02:38)
[2018-04-29] MEDS: METOPROLOL 25 MG TAB PO ×2 (08:00→20:00)
[2018-04-29] MEDS: OLANZAPINE 5 MG TAB PO ×2 (09:06→20:20)
[2018-04-29] MEDS: LEVETIRACETAM 500 MG TAB PO ×2 (09:07→20:20)
[2018-04-29] MEDS: CYANOCOBALAMIN 500 MCG TAB PO (09:07)
[2018-04-29] MEDS: NIFEdipine (XL) 30 MG TAB PO (09:08)
[2018-04-29] MEDS: MULTIVIT/CA CARB/B CMPLX/FA TAB PO (09:08)
[2018-04-29] MEDS: GABAPENTIN 100 MG CAP PO ×3 (09:08→20:20)
[2018-04-29] MEDS: MEGESTROL 40 MG TAB PO ×2 (09:08→20:20)
[2018-04-29 11:44] LABS: ADD MAN DIFF? NO
[2018-04-29 11:49] LABS: WHITE BLOOD COUNT 5.9 10^3/ul (4.8-10.8)
[2018-04-29 11:49] LABS: BASOPHIL # 0.1 10^3/ul (0.0-0.1); BASOPHILS % 1.2 % (0.0-2.0); EOSINOPHILS # 0.3 10^3/ul (0.0-0.5); EOSINOPHILS % 5.1 % (0.0-7.0); HEMATOCRIT 33.3 % (42.0-52.0); HEMOGLOBIN 11.3 g/dl (14.0-18.0); LYMPHOCYTES % 34.8 % (15.0-51.0); MEAN CORPUSCULAR HEMOGLOBIN 27.4 pg (29.0-33.0); MEAN CORPUSCULAR HGB CONC 33.9 g/dl (32.0-37.0); MEAN CORPUSCULAR VOLUME 80.8 fl (82.0-101.0); MEAN PLATELET VOLUME 12.4 fl (7.4-10.4); MONOCYTE # 1.2 10^3/ul (0.3-0.9); MONOCYTES % 19.6 % (0.0-11.0); NEUTROPHIL # 2.3 10^3/ul (1.6-7.5); NEUTROPHILS % 39.1 % (39.0-77.0); PLATELET COUNT 225 10^3/UL (140-415); RED BLOOD COUNT 4.12 10^6/ul (4.70-6.10); RED CELL DISTRIBUTION WIDTH 18.9 % (11.5-14.5)
[2018-04-29 12:17] LABS: B-TYPE NATRIURETIC PEPTIDE 5520 PG/ML (0-125)
[2018-04-29] MEDS: BUPIVACAINE 0.5% (SDV) 30 ML INJ (12:36)
[2018-04-29] MEDS: LIDOCAINE 1% (MPF) 30 ML INJ (12:36)
[2018-04-29] MEDS: HEPARIN 1000 UNITS/ML 10 ML INJ (12:40)
[2018-04-29] MEDS ORDERED: LIDOCAINE 1%/EPI (1:100,000) (MDV) 20 ML (12:46)
[2018-04-29] MEDS: IOHEXOL 300MG/ML 30 ML BTL (12:55)
[2018-04-29] MEDS ORDERED: FENTAnyl 50 MCG/ML VIAL IV ×3 (13:00)
[2018-04-29] MEDS ORDERED: LABETALOL HCL 20MG INJ IV (13:00)
[2018-04-29] MEDS ORDERED: ONDANSETRON 4 MG INJ IV (13:00)
[2018-04-29] MEDS ORDERED: hydrALAzine 20 MG INJ IV (13:00)
[2018-04-29] MEDS ORDERED: OXYCODONE/ACETAMINOPHEN (5/325) TAB PO (13:00)
[2018-04-29] MEDS ORDERED: EPHEDrine SULFATE 50 MG/5 ML SYG IV (13:00)
[2018-04-29] MEDS ORDERED: CEFAZOLIN 1 GM INJ (13:01)
[2018-04-29 13:29] LABS: ANION GAP 14 (5-13); BLOOD UREA NITROGEN 44 mg/dl (7-20); CALCIUM 9.6 mg/dl (8.4-10.2); CARBON DIOXIDE 20 mmol/L (21-31); CHLORIDE 104 mmol/L (97-110); CREATININE 5.31 mg/dl (0.61-1.24); Estimated GFR 14 mL/min (>60); GLUCOSE 101 mg/dl (70-220); POTASSIUM 4.4 mmol/L (3.5-5.1); SODIUM 138 mmol/L (135-144)
[2018-04-29] MEDS ORDERED: ALBUMIN HUMAN 25% 100 ML IV (15:30)
[2018-04-29] MEDS ORDERED: SODIUM CHLORIDE 0.9% 1L BAG IV (15:30)
[2018-04-29] MEDS ORDERED: HEPARIN 1000 UNITS/ML 10 ML INJ CATHETER (15:30)
[2018-04-29 16:09] LABS: HEPATITIS B SURFACE ANTIGEN NEGATIVE (NEGATIVE)
[2018-04-29] MEDS: HYDROCODONE/APAP (5/325) TAB PO (16:38)
[2018-04-29] MEDS: ALTEPLASE (CATHFLO) 2 MG INJ CATHETER ×2 (21:31→21:33)
== END 2018-04-29 21:45 | disposition home or self-care (01) ==
LOC: E/R 11:58 → MS1 15:47
DX: T82.868A Thrombosis due to vascular prosthetic devices, implants and grafts, initial encounter (principal); I87.1 Compression of vein; I13.2 Hypertensive heart and chronic kidney disease with heart failure and with stage 5 chronic kidney disease, or end stage renal disease; I50.20 Unspecified systolic (congestive) heart failure; E11.22 Type 2 diabetes mellitus with diabetic chronic kidney disease; N18.6 End stage renal disease; Z99.2 Dependence on renal dialysis; G40.909 Epilepsy, unspecified, not intractable, without status epilepticus; F31.9 Bipolar disorder, unspecified; J44.9 Chronic obstructive pulmonary disease, unspecified; Z86.718 Personal history of other venous thrombosis and embolism; G89.29 Other chronic pain; M54.9 Dorsalgia, unspecified; M48.061 Spinal stenosis, lumbar region without neurogenic claudication; Y83.2 Surgical operation with anastomosis, bypass or graft as the cause of abnormal reaction of the patient, or of later complication, without mention of misadventure at the time of the procedure
CPT/HCPCS: 36415; 71045; 75820; 80048; 80053; 83690; 83880; 84484; 85025; 85610; 85730; 87081; 87340; 90935; 93005; 93931; 99285-25

== ENCOUNTER 2018-07-07 12:48 | Emergency (ER) | payer MEDICARE, OTHER ==
[2018-07-07 13:26] LABS: ADD MAN DIFF? NO
[2018-07-07 13:34] LABS: BASOPHIL # 0.1 10^3/ul (0.0-0.1); BASOPHILS % 1.8 % (0.0-2.0); EOSINOPHILS # 0.4 10^3/ul (0.0-0.5); EOSINOPHILS % 7.1 % (0.0-7.0); LYMPHOCYTES # 1.8 10^3/ul (0.8-2.9); LYMPHOCYTES % 36.6 % (15.0-51.0); MEAN CORPUSCULAR HEMOGLOBIN 31.3 pg (29.0-33.0); MEAN CORPUSCULAR HGB CONC 31.8 g/dl (32.0-37.0); MEAN CORPUSCULAR VOLUME 98.2 fl (82.0-101.0); MEAN PLATELET VOLUME 10.5 fl (7.4-10.4); MONOCYTE # 0.8 10^3/ul (0.3-0.9); MONOCYTES % 15.8 % (0.0-11.0); NEUTROPHIL # 1.9 10^3/ul (1.6-7.5); NEUTROPHILS % 38.3 % (39.0-77.0); NUCLEATED RED BLOOD CELLS # 0.3 10^3/ul (0.0-0.0); NUCLEATED RED BLOOD CELLS% 5.1 /100WBC (0.0-0.0); PLATELET COUNT 243 10^3/UL (140-415); RED BLOOD COUNT 2.24 10^6/ul (4.70-6.10)
[2018-07-07 13:34] LABS: WHITE BLOOD COUNT 4.9 10^3/ul (4.8-10.8)
[2018-07-07 13:53] LABS: ANION GAP 11 (5-13); BLOOD UREA NITROGEN 24 mg/dl (7-20); CARBON DIOXIDE 31 mmol/L (21-31); CHLORIDE 98 mmol/L (97-110); CREATININE 4.73 mg/dl (0.61-1.24); Estimated GFR 16 mL/min (>60); GLUCOSE 196 mg/dl (70-220); POTASSIUM 3.8 mmol/L (3.5-5.1); SODIUM 140 mmol/L (135-144)
[2018-07-07 14:24] LABS: ALANINE AMINOTRANSFERASE 21 IU/L (13-69); ALBUMIN 3.5 g/dl (3.3-4.9); ALKALINE PHOSPHATASE 92 IU/L (42-121); ASPARTATE AMINO TRANSFERASE 34 IU/L (15-46); BILIRUBIN,INDIRECT 0.2 mg/dl (0-1.1); BILIRUBIN,TOTAL 0.2 mg/dl (0.2-1.3); TOTAL PROTEIN 6.6 g/dl (6.1-8.1)
[2018-07-07 14:34] LABS: INR 0.95; PROTIME 12.8 Sec (11.9-14.9)
[2018-07-07 14:35] LABS: PARTIAL THROMBOPLASTIN TIME 28.1 Sec (23.0-35.0)
[2018-07-07 14:37] LABS: TROPONIN-I < 0.012 ng/ml (0.000-0.120)
[2018-07-07 15:03] LABS: IMMEDIATE SPIN CROSSMATCH 1 1
[2018-07-07] MEDS: SOD CHLORIDE 0.9% 0 ML IV (15:15)
== END 2018-07-07 20:05 | disposition home or self-care (01) ==
LOC: E/R 12:48
DX: D64.9 Anemia, unspecified (principal); K92.1 Melena; I11.0 Hypertensive heart disease with heart failure; I50.9 Heart failure, unspecified; J44.9 Chronic obstructive pulmonary disease, unspecified; N18.6 End stage renal disease; Z79.82 Long term (current) use of aspirin; Z87.891 Personal history of nicotine dependence; Z99.2 Dependence on renal dialysis
CPT/HCPCS: 36415; 36430; 80048; 80076; 84484; 85025; 85610; 85730; 86850; 86900; 86901; 86920; 93005; 99285-25

== ENCOUNTER 2018-07-11 12:57 | Emergency (ER) | payer MEDICARE, OTHER ==
[2018-07-11 13:42] LABS: ADD MAN DIFF? NO
[2018-07-11 13:46] LABS: WHITE BLOOD COUNT 5.6 10^3/ul (4.8-10.8)
[2018-07-11 13:46] LABS: BASOPHIL # 0.1 10^3/ul (0.0-0.1); BASOPHILS % 1.4 % (0.0-2.0); EOSINOPHILS # 0.4 10^3/ul (0.0-0.5); HEMATOCRIT 24.5 % (42.0-52.0); LYMPHOCYTES # 1.8 10^3/ul (0.8-2.9); LYMPHOCYTES % 32.4 % (15.0-51.0); MEAN CORPUSCULAR HGB CONC 32.7 g/dl (32.0-37.0); MEAN CORPUSCULAR VOLUME 91.8 fl (82.0-101.0); MEAN PLATELET VOLUME 10.6 fl (7.4-10.4); MONOCYTE # 1.3 10^3/ul (0.3-0.9); MONOCYTES % 23.1 % (0.0-11.0); NUCLEATED RED BLOOD CELLS # 0.1 10^3/ul (0.0-0.0); NUCLEATED RED BLOOD CELLS% 1.4 /100WBC (0.0-0.0); PLATELET COUNT 228 10^3/UL (140-415); RED BLOOD COUNT 2.67 10^6/ul (4.70-6.10); RED CELL DISTRIBUTION WIDTH 18.3 % (11.5-14.5)
[2018-07-11 14:07] LABS: ANION GAP 10 (5-13); BLOOD UREA NITROGEN 23 mg/dl (7-20); CALCIUM 9.1 mg/dl (8.4-10.2); CARBON DIOXIDE 30 mmol/L (21-31); CHLORIDE 96 mmol/L (97-110); Estimated GFR 15 mL/min (>60); GLUCOSE 115 mg/dl (70-220); POTASSIUM 3.5 mmol/L (3.5-5.1); SODIUM 136 mmol/L (135-144)
== END 2018-07-11 14:56 | disposition home or self-care (01) ==
LOC: E/R 12:57
DX: D64.9 Anemia, unspecified (principal); I13.2 Hypertensive heart and chronic kidney disease with heart failure and with stage 5 chronic kidney disease, or end stage renal disease; I50.9 Heart failure, unspecified; N18.6 End stage renal disease; E11.22 Type 2 diabetes mellitus with diabetic chronic kidney disease; J44.9 Chronic obstructive pulmonary disease, unspecified; Z79.82 Long term (current) use of aspirin; Z99.2 Dependence on renal dialysis; Z87.891 Personal history of nicotine dependence
CPT/HCPCS: 36415; 80048; 85025; 99283

== ENCOUNTER 2018-08-04 12:05 | Emergency (ER) | payer MEDICARE, OTHER ==
[2018-08-04 12:59] LABS: ABNORMAL IP MESSAGE 1; HEMATOCRIT 30.6 % (42.0-52.0); MEAN CORPUSCULAR HEMOGLOBIN 29.8 pg (29.0-33.0); MEAN CORPUSCULAR HGB CONC 32.7 g/dl (32.0-37.0); MEAN CORPUSCULAR VOLUME 91.1 fl (82.0-101.0); MEAN PLATELET VOLUME 11.2 fl (7.4-10.4); NUCLEATED RED BLOOD CELLS% 7.8 /100WBC (0.0-0.0); PLATELET COUNT 218 10^3/UL (140-415); POSITIVE DIFF @See below; RED BLOOD COUNT 3.36 10^6/ul (4.70-6.10); RED CELL DISTRIBUTION WIDTH 20.8 % (11.5-14.5)
[2018-08-04 12:59] LABS: WHITE BLOOD COUNT 7.6 10^3/ul (4.8-10.8)
[2018-08-04 13:07] LABS: ADD MAN DIFF? YES
[2018-08-04 13:14] LABS: ALANINE AMINOTRANSFERASE 22 IU/L (13-69); ALBUMIN/GLOBULIN RATIO 0.96; ALKALINE PHOSPHATASE 95 IU/L (42-121); ANION GAP 8 (5-13); ASPARTATE AMINO TRANSFERASE 28 IU/L (15-46); BILIRUBIN,INDIRECT 0.2 mg/dl (0-1.1); BILIRUBIN,TOTAL 0.2 mg/dl (0.2-1.3); BLOOD UREA NITROGEN 36 mg/dl (7-20); CALCIUM 8.7 mg/dl (8.4-10.2); CARBON DIOXIDE 31 mmol/L (21-31); CHLORIDE 101 mmol/L (97-110); CREATININE 5.36 mg/dl (0.61-1.24); Estimated GFR 14 mL/min (>60); GLUCOSE 79 mg/dl (70-220); POTASSIUM 4.5 mmol/L (3.5-5.1); SODIUM 140 mmol/L (135-144); TOTAL PROTEIN 6.1 g/dl (6.1-8.1)
[2018-08-04] MEDS: SOD CHLORIDE 0.9% 500 ML IV (13:14)
[2018-08-04 13:15] LABS: ACETAMINOPHEN < 10.0 ug/ml (10.0-30.0); CREATINE KINASE < 20 IU/L (23-200); ETHANOL < 10.0 mg/dl (0-0); SALICYLATE < 1.0 mg/dl (5.0-30.0)
[2018-08-04 13:17] LABS: INR 1.08; PROTIME 14.1 Sec (11.9-14.9); PT RATIO 1.1
[2018-08-04 13:18] LABS: PARTIAL THROMBOPLASTIN TIME 39.7 Sec (23.0-35.0)
[2018-08-04 13:26] LABS: CK-MB < 0.22 ng/ml (0.0-2.4); TROPONIN-I < 0.012 ng/ml (0.000-0.120)
[2018-08-04 14:25] LABS: AADO2 Arterial 26.3 mmHg (7.0-24.0); Arterial Base Excess 2.4 mmol/L (-3.0-3); Arterial Blood Gas Oxygen Sat 94.5 mmHG (95.0-98.0); Arterial COHb 1.2 % (0.0-3.0); Arterial HCO3 25.9 mmol/L (22.0-26.0); Arterial MetHb 0.4 % (0.0-1.5); Arterial pCO2 36.2 mmhg (35-45); MODE ROOM AIR; Site Right Brachial
[2018-08-04 14:36] LABS: ANISOCYTOSIS 3+ (0-0); BAND NEUTROPHILS #M 0.2 10^3/ul (0.0-0.6); BAND NEUTROPHILS % (M) 3 % (0-4); BASOPHIL #M 0.1 10^3/ul (0.0-0.0); BASOPHILS % (M) 2 % (0-2); EOSINOPHILS % (M) 1 % (0-7); ERYTHROBLAST% (NRBC) (M) 16 % (0-0); GIANT THROMBO% (M) 5 % (0-0); LYMPHOCYTES % (M) 40 % (15-51); MONOCYTE #M 0.4 10^3/ul (0.3-0.9); MONOCYTES % (M) 6 % (0-11); PLATELET ESTIMATE NORMAL; POIKILOCYTOSIS 3+ (0-0); POLYCHROMASIA 3+ (0-0); REACTIVE LYMPHOCYTES #M 0.2 10^3/ul (0.0-0.0); REACTIVE LYMPHOCYTES% (M) 3 % (0-0); SEG NEUT #M 3.4 10^3/ul (1.6-7.5); SEGMENTED NEUTROPHILS (M) % 44 % (39-77); SMUDGE%M 8 % (0-0); TARGET CELLS 1+ (0-0)
[2018-08-04 14:48] LABS: ADD UMIC YES; UR ASCORBIC ACID NEGATIVE (NEGATIVE); UR BILIRUBIN (Dip) NEGATIVE (NEGATIVE); UR BLOOD (Dip) NEGATIVE (NEGATIVE); UR CLARITY CLEAR (CLEAR); UR COLOR YELLOW (YELLOW); UR GLUCOSE (Dip) NEGATIVE (NEGATIVE); UR KETONES (Dip) NEGATIVE (NEGATIVE); UR LEUKOCYTE ESTERASE (Dip) NEGATIVE Leu/ul (NEGATIVE); UR NITRITE (Dip) NEGATIVE (NEGATIVE); UR RBC 1 /HPF (0-5); UR SPECIFIC GRAVITY (Dip) 1.011 (1.003-1.030); UR SQUAMOUS EPITHELIAL CELL FEW /HPF (FEW); UR TOTAL PROTEIN (Dip) 1+ mg/dl (NEGATIVE); UR UROBILINOGEN (Dip) NEGATIVE (NEGATIVE); UR WBC 1 /HPF (0-5)
[2018-08-04 16:38] LABS: AMPHETAMINE/METHAMPHETAMINE Negative (NEGATIVE); BARBITURATES Negative (NEGATIVE); BENZODIAZEPINES Negative (NEGATIVE); CANNABINOIDS Positive (NEGATIVE); COCAINE Negative (NEGATIVE); OPIATES Positive (NEGATIVE)
== END 2018-08-04 15:55 | disposition home or self-care (01) ==
LOC: E/R 12:05
DX: R41.82 Altered mental status, unspecified (principal); J44.9 Chronic obstructive pulmonary disease, unspecified; I13.2 Hypertensive heart and chronic kidney disease with heart failure and with stage 5 chronic kidney disease, or end stage renal disease; I50.9 Heart failure, unspecified; N18.6 End stage renal disease; F17.210 Nicotine dependence, cigarettes, uncomplicated; R40.2142 Coma scale, eyes open, spontaneous, at arrival to emergency department; R40.2362 Coma scale, best motor response, obeys commands, at arrival to emergency department; R40.2252 Coma scale, best verbal response, oriented, at arrival to emergency department; Z99.2 Dependence on renal dialysis; Z79.82 Long term (current) use of aspirin
CPT/HCPCS: 36415; 36600; 70450; 71045; 80053; 80307; 81001; 82550; 82553; 82803; 82962; 83605; 84484; 85025; 85610; 85730; 87040-91; 87086; 93005; 99285-25

== ENCOUNTER 2018-10-05 10:34 | Emergency (ER) | payer MEDICARE, OTHER ==
[2018-10-05] MEDS: HYDROCODONE/APAP (10/325) TAB PO (11:59)
[2018-10-05] MEDS: ONDANSETRON (ODT) 4 MG TAB ODT (11:59)
== END 2018-10-05 13:13 | disposition home or self-care (01) ==
LOC: E/R 10:34
DX: S89.91XA Unspecified injury of right lower leg, initial encounter (principal); F17.210 Nicotine dependence, cigarettes, uncomplicated; I11.0 Hypertensive heart disease with heart failure; I50.9 Heart failure, unspecified; W01.198A Fall on same level from slipping, tripping and stumbling with subsequent striking against other object, initial encounter; Y92.9 Unspecified place or not applicable; Z79.82 Long term (current) use of aspirin
CPT/HCPCS: 73590; 99283-25